=== PATIENT | female | born 1940 | race Caucasian/White ===

== ENCOUNTER 2023-08-12 10:13 | Outpatient (OUT) | payer MEDICARE, SELFPAY ==
--- NOTE | 2023-08-12 10:28 | ECG_ITS ---
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
--- NOTE | 2023-08-12 11:03 | XR_ITS ---
The [address] [address] Patient Name: JOVON ROJAS MRN: [id number] date: 1940 Sex: F Assigned Patient Location: CARD Current Patient Location: CARD Accession/Order Number: [id number] Exam Date: 08/12/2023 10:55 Report Date: 08/12/2023 11:13 At the request of: BLADIMIR WAKEFIELD Procedure: XR chest 2V EXAM: XR chest 2V HISTORY: Chest Pain R07.9, Fatigue R53.83 COMPARISON: None. TECHNIQUE: PA and lateral views of the chest. FINDINGS: The cardiomediastinal silhouette is enlarged. No focal consolidation is identified. There is no pneumothorax. No pleural effusion is noted. The osseous structures are intact. XR/XR chest 2V IMPRESSION: Cardiomegaly. Electronically authenticated by: SRIKANTH HOFFMANN Date: 08/12/2023 11:13
[2023-08-12 11:25] LABS: Basophils Percent Auto 0.4 % (0.2-2.0); Eosinophils Absolute Auto 0.2 10^3/uL (0.0-0.7); Eosinophils Percent Auto 2.5 % (0.9-7.0); Hematocrit 42.6 % (36.0-48.0); Hemoglobin 13.9 g/dL (12.0-16.0); Immature Granulocytes Abs Auto 0.04 10^3/uL (0.00-0.03); Immature Granulocytes Pct Auto 0.5 % (0.0-0.5); Lymphocytes Absolute Auto 1.3 10^3/uL (1.2-3.8); Lymphocytes Percent Auto 16.7 % (20.5-60.0); Mean Corpuscular HGB Conc 32.6 g/dL (29.9-35.2); Mean Corpuscular Hemoglobin 31.7 pg (26.7-34.0); Mean Platelet Volume 10.3 fL (9.5-13.5); Monocytes Absolute Auto 0.7 10^3/uL (0.3-0.8); Monocytes Percent Auto 8.2 % (1.7-12.0); Neutrophils Absolute Auto 5.7 10^3/uL (1.4-6.5); Neutrophils Percent Auto 71.7 % (43.0-75.0); Platelet Count 253 10^3/uL (150-450); Red Blood Count 4.39 10^6/uL (4.20-5.40); Red Cell Distribution Width 13.2 % (11.0-15.0)
[2023-08-12 11:43] LABS: Alanine Aminotransferase 19 U/L (14-59); Albumin Globulin Ratio 1.2; Albumin Level 3.8 g/dL (3.4-5.0); Alkaline Phosphatase 107 U/L (46-116); Anion Gap 11.4; Aspartate Amino Transferase 13 U/L (15-37); BUN Creatinine Ratio 22.9; Bilirubin Total 0.8 mg/dL (0.2-1.0); Calcium 8.9 mg/dL (8.5-10.1); Carbon Dioxide 27.5 mmol/L (21.0-32.0); Chloride 102 mmol/L (98-107); Chol HDL Ratio 3.4; Cholesterol 266 mg/dL (<=200); Estimated GFR (African America >60 (>=60); Estimated GFR (Non-African Ame >60 (>=60); Globulin 3.3 g/dL; Glucose 78 mg/dL (74-106); HDL Cholesterol 78 mg/dL (40-60); Magnesium 2.3 mg/dL (1.8-2.4); Potassium 3.9 mmol/L (3.5-5.1); Sodium 137 mmol/L (136-145); Thyroid Stimulating Hormone 2.559 uIU/mL (0.358-3.740); Total Protein 7.1 g/dL (6.4-8.2); Triglycerides 51 mg/dL (<=150); VLDL CHOLESTEROL 10.2 mg/dL
== END 2023-08-12 10:14 | disposition home or self-care (01) ==
LOC: CARD 10:16
PROVIDERS: PCP Family Medicine
DX: R07.9 Chest pain, unspecified (principal); R53.83 Other fatigue; E55.9 Vitamin D deficiency, unspecified; E78.2 Mixed hyperlipidemia; R60.0 Localized edema; Z13.220 Encounter for screening for lipoid disorders; Z13.6 Encounter for screening for cardiovascular disorders
CPT/HCPCS: 36415; 71046; 80053; 80061; 82306; 83735; 84443; 85025; 93005

== ENCOUNTER 2024-02-15 13:21 | Observation (INO) | payer MEDICARE, SELFPAY ==
[2024-02-15] VITALS (24 sets, daily range): BP systolic 127–164; BP diastolic 66–90; PULSE 71–149; TEMP 35.4–36.6; O2SAT 92–98; BMI 25.7; BMI 28.6
--- NOTE | 2024-02-15 13:22 | ECG_ITS ---
The [facility] Test Date: 2024-02-15 Pat Name: JOVON ROJAS Department: Room: 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
--- NOTE | 2024-02-15 13:22 | CT_ITS ---
The [address] [address] Patient Name: JOVON ROJAS MRN: [id number] date: 1940 Sex: F Assigned Patient Location: ER Current Patient Location: Accession/Order Number: [id number] Exam Date: 02/15/2024 14:40 Report Date: 02/15/2024 15:11 At the request of: RITA PACKER Procedure: CT head/brain wo con CT HEAD WITHOUT CONTRAST. INDICATION: Fall. COMPARISON: None available for comparison TECHNIQUE: Axial CT head images from the skull base to the vertex without IV contrast were acquired. Coronal and sagittal reformats were also obtained. FINDINGS: EXTRA-AXIAL SPACE: Age-appropriate ventricles. No acute extra-axial collection. No extra-axial mass. No midline shift. CEREBRUM: There are areas of periventricular and deep white matter low-attenuation, which is nonspecific1.. No CT evidence of acute large territorial cortical infarct, hemorrhage or mass effect. CEREBELLUM: No focal abnormality. No CT evidence of acute infarct, hemorrhage or mass effect. BRAINSTEM: No focal abnormality. No CT evidence of acute infarct, hemorrhage or mass effect. EXTRACRANIAL STRUCTURES. The paranasal sinuses are clear. Mastoid air cells are clear. Orbits are unremarkable. No discrete pituitary mass. Intact calvarium. CT/CT head/brain wo con IMPRESSION: No acute intracranial abnormality. Electronically authenticated by: LEILANI ACOSTA Date: 02/15/2024 15:11
--- NOTE | 2024-02-15 13:22 | XR_ITS ---
The [address] [address] Patient Name: JOVON ROJAS MRN: [id number] date: 1940 Sex: F Assigned Patient Location: ER Current Patient Location: ER Accession/Order Number: [id number] Exam Date: 02/15/2024 14:40 Report Date: 02/15/2024 15:12 At the request of: RITA PACKER Procedure: XR pelvis 1-2V PROCEDURE: XR pelvis 1-2V HISTORY: fall ; left hip pain COMPARISON: None. FINDINGS: BONES:Suspect fracture of right inferior pubic ramus. Mild degenerative changes of hip joints bilaterally. SOFT TISSUES:No visible soft tissue swelling. EFFUSION:None visible. OTHER: Negative. XR/XR pelvis 1-2V IMPRESSION: 1. Suspect nondisplaced fracture of right inferior pubic ramus. It is noted that history describes left hip pain. 2. Mild degenerative joint disease bilaterally. No appreciable acute abnormality of the hips. Electronically authenticated by: ANN MARIE WALSH Date: 02/15/2024 15:12
--- NOTE | 2024-02-15 13:22 | CT_ITS ---
The [address] [address] Patient Name: JOVON ROJAS MRN: [id number] date: 1940 Sex: F Assigned Patient Location: ER Current Patient Location: ER Accession/Order Number: [id number] Exam Date: 02/15/2024 14:40 Report Date: 02/15/2024 15:14 At the request of: RITA PACKER Procedure: CT cervical spine wo con CT CERVICAL SPINE WITHOUT IV CONTRAST. INDICATION: Fall. COMPARISON: There are no prior studies available for comparison. TECHNIQUE: CT of the cervical spine without contrast. Orthogonal sagittal and coronal multiplanar reformatted images were created. . FINDINGS: BONY ALIGNMENT: There is normal cervical lordosis. No spondylolisthesis. VERTEBRAL BODY: No acute fracture of the cervical spine. Intervertebral disc spaces are intact. CENTRAL CANAL/NEURAL FORAMINA: No high-grade central canal or neuroforaminal stenosis. SOFT TISSUE: No mass or inflammation. UPPER LUNGS: No acute findings. CT/CT cervical spine wo con IMPRESSION: No acute cervical spinal fracture. Electronically authenticated by: LEILANI ACOSTA Date: 02/15/2024 15:14
--- NOTE | 2024-02-15 13:22 | XR_ITS ---
The [address] [address] Patient Name: JOVON ROJAS MRN: [id number] date: 1940 Sex: F Assigned Patient Location: ER Current Patient Location: ER Accession/Order Number: [id number] Exam Date: 02/15/2024 14:40 Report Date: 02/15/2024 15:15 At the request of: RITA PACKER Procedure: XR chest 1V EXAMINATION: XR chest 1V, , 02/15/2024 2:40 PM EDT INDICATION: fall HISTORY: Ordering Provider Reason for Exam: fall Technologist Note: Additional: COMPARISON: None. TECHNIQUE: Chest x-ray: One view. FINDINGS: Mild right lung base scar/atelectasis is seen. Mild increase hazy changes are also seen in the left lower lung, which may represent atelectatic changes. However, small hazy left lower lung infiltrate cannot be entirely excluded. Please correlate clinically and obtain follow-up imaging as clinically indicated. No significant pleural effusion or obvious pneumothorax is seen. Mild diffuse bony demineralization is seen. Heart is normal in size. XR/XR chest 1V IMPRESSION: Mild right lung base scar/atelectasis is seen. Mild increase hazy changes are also seen in the left lower lung, which may represent atelectatic changes. However, small hazy left lower lung infiltrate cannot be entirely excluded. Please correlate clinically and obtain follow-up imaging as clinically indicated. Electronically authenticated by: RICO BARLOW Date: 02/15/2024 15:15
--- NOTE | 2024-02-15 13:32 | ED_ITS ---
HPI HPI - General Adult General Chief complaint: Fall Stated complaint: head injury/fall Time Seen by Provider: 02/15/24 13:22 Source: patient Mode of arrival: ambulance Limitations: no limitations History of Present Illness HPI narrative: Patient is an 83-year-old female who presents to the emergency department by ambulance for evaluation of generalized weakness and inability to ambulate. Patient states that she was going to the bathroom around 4 AM, approximately 10 hours ago when she missed the toilet and fell on her bottom. She denies hitting her head or any areas of pain but was unable to get herself back to her power chair. She arrives to the emergency department covered in stool. She has a history of MS, she is not on any chronic medications for her MS. She denies any recent illness. She lives at home alone and typically gets around her home with her walker or power chair. Related Data Home Medications ?Medication ?Instructions ?Recorded ?Confirmed aspirin 81 mg chewable tablet 1 tab PO DAILY 02/15/24 02/15/24 dorzolamide 22.3 mg-timolol 6.8 1 drp ophthalmic (eye) BID 02/15/24 02/15/24 mg/mL eye drops furosemide 20 mg tablet 20 mg PO DAILY 02/15/24 02/15/24 isosorbide mononitrate 60 mg 60 mg PO BID 02/15/24 02/15/24 tablet,extended release 24 hr latanoprost 0.005 % eye drops 1 drp ophthalmic (eye) QPM 02/15/24 02/15/24 metoprolol tartrate 25 mg tablet 25 mg PO BID 02/15/24 02/15/24 spironolactone 25 mg tablet 25 mg PO DAILY 02/15/24 02/15/24 Allergies Allergy/AdvReac Type Severity Reaction Status Date / Time Penicillins Allergy Severe Verified 02/15/24 13:23 Opioid HPI Opioid Management Most Recent Opioid Data: Last ED Pain Assessment 02/15/24 15:27 Review of Systems ROS Constitutional Denies: fever or chills Ears, nose, mouth, and throat Denies: throat pain or nasal congestion Cardiovascular Denies: chest pain Respiratory Denies: shortness of breath Gastrointestinal Denies: abdominal pain, nausea or vomiting Integumentary/Breast Denies: rash Neurological Denies: headache Hematologic/Lymphatic Denies: easy bruising or easy bleeding Exam Narrative Exam Narrative: Gen.: Awake, alert, in no distress Head: Normocephalic, atraumatic ENT: Moist mucous membranes, C-spine nontender Respiratory: No respiratory distress, lungs clear bilaterally Cardio: Regular rate and rhythm Back: Stage I decubitus ulcer with minimal skin breakdown of the right buttock, approximately 4 cm. No obvious deformity, abrasions or lacerations of the T- spine or L-spine Gastrointestinal: Abdomen is soft, nondistended and nontender to palpation Extremities: Moves extremities equally, no injuries noted Psych: Normal mood and affect Neuro: No focal neuro deficit Skin: Warm, dry, intact Constitutional Vital Signs, click to edit/add: Last Vital Signs Temp 97.8 F 02/15/24 13:24 Pulse 102 H 02/15/24 14:00 Resp 18 02/15/24 14:00 BP 127/69 02/15/24 15:15 Pulse Ox 94 L 02/15/24 15:20 O2 Del Method Room Air 02/15/24 13:24 Course Vital Signs Vital signs: Vital Signs Temperature 97.8 F 02/15/24 13:24 Pulse Rate 112 H 02/15/24 13:24 Respiratory Rate 20 02/15/24 13:24 Blood Pressure 164/90 H 02/15/24 13:24 Pulse Oximetry 98 02/15/24 13:24 Oxygen Delivery Method Room Air 02/15/24 13:24 Temperature 97.8 F 02/15/24 13:24 Pulse Rate 102 H 02/15/24 14:00 Respiratory Rate 18 02/15/24 14:00 Blood Pressure 127/69 02/15/24 15:15 Pulse Oximetry 94 L 02/15/24 15:20 Oxygen Delivery Method Room Air 02/15/24 13:24 Medical Decision Making MDM Narrative Medical decision making narrative: Patient treated with IV fluids. Lab studies are stable with mild dehydration and minimal urinary tract infection. Patient sent for CTs of the head, C-spine, chest and pelvis. There is a questionable hazy atelectasis versus infiltrate on the chest x-ray although the patient has had no fevers or upper respiratory illness and denies a cough. Patient is also noted to have a suspected nondisplaced fracture of the right inferior pubic ramus on x-rays. She was medicated with fluids and Rocephin in the ER, declined pain medication. She has stable vital signs in the ER. She is admitted for observation for treatment of the UTI and PT/OT. Admitted to hospitalist service. Medical Records Medical records reviewed: Yes I reviewed the patient's medical records Lab Data Lab results reviewed: Yes I reviewed the patient's lab results Labs: Lab Results 02/15/24 02/15/24 Range/Units 13:43 13:49 WBC 10.9 (4.0-11.0) 10^3/uL RBC 4.63 (4.20-5.40) 10^6/uL Hgb 14.4 (12.0-16.0) g/dL Hct 44.6 (36.0-48.0) % MCV 96.3 (81.0-99.0) fL MCH 31.1 (26.7-34.0) pg MCHC 32.3 (29.9-35.2) g/dL RDW 14.2 (11.0-15.0) % Plt Count 252 (150-450) 10^3/uL MPV 10.4 (9.5-13.5) fL Neut % (Auto) 85.3 H (43.0-75.0) % Lymph % (Auto) 6.2 L (20.5-60.0) % [place] % (Auto) 7.7 (1.7-12.0) % Eos % (Auto) 0.1 L (0.9-7.0) % Baso % (Auto) 0.3 (0.2-2.0) % Neut # (Auto) 9.3 H (1.4-6.5) 10^3/uL Lymph # (Auto) 0.7 L (1.2-3.8) 10^3/uL [place] # (Auto) 0.8 (0.3-0.8) 10^3/uL Eos # (Auto) 0.0 (0.0-0.7) 10^3/uL Baso # (Auto) 0.0 (0.0-0.1) 10^3/uL Abs Immat Gran (auto) 0.04 H (0.00-0.03) 10^3/uL Imm/Tot Granulo (auto) 0.4 (0.0-0.5) % PT 9.8 (9.0-11.6) sec INR <0.93 Sodium 140 (136-145) mmol/L Potassium 3.8 (3.5-5.1) mmol/L Chloride 103 (98-107) mmol/L Carbon Dioxide 23.5 (21.0-32.0) mmol/L Anion Gap 17.3 BUN 22.0 H (7.0-18.0) mg/dL Creatinine 0.85 (0.55-1.02) mg/dL Est GFR ( Amer) >60 (>=60) Est GFR (Non-Af Amer) >60 (>=60) BUN/Creatinine Ratio 25.9 Glucose 97 (74-106) mg/dL Lactate 1.3 (0.4-2.0) mmol/L Calcium 9.6 (8.5-10.1) mg/dL Total Bilirubin 1.2 H (0.2-1.0) mg/dL AST 25 (15-37) U/L ALT 28 (14-59) U/L Alkaline Phosphatase 123 H (46-116) U/L Total Creatine Kinase 191 (26-192) U/L Troponin I High Sens 39.2 (4.0-51.3) pg/mL Total Protein 7.4 (6.4-8.2) g/dL Albumin 4.0 (3.4-5.0) g/dL Globulin 3.4 g/dL Albumin/Globulin Ratio 1.2 TSH 1.559 (0.358-3.740) uIU/mL Urine Color Lt. yellow (YELLOW) Urine Clarity Clear (CLEAR) Urine pH 6.0 (5.0-9.0) Ur Specific [place] 1.020 (1.005-1.025) Urine Protein Negative (NEG/TRACE) mg/dL Urine Glucose (UA) Negative (NEGATIVE) mg/dL Urine Ketones 40 A (NEGATIVE) mg/dL Urine Occult Blood Negative (NEGATIVE) Urine Nitrite Negative (NEGATIVE) Urine Bilirubin Negative (NEGATIVE) Urine Urobilinogen 1.0 (0.2-1.0) EU/dL Ur Leukocyte Esterase Trace A (NEGATIVE) Urine RBC None seen (0-2) #/HPF Urine WBC 5-10 A (NONE SEEN) #/HPF Ur Squamous Epith Cells Few A (NONE/RARE) #/LPF Urine Bacteria Large A (NONE SEEN) #/HPF Urine Mucus None seen (NONE SEEN) Ur Culture Indicated? Yes Imaging Data CT scan - head: Radiologist's impression: ITS Impressions Cervical Spine CT 02/15/24 13:22 IMPRESSION: No acute cervical spinal fracture. Electronically authenticated by: LEILANI ACOSTA Date: 02/15/2024 15:14 Chest X-Ray 02/15/24 13:22 IMPRESSION: Mild right lung base scar/atelectasis is seen. Mild increase hazy changes are also seen in the left lower lung, which may represent atelectatic changes. However, small hazy left lower lung infiltrate cannot be entirely excluded. Please correlate clinically and obtain follow-up imaging as clinically indicated. Electronically authenticated by: RICO BARLOW Date: 02/15/2024 15:[address] 02/15/24 13:22 IMPRESSION: No acute intracranial abnormality. Electronically authenticated by: LEILANI ACOSTA Date: 02/15/2024 15:11 Pelvis X-Ray 02/15/24 13:22 IMPRESSION: 1. Suspect nondisplaced fracture of right inferior pubic ramus. It is noted that history describes left hip pain. 2. Mild degenerative joint disease bilaterally. No appreciable acute abnormality of the hips. Electronically authenticated by: ANN MARIE WALSH Date: 02/15/2024 15:12 ECG Data Attestation: I personally reviewed and interpreted this ECG as follows: (Normal sinus rhythm at a rate of [address] elevation or ectopy. EKG reviewed by attending physician. Artifact noted) Discharge Plan Discharge Chief Complaint: Fall Clinical Impression: Closed pelvic fracture, Acute UTI, Fall Patient Disposition: Admitted as Observation Time of Disposition Decision: 15:40 Prescriptions / Home Meds: No Action furosemide 20 mg tablet 20 mg PO DAILY latanoprost 0.005 % drops 1 drp OPHTHALMIC (EYE) QPM spironolactone 25 mg tablet 25 mg PO DAILY aspirin 81 mg tablet,chewable 1 tab PO DAILY isosorbide mononitrate 60 mg tablet extended release 24 hr 60 mg PO BID metoprolol tartrate 25 mg tablet 25 mg PO BID dorzolamide-timolol 22.3-6.8 mg/mL drops 1 drp OPHTHALMIC (EYE) BID Print Language: Dutch Referrals: MAYRA RUIZ [Primary Care Provider] - 1 week
--- OUTSIDE RECORDS SUMMARY | 2024-02-15 13:53 | XMS_ITS | CCD ---
Author Organization [facility] Care Team Providers Care Glass Etcher Helper Name Role Phone SHAIKH Enrique TIRADO Admitting Unavailable DEQUAN ., DR SYKES Consulting Unavailable PAREKH ., DR PARVIZ Grimes Primary Care Unavailable SHAIKH Enrique TIRADO Attending Unavailable ANN MARIE WALSH Consulting Unavailable PAY ., DR CARRILLO Consulting Unavailable SHAIKH Enrique TIRADO Consulting Unavailable ARSLAN MONTEJO Consulting Unavailable HONG ANDERSON Consulting Unavailable ALLISON DOWLING Consulting Unavailable BLADIMIR GARCIA Admitting Unavailable BLADIMIR GARCIA Attending Unavailable ANN MARIE WALSH Consulting Unavailable LILLIAM ., DR PARVIZ Grimes Primary Care Unavailable BLADIMIR GARCIA Consulting Unavailable Lio Batista Primary Care Physician [phone] DARCY RICO Attending Unavailable Lio Batista Attending Unavailable Lio Batista Attending Unavailable Lio Batista Attending Unavailable Lio Batista Attending Unavailable Lio Batista Attending Unavailable Lio Batista Admitting Unavailable Lio Batista Attending Unavailable Lio Batista Attending Unavailable Lio Batista Attending Unavailable Allergies Allergy Classification Reported Allergen(s) Allergy Type Date of Onset Reaction(s) Facility (1 source) Penicillins Drug allergy (disorder) 1 [facility] Repository (1 source) No Known Medication Allergies; Translations: [No Known Medication Allergies] Propensity to adverse reactions (disorder) [facility] Repository Medications Current Medications Medication Drug Class(es) Dates Sig (Normalized) Sig (Original) acetaminophen 325 mg / HYDROcodone bitartrate 5 mg oral tablet (1 source) Opioid Agonist Start: 08-30-2023 acetaminophen-hydro codone 325 mg-5 mg oral tablet 1 tab(s), Oral, TID as needed for pain, 30 tab(s), Refill(s) 0, as needed for pain, [employer] [facility], 153, cm, 08/30/23 13:15:00 EST, Height/Length Dosing, 70.1, kg, 08/30/23 13:15:00 EST, Weight Dosing Start Date: 08/30/23 Status: Ordered ascorbic acid 500 mg oral tablet (1 source) Vitamin C Start: 03-24-2023 take 500 mg by mouth once daily Vitamin C 500 mg, Oral, Daily, Refills(s) 0 Start Date: 03/24/23 Status: Ordered aspirin 325 mg oral tablet (1 source) Platelet Aggregation Inhibitor, Nonsteroidal Anti-inflammatory Drug Start: 08-30-2023 take 1 tablet by mouth once daily aspirin 325 mg Tab 325 mg = 1 tab(s), Oral, Daily, Refills(s) 0 Start Date: 08/30/23 Status: Ordered B-12 (1 source) Start: 03-24-2023 B-12 Oral, Daily, Refills(s) 0 Start Date: 03/24/23 Status: Ordered dorzolamide 20 mg/ml ophthalmic solution (1 source) Carbonic Anhydrase Inhibitor Start: 03-09-2023 dorzolamide Opth 2% Olivia 1 drop(s), OPTH, TID, 10 mL, Refill(s) 0 Start Date: 03/09/23 Status: Ordered furosemide 20 mg oral tablet (1 source) Loop Diuretic Start: 03-03-2023 take 1 tablet by mouth once daily furosemide 20 mg Tab 20 mg = 1 tab(s), Oral, Daily, Refills(s) 0 Start Date: 03/03/23 Status: Ordered Handicap Placard (1 source) Start: 07-20-2023 Handicap Placard Handicap Placard, See Instructions, 1 EA, 0, Expires in 10 years., Supply Start Date: 07/20/23 Status: Ordered latanoprost 0.05 mg/ml ophthalmic solution (1 source) Prostaglandin Analog Start: 03-09-2023 latanoprost Opth 0.005% Olivia 1 drop(s), OPTH, Once a day (at bedtime), 2.5 mL, Refill(s) 0 Start Date: 03/09/23 Status: Ordered lidocaine 0.05 mg/mg medicated patch (1 source) Antiarrhythmic, Amide Local Anesthetic Start: 08-30-2023 lidocaine Top 5% film Patch 1 patch(es), Topical, Daily, 30 patch(es), Refill(s) 0, apply 12 hours on and 12 hours off daily, [employer], 153, cm, 08/30/23 13:15:00 EST, Height/Length Dosing, 70.1, kg, 08/30/23 13:15:00 EST, Weight Dosing Start Date: 08/30/23 Status: Ordered Misc Medication (1 source) Start: 03-24-2023 Misc Medication Vit D3 5000 international units, Daily Start Date: 03/24/23 Status: Ordered nitroglycerin 0.4 mg sublingual tablet (1 source) Nitrate Vasodilator Start: 03-03-2023 nitroglycerin 0.4 mg sublingual Tab See Instructions, PRN for chest pain, 1 tab(s) SubLingual for chest pain, may repeat in 5 minutes and again in 5 minutes if discomfort not gone go to ER immediately, Refills(s) 0 Start Date: 03/03/23 Status: Ordered spironolactone 25 mg oral tablet (1 source) Aldosterone Antagonist Start: 03-09-2023 take 1 tablet by mouth once daily spironolactone 25 mg Tab 25 mg = 1 tab(s), Oral, Daily, # 90 tab(s), Refills(s) 0 Start Date: 03/09/23 Status: Ordered Vitamin E (1 source) Start: 03-24-2023 vitamin E 400 International_Unit, Oral, Daily, Refills(s) 0 Start Date: 03/24/23 Status: Ordered Problems Active Problems Problem Classification Problem Date Documented Date Episodic/Chronic Bacterial infection; unspecified site (1 source) 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 Congestive heart failure; nonhypertensive (1 source) Chronic systolic heart failure 04-28-2023 Chronic Coronary atherosclerosis and other heart disease (1 source) Angina pectoris 03-03-2023 Chronic Disorders of lipid metabolism (1 source) Hypercholesterolemia 03-03-2023 Chronic E Codes: Fall (1 source) Unspecified fall, initial encounter; Translations: [UNSPECIFIED FALL INITIAL ENCOUNTER] Onset: 02-18-20 Episodic Essential hypertension (1 source) Essential (primary) hypertension; Translations: [ESSENTIAL PRIMARY HYPERTENSION] Onset: 02-18-20 Chronic Glaucoma (1 source) Glaucoma 03-03-2023 Chronic Malaise and fatigue (3 sources) Weakness; Translations: [Other fatigue] Onset: 04-30-2003-03-2023 Episodic Multiple sclerosis (2 sources) Multiple sclerosis; Translations: [Multiple sclerosis] Onset: 02-18-2003-03-2023 Chronic Nutritional deficiencies (2 sources) Vitamin D deficiency, unspecified; Translations: [Vitamin D deficiency] Onset: 04-30-2003-03-2023 Chronic Osteoarthritis (1 source) Osteoarthritis of knee 03-03-2023 Chronic 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; Translations: [SALES MGR CURRENT USE OF ASPIRIN] Onset: 02-18-20 Episodic Other aftercare (1 source) Other residential (current) drug therapy; Translations: [OTH SALES MGR CURRENT DRUG THERAPY] Onset: 02-18-20 Episodic Other connective tissue disease (1 source) Other specified soft tissue disorders; Translations: [OTHER SPEC SOFT TISSUE DISORDERS] Onset: 02-18-20 Episodic Other connective tissue disease (1 source) Repeated falls; Translations: [REPEATED FALLS] Onset: 02-18-20 Episodic Other connective tissue disease (1 source) Recurrent falls 08-30-2023 Episodic Other fractures (1 source) Other fracture of first lumbar vertebra, initial encounter for closed fracture; Translations: [OTH FX FIRST LUMB VERT INIT CLOS FX] Onset: 02-18-20 Episodic Other fractures (1 source) Closed fracture of first lumbar vertebra 04-28-2023 Episodic Other gastrointestinal disorders (1 source) Constipation, unspecified; Translations: [CONSTIPATION UNSPECIFIED] Onset: 02-18-20 Episodic Other injuries and conditions due to external causes (1 source) At risk for falls 03-09-2023 Episodic Other nervous system disorders (1 source) Other abnormalities of gait and mobility; Translations: [OTHER ABNORMALITIES GAIT AND MOBILITY] Onset: 02-18-20 Episodic Other upper respiratory disease (1 source) Allergic rhinitis 03-03-2023 Chronic Residual codes; unclassified (1 source) Dependence on wheelchair 03-24-2023 Chronic Residual codes; unclassified (1 source) Do not resuscitate; Translations: [DO NOT RESUSCITATE] Onset: 05-10-20 23 Episodic Unclassified (2 sources) LOW BACK PAIN, UNSPECIFIED; Translations: [LOW BACK PAIN, UNSPECIFIED] Onset: 02-18-20 23 Unclassified (1 source) CONTACT W/AND (SUSP) EXPOS COVID-19; Translations: [CONTACT W/AND (SUSP) EXPOS COVID-19] Onset: 02-18-20 23 Unclassified (1 source) Influenza vaccination declined 08-30-2023 Past or Other Problems Problem Classification Problem Date Documented Da te Episodic/Chronic Nonspecific chest pain (4 sources) Chest pain, unspecified; Translations: [CHEST PAIN UNSPECIFIED] Onset: 04-28-2022 Episodic Other screening for suspected conditions (not mental disorders or infectious disease) (1 source) Encounter for screening for lipoid disorders; Translations: [ENC SCREENING FOR LIPOID DISORDERS] Onset: 04-30-2022 Episodic Unclassified (1 source) LOW BACK PAIN, UNSPECIFIED; Translations: [LOW BACK PAIN, UNSPECIFIED] Onset: 02-08-2023 Results Test Name Value Interpretation Reference Range Facil it Physician Orderon 10-14-2023 Physician Order [id number]#1.0 0TIFF [facility] Physician Order [id number] 0TIFF [facility] Home Health Recordson 2023 Home Health Records [id number] 0TIFF [facility] Home Health Recordson 2022 Home Health Records [id number] 0TIFF [facility] Physician Referralon 023 Physician Referral [id number] 0TIFF [facility] Ambulatory Visit Summaryon 1 10-30-2022 Ambulatory Visit Summary JOVON ROJAS :1940 Visit Date:08/30/2023 Ambulatory Visit Instructions Your Diagnosis Chronic systolic heart failure Multiple sclerosis BMI 29.0-29.9,adult Hypercholesterolemia Vitamin D deficiency Uses wheelchair Influenza vaccine refused Multiple falls Over weight Nonsmoker Closed fracture of first lumbar vertebra with routine healing Your Care Team Attending Physician - Lio Batista MD Primary Care Physician - Lio Batista MD. This Is Your Medications List acetaminophen-hydrocod one (acetaminophen-hydroco done 325 mg-5 mg oral tablet) lidocaine topical (lidocaine Top 5% film Patch) Contact prescribing physician if questions or concerns Misc Prescription (Handicap Placard) Non-Formulary Medication (Misc Medication) ascorbic acid (Vitamin C) aspirin (aspirin 325 mg Tab) cyanocobalamin (B-12) dorzolamide ophthalmic (dorzolamide Opth 2% Olivia) furosemide (furosemide 20 mg Tab) latanoprost ophthalmic (latanoprost Opth 0.005% Olivia) nitroglycerin (nitroglycerin 0.4 mg sublingual Tab) spironolactone (spironolactone 25 mg Tab) vitamin E Procedures Performed None. Discharge Vitals Temperature (Temporal Artery) 36.9 ?C Heart Rate (Peripheral) 64 Respiratory Rate 16 Blood Pressure 112/70 Height 153 cm Height 60 in Weight 70.1 kg Weight 154.22 lb BMI 29.95 What to do next Scheduled Follow-Up Appointments Wednesday 1:00 PM EDT With: Lio Batista MD Where: [place] [phone]- \.br\ Medications\.br\ What How Much When Instructions\.br \ Changed acetaminophen-hy drocodone (acetaminophen-h ydrocodone 325 mg-5 mg oral tablet) 1 Tablets By Mouth 3 times a day as needed for as needed for pain as needed for pain Pickup at [facility]\.br\ Unchanged lidocaine topical (lidocaine Top 5% film Patch) 1 Patches Topical Every day apply 12 hours on and 12 hours off daily Pickup at [facility] #72\.br\ Unchanged ascorbic acid (Vitamin C) 500 Milligram By Mouth Every day Contact prescribing physician if questions or concerns \.br\ Unchanged aspirin (aspirin 325 mg Tab) 1 Tablets By Mouth Every day Contact prescribing physician if questions or concerns \.br\ Unchanged cyanocobalamin (B-12) By Mouth Every day Contact prescribing physician if questions or concerns \.br\ Unchanged dorzolamide ophthalmic (dorzolamide Opth 2% Olivia) 1 Drops Ophthalmic 3 times a day Contact prescribing physician if questions or concerns \.br\ Unchanged furosemide (furosemide 20 mg Tab) 1 Tablets By Mouth Every day Contact prescribing physician if questions or concerns \.br\ Unchanged latanoprost ophthalmic (latanoprost Opth 0.005% Olivia) 1 Drops Ophthalmic Once a day (at bedtime) Contact prescribing physician if questions or concerns \.br\ Unchanged Misc Prescription (Handicap Placard) See instructions Expires in 10 years. Contact prescribing physician if questions or concerns \.br\ Unchanged nitroglycerin (nitroglycerin 0.4 mg sublingual Tab) See instructions 1 tab(s) SubLingual for chest pain, may repeat in 5 minutes and again in 5 minutes if discomfort not gone go to ER immediately Contact prescribing physician if questions or concerns \.br\ Unchanged Non-Formulary Medication (Misc Medication) Vit D3 5000 international units Every day Contact prescribing physician if questions or concerns \.br\ Unchanged spironolactone (spironolactone 25 mg Tab) 1 Tablets By Mouth Every day Contact prescribing physician if questions or concerns \.br\ Unchanged vitamin E 400 International unit By Mouth Every day Contact prescribing physician if questions or concerns \.br\ Pharmacy Information\.br\ [facility]: [address] [place], [place] [phone]\.br\ Medications and Immunizations Administered\.br \ Not Given\.br\ influenza virus vaccine, inactivated, Patient Refuses\.br\ Allergies\.br\ No Known Medication Allergies\.br\ Problems\.br\ Ongoing - Any problem that you are currently receiving treatment for.\.br\ Allergic rhinitis\.br\ Angina pectoris\.br\ Bartonellosis\.b r\ Chronic systolic heart failure\.br\ Closed fracture of first lumbar vertebra with routine healing\.br\ Fatigue\.br\ Glaucoma\.br\ Hypercholesterol emia\.br\ Influenza vaccine refused\.br\ Multiple falls\.br\ Multiple sclerosis\.br\ Osteoarthritis of knee\.br\ Risk for falls\.br\ Uses wheelchair\.br\ Vitamin D deficiency\.br\ Patient Survey\.br\ You may receive a survey via text or e-mail asking about your office visit. Please share your experience with us by completing your survey. We appreciate your feedback and thank you for choosing us for your care.\.br\ \.br\ [facility] Auto Diffon 08-30-2023 Basophils/100 WBC (Bld) 0.4 % Normal 0.0-2.0 [facility] Comment on above: Order Comment: Order Added by Discern Expert. Performed By: #### 2 421040, 0294103, 3832449, 73403364, [id number], 76006808, 0592913 ####[facility] [address] [place] [address] Basophils/Leukocyte s Auto (Bld) [Pure # fraction] 0.0 E9/L Normal 0.0-0.2 [facility] Comment on above: Order Comment: Order Added by Discern Expert. Performed By: #### 2 950102, 5479761, 0700335, 30184347, 522831677, 50827614, 5504077 ####[place] [place] [address] Eosinophils/100 WBC (Bld) 2.9 % Normal 0.0-8.0 [facility] Comment on above: Order Comment: Order Added by Discern Expert. Performed By: #### 2 977639, 5485708, 8501145, 47590500, 838787987, 93566953, 3582936 ####[facility] [address] [place] [address] Eosinophils/Leukocy krysta Auto (Bld) [Pure # fraction] 0.1 E9/L Normal 0.0-0.5 [facility] Comment on above: Order Comment: Order Added by Discern Expert. Performed By: #### 2 516197, 2341421, 1828215, 44832313, 242053076, 88957891, 7614516 ####[address] [address] Lymphocytes/100 WBC (Bld) 21.1 % Normal 14.0-50.0 [facility] Comment on above: Order Comment: Order Added by Discern Expert. Performed By: #### 2 125791, 4627738, 1944676, 68098175, 387553140, 42581136, 6567471 ####[facility] [address] [place] [address] Lymphocytes/Leukocy krysta Auto (Bld) [Pure # fraction] 1.1 E9/L Normal 1.0-4.0 [facility] Comment on above: Order Comment: Order Added by Discern Expert. Performed By: #### 2 198224, 5545159, 2083195, 99026168, 457278605, 36146836, 3063243 ####[address] [address] Monocytes/100 WBC (Bld) 9.2 % Normal 4.0-14.0 [facility] Comment on above: Order Comment: Order Added by Discern Expert. Performed By: #### 2 869845, 6391950, 8675625, 49201016, 107076154, 63976525, 4646212 ####[address] [address] Monocytes/Leukocyte s Auto (Bld) [Pure # fraction] 0.5 E9/L Normal 0.2-1.0 [facility] Comment on above: Order Comment: Order Added by Discern Expert. Performed By: #### 2 306885, 2065139, 0780024, 38567922, 655556188, 59384629, 1520609 ####[facility] [address] [place] [address] Neutrophils/100 WBC (Bld) 66.4 % Normal 36.0-75.0 [facility] Comment on above: Order Comment: Order Added by Discern Expert. Performed By: #### 2 258793, 3957140, 6062079, 05569479, 773574356, 22558217, 8843735 ####[facility] [address] [place] [address] Neutrophils/Leukocy krysta Auto (Bld) [Pure # fraction] 3.4 E9/L Normal 2.0-7.5 [facility] Comment on above: Order Comment: Order Added by Discern Expert. Performed By: #### 2 286476, 4829219, 4383318, 87897197, 710787774, 85901992, 2978328 ####[address] [place] [address] CBC w/ Auto Diffon 3 Erythrocyte distribution width (RBC) [Ratio] 14.4 % High 10.9-14.2 [facility] Comment on above: Performed By: #### 2 154532, 0595211, 5118743, 68092303, 168937786, 67647066, 9716557 ####[address] [address] Hematocrit (Bld) [Volume fraction] 39.9 % Normal 34.0-46.0 [facility] Comment on above: Performed By: #### 2 708453, 9637157, 1543921, 32859722, 473665432, 51602306, 9054480 ####[address] [address] Hemoglobin (Bld) [Mass/Vol] 13.5 g/dL Normal 12.0-16.0 [facility] Comment on above: Performed By: #### 2 737365, 0912099, 1838722, 43026048, 986118044, 66001604, 1751797 ####[address] [place] [address] MCH (RBC) [Entitic mass] 31.6 pg Normal 27.0-34.0 [facility] Comment on above: Performed By: #### 2 741809, 7083064, 2893096, 28706956, 739589624, 56680702, 9471275 ####[address] [address] MCHC (RBC) [Mass/Vol] 33.9 g/dL Normal 31.4-36.0 [facility] Comment on above: Performed By: #### 2 943842, 5281687, 4730819, 86202098, 299349259, 68310629, 2419870 ####[address] [place] [address] MCV (RBC) [Entitic vol] 93.1 fL Normal 80.0-100.0 [facility] Comment on above: Performed By: #### 2 537668, 8567388, 3866405, 89991351, 975487324, 10424141, 9303391 ####[address] [place] [address] Platelet mean volume (Bld) [Entitic vol] 9.3 fL Normal 6.4-10.8 [facility] Comment on above: Performed By: #### 2 059085, 3852843, 6374178, 87034760, 285072747, 29548943, 4930728 ####[address] [address] Platelets (Bld) [#/Vol] 236.0 E9/L Normal 150.0-500.0 [facility] Comment on above: Performed By: #### 2 240223, 7241952, 9369350, 78889966, 419603336, 29170604, 3582478 ####[address] [address] RBC (Bld) [#/Vol] 4.3 E12/L Normal 4.3-5.9 [facility] Comment on above: Performed By: #### 2 222747, 4380719, 1689029, 59290977, 679086209, 68817267, 6522227 ####[address] [address] WBC corrected for nucl RBC Auto (Bld) [#/Vol] 5.1 E9/L Normal 4.0-11.0 [facility] Comment on above: Performed By: #### 2 514294, 9120135, 8487730, 38973783, 079376144, 30996117, 4198376 ####[facility] [address] [place] [id number] CHEMISTRYOrdered By: SYSTEM SYSTEM on 08-30-2023 25-hydroxyvitamin D3 [Mass/Vol] 24.0 ng/mL Low 30.0 - 100.0 ng/mL [facility] Comment on above: Interpretive Data: Vitamin D deficiency has been defined as a level of serum 25-OH vitamin D less than 20 ng/mL (1,2) by the [place] of [employer] and an Endocrine Society practice guideline. The Endocrine Society further defined vitamin D insufficiency as a level between 21 and 29 ng/mL (2). 1. IOM ([place] of Medicine). 2010. Dietary reference intakes for calcium and D. [place]: The National Academies Press. 2. Josh MF, Luis E EDWARDS, Mark RENDON, et al. Evaluation, treatment, and prevention of vitamin D deficiency: an Endocrine Society clinical practice guideline. JCEM. 2010; 96 (7):1911-30. Albumin [Mass/Vol] 3.7 g/dL Normal 3.3 - 5.0 gm/dL [facility] Albumin/Globulin [Mass ratio] 1.2 {ratio} Normal 1.1 - 2.2 [facility] ALP [Catalytic activity/Vol] 86 [iU]/d Normal 21 - 98 Int._Unit/L [facility] ALT No additional P-5'-P [Catalytic activity/Vol] 17 [iU]/d Normal 6 - 46 Int._Unit/L [facility] Anion gap [Moles/Vol] 9 mmol/L Normal 6 - 16 mEq/L [facility] AST [Catalytic activity/Vol] 22 [iU]/d Normal 5 - 43 Int._Unit/L [facility] Bilirubin [Mass/Vol] 0.5 mg/dL Normal 0.0 - 1.1 mg/dL [facility] Calcium [Mass/Vol] 9.1 mg/dL Normal 8.9 - 11.1 mg/dL [facility] Chloride [Moles/Vol] 110 mmol/L Normal 101 - 111 mmol/L [facility] Cholesterol [Mass/Vol] 244 mg/dL High 120 - 200 mg/dL [facility] Cholesterol in HDL [Mass/Vol] 65 mg/dL Invalid Interpretation Code [facility] Comment on above: Interpretive Data: H DL > or equal to 60 mg/dL: Low cardiovascular risk HDL < 40 mg/dL : High cardiovascular risk Cholesterol in LDL [Mass/Vol] 160 mg/dL High <=129mg/dL [facility] Cholesterol in VLDL [Mass/Vol] 15 mg/dL Normal 7 - 40 mg/dL [facility] CO2 [Moles/Vol] 24 mmol/L Normal 21 - 31 mmol/L [facility] Creatinine [Mass/Vol] 0.8 mg/dL Normal 0.5 - 1.3 mg/dL [facility] GFR/1.73 sq M.predicted among non-blacks MDRD (S/P/Bld) [Vol rate/Area] 73 mL/min/1.73 m2 Normal >=59mL/min/1.73 m2 [facility] Chem S Comment on above: Interpretive Data: C hronic kidney disease could be indicated at eGFR's of less than 60 mL/min/1.73m2. Kidney failure is indicated at less than 15 mL/min/1.73m2. Globulin (S) [Mass/Vol] 3.1 g/dL Normal 1.4 - 4.0 gm/dL [facility] Glucose [Mass/Vol] 106 mg/dL Normal 55 - 199 mg/dL [facility] Comment on above: Interpretive Data: I f this glucose result represents a fasting glucose, interpretation should refer to the following reference range: 55-99 mg/dL Potassium [Moles/Vol] 4.0 mmol/L Normal 3.5 - 5.3 mmol/L [facility] Protein [Mass/Vol] 6.8 g/dL Normal 6.0 - 7.8 gm/dL [facility] Sodium [Moles/Vol] 139 mmol/L Normal 135 - 145 mmol/L [facility] Triglyceride [Mass/Vol] 74 mg/dL Normal <=149mg/dL [facility] TSH Qn 1.83 m[IU]/L Normal 0.34 - 5.60 mcIU/mL [facility] Urea nitrogen [Mass/Vol] 23 mg/dL High 5 - 21 mg/dL [facility] Remisol Urea nitrogen/Creatinine [Mass ratio] 29 mg/mg High - [facility] Remisol CMPon 08-30-2023 Albumin [Mass/Vol] 3.7 g/dL Normal 3.3-5.0 [facility] Comment on above: Performed By: #### 2 623444, 8363967, 1879714, 42032393, 598946735, 42245238, 2013218 ####[facility] [address] [place] [address] Albumin/Globulin (S) [Mass conc ratio] 1.2 Normal 1.1-2.2 [facility] Comment on above: Performed By: #### 2 475796, 7614497, 2706167, 52744158, 237744819, 48846871, 1394978 ####[facility] [address] [place] [address] ALP [Catalytic activity/Vol] 86 Int._Unit/L Normal 21-98 [facility] Comment on above: Performed By: #### 2 662100, 6650079, 1486564, 85904828, 639104692, 70178980, 2453798 ####[facility] [address] [place] [address] ALT No additional P-5'-P [Catalytic activity/Vol] 17 Int._Unit/L Normal 6-46 [facility] Comment on above: Performed By: #### 2 390398, 0019262, 4734411, 00863583, 054789089, 80498646, 5446014 ####[facility] [address] [place] [address] Anion gap [Moles/Vol] 9 mmol/L Normal 6-16 [facility] Comment on above: Performed By: #### 2 930175, 6001997, 1387707, 33559044, 847093678, 58846298, 9882885 ####[facility] [address] [place] [address] AST [Catalytic activity/Vol] 22 Int._Unit/L Normal 5-43 [facility] Comment on above: Performed By: #### 2 088986, [id number], 6853569, 70729263, 078708456, 42817662, 8115117 ####[facility] [address] [place] [address] Bilirubin [Mass/Vol] 0.5 mg/dL Normal 0.0-1.1 [facility] Comment on above: Performed By: #### 2 692677, 1079851, 3529619, 37310376, 516824366, 85415277, 0695180 ####[facility] [address] [place] [address] Calcium [Mass/Vol] 9.1 mg/dL Normal 8.9-11.1 [facility] Comment on above: Performed By: #### 2 788962, 3311292, 1516663, 25225737, 098968653, 39832319, 1120741 ####[facility] [address] [place] [address] Chloride [Moles/Vol] 110 mmol/L Normal 101-111 [facility] Comment on above: Performed By: #### 2 593928, 3314251, 1956843, 88395683, 340634253, 96418460, 1134474 ####[facility] [address] [place] [address] CO2 [Moles/Vol] 24 mmol/L Normal 21-31 [facility] Comment on above: Performed By: #### 2 261255, 2801501, 8682452, 75624416, 613700760, 61136148, 9792984 ####[facility] [address] [place] [address] Creatinine [Mass/Vol] 0.8 mg/dL Normal 0.5-1.3 [facility] Comment on above: Performed By: #### 2 575989, 8469201, 5014401, 28335688, 823335139, 82307682, 2914074 ####[facility] [address] [place] [address] Globulin (S) [Mass/Vol] 3.1 g/dL Normal 1.4-4.0 [facility] Comment on above: Performed By: #### 2 737353, 8257129, 3857082, 56571755, 211385876, 83172850, 5604560 ####[facility] [address] [place] [address] Glucose [Mass/Vol] 106 mg/dL Normal 55-199 [facility] Comment on above: Result Comment: If t his glucose result represents a fasting glucose, interpretation should refer to the following reference range: 55-99 mg/dL Performed By: #### 2 553893, 8789525, 8768142, 75664463, 586380680, 81297904, 9211137 ####[address] [place] [address] Potassium [Moles/Vol] 4.0 mmol/L Normal 3.5-5.3 [facility] Comment on above: Performed By: #### 2 979435, 2492294, 9772391, 02949403, 748257235, 06990729, 2667537 ####[facility] [address] [place] [address] Protein [Mass/Vol] 6.8 g/dL Normal 6.0-7.8 [facility] Comment on above: Performed By: #### 2 592555, 0201832, 7627212, 77182686, 587671985, 82275091, 5803820 ####[facility] [address] [place] [address] Sodium [Moles/Vol] 139 mmol/L Normal 135-145 [facility] Comment on above: Performed By: #### 2 924026, 3955541, 7621122, 01949867, 849665216, 35479891, 4251662 ####[facility] [address] [place] [address] Urea nitrogen [Mass/Vol] 23 mg/dL High 5-21 [facility] Comment on above: Performed By: #### 2 202760, 1434881, 0534270, 74247194, 175485865, 59901440, 1363541 ####[facility] [address] [place] [address] Urea nitrogen/Creatinine [Mass ratio] 29 No Units High 10-20 [facility] Comment on above: Performed By: #### 2 140724, 8953486, 5238216, 05891336, 426654746, 51679613, 9449206 ####[facility] [address] [place] [address] Family Medicine Office/Clini c Noteon 08-30-2023 Family Medicine Office/Clinic Note HPI Staff Jovon is an 83 year old female presenting for 4 month follow up for MS, heart failure Acute having hip pain unsure if arthritis but it's caused her to fall recently it will just snap and she will drop, she's blaming it on the MS questions/concerns: needs the hydrocodone refilled flu: refused History of Present Illness - Here for follow up on her back pain. - Recently fell - Pt needs pain meds for the back. - No other issues. - Declined Flu shot. Review of Systems PHQ Score Initial Depression Screen Score: 2 SCORE Physical Exam Vitals & Measurements T: 36.9 ?C(Temporal Artery) HR: 64(Peripheral) RR: 16 BP: 112/70 SpO2: 96% HT: 60 in HT: 153 cm WT: 70.1 kg WT: 154.22 lb BMI: 29.95 General: alert, no acute distress ENMT: oral mucosa moist, Cardiovascular: regular rate and rhythm, normal peripheral perfusion Respiratory: Lungs CTA, respirations non labored Extremities: no deformity, no trauma, wheel chair bound Neurological: oriented x 4, LOC appropriate for age, CN II-XII intact, motor strength equal & normal bilaterally, speech normal Abdomen: Soft, Nontender, Non-distended, + BS Assessment/Plan 1. Chronic systolic heart failure (I50.22: Chronic systolic (congestive) heart failure) - NO issues at this time. - Will monitor - Checking labs today Ordered: Body Mass Index (BMI) documented 3008F CBC w/ Auto Diff Comprehensive Metabolic Panel Current tobacco non-user 1036F Depression Screening Negative 3352F Fall Risk Screen 2 or more w/injury 1100F [facility] Internal Ambulatory Referral Influenza immunization status assessed 1030F Lipid Panel Most recent diastolic blood pressure <80 mm Hg 3078F Systolic BP <130 mm Hg (Most Recent) 3074F TSH With T4fr Reflex Vitamin D 25 Hydroxy 2. Multiple sclerosis (G35: Multiple sclerosis) - NO issues at this time. - Will look into HHS with PT/OT as the patient is falling. - Follow up as needed Ordered: Body Mass Index (BMI) documented 3008F CBC w/ Auto Diff Comprehensive Metabolic Panel Current tobacco non-user 1036F Depression Screening Negative 3352F Fall Risk Screen 2 or more w/injury 1100F [facility] Internal Ambulatory Referral Influenza immunization status assessed 1030F Lipid Panel Most recent diastolic blood pressure <80 mm Hg 3078F Systolic BP <130 mm Hg (Most Recent) 3074F TSH With T4fr Reflex Vitamin D 25 Hydroxy 3. BMI 29.0-29.9,adult (Z68.29: Body mass index [BMI] 29.0-29.9, adult) - BMI education uploaded to the portal Ordered: Body Mass Index (BMI) documented 3008F CBC w/ Auto Diff Comprehensive Metabolic Panel Current tobacco non-user 1036F Depression Screening Negative 3352F Fall Risk Screen 2 or more w/injury 1100F [facility] Internal Ambulatory Referral Influenza immunization status assessed 1030F Lipid Panel Most recent diastolic blood pressure <80 mm Hg 3078F Systolic BP <130 mm Hg (Most Recent) 3074F TSH With T4fr Reflex Vitamin D 25 Hydroxy 4. Hypercholesterolemia (E78.00: Pure hypercholesterolemia, unspecified) - Recheck labs today Ordered: CBC w/ Auto Diff Comprehensive Metabolic Panel [facility] Internal Ambulatory Referral Lipid Panel TSH With T4fr Reflex Vitamin D 25 Hydroxy 5. Vitamin D deficiency (E55.9: Vitamin D deficiency, unspecified) - Recheck levels Ordered: CBC w/ Auto Diff Comprehensive Metabolic Panel [facility] Internal Ambulatory Referral Lipid Panel TSH With T4fr Reflex Vitamin D 25 Hydroxy 6. Uses wheelchair (Z99.3: Dependence on wheelchair) - PRN and will have PT/OT evaluate as well Ordered: CBC w/ Auto Diff Comprehensive Metabolic Panel Lipid Panel TSH With T4fr Reflex Vitamin D 25 Hydroxy 7. Influenza vaccine refused (Z28.21: Immunization not carried out because of patient refusal) - Encouraged Vaccination 8. Multiple falls (R29.6: Repeated falls) - Will do at home PT/OT. 9. Over weight (E66.3: Overweight) - Diet and exercise advised. Ordered: Body Mass Index (BMI) documented 3008F CBC w/ Auto Diff Comprehensive Metabolic Panel Current tobacco non-user 1036F Depression Screening Negative 3352F Fall Risk Screen 2 or more w/injury 1100F Influenza immunization status assessed 1030F Lipid Panel Most recent diastolic blood pressure <80 mm Hg 3078F Systolic BP <130 mm Hg (Most Recent) 3074F TSH With T4fr Reflex Vitamin D 25 Hydroxy 10. Nonsmoker (Z78.9: Other specified health status) - Please continue to not smoke. Ordered: Body Mass Index (BMI) documented 3008F CBC w/ Auto Diff Comprehensive Metabolic Panel Current tobacco non-user 1036F Depression Screening Negative 3352F Fall Risk Screen 2 or more w/injury 1100F Influenza immunization status assessed 1030F Lipid Panel Most recent diastolic blood pressure <80 mm Hg 3078F Systolic BP <130 mm Hg (Most Recent) 3074F TSH With T4fr Reflex Vitamin D 25 Hydroxy 11. Closed fracture of first lumbar vertebra with routine h (more content not included)... Normal [facility] Comment on above: Result Comment: Elec tronically Signed By: Lester NOLASCO, Lio Sparrow\.br\Date and Time Signed: 08/30/23 13:38 EST HEMATOLOGYOrdered By: SYSTEM SYSTEM on 08-30-2023 Basophils/100 WBC (Bld) 0.4 % Normal 0.0 - 2.0 % [facility] Basophils/Leukocyte s Auto (Bld) [Pure # fraction] 0.0 E9/L Normal 0.0 - 0.2 E9/L [facility] Eosinophils/100 WBC (Bld) 2.9 % Normal 0.0 - 8.0 % [facility] Eosinophils/Leukocy krysta Auto (Bld) [Pure # fraction] 0.1 E9/L Normal 0.0 - 0.5 E9/L [facility] Lymphocytes/100 WBC (Bld) 21.1 % Normal 14.0 - 50.0 % [facility] Lymphocytes/Leukocy krysta Auto (Bld) [Pure # fraction] 1.1 E9/L Normal 1.0 - 4.0 E9/L [facility] Monocytes/100 WBC (Bld) 9.2 % Normal 4.0 - 14.0 % [facility] Monocytes/Leukocyte s Auto (Bld) [Pure # fraction] 0.5 E9/L Normal 0.2 - 1.0 E9/L [facility] Neutrophils/100 WBC (Bld) 66.4 % Normal 36.0 - 75.0 % [facility] Neutrophils/Leukocy krysta Auto (Bld) [Pure # fraction] 3.4 E9/L Normal 2.0 - 7.5 E9/L [facility] HEMATOLOGYOrdered By: Vianey Moctezuma on 08-30-2023 Erythrocyte distribution width (RBC) [Ratio] 14.4 % High 10.9 - 14.2 % [facility] Hematocrit (Bld) [Volume fraction] 39.9 % Normal 34.0 - 46.0 % [facility] Hemoglobin (Bld) [Mass/Vol] 13.5 g/dL Normal 12.0 - 16.0 gm/dL [facility] MCH (RBC) [Entitic mass] 31.6 pg Normal 27.0 - 34.0 pg [facility] MCHC (RBC) [Mass/Vol] 33.9 g/dL Normal 31.4 - 36.0 gm/dL [facility] MCV (RBC) [Entitic vol] 93.1 fL Normal 80.0 - 100.0 fL [facility] Platelet mean volume (Bld) [Entitic vol] 9.3 fL Normal 6.4 - 10.8 fL [facility] Platelets (Bld) [#/Vol] 236.0 E9/L Normal 150.0 - 500.0 E9/L [facility] RBC (Bld) [#/Vol] 4.3 E12/L Normal 4.3 - 5.9 E12/L [facility] WBC corrected for nucl RBC Auto (Bld) [#/Vol] 5.1 E9/L Normal 4.0 - 11.0 E9/L [facility] Lipid Panelon 08-30-2023 Cholesterol [Mass/Vol] 244 mg/dL High 120-200 [facility] Comment on above: Performed By: #### 2 605072, 6099731, 0291698, 41667566, 340214468, 32125876, 6058247 ####[facility] [address] [place] [address] Cholesterol in HDL [Mass/Vol] 65 mg/dL Invalid Interpretation Code [facility] Comment on above: Result Comment: HDL > or equal to 60 mg/dL: Low cardiovascular risk HDL < 40 mg/dL : High cardiovascular risk Performed By: #### 2 668202, 2797264, 5830984, 80569988, 177984496, 24255856, 9180811 ####[facility] [address] [place] [address] Cholesterol in LDL [Mass/Vol] 160 mg/dL High <=129 [facility] Comment on above: Performed By: #### 2 702729, 4157600, 6860967, 07110073, 190612060, 19621359, 3605394 ####[facility] [address] [place] [address] Cholesterol in VLDL [Mass/Vol] 15 mg/dL Normal 7-40 [facility] Comment on above: Performed By: #### 2 779800, 4343993, 4466353, 81712253, 238512815, 57855856, 4051179 ####[facility] [address] [place] [address] Triglyceride [Mass/Vol] 74 mg/dL Normal <=149 [facility] Comment on above: Performed By: #### 2 352057, 0959483, 4374738, 85630188, 069585244, 42023961, 2442886 ####[facility] [address] [place] [address] TSH With T4fr Reflexon 08-30 TSH Qn 1.83 m[IU]/L Normal 0.34-5.60 [facility] Comment on above: Performed By: #### 2 948971, 7822335, 6664906, 77626653, 429742632, 41024277, 1301397 ####[facility] [address] [place] [address] Vitamin D 25 Hydroxyon 08-30 25-hydroxyvitamin D3 [Mass/Vol] 24.0 ng/mL Low 30.0-100.0 [facility] Comment on above: Result Comment: Vit hernandez D deficiency has been defined as a level of serum 25-OH vitamin D less than 20 ng/mL (1,2) by the [place] of [employer] and an Endocrine Society practice guideline. The Endocrine Society further defined vitamin D insufficiency as a level between 21 and 29 ng/mL (2). 1. IOM ([place] of Medicine). 2010. Dietary reference intakes for calcium and D. [place]: The National Academies Press. 2. Josh MF, Luis E EDWARDS, Mark RENDON, et al. Evaluation, treatment, and prevention of vitamin D deficiency: an Endocrine Society clinical practice guideline. JCEM. 2010; 96 (7):1911-30. Performed By: #### 2 508655, 5514400, 0546768, 39245368, 587287143, 15481967, 9357882 ####[facility] [address] [place] [address] eGFRon 08-30-2023 GFR/1.73 sq M.predicted among non-blacks MDRD (S/P/Bld) [Vol rate/Area] 73 mL/min/1.73 m2 Normal >=59 [facility] Comment on above: Order Comment: Order added by Discern Expert. Result Comment: City Letter Carrier julia kidney disease could be indicated at eGFR's of less than 60 mL/min/1.73m2. Kidney failure is indicated at less than 15 mL/min/1.73m2. Performed By: #### 2 058070, 0712790, 5657810, 15177633, 294725852, 05703476, 0559960 ####[facility] [address] [place] [address] RAD - MISCon 08-17-2023 RAD - MISC [id number] 0TIFF Normal [facility] Family Medicine Office/Clini c Noteon 05-03-2023 Family Medicine Office/Clinic Note Chief Complaint follow up back pain HPI Staff Jovon is a 82 year old female patient presenting to the office for a 1 month follow up for back pain for closed fx of the lumbar vetebra. Possible send to pain management if still needs the norco Date of onset? previous injury, fracture Trauma: yes, fel in February Previous Treatment: Muscle relaxant: no NSAID: just aspirin PT: yes just finished it week before Imaging: no Chiropractor: no Specialty Care: no Other: using apirin and cutting the hydrocodone in half, took 1/2 dose this morning questions/concerns: none History of Present Illness Jovon Rojas is an 82-year-old female who presents today for a follow-up evaluation. She is accompanied by an adult female. The patient states that home health was going well. She did not need it any longer. Her spine has improved. She has a history of multiple sclerosis. She is not seeing anyone for her multiple sclerosis. She is not taking any medications. Her multiple sclerosis flare-ups are worse in the spring and fall. She was on L-D for her multiple sclerosis, but it was suspended on 02/2023 after she fell. She has a history of congestive heart failure. She denies any chest pain. She has an appointment with her mushroom cutter, Dr. Garcia, at [facility] in 05/2023. She had a Medicare wellness test done on her last visit. Review of Systems PHQ Score Initial Depression Screen Score: 1 Physical Exam Vitals & Measurements T: 36.4 ?C(Oral) HR: 62(Peripheral) RR: 16 BP: 120/82 SpO2: 94% HT: 60 in HT: 153 cm WT: 69.9 kg WT: 153.78 lb BMI: 29.86 General: alert, no acute distress ENMT: oral mucosa moist, no pharyngeal erythema or exudate Cardiovascular: regular rate and rhythm, normal peripheral perfusion Respiratory: Lungs CTA, respirations non labored Extremities: no deformity, no trauma. 2+ pitting edema of the lower extremities bilaterally. Patient is ambulating with a walker. Neurological: oriented x 4, LOC appropriate for age, CN II-XII intact, motor strength equal & normal bilaterally, speech normal Assessment/Plan 1. Closed fracture of first lumbar vertebra with routine healing, unspecified fracture morphology, subsequent encounter (S32.019D: Unspecified fracture of first lumbar vertebra, subsequent encounter for fracture with routine healing) At this time, the pain has almost completely resolved. No further work-up needed. We will continue to monitor if the pain flares. 2. Chronic systolic heart failure (I50.22: Chronic systolic (congestive) heart failure) Patient is seeing her doctor, Dr. Garcia of [place] and we will have the patient follow up as needed. No signs of acute congestive heart failure today. 3. Angina pectoris (I20.9: Angina pectoris, unspecified) This is no longer an issue. Patient will continue to monitor and will see her mushroom cutter as needed. 4. Multiple sclerosis (G35: Multiple sclerosis) Patient describes some having episodes very frequently of MS flares but does not describe exactly what those are. With this we will continue to monitor. If they continue to progress, we will move forward to sending to neurology and restarting medication. 5. BMI 29.0-29.9,adult (Z68.29: Body mass index [BMI] 29.0-29.9, adult) BMI education given. 6. Overweight (E66.3: Overweight) As above We will see the patient back in 4 months. Portions of this record may have been created with voice recognition artificial intelligence software, specifically [employer], [employer] and or [email or web address]. Substitutions may have occurred due to the inherent limitations of voice recognition and artificial intelligence software. Documentation services were performed after the patient or guardian consented to allow [employer] to record this visit. NANCY hydrotechnical specialist and provider reviewed before signing. NANCY: Honey Sonal Densing Follow-up No qualifying data available Problem List/Past Medical History Ongoing Allergic rhinitis Angina pectoris Bartonellosis Chronic systolic heart failure Closed fracture of first lumbar vertebra with routine healing Fatigue Glaucoma Hypercholesterolemia Multiple sclerosis Osteoarthritis of knee Risk for falls Uses wheelchair Vitamin D deficiency Historical No qualifying data Procedure/Surgical History None. Medications aspirin 81 mg Oral EC Tab, 81 mg= 1 tab(s), Oral, Daily B-12, Oral, Daily dorzolamide Opth 2% Olivia, 1 drop(s), OPTH, TID furosemide 20 mg Tab, 20 mg= 1 tab(s), Oral, Daily isosorbide mononitrate 60 mg ER Tab, 60 mg= 1 tab(s), Oral, BID latanoprost Opth 0.005% Olivia, 1 drop(s), OPTH, Once a day (at bedtime) lidocaine Top 5% film Patch, 1 patch(es), Topical, Daily, Not taking Lopressor 25 mg oral tablet, 25 mg= 1 tab(s), Oral, BID Misc Medication, Vit D3 5000 international units, Daily nitroglycerin 0.4 mg sublingual Tab, See Instructions, PRN spironolactone 25 mg Tab, 25 mg= 1 tab( (more content not included)... [facility] Comment on above: Result Comment: Elec tronically Signed By: Lio Batista MD\.br\Date and Time Signed: 05/03/23 08:30 EDT\.br\Electronically Co-Signed By: Haleigh Kiser\.br\Date and Time Co-Signed: 04/28/23 15:29 EDT [facility] Records [id number] 0CD:127 [facility] 2022 Home Health Records [id number] 0CD:127 [facility] 2022 Home Health Records [id number] 0CD:127 [facility] Family Medicine Office/Clini c Noteon 03-29-2023 Family Medicine Office/Clinic Note Chief Complaint follow up back pain, recent fracture didn't do weight and height due to trouble walking today and risk of fall HPI Staff 2 week follow up back pain ( recent fractue) having alot of trouble walking today so she's in a wheechair Pain characteristics: Pain location: Intensity:can't say, when sitting still no pain, and it's more her hip than her back the back pain comes and goes and still using the pain med Onset: not addressed recent fracture Medication used: hydrocodone/acet Opioids prescribed: hydrocodone/acet Medication agreement UTD: _ Urine drug screen performed:_ questions/concerns: will need the pain pills refilled Has pills with her, has 13 left History of Present Illness Jovon Rojas is an 82-year-old female who presents today for a hospital discharge follow-up. Jovon states that she is doing well. She notes that she has been experiencing pain in her hips. She had trouble walking yesterday, 03/23/2023, and today, 03/24/2023. She was placed in a wheelchair today. She states that her leg is drawing up in her calf. She is still taking her Chester and aspirin for her back pain. She states that she is taking 2 Chester in the morning and 1 Chester in the evening. She notes that her pain is not as bad as it was. She feels that she is not at the point where she needs injections. She does not use Chester for her hip pain. She has tried lidocaine patches in the past, but she does not feel that she needs one right now. She has not been doing physical therapy. She also does not exercise as much as she could. She has a bicycle, but she does not use it every day. She has been falling more in the last 2 years, however, she has not fallen since she was discharged from the hospital. Review of Systems PHQ Score Initial Depression Screen Score: 1 Physical Exam Vitals & Measurements HR: 67(Peripheral) RR: 16 BP: 112/80 SpO2: 94% General: alert, no acute distress. Patient is in a wheelchair. Extremities: no deformity, no trauma Neurological: oriented x 4, LOC appropriate for age, CN II-XII intact, motor strength equal & normal bilaterally, speech normal Assessment/Plan 1. Closed fracture of lumbar vertebra with routine healing, unspecified fracture morphology, unspecified lumbar vertebral level, subsequent encounter (S32.009D: Unspecified fracture of unspecified lumbar vertebra, subsequent encounter for fracture with routine healing) At this time, we will have the patient continue using the Chester and we will start to reduce that by using a lidocaine patch. Patient is to take the lidocaine patch first, then aspirin, and then take the Chester as needed. Patient will be given another 21 days as she has 13 pills still left and then that should last her for the next month. If patient is needing more at that time, we will have to look at pain management. Patient has been made aware of this because of this and her inability or her decreasing ambulation. Patient has already been referred to PT, OT, but we also put a home health referral in. 2. Angina pectoris (I20.9: Angina pectoris, unspecified) No issues at this time. 3. Systolic heart failure (I50.20: Unspecified systolic (congestive) heart failure) No signs of heart failure at this time. 4. Uses wheelchair (Z99.3: Dependence on wheelchair) Patient is starting to need the wheelchair more given the pain in her back. Portions of this record may have been created with voice recognition artificial intelligence software, specifically [employer], [employer] and or [email or web address]. Substitutions may have occurred due to the inherent limitations of voice recognition and artificial intelligence software. ATTESTATION: Documentation services were performed after patient or guardian consented to allow [employer] to record this visit. NANCY hydrotechnical specialist and provider reviewed before signing. NANCY: Celine Pascual Follow-up No qualifying data available Problem List/Past Medical History Ongoing Allergic rhinitis Angina pectoris Bartonellosis Fatigue Fracture of lumbar spine Glaucoma Hypercholesterolemia Multiple sclerosis Osteoarthritis of knee Risk for falls Systolic heart failure Uses wheelchair Vitamin D deficiency Historical No qualifying data Procedure/Surgical History None. Medications acetaminophen-hydrocod one 325 mg-5 mg oral tablet, 325-5 mg, Oral, TID, PRN aspirin 81 mg Oral EC Tab, 81 mg= 1 tab(s), Oral, Daily B-12, Oral, Daily dorzolamide Opth 2% Olivia, 1 drop(s), OPTH, TID furosemide 20 mg Tab, 20 mg= 1 tab(s), Oral, Daily isosorbide mononitrate 60 mg ER Tab, 60 mg= 1 tab(s), Oral, BID latanoprost Opth 0.005% Olivia, 1 drop(s), OPTH, Once a day (at bedtime) lidocaine Top 5% film Patch, 1 patch(es), Topical, Daily Lopressor 25 mg oral tablet, 25 mg= 1 tab(s), Oral, BID Misc Medication, Vit D3 5000 international units, Daily nitroglycerin 0.4 mg sublingual Tab, See Instructions, PRN (more content not included)... Normal [facility] Comment on above: Result Comment: Elec tronically Signed By: Lio Batista MD\.br\Date and Time Signed: 03/29/23 12:55 EDT\.br\Electronically Co-Signed By: Celine Pascual\.br\Date and Time Co-Signed: 03/24/23 20:18 EDT Family Medicine Office/Clinic Note Chief Complaint Subsequent Medicare Wellness History of Present Illness I was in the office and available for consultation and to provide direct supervision at the time of this visit. I have provided supervision of the care team and have reviewed this chart and office note and agree with the plan of care. Covid-19, MERS, Ebola Screen *Contact With Person With Highly Contagious Disease Like Ebola/MERS/COVID-19 AND Have One or More of the Symptoms Below : No *Travel to a Country With Wide-Spread Ebola/MERS/COVID-19 in the Past 21 Days AND Have One or More of the Symptoms Below : No Patient Reported Covid-19 Testing : No *Verify Droplet, Contact Precautions for Ebola (Reference for CDC) : N/A *Verify Airborne, Droplet Precautions for MERS/COVID-19 : N/A Rafael Page 03/24/2023 13:03 EDT Medicare/Medicaid Summary SpO2 : 93 % Rafael Page 03/24/2023 14:45 EDT Chief Complaint : Subsequent Medicare Wellness Patient Counseled : Nutrition, Physical activity Ht/Wt Measurement Refused by Patient? : Yes Systolic Blood Pressure : 112 mmHg Diastolic Blood Pressure : 80 mmHg Blood Pressure Location : Left arm Blood Pressure Position : Sitting O2 Sat Resting/Exertion Alpha : Resting Peripheral Pulse Rate : 67 bpm Rafael Page 03/24/2023 13:03 EDT Rafael Page 03/24/2023 14:45 EDT Pain Present : Yes actual or suspected pain Numeric Rating Pain Scale : 8 Primary Pain Location : Back Numeric Rating Pain Score : 8 Rafael Page 03/24/2023 13:03 EDT Hearing and Vision Screening FT FT Whisper Test Comments : no concerns or issues voiced Vision Screen Comments : wears corrective lenses, follows with Dr. Rico q 3/4 months Rafael Page 03/24/2023 13:03 EDT Advance Directive FT Advance Directive : No Patient Wishes to Receive Further Information on Advance Directives : Yes Organ Donation Consent : No Rafael Page - 03/24/2023 13:03 EDT Procedures / Surgeries FT - Procedure History (As Of: 03/24/2023 13:32:18 EDT) Anesthesia Minutes: 0 ; Procedure Name: None ; Procedure Minutes: 0 ; Last Reviewed Dt/Tm: 03/24/2023 13:23:42 EDT Family History Family History (As Of: 03/24/2023 13:32:18 EDT) Father: Relation: Father ; Gender: Male ; Nomenclature: Parkinson disease ; Value: Positive Mother: Relation: Mother ; Gender: Female ; Nomenclature: Myocardial infarction ; Value: Positive Sister: Relation: Sister ; Gender: Female ; Nomenclature: Thyroid dysfunction ; Value: Positive Nomenclature: Glaucoma ; Value: Positive Grandparent: Maternal grandmother Full Name: Maternal grandmother ; Relation: Grandparent ; Nomenclature: Diabetes mellitus type 2 ; Value: Positive Medicare/Medicaid Social History FT Social History (As Of: 03/24/2023 13:32:18 EDT) Alcohol: Denies Alcohol Use (Last Updated: 03/09/2023 13:57:54 EDT by Gwen Roberts ) Tobacco: Denies Tobacco Use Never (less than 100 in lifetime) Tobacco Use:. Never Smokeless Tobacco Use:. Household tobacco concerns: No. Comments: 03/24/2023 13:08 - Rafael Page: Patient states never been a smoker (Last Updated: 03/24/2023 13:08:18 EDT by Rafael Page) Substance Abuse: Denies Substance Abuse (Last Updated: 03/09/2023 13:57:56 EDT by Gwen Roberts ) Health Risk Assessment FT HRA little interest or pleasure? : No HRA down, depressed, or hopeless? : Yes Hazards in your house? : No Fall Risk Past Year : Yes Worried About Falling : Yes Use a Cane or Walker? : Yes Someone Helps You in the Morning : No Fallen or felt dizzy standing up? : Yes Assistance with personal care? : No Trouble taking meds correctly? : No HRA Pain Present : Yes Primary Pain Location : Back Numeric Rating Pain Scale : 8 Numeric Rating Pain Score : 8 Able to walk without help? : Yes Ability to shop w/out help : Yes Prepare your own meals? : Yes Housework without help? : Yes Handle money without help : Yes Track own medications without help? : Yes Overall mood for past four weeks : Good and bad parts about equal General health rating : Fair Someone avail. to help if needed? : Yes, as much as I wanted Phys. & emotional health limit social act? : Quite a bit Rafael Page 03/24/2023 13:03 EDT Misc Health Risks Grid Sexual problems : Never Trouble eating well : Never Teeth or denture problems : Never Problems using the telephone : Never Rafael Page 03/24/2023 13:03 EDT Confident you control health problems : Very confident Difficulties driving your car? : No Seatbelts : I always fasten my seat belt Rafael Page 03/24/2023 13:03 EDT Depression Screening Little Interest, Pleasure in Activities (ref) : Not at all Feeling Down, Depressed, Hopeless : Several days Initial Depression Screening Score : 1 Depression Screening Result : Negative Rafael Page 03/24/2023 13:03 EDT Social Determinants (PRAPARE) What is your housing (more content not included)... [facility] Comment on above: Result Comment: Elec tronically Signed By: Lio Batista MD\.br\Date and Time Signed: 03/29/23 12:52 EDT\.br\Electronically Co-Signed By: Rafael Page\.br\Date and Time Co-Signed: 03/24/23 14:57 EDT Physician Referralon 023 Physician Referral [id number] 0CD:[id number] [facility] Screenson 03-25-2023 Screens [id number]:127 [facility] Ambulatory Visit Summaryon 0 03-24-2023 Ambulatory Visit Summary JOVON ROJAS :1940 Visit Date:03/24/2023 Ambulatory Visit Instructions Your Diagnosis Annual visit for general adult medical examination with abnormal findings Closed fracture of lumbar vertebra with routine healing, unspecified fracture morphology, unspecified lumbar vertebral level, subsequent encounter Multiple sclerosis Risk for falls Glaucoma Angina pectoris Systolic heart failure Advanced care planning/counseling discussion Your Care Team Attending Physician - Lio Batista MD Primary Care Physician - Lio Batista MD This Is Your Medications List Non-Formulary Medication (Misc Medication) acetaminophen-hydrocod one (acetaminophen-hydroco done 325 mg-5 mg oral tablet) ascorbic acid (Vitamin C) aspirin (aspirin 81 mg Oral EC Tab) cyanocobalamin (B-12) dorzolamide ophthalmic (dorzolamide Opth 2% Olivia) furosemide (furosemide 20 mg Tab) isosorbide mononitrate (isosorbide mononitrate 60 mg ER Tab) latanoprost ophthalmic (latanoprost Opth 0.005% Olivia) lidocaine topical (lidocaine Top 5% film Patch) metoprolol (Lopressor 25 mg oral tablet) nitroglycerin (nitroglycerin 0.4 mg sublingual Tab) spironolactone (spironolactone 25 mg Tab) vitamin E Procedures Performed None. Discharge Vitals Heart Rate (Peripheral) 67 Blood Pressure 112/80 What to do next Scheduled Follow-Up Appointments Wednesday 1:20 PM EDT With: Lio Batista MD Where: [place] [phone] \.br\ Medications\.br\ What How Much When Instructions\.br \ Changed acetaminophen-hy drocodone (acetaminophen-h ydrocodone 325 mg-5 mg oral tablet) 325-5 mg By Mouth 3 times a day as needed for as needed for pain Duration: 21 Days\.br\ Unchanged ascorbic acid (Vitamin C) 500 Milligram By Mouth Every day\.br\ Unchanged aspirin (aspirin 81 mg Oral EC Tab) 1 Tablets By Mouth Every day\.br\ Unchanged cyanocobalamin (B-12) By Mouth Every day\.br\ Unchanged dorzolamide ophthalmic (dorzolamide Opth 2% Olivia) 1 Drops Ophthalmic 3 times a day\.br\ Unchanged furosemide (furosemide 20 mg Tab) 1 Tablets By Mouth Every day\.br\ Unchanged isosorbide mononitrate (isosorbide mononitrate 60 mg ER Tab) 1 Tablets By Mouth 2 times a day Duration: 90 Days\.br\ Unchanged latanoprost ophthalmic (latanoprost Opth 0.005% Olivia) 1 Drops Ophthalmic Once a day (at bedtime)\.br\ Unchanged lidocaine topical (lidocaine Top 5% film Patch) 1 Patches Topical Every day apply 12 hours on and 12 hours off daily \.br\ Unchanged metoprolol (Lopressor 25 mg oral tablet) 1 Tablets By Mouth 2 times a day Duration: 90 Days\.br\ Unchanged nitroglycerin (nitroglycerin 0.4 mg sublingual Tab) See instructions 1 tab(s) SubLingual for chest pain, may repeat in 5 minutes and again in 5 minutes if discomfort not gone go to ER immediately \.br\ Unchanged Non-Formulary Medication (Misc Medication) Vit D3 5000 international units Every day\.br\ Unchanged spironolactone (spironolactone 25 mg Tab) 1 Tablets By Mouth Every day\.br\ Unchanged vitamin E 400 International unit By Mouth Every day\.br\ Allergies\.br\ No Known Medication Allergies\.br\ Problems\.br\ Ongoing - Any problem that you are currently receiving treatment for.\.br\ Allergic rhinitis\.br\ Angina pectoris\.br\ Bartonellosis\.b r\ Fatigue\.br\ Fracture of lumbar spine\.br\ Glaucoma\.br\ Hypercholesterol emia\.br\ Multiple sclerosis\.br\ Osteoarthritis of knee\.br\ Risk for falls\.br\ Systolic heart failure\.br\ Uses wheelchair\.br\ Vitamin D deficiency\.br\ Education Materials\.br\ Wph-jg-Wgpiv Exercise\.br\ \.br\ The srl-fx-dybai exercise (also known as the chair stand or chair rise exercise) strengthens your lower body and helps you maintain or improve your mobility and independence. The end goal is to do the kli-xr-wiebs exercise without using your hands. This will be easier as you become stronger. You should always talk with your health care provider before starting any exercise program, especially if you have had recent surgery.\.br\ Do the exercise exactly as told by your health care provider and adjust it as directed. It is normal to feel mild stretching, pulling, tightness, or discomfort as you do this exercise, but you should stop right away if you feel sudden pain or your pain gets worse. Do not begin doing this exercise until told by your health care provider.\.br\ What the ara-cj-qovlo exercise does\.br\ The ihy-tn-totht exercise helps to strengthen the muscles in your thighs and the muscles in the center of your body that give you stability (core muscles). This exercise is especially helpful if:\.br\ ? \.br\ You have had knee or hip surgery.\.br\ ? \.br\ You have trouble getting up from a chair, out of a car, or off the toilet due to muscle weakness.\.br\ How to do the quq-bj-swgcj exercise\.br\ 1. \.br\ Sit toward the front edge of a sturdy chair without armrests. Your knees should be bent and your feet should be flat on the floor and shoulder-width apart and underneath your hips.\.br\ 2. \.br\ Place your hands lightly on each side of the seat. Keep your back and neck as straight as possible, with your chest slightly forward.\.br\ 3. \.br\ Breathe in slowly. Lean forward and slightly shift your weight to the front of your feet.\.br\ 4. \.br\ Breathe out as you slowly stand up. Try not to support any weight with your hands.\.br\ 5. \.br\ Stand and pause for a full breath in and out.\.br\ 6. \.br\ Breathe in as you sit down slowly. Tighten your core and abdominal muscles to control your lowering as much as possible. You should lower yourself back to the chair slowly, not just drop back into the seat.\.br\ 7. \.br\ Breathe out slowly.\.br\ 8. \.br\ Do this exercise 10?15 times. If needed, do it fewer times until you build up strength.\.br\ 9. \.br\ Rest for 1 minute, then do another set of 10?15 repetitions.\.br \ To change the difficulty of the zff-vn-vhrax exercise\.br\ ? \.br\ If the exercise is too difficult, use a chair with sturdy armrests, and push off the armrests to help you come to the standing position. You can also use the armrests to help slowly lower yourself back to sitting. As this gets easier, try to use your arms less. You can also place a firm cushion or pillow on the chair to make the surface higher.\.br\ ? \.br\ If this exercise is too easy, do not use your arms to help raise or lower yourself. You can also wear a weighted vest, use hand weights, increase your repetitions, or try a lower chair.\.br\ General tips\.br\ ? \.br\ You may feel tired when starting an exercise routine. This is normal.\.br\ ? \.br\ You may have muscle soreness that lasts a few days. This is normal. As you get stronger, you may not feel muscle soreness.\.br\ ? \.br\ Use smooth, steady movements.\.br\ ? \.br\ Do not hold your breath during strength exercises. This can cause unsafe changes in your blood pressure.\.br\ ? \.br\ Breathe in slowly through your nose, and breathe out slowly through your mouth.\.br\ Summary\.br\ ? \.br\ Strengthening your lower body is an important step to help you move safely and independently.\. br\ ? \.br\ The xpn-de-psdnn exercise helps strengthen the muscles in your thighs and core.\.br\ ? \.br\ You should always talk with your health care provider before starting any exercise program, especially if you have had recent surgery.\.br\ This information is not intended to replace advice given to you by your health care provider. Make sure you discuss any questions you have with your health care provider.\.br\ Document Revised: 01/18/2022 Document Reviewed: 01/18/2022 [employer] Patient Education ? 2022 [employer].br\ Heart Failure Eating Plan\.br\ Heart failure, also called congestive heart failure, occurs when your heart does not pump blood well enough to meet your body's needs for oxygen-rich blood. Heart failure is a long-term (chronic) condition. Living with heart failure can be challenging. Following your health care provider's instructions about a healthy lifestyle and working with a dietitian to choose the right foods may help to improve your symptoms. An eating plan for someone with heart failure will include changes that limit the intake of salt (sodium) and unhealthy fat.\.br\ What are tips for following this plan?\.br\ Reading food labels\.br\ ? \.br\ Check food labels for the amount of sodium per serving. Choose foods that have less than 140 mg (milligrams) of sodium in each serving.\.br\ ? \.br\ Check food labels for the number of calories per serving. This is important if you need to limit your daily calorie intake to lose weight.\.br\ ? \.br\ Check food labels for the serving size. If you eat more than one serving, you will be eating more sodium and calories than what is listed on the label.\.br\ ? \.br\ Look for foods that are labeled as sodium-free, very low sodium, or low sodium. \.br\ ? \.br\ Foods labeled as reduced sodium or lightly salted may still have more sodium than what is recommended f [facility] Ambulatory Visit Summary JOVON ROJAS :1940 Visit Date:03/24/2023 Ambulatory Visit Instructions Your Diagnosis Closed fracture of lumbar vertebra with routine healing, unspecified fracture morphology, unspecified lumbar vertebral level, subsequent encounter Angina pectoris Systolic heart failure Uses wheelchair Your Care Team Attending Physician - Lio Batista MD Primary Care Physician - Lio Batista MD This Is Your Medications List acetaminophen-hydrocod one (acetaminophen-hydroco done 325 mg-5 mg oral tablet) lidocaine topical (lidocaine Top 5% film Patch) Contact prescribing physician if questions or concerns Non-Formulary Medication (Misc Medication) ascorbic acid (Vitamin C) aspirin (aspirin 81 mg Oral EC Tab) cyanocobalamin (B-12) dorzolamide ophthalmic (dorzolamide Opth 2% Olivia) furosemide (furosemide 20 mg Tab) isosorbide mononitrate (isosorbide mononitrate 60 mg ER Tab) latanoprost ophthalmic (latanoprost Opth 0.005% Olivia) metoprolol (Lopressor 25 mg oral tablet) nitroglycerin (nitroglycerin 0.4 mg sublingual Tab) spironolactone (spironolactone 25 mg Tab) vitamin E Procedures Performed None. Discharge Vitals Heart Rate (Peripheral) 67 Respiratory Rate 16 Blood Pressure 112/80 What to do next Scheduled Follow-Up Appointments Wednesday 1:20 PM EDT With: Lester NOLASCO, Lio Sparrow Where: [facility] Normal [address] [place] [id number] \.br\ Medications\.br\ What How Much When Instructions\.br \ New lidocaine topical (lidocaine Top 5% film Patch) 1 Patches Topical Every day apply 12 hours on and 12 hours off daily Pickup at [facility]/pharmacy #[id number]\.br\ Changed acetaminophen-hy drocodone (acetaminophen-h ydrocodone 325 mg-5 mg oral tablet) 325-5 mg By Mouth 3 times a day as needed for as needed for pain Duration: 21 Days Pickup at [facility]/pharmacy #[id number]\.br\ Unchanged ascorbic acid (Vitamin C) 500 Milligram By Mouth Every day Contact prescribing physician if questions or concerns \.br\ Unchanged aspirin (aspirin 81 mg Oral EC Tab) 1 Tablets By Mouth Every day Contact prescribing physician if questions or concerns \.br\ Unchanged cyanocobalamin (B-12) By Mouth Every day Contact prescribing physician if questions or concerns \.br\ Unchanged dorzolamide ophthalmic (dorzolamide Opth 2% Olivia) 1 Drops Ophthalmic 3 times a day Contact prescribing physician if questions or concerns \.br\ Unchanged furosemide (furosemide 20 mg Tab) 1 Tablets By Mouth Every day Contact prescribing physician if questions or concerns \.br\ Unchanged isosorbide mononitrate (isosorbide mononitrate 60 mg ER Tab) 1 Tablets By Mouth 2 times a day Duration: 90 Days Contact prescribing physician if questions or concerns \.br\ Unchanged latanoprost ophthalmic (latanoprost Opth 0.005% Olivia) 1 Drops Ophthalmic Once a day (at bedtime) Contact prescribing physician if questions or concerns \.br\ Unchanged metoprolol (Lopressor 25 mg oral tablet) 1 Tablets By Mouth 2 times a day Duration: 90 Days Contact prescribing physician if questions or concerns \.br\ Unchanged nitroglycerin (nitroglycerin 0.4 mg sublingual Tab) See instructions 1 tab(s) SubLingual for chest pain, may repeat in 5 minutes and again in 5 minutes if discomfort not gone go to ER immediately Contact prescribing physician if questions or concerns \.br\ Unchanged Non-Formulary Medication (Misc Medication) Vit D3 5000 international units Every day Contact prescribing physician if questions or concerns \.br\ Unchanged spironolactone (spironolactone 25 mg Tab) 1 Tablets By Mouth Every day Contact prescribing physician if questions or concerns \.br\ Unchanged vitamin E 400 International unit By Mouth Every day Contact prescribing physician if questions or concerns \.br\ Pharmacy Information\.br\ [facility]/pharmacy #[id number]: [address], [place] [id number] [phone]\.br\ Allergies\.br\ No Known Medication Allergies\.br\ Problems\.br\ Ongoing - Any problem that you are currently receiving treatment for.\.br\ Allergic rhinitis\.br\ Angina pectoris\.br\ Bartonellosis\.b r\ Fatigue\.br\ Fracture of lumbar spine\.br\ Glaucoma\.br\ Hypercholesterol emia\.br\ Multiple sclerosis\.br\ Osteoarthritis of knee\.br\ Risk for falls\.br\ Systolic heart failure\.br\ Uses wheelchair\.br\ Vitamin D deficiency\.br\ \.br\ [facility] Patient Educationon 03-24-20 23 Patient Education Caregiving Fall Prevention in the Home, Adult Falls can cause injuries and affect people of all ages. There are many simple things that you can do to make your home safe and to help prevent falls. Ask for help when making these changes, if needed. What actions can I take to prevent falls? General instructions ? Use good lighting in all rooms. Replace any light bulbs that burn out, turn on lights if it is dark, and use night-lights. ? Place frequently used items in fnkp-tn-nmgoe places. Lower the shelves around your home if necessary. ? Set up furniture so that there are clear paths around it. Avoid moving your furniture around. ? Remove throw rugs and other tripping hazards from the floor. ? Avoid walking on wet floors. ? Fix any uneven floor surfaces. ? Add color or contrast paint or tape to grab bars and handrails in your home. Place contrasting color strips on the first and last steps of staircases. ? When you use a stepladder, make sure that it is completely opened and that the sides and supports are firmly locked. Have someone hold the ladder while you are using it. Do not climb a closed stepladder. ? Know where your pets are when moving through your home. What can I do in the bathroom? ? Keep the floor dry. Immediately clean up any water that is on the floor. ? Remove soap buildup in the tub or shower regularly. ? Use nonskid mats or decals on the floor of the tub or shower. ? Attach bath mats securely with double-sided, nonslip rug tape. ? If you need to sit down while you are in the shower, use a plastic, nonslip stool. ? Install grab bars by the toilet and in the tub and shower. Do not use towel bars as grab bars. What can I do in the bedroom? ? Make sure that a bedside light is easy to reach. ? Do not use oversized bedding that reaches the floor. ? Have a firm chair that has side arms to use for getting dressed. What can I do in the kitchen? ? Clean up any spills right away. ? If you need to reach for something above you, use a sturdy step stool that has a grab bar. ? Keep electrical cables out of the way. ? Do not use floor macedonian or wax that makes floors slippery. If you must use wax, make sure that it is non-skid floor wax. What can I do with my stairs? ? Do not leave any items on the stairs. ? Make sure that you have a light switch at the top and the bottom of the stairs. Have them installed if you do not have them. ? Make sure that there are handrails on both sides of the stairs. Fix handrails that are broken or loose. Make sure that handrails are as long as the staircases. ? Install non-slip stair treads on all stairs in your home. ? Avoid having throw rugs at the top or bottom of stairs, or secure the rugs with carpet tape to prevent them from moving. ? Choose a carpet design that does not hide the edge of steps on the stairs. ? Check any carpeting to make sure that it is firmly attached to the stairs. Fix any carpet that is loose or worn. What can I do on the outside of my home? ? Use bright outdoor lighting. ? Regularly repair the edges of walkways and driveways and fix any cracks. ? Remove high doorway thresholds. ? Trim any shrubbery on the main path into your home. ? Regularly check that handrails are securely fastened and in good repair. Both sides of all steps should have handrails. ? Install guardrails along the edges of any raised decks or porches. ? Clear walkways of debris and clutter, including tools and rocks. ? Have leaves, snow, and ice cleared regularly. ? Use sand or salt on walkways during winter months. ? In the garage, clean up any spills right away, including grease or oil spills. What other actions can I take? ? Wear closed-toe shoes that fit well and support your feet. Wear shoes that have rubber soles or low heels. ? Use mobility aids as needed, such as canes, walkers, scooters, and crutches. ? Review your medicines with your health care provider. Some medicines can cause dizziness or changes in blood pressure, which increase your risk of falling. Talk with your health care provider about other ways that you can decrease your risk of falls. This may include working with a physical therapist or corporate sales trainer to improve your strength, balance, and endurance. Where to find more information ? Centers for Disease Control and Prevention, [place]: www.cdc.gov ? [place] [employer] [place]: www.ha.nih.gov Contact a health care provider if: ? You are afraid of falling at home. ? You feel weak, drowsy, or dizzy at home. ? You fall at home. Summary ? There are many simple things that you can do to make your home safe and to help prevent falls. ? Ways to make your home safe include removing tripping hazards and installing grab bars in the bathroom. ? Ask for help when making these changes in your home. This information is not intended to replace advice given to you by your health ca (more content not included)... Normal [facility] Family Medicine Office/Jaleesai c Igor 03-10-2023 Family Medicine Office/Clinic Note HPI Staff Jovon is an 82 year old female being seen to establish care and a hospital follow up. Establish Care: History: CHF, MS, hyperlipidemia, glaucoma, Vitamin D deficiency Last provider: Lilliam Any recent labs: 04/28/22 Acute: Current issues/complaints: Pt was admitted to [facility] on 02/12/23 for an L1 fx due to a fall. She was discharged on 02/26/23 to [facility] for rehabilitation. Pt is currently home from rehab. History of Present Illness Jovon Rojas is an 82-year-old female who presents today for a hospital follow-up. She was seen by Dr. Tirado at [facility]. She is taking Chester 4 times a day and aspirin for her back pain. She denies any pain when she is at rest and after taking the Chester. She rates her pain as a 10 out of 10 when she is moving around. She does not have a Life Alert. She has a history of multiple sclerosis. She does not currently follow-up with a neurologist. She has seen many neurologists in the past. Her daughter states that she refuses to take medication for this. She states she has been experiencing more frequent falls. She is experiencing lower extremity edema. She follows-up with her mushroom cutter Dr. Garcia. She states she had difficulty putting on her shoes this morning due to her swelling. She does not have anyone who comes to her home for physical therapy. Review of Systems PHQ Score Initial Depression Screen Score: 0 Physical Exam Vitals & Measurements HR: 63(Peripheral) BP: 136/68 SpO2: 94% HT: 60 in HT: 153 cm WT: 70 kg WT: 154 lb BMI: 29.9 General: alert, no acute distress ENMT: oral mucosa moist, no pharyngeal erythema or exudate Cardiovascular: regular rate and rhythm, normal peripheral perfusion Respiratory: Lungs CTA, respirations non labored Extremities: +2 pitting edema in the lower extremities. Patient is walking with a walker. Patient is minimally tender to palpation on the L1. Neurological: oriented x 4, LOC appropriate for age, CN II-XII intact, motor strength equal & normal bilaterally, speech normal Assessment/Plan 1. Fracture of lumbar spine (S32.009A: Unspecified fracture of unspecified lumbar vertebra, initial encounter for closed fracture) This is slowly improving. We will refill the patient's Chester for 2 weeks at a t.i.d. range so that we slowly wean the patient off. Patient is agreeable to this. We will see the patient back in 2 weeks for pain control. 2. Risk for falls (Z91.81: History of falling) We will look at doing home PT, OT for the patient for strengthening. 3. Multiple sclerosis (G35: Multiple sclerosis) Patient is currently not on medication at this time. Patient is no longer following with neurology. Patient states that she does not want to take pills and there is nothing else she can do. She will just use her walker. This is the reason why she has had an increase in her falling. 4. Vitamin D deficiency (E55.9: Vitamin D deficiency, unspecified) Encouraged the patient to take a vitamin D supplement as the patient is not actively on one. We will recheck vitamin D level at next blood draw. 5. Systolic heart failure (I50.20: Unspecified systolic (congestive) heart failure) Patient sees Dr. Garcia at [facility]. We will continue with the recommendations. 6. BMI 29.0-29.9,adult (Z68.29: Body mass index [BMI] 29.0-29.9, adult) ATTESTATION: Documentation services were performed after patient or guardian consented to allow Jo-Ann Yosef Cunningham to record this visit. NANCY hydrotechnical specialist and provider reviewed before signing. NANCY: Hemant Adan Follow-up No qualifying data available Problem List/Past Medical History Ongoing Allergic rhinitis Angina pectoris Bartonellosis Fatigue Fracture of lumbar spine Glaucoma Hypercholesterolemia Multiple sclerosis Osteoarthritis of knee Risk for falls Systolic heart failure Vitamin D deficiency Historical No qualifying data Procedure/Surgical History None. Medications acetaminophen-hydrocod one 325 mg-5 mg oral tablet, 1 tab(s), Oral, TID, PRN aspirin 81 mg Oral EC Tab, 81 mg= 1 tab(s), Oral, Daily dorzolamide Opth 2% Olivia, 1 drop(s), OPTH, TID furosemide 20 mg Tab, 20 mg= 1 tab(s), Oral, Daily isosorbide mononitrate 60 mg ER Tab, 60 mg= 1 tab(s), Oral, BID latanoprost Opth 0.005% Olivia, 1 drop(s), OPTH, Once a day (at bedtime) Lopressor 25 mg oral tablet, 25 mg= 1 tab(s), Oral, BID nitroglycerin 0.4 mg sublingual Tab, See Instructions, PRN spironolactone 25 mg Tab, 25 mg= 1 tab(s), Oral, Daily Allergies No Known Medication Allergies Social History Alcohol - Denies Alcohol Use, 03/09/2023 Substance Abuse - Denies Substance Abuse, 03/09/2023 Tobacco - Denies Tobacco Use, 03/09/2023 Never (less than 100 in lifetime) Tobacco Use:. Never Smokeless Tobacco Use:. Household tobacco concerns: No., 03/09/2023 Family History Diabetes mellitus type 2: Grandparent. Myocardial infarction: Mother. Parkinson disease: Father. Thyroid dysfunction: S (more content not included)... Normal [facility] Comment on above: Result Comment: Elec tronically Signed By: Lio Batista MD\.br\Date and Time Signed: 03/10/23 11:01 EDT\.br\Electronically Co-Signed By: Hemant Adan\.br\Date and Time Co-Signed: 03/09/23 15:32 EDT Formson 03-10-2023 Forms [id number] Normal [facility] Ambulatory Visit Summaryon 0 03-09-2023 Ambulatory Visit Summary BOB JOVON L :1940 Visit Date:03/09/2023 Ambulatory Visit Instructions Your Diagnosis Fracture of lumbar spine Risk for falls Multiple sclerosis Vitamin D deficiency Systolic heart failure BMI 29.0-29.9,adult Your Care Team Attending Physician - Lio Batista MD Primary Care Physician - Lio Batista MD This Is Your Medications List acetaminophen-hydrocod one (acetaminophen-hydroco done 325 mg-5 mg oral tablet) aspirin (aspirin 81 mg Oral EC Tab) dorzolamide ophthalmic (dorzolamide Opth 2% Olivia) furosemide (furosemide 20 mg Tab) isosorbide mononitrate (isosorbide mononitrate 60 mg ER Tab) latanoprost ophthalmic (latanoprost Opth 0.005% Olivia) metoprolol (Lopressor 25 mg oral tablet) nitroglycerin (nitroglycerin 0.4 mg sublingual Tab) spironolactone (spironolactone 25 mg Tab) Procedures Performed None. Discharge Vitals Heart Rate (Peripheral) 63 Blood Pressure 136/68 Height 153 cm Height 60 in Weight 70 kg Weight 154 lb BMI 29.9 Medications What How Much When Instructions Changed acetaminophen-hydrocod one (acetaminophen-hydroco done 325 mg-5 mg oral tablet) 1 Tablets By Mouth 3 times a day as needed for for pain Duration: 14 Days Pickup at [facility]/pharmacy #[id number] Changed aspirin (aspirin 81 mg Oral EC Tab) 1 Tablets By Mouth Every day Changed furosemide (furosemide 20 mg Tab) 1 Tablets By Mouth Every day Changed nitroglycerin (nitroglycerin 0.4 mg sublingual Tab) See instructions 1 tab(s) SubLingual for chest pain, may repeat in 5 minutes and again in 5 minutes if discomfort not gone go to ER immediately Unchanged dorzolamide ophthalmic (dorzolamide Opth 2% Olivia) 1 Drops Ophthalmic 3 times a day Unchanged isosorbide mononitrate (isosorbide mononitrate 60 mg ER Tab) 1 Tablets By Mouth 2 times a day Duration: 90 Days Unchanged latanoprost ophthalmic (latanoprost Opth 0.005% Olivia) 1 Drops Ophthalmic Once a day (at bedtime) Unchanged metoprolol (Lopressor 25 mg oral tablet) 1 Tablets By Mouth 2 times a day Duration: 90 Days Unchanged spironolactone (spironolactone 25 mg Tab) 1 Tablets By Mouth Every day Pharmacy Information [facility]/pharmacy #[id number]: [address], [place] [id number] [phone] Allergies No Known Medication Allergies Problems Ongoing - Any problem that you are currently receiving treatment for. Allergic rhinitis Angina pectoris Bartonellosis Fatigue Fracture of lumbar spine Glaucoma Hypercholesterolemia Multiple sclerosis Osteoarthritis of knee Risk for falls Systolic heart failure Vitamin D deficiency Normal [facility] Covid-19 PCR (CVDTB)on SARS-CoV-2 (COVID-19) RNA NEELIMA+probe Ql (Unsp spec) Not detected Normal NOT DETECTED [facility] Comment on above: Result Comment: This test is not yet approved or cleared by the [place] FDA. When there are no FDA-approved or cleared tests available, and other criteria are met, FDA can make tests available under an emergency access mechanism called an Emergency Use Authorization (EUA). The EUA for this test is supported by the [employer] of Health and Human Service's (HHS's) declaration that circumstances exist to justify the emergency use of in vitro diagnostics for the detection and/or diagnosis of the virus that causes COVID-19. This EUA will remain in effect (meaning this test can be used) for the duration of the COVID-19 declaration justifying emergency of IVDs, unless it is terminated or revoked by FDA (after which the test may no longer be used). When diagnostic testing is negative, the possibility of a false negative should be considered in the context of a patient's recent exposures and the presence of clinical signs and symptoms consistent with SARS-CoV-2. Performed By: #### C VDTB #### [facility] [address], [place] [address] Dr. Avtar Gonsalves SYMPTOMATIC COVID-19 ANTIGEN on 02-11-2023 EUA Statement SEE BELOW Normal [facility] Comment on above: Result Comment: This test has not been FDA cleared or approved, but has been authorized by the FDA under an Emergency Use Authorization (EUA) for use by authorized laboratories certified under CLIA that meet the requirements to perform moderate or high complexity testing. This test has been authorized only for the detection of proteins from SARS-CoV-2, not for any other viruses or pathogens. The emergency use of this test is authorized for the duration of the declaration that circumstances exist justifying the authorization of emergency use of in vitro diagnostic tests for detection and/or diagnosis of Covid-19 under section 564(b)(1) of the Act, 21 U.S.C. 360bbb-3(b)(1), unless the declaration is terminated or authorization is revoked sooner. Performed By: #### C VDAGS ####[facility] [id number] [place], [place] [address]FsDr. Avtar Gonsalves SARS-CoV-2 (COVID-19) RNA NEELIMA+probe Ql (Unsp spec) Negative Normal NEGATIVE [facility] Comment on above: Performed By: #### C VDAGS ####[facility] [id number] [place] [address]Dr. Avtar Gonsalves CULTURE URINEon 02-10-2023 CULTURE URINE Culture Observations : MODERATE GROWTH OF MIXED GENITAL СВЕТЛАНА. NO POTENTIAL PATHOGENS SEEN. Normal [facility] Comment on above: Performed By: #### U RCX #### [facility] [address] [place] [address] Dr. Avtar Gonsalves UA RANDOM W/MICROSCOPICon BACTERIA TRACE Abnormal NONE SEEN [facility] Comment on above: Performed By: #### U AMIC #### [facility] [address] [place] [address] Dr. Avtar Gonsalves Bilirubin Ql (U) Negative Normal NEGATIVE [facility] Comment on above: Performed By: #### U AMIC #### [facility] [address] [place] [address] Dr. Avtar Gonsalves CAST NONE SEEN Normal NONE SEEN [facility] Comment on above: Performed By: #### U AMIC #### [facility] [address] [place] [address] Dr. Avtar Gonsalves Clarity (U) CLEAR Normal CLEAR [facility] Comment on above: Performed By: #### U AMIC #### [facility] [address] [address] [address] Avtar Gonsalves Color (U) LT. YELLOW Normal YELLOW [facility] Comment on above: Performed By: #### U AMIC #### [facility] [address] [place] [address] Dr. Avtar Gonsalves Crystals LM Nom (Urine sed) NONE SEEN Normal NONE SEEN [facility] Comment on above: Performed By: #### U AMIC #### [facility] [address] [address] [address] Avtar Gonsalves Epithelial cells LM Ql (Urine sed) NONE SEEN Normal NONE SEEN /RARE [facility] Comment on above: Performed By: #### U AMIC #### [facility] [address] [place] [address] Dr. Avtar Gonsalves Glucose Ql (U) Negative Normal NEGATIVE [facility] Comment on above: Performed By: #### U AMIC #### [facility] [address] [address] [address] Avtar Gonsalves Hemoglobin Ql (U) TRACE-INTACT Abnormal NEGATIVE [facility] Comment on above: Performed By: #### U AMIC #### [facility] [address] [address] [address] Avtar Gonsalves Ketones Ql (U) Negative Normal NEGATIVE [facility] Comment on above: Performed By: #### U AMIC #### [facility] [address] [address] [address] Avtar Gonsalves LEUKOCYTES Negative Normal NEGATIVE [facility] Comment on above: Performed By: #### U AMIC #### [facility] [address] [address] [address] Avtar Gonsalves MUCOUS NONE SEEN Normal NONE SEEN [facility] Comment on above: Performed By: #### U AMIC #### [facility] [address] [address] [address] Avtar Gonsalves Nitrite Ql (U) Negative Normal NEGATIVE [facility] Comment on above: Performed By: #### U AMIC #### [facility] [address] [address] [address] Avtar Gonsalves pH (U) 6.5 [pH] Normal 5-9 [facility] Comment on above: Performed By: #### U AMIC #### [facility] [address] [address] [address] Avtar Gonsalves RBC 2-5 Abnormal 0-2 [facility] Comment on above: Performed By: #### U AMIC #### [facility] [address] [address] [address] Avtar Gonsalves SPEC GRAVITY 1.010 Normal 1.005-<=1.025 [facility] Comment on above: Performed By: #### U AMIC #### [facility] [address] [address] [address] Avtar Gonsalves UA PROTEIN Negative Normal NEGATIVE/ TRACE [facility] Comment on above: Performed By: #### U AMIC #### [facility] [address] [place] [address] Dr. Avtar Gonsalves Urobilinogen Qn (U) 4 {Vikas'U}/dL Abnormal 0.2 - 1.0 [facility] Comment on above: Performed By: #### U AMIC #### [facility] [address] [place] [address] Dr. Avtar Gonsalves WBC 0-2 Abnormal NONE SEEN [facility] Comment on above: Performed By: #### U AMIC #### [facility] [address] [place] [address] Dr. Avtar Gonsalves US BRI DOP LEG LTon 02-10-20 23 US BRI DOP LEG LT EXAM: US BRI DOP LEG LT HISTORY: MUSCLE WEAKNESS (GENERALIZED) . The left lower leg redness and swelling. COMPARISON: None. TECHNIQUE: Multiple sonographic images of the deep veins of the left lower extremity were obtained, supplemented with Doppler. FINDINGS: The deep veins of the left lower extremity are well visualized from the groin to the mid calf. No filling defect is identified to indicate a thrombus. There is normal compression augmentation of flow throughout. IMPRESSION: There is no direct or indirect evidence of deep vein thrombosis in the left lower extremity at this time. Electronically authenticated by: ARSLAN MONTEJO Date: 2023-02-09 12:17 Normal [facility] CBC AUTO DIFFon 02-08-2023 BASO # 0.0 103/ul Normal 0.0-0.1 [facility] Comment on above: Performed By: #### C BC #### [facility] [address] [place] [address] Dr. Avtar Gonsalves Basophils/100 WBC (Bld) 0.3 % Normal 0.2-2.0 [facility] Comment on above: Performed By: #### C BC #### [facility] [address] [place] [address] Dr. Avtar Gonsalves EO # 0.1 103/ul Normal 0.0-0.7 [facility] Comment on above: Performed By: #### C BC #### [facility] [address] [place] [address] Dr. Avtar Gonsalves Eosinophils/100 WBC (Bld) 1.9 % Normal 0.9-7.0 [facility] Comment on above: Performed By: #### C BC #### [facility] [address] [place] [address] Dr. Avtar Gonsalves Erythrocyte distribution width (RBC) [Ratio] 13.7 % Normal 11.0-15.0 [facility] Comment on above: Performed By: #### C BC #### [facility] [address] [place] [address] Dr. Avtar Gonsalves Hematocrit (Bld) [Volume fraction] 42.0 % Normal 36.0-48.0 [facility] Comment on above: Performed By: #### C BC #### [facility] [address] [place] [address] Dr. Avtar Gonsalves Hemoglobin (Bld) [Mass/Vol] 14.1 g/dL Normal 12.0-16.0 [facility] Comment on above: Performed By: #### C BC #### [facility] [address] [place] [address] Dr. Avtar Gonsalves IG # 0.03 10e3/ul Normal 0.00-0.03 [facility] Comment on above: Performed By: #### C BC #### [facility] [address] [place] [address] Dr. Avtar Gonsalves IG % 0.5 % Normal 0.0-0.5 [facility] Comment on above: Performed By: #### C BC #### [facility] [address] [place] [address] Dr. Avtar Gonsalves LYMPH # 1.1 103/ul Critically low 1.2-3.8 [facility] Comment on above: Performed By: #### C BC #### [facility] [address] [place] [address] Dr. Avtar Gonsalves Lymphocytes/100 WBC (Bld) 18.4 % Critically low 20.5-60.0 [facility] Comment on above: Performed By: #### C BC #### [facility] [address] [place] [address] Dr. Avtar Gonsalves MANUAL DIFF REQ NO Normal [facility] Comment on above: Performed By: #### C BC #### [facility] [address] [address] [address] Avtar Gonsalves MCH (RBC) [Entitic mass] 30.9 pg Normal 26.7-34.0 [facility] Comment on above: Performed By: #### C BC #### [facility] [address] [place] [address] Dr. Avtar Gonsalves MCHC (RBC) [Mass/Vol] 33.6 g/dL Normal 29.9-35.2 [facility] Comment on above: Performed By: #### C BC #### [facility] [address] [place] [address] Dr. Avtar Gonsalves MCV (RBC) [Entitic vol] 91.9 fL Normal 81.0-99.0 [facility] Comment on above: Performed By: #### C BC #### [facility] [address] [place] [address] Dr. Avtar Gonsalves MONO # 0.6 103/ul Normal 0.3-0.8 [facility] Comment on above: Performed By: #### C BC #### [facility] [address] [place] [address] Dr. Avtar Gonsalves Monocytes/100 WBC (Bld) 11.0 % Normal 1.7-12.0 [facility] Comment on above: Performed By: #### C BC #### [facility] [address] [place] [address] Dr. Avtar Gonsalves NEUT # 4.0 103/ul Normal 1.4-6.5 [facility] Comment on above: Performed By: #### C BC #### [facility] [address] [place] [address] Dr. Avtar Gonsalves Neutrophils/100 WBC (Bld) 67.9 % Normal 43.0-75.0 [facility] Comment on above: Performed By: #### C BC #### [facility] [address] [place] [address] Dr. Avtar Gonsalves Platelet mean volume (Bld) [Entitic vol] 11.3 fL Normal 9.5-13.5 [facility] Comment on above: Performed By: #### C BC #### [facility] [address] [address] [address] Avtar Gonsalves PLT 303 103/ul Normal 150-450 [facility] Comment on above: Performed By: #### C BC #### [facility] [address] [address] [address] Avtar Gonsalves RBC 4.57 106/ul Normal 4.20-5.40 [facility] Comment on above: Performed By: #### C BC #### [facility] [address] [address] [address] Avtar Gonsalves WBC 5.8 103/ul Normal 4.0-11.0 [facility] Comment on above: Performed By: #### C BC #### [facility] [address] [address] [address] Avtar Gonsalves CPKon 02-08-2023 CK [Catalytic activity/Vol] 26 U/L Normal 26-192 [facility] Comment on above: Performed By: #### C MP, CK #### [facility] [address] [address] [address] LSPINE WO CONon 3 CT LSPINE WO CON EXAM: CT LSPINE WO C ON HISTORY: MUSCLE WEAKNESS (GENERALIZED) COMPARISON: None. TECHNIQUE: CT lumbar spine without contrast. Multiplanar reformats obtained. The current study utilizes one or more of the following dose-reduction techniques: automated exposure control, iterative reconstruction, and/or manual adjustment of tube current and voltage for size. FINDINGS: Bones are demineralized. L1 superior endplate fracture with approximately 30% height loss. Associated paravertebral edema. Mild L4-L5 anterolisthesis. Moderate to severe lower lumbar facet arthropathy. Mild multilevel disc bulging. Moderate spinal canal stenosis at the L4-L5 level. Neural foramen are grossly patent. Moderate atherosclerotic calcification of the aorta. IMPRESSION: L1 superior endplate fracture with approximately 30% height loss. Electronically authenticated by: ALLISON DOWLING Date: 2023-02-08 12:08 Normal [facility] PROF 14(COMP METB)on 023 Albumin [Mass/Vol] 3.4 g/dL Normal 3.4-5.0 [facility] Comment on above: Performed By: #### C MP, CK #### [facility] [address] [place] [address] Dr. Avtar Gonsalves Albumin/Globulin [Mass ratio] 0.9 {ratio} Normal [facility] Comment on above: Performed By: #### C MP, CK #### [facility] [address] [address] [address] Avtar Gonsalves ALP [Catalytic activity/Vol] 130 U/L Critically high 46-116 [facility] Comment on above: Performed By: #### C MP, CK #### [facility] [address] [place] [address] Dr. Avtar Gonsalves ALT [Catalytic activity/Vol] 18 U/L Normal 14-59 [facility] Comment on above: Performed By: #### C MP, CK #### [facility] [address] [place] [address] Dr. Avtar Gonsalves Anion gap [Moles/Vol] 15.6 mmol/L Normal [facility] Comment on above: Performed By: #### C MP, CK #### [facility] [address] [place] [address] Dr. Avtar Gonsalves AST [Catalytic activity/Vol] 15 U/L Normal 15-37 [facility] Comment on above: Performed By: #### C MP, CK #### [facility] [address] [place] [address] Dr. Avtar Gonsalves Bilirubin [Mass/Vol] 0.7 mg/dL Normal 0.2-1.0 [facility] Comment on above: Performed By: #### C MP, CK #### [facility] [address] [address] [address] Avtar Gonsalves Calcium [Mass/Vol] 9.1 mg/dL Normal 8.5-10.1 [facility] Comment on above: Performed By: #### C MP, CK #### [facility] [address] [address] [address] Avtar Gonsalves Chloride [Moles/Vol] 103 mmol/L Normal 98-107 [facility] Comment on above: Performed By: #### C MP, CK #### [facility] [address] [address] [address] Avtar Gonsalves CO2 [Moles/Vol] 23.4 mmol/L Normal 21.0-32.0 [facility] Comment on above: Performed By: #### C MP, CK #### [facility] [address] [address] [address] Avtar Gonsalves Creatinine [Mass/Vol] 0.74 mg/dL Normal 0.55-1.02 [facility] Comment on above: Performed By: #### C MP, CK #### [facility] [address] [place] [address] Dr. Avtar Gonsalves EGFR-AF DANISH >60 Normal >=60 [facility] Comment on above: Performed By: #### C MP, CK #### [facility] [address] [address] [address] Avtar Gonsalves EGFR-NON AF DANISH >60 Normal >=60 [facility] Comment on above: Performed By: #### C MP, CK #### [facility] [address] [address] [address] Avtar Gonsalves Globulin (S) [Mass/Vol] 3.7 g/dL Normal [facility] Comment on above: Performed By: #### C MP, CK #### [facility] [address] [address] [address] Avtar Gonsalves Glucose [Mass/Vol] 88 mg/dL Normal 74-106 [facility] Comment on above: Performed By: #### C MP, CK #### [facility] [address] [address] [address] Avtar Gonsalves Potassium [Moles/Vol] 4.0 mmol/L Normal 3.5-5.1 [facility] Comment on above: Performed By: #### C MP, CK #### [facility] [address] [place] [address] Dr. Avtar Gonsalves Protein [Mass/Vol] 7.1 g/dL Normal 6.4-8.2 [facility] Comment on above: Performed By: #### C MP, CK #### [facility] [address] [address] [address] Avtar Gonsalves Sodium [Moles/Vol] 138 mmol/L Normal 136-145 [facility] Comment on above: Performed By: #### C MP, CK #### [facility] [address] [address] [address] Avtar Gonsalves Urea nitrogen [Mass/Vol] 16.0 mg/dL Normal 7.0-18.0 [facility] Comment on above: Performed By: #### C MP, CK #### [facility] [address] [address] [address] Avtar Gonsalves Urea nitrogen/Creatinine [Mass ratio] 21.6 mg/mg Normal [facility] Comment on above: Performed By: #### C MP, CK #### [facility] [address] [address] [address] Avtar Gonsalves XR ABD FLAT UP_PA Quentin 02-08 XR ABD FLAT UP_PA CH EXAMINATION: XR ABD FLAT UP_PA CH HISTORY: CONSTIPATION, UNSPECIFIED COMPARISON: XR chest 04/28/2022 FINDINGS: LUNGS: Mild chronic interstitial changes bilaterally suggestive COPD. Coarse curvilinear stranding opacities within left lung base. MEDIASTINUM: No abnormal widening. BOWEL GAS PATTERN: Non-obstructed. Moderate amount of stool throughout the colon. No abnormal dilation or suspicious fluid levels. FREE AIR: None. CALCIFICATIONS: None significant. BONES: No fracture or visible bone lesion. OTHER: Negative. IMPRESSION: 1. Increased mild stranding within left lung base; scarring versus discoid atelectasis versus acute infiltrates. 2. Chronic changes suggestive COPD. 3. Moderate stool burden. No bowel obstruction. Electronically authenticated by: ANN MARIE WALSH Date: 2023-02-08 14:48 Normal [facility] XR CHEST 2 Von 04-29-2022 XR CHEST 2 V EXAMINATION: XR CHES T 2 V HISTORY: Chest pain , fatigue COMPARISON: XR chest 03/15/2021 FINDINGS: LUNGS: Hyperexpanded lungs with stable mild scarring in lung bases. No acute infiltrates. VASCULATURE: No increased pulmonary vasculature. PLEURA: No pneumothorax, effusion, or pleural thickening. CARDIAC: No cardiomegaly or cardiac silhouette abnormality. MEDIASTINUM: No visible mass or adenopathy. BONES: No fracture or visible bone lesion. OTHER: Negative. IMPRESSION: 1. No acute cardiopulmonary process. 2. Stable hyperexpanded lungs suggestive of COPD. Electronically authenticated by: ANN MARIE WALSH Date: 2022-04-29 09:49 Normal [facility] CBC AUTO DIFFon 04-28-2022 BASO # 0.0 103/ul Normal 0.0-0.1 [facility] Comment on above: Performed By: #### C BC ####[facility] [address] [address]Dr. Avtar Gonsalves Basophils/100 WBC (Bld) 0.8 % Normal 0.2-2.0 [facility] Comment on above: Performed By: #### C BC ####[facility] [address] [address]Dr. Avtar Gonsalves EO # 0.2 103/ul Normal 0.0-0.7 [facility] Comment on above: Performed By: #### C BC ####[facility] [address] [id number]. Avtar Gonsalves Eosinophils/100 WBC (Bld) 3.3 % Normal 0.9-7.0 [facility] Comment on above: Performed By: #### C BC ####[facility] [address] [id number]. Avtar Gonsalves Erythrocyte distribution width (RBC) [Ratio] 13.6 % Normal 11.0-15.0 [facility] Comment on above: Performed By: #### C BC ####[facility] [address] [id number] Gonsalves Hematocrit (Bld) [Volume fraction] 41.4 % Normal 36.0-48.0 [facility] Comment on above: Performed By: #### C BC ####[facility] [address] [id number]. Avtar Gonsalves Hemoglobin (Bld) [Mass/Vol] 13.5 g/dL Normal 12.0-16.0 [facility] Comment on above: Performed By: #### C BC ####[facility] [address] [address]Dr. Avtar Gonsalves IG # 0.02 10e3/ul Normal 0.00-0.03 [facility] Comment on above: Performed By: #### C BC ####[facility] [address] [address]Dr. Avtar Gonsalves IG % 0.4 % Normal 0.0-0.5 [facility] Comment on above: Performed By: #### C BC ####[facility] [address] [address]Dr. Avtar Gonsalves LYMPH # 1.4 103/ul Normal 1.2-3.8 [facility] Comment on above: Performed By: #### C BC ####[facility] [address] [address]Dr. Avtar Gonsalves Lymphocytes/100 WBC (Bld) 26.6 % Normal 20.5-60.0 [facility] Comment on above: Performed By: #### C BC ####[facility] [address] [address]Dr. Avtar Gonsalves MANUAL DIFF REQ NO Normal [facility] Comment on above: Performed By: #### C BC ####[facility] [address] [address]Dr. Avtar Gonsalves MCH (RBC) [Entitic mass] 31.0 pg Normal 26.7-34.0 [facility] Comment on above: Performed By: #### C BC ####[facility] [address] [address]Dr. Avtar Gonsalves MCHC (RBC) [Mass/Vol] 32.6 g/dL Normal 29.9-35.2 [facility] Comment on above: Performed By: #### C BC ####[facility] [address] [address]Dr. Avtar Gonsalves MCV (RBC) [Entitic vol] 95.0 fL Normal 81.0-99.0 [facility] Comment on above: Performed By: #### C BC ####[facility] [address] [id number]. Avtar Gonsalves MONO # 0.5 103/ul Normal 0.3-0.8 [facility] Comment on above: Performed By: #### C BC ####[facility] [address] [id number]. Avtar Gonsalves Monocytes/100 WBC (Bld) 9.8 % Normal 1.7-12.0 [facility] Comment on above: Performed By: #### C BC ####[facility] [address] [place], [place] [id number]. Avtar Gonsalves NEUT # 3.1 103/ul Normal 1.4-6.5 [facility] Comment on above: Performed By: #### C BC ####[facility] [address] [place], [place] [address]Dr. Avtar Gonsalves Neutrophils/100 WBC (Bld) 59.1 % Normal 43.0-75.0 [facility] Comment on above: Performed By: #### C BC ####[facility] [address] [place], [place] [address]Dr. Avtar Gonsalves Platelet mean volume (Bld) [Entitic vol] 10.1 fL Normal 9.5-13.5 [facility] Comment on above: Performed By: #### C BC ####[facility] [address] [id number]. Avtar Gonsalves PLT 224 103/ul Normal 150-450 [facility] Comment on above: Performed By: #### C BC ####[facility] [address] [phone]. Avtar Gonsalves RBC 4.36 106/ul Normal 4.20-5.40 [facility] Comment on above: Performed By: #### C BC ####[facility] [address] [phone]. Avtar Gonsalves WBC 5.2 103/ul Normal 4.0-11.0 [facility] Comment on above: Performed By: #### C BC ####[facility] [address] [phone]. Avtar Gonsalves LIPID PROFILEon 04-28-2022 CHOL-HDL RATIO NORM SEE BELOW Normal [facility] Comment on above: Result Comment: 3.3 - 4.4 LOW RISK 4.4 - 7.1 AVERAGE RISK 7.1 - 11.0 MODERATE RISK >11.0 HIGH RISK Performed By: #### C MP, LIPID, TSH, MG ####[facility] [address] [address]Dr. Dunialan Gonsalves Cholesterol [Mass/Vol] 237 mg/dL Critically high <=200 [facility] Comment on above: Performed By: #### C MP, LIPID, TSH, MG ####[facility] [address] [address]Dr. Dunialan Gonsalves Cholesterol in HDL [Mass/Vol] 65 mg/dL Critically high 40-60 [facility] Comment on above: Performed By: #### C MP, LIPID, TSH, MG ####[facility] [address] [address]Dr. Dunialan Gonsalves Cholesterol in LDL [Mass/Vol] 157.6 mg/dL Normal [facility] Comment on above: Performed By: #### C MP, LIPID, TSH, MG ####[facility] [address] [id number]. Dunialan Gonsalves Cholesterol.total/C holesterol in HDL [Mass ratio] 3.6 {ratio} Normal [facility] Comment on above: Performed By: #### C MP, LIPID, TSH, MG ####[facility] [address] [id number]. Dunialan Gonsalves HDL NORMAL > or = 60 mg/dl - LO W CARDIOVASCULAR RISK <40 mg/dl - HIGH CARDIOVASCULAR RISK Normal [facility] Comment on above: Performed By: #### C MP, LIPID, TSH, MG ####[facility] [address] [address]Dr. Dunialan Gonsalves LDL CALC NORMAL SEE BELOW Normal [facility] Comment on above: Result Comment: <100 mg/dl OPTIMAL 100 - 129 mg/dl NEAR OR ABOVE OPTIMAL 130 - 159 mg/dl BORDERLINE HIGH 160 - 189 mg/dl HIGH >190 mg/dl VERY HIGH Performed By: #### C MP, LIPID, TSH, MG ####[facility] [address] [address]Dr. Avtar Gonsalves Triglyceride [Mass/Vol] 72 mg/dL Normal <=150 [facility] Comment on above: Performed By: #### C MP, LIPID, TSH, MG ####[facility] [address] [address]Dr. Avtar Gonsalves VLDL CALC 14.4 mg/dL Normal [facility] Comment on above: Performed By: #### C MP, LIPID, TSH, MG ####[facility] [address] [address]Dr. Avtar Gonsalves MAGNESIUMon 04-28-2022 Magnesium [Mass/Vol] 2.3 mg/dL Normal 1.8-2.4 [facility] Comment on above: Performed By: #### C MP, LIPID, TSH, MG ####[facility] [address] [address]Dr. Avtar Gonsalves PROF 14(COMP METB)on 022 Albumin [Mass/Vol] 3.6 g/dL Normal 3.4-5.0 [facility] Comment on above: Performed By: #### C MP, LIPID, TSH, MG ####[facility] [address] [address]Dr. Avtar Gonsalves Albumin/Globulin [Mass ratio] 1.1 {ratio} Normal [facility] Comment on above: Performed By: #### C MP, LIPID, TSH, MG ####[facility] [address] [address]Dr. Avtar Gonsalves ALP [Catalytic activity/Vol] 107 U/L Normal 46-116 [facility] Comment on above: Performed By: #### C MP, LIPID, TSH, MG ####[facility] [address] [address]Dr. Avtar Gonsalves ALT [Catalytic activity/Vol] 24 U/L Normal 14-59 [facility] Comment on above: Performed By: #### C MP, LIPID, TSH, MG ####[facility] [address] [address]Dr. Avtar Gonsalves Anion gap [Moles/Vol] 10.8 mmol/L Normal [facility] Comment on above: Performed By: #### C MP, LIPID, TSH, MG ####[facility] [address] [address]Dr. Avtar Gonsalves AST [Catalytic activity/Vol] 14 U/L Critically low 15-37 [facility] Comment on above: Performed By: #### C MP, LIPID, TSH, MG ####[facility] [address] [address]Dr. Avtar Gonsalves Bilirubin [Mass/Vol] 0.7 mg/dL Normal 0.2-1.0 [facility] Comment on above: Performed By: #### C MP, LIPID, TSH, MG ####[facility] [address] [address]Dr. Avtar Gonsalves Calcium [Mass/Vol] 9.0 mg/dL Normal 8.5-10.1 [facility] Comment on above: Performed By: #### C MP, LIPID, TSH, MG ####[facility] [address] [address]Dr. Avtar Gonsalves Chloride [Moles/Vol] 104 mmol/L Normal 98-107 [facility] Comment on above: Performed By: #### C MP, LIPID, TSH, MG ####[facility] [address] [address]Dr. Avtar Gonsalves CO2 [Moles/Vol] 28.1 mmol/L Normal 21.0-32.0 [facility] Comment on above: Performed By: #### C MP, LIPID, TSH, MG ####[facility] [address] [address]Dr. Avtar Gonsalves Creatinine [Mass/Vol] 0.82 mg/dL Normal 0.55-1.02 [facility] Comment on above: Performed By: #### C MP, LIPID, TSH, MG ####[facility] [address] [id number]. Avtar Gonsalves EGFR-AF DANISH >60 Normal >=60 [facility] Comment on above: Performed By: #### C MP, LIPID, TSH, MG ####[facility] [address] [phone]. Avtar Gonsalves EGFR-NON AF DANISH >60 Normal >=60 [facility] Comment on above: Performed By: #### C MP, LIPID, TSH, MG ####[facility] [address] [address]Dr. Avtar Gonsalves Globulin (S) [Mass/Vol] 3.3 g/dL Normal [facility] Comment on above: Performed By: #### C MP, LIPID, TSH, MG ####[facility] [address] [address]Dr. Avtar Gonsalves Glucose [Mass/Vol] 91 mg/dL Normal 74-106 [facility] Comment on above: Performed By: #### C MP, LIPID, TSH, MG ####[facility] [address] [address]Dr. Avtar Gonsalves Potassium [Moles/Vol] 3.9 mmol/L Normal 3.5-5.1 [facility] Comment on above: Performed By: #### C MP, LIPID, TSH, MG ####[facility] [address] [address]Dr. Avtar Gonsalves Protein [Mass/Vol] 6.9 g/dL Normal 6.4-8.2 [facility] Comment on above: Performed By: #### C MP, LIPID, TSH, MG ####[facility] [address] [address]Dr. Avtar Gonsalves Sodium [Moles/Vol] 139 mmol/L Normal 136-145 [facility] Comment on above: Performed By: #### C MP, LIPID, TSH, MG ####[facility] [address] [address]Dr. Avtar Gonsalves Urea nitrogen [Mass/Vol] 18.0 mg/dL Normal 7.0-18.0 [facility] Comment on above: Performed By: #### C MP, LIPID, TSH, MG ####[facility] [address] [place], [place] [address]QrSharron Gonsalves Urea nitrogen/Creatinine [Mass ratio] 22.0 mg/mg Normal [facility] Comment on above: Performed By: #### C MP, LIPID, TSH, MG ####[facility] [address] [place], [place] [address]GgSharron Gonsalves TSHon 04-28-2022 TSH 1.424 uIU/mL Normal 0.358-3.740 [facility] Comment on above: Performed By: #### C MP, LIPID, TSH, MG #### [facility] [address] [place], [place] [address] Dr. Avtar Gonsalves VITAMIN D 25 OHon 04-28-2022 VIT D 25-OH 27.3 ng/mL Normal [facility] Comment on above: Performed By: #### V ITAD ####[facility] [address] [place], [place] [address]Tm. Avtar Gonsalvse VIT D RANGES SEE BELOW Normal [facility] Comment on above: Result Comment: <20 ng/mL Vit D deficient 20 - <30 ng/mL Vit D insufficient 30 - 100 ng/mL Vit D sufficient >100 ng/mL Potential Toxicity Performed By: #### V ITAD ####[facility] [address] [place], [place] [address]Rz. Avtar Gonsalves Free T3on 12-08-2021 FT3 2.95 pg/mL Normal 2.00-4.40 [facility] Comment on above: Performed By: #### F T3, FT4, TSH #### [facility] [address], [place] [id number] Free T4on 12-08-2021 Free T4 [Mass/Vol] 0.70 ng/dL Low 0.80-1.[address] [facility] Comment on above: Performed By: #### F T3, FT4, TSH #### [facility] [address], [place] [id number] Q - T3 TOTALon 12-08-2021 T3, TOTAL 119 ng/dL Normal 76-181 [facility] Comment on above: Order Comment: [facility] performed at: [facility], [employer] [facility], [address], [address] [place], [address], Air Pollution Control Engineer: Jeremy Jensen MD [facility] Collection Date/Time: [facility] Results Received Date/Time: [facility] Reported Date/Time: Performed By: #### 9 0963, [id number] #### [facility] Default [address] [place] [address] Q - T3,REVERSE,LC/MS/MSon T3 REVERSE, LC/MS/MS 13 ng/dL Normal 8-25 [facility] Comment on above: Order Comment: [facility] performed at: [facility], [employer], [address], [place], [place], , Air Pollution Control Engineer: Donnie Hooker M.D.,PhD [facility] Date/Time: [facility] Results Received Date/Time: [facility] Reported Date/Time: Result Comment: This test was developed and its analytical performance characteristics have been determined by [employer] [place], [place]. It has not been cleared or approved by the U.S. Food and Drug Administration. This assay has been validated pursuant to the CLIA regulations and is used for clinical purposes. Performed By: #### 9 0963, [id number] #### [facility] [address] [place] [address] TSHon 12-08-2021 TSH 1.450 uIU/mL Normal 0.400-4.500 [facility] [employer] Comment on above: Performed By: #### F T3, FT4, TSH #### [facility] [address] [place], [place] [id number] Encounters Encounter Date Encounter Type Care Provider Facility Start: 03-28-2024 ambulatory Lio Batista Facility :[facility] Start: 09-17-2023 End: 09-17-2023 ambulatory DARCY RICO Not Available Start: 08-30-2023 End: 08-31-2023 ambulatory Lio Batista Facility:[facility] Start: 08-30-2023 End: 08-30-2023 Lab Drop off Lio Sparrow [facility] Start: 04-28-2023 End: 04-29-2023 ambulatory Lio Baitsta Facility:[facility] Start: 03-24-2023 End: 03-25-2023 ambulatory Lio Batista Facility:[facility] Start: 03-09-2023 End: 03-10-2023 ambulatory Lio GrimesSharron Lester Facility:[facility] Start: 02-08-2023 End: 02-11-2023 ambulatory QURESHI H CANDIDA Facility: Start: 04-28-2022 End: 04-29-2022 ambulatory BLADIMIR GARCIA Facility:[facility] Procedures Date Procedure Procedure Detail Performing Clinician None (qualifier value) Cathy Batista Immunizations Immunization Date Immunization Notes Care Provider Fa cility 07-15-2022 SARS-CoV-2 (COVID-19 ) [id number] Lio Lester [facility] Comment on above: Result Comment: 2022: [id number] 09-24-2021 SARS-CoV-2 (COVID-19 ) mRNA BNT-162b2 vax Lio Batista [facility] Comment on above: Result Comment: 2022: [id number] 11-27-2020 SARS-CoV-2 (COVID-19 ) mRNA BNT-162b2 [facility] SARS-CoV-2 (COVID-19 ) mRNA BNT-162b2 [facility] Lio Batista [facility] NEGATED: Highlighted row has not occurred!08-30-2023 influenza virus vaccine, unspecified formulation Lio Batista [facility] Payers Date Payer Category Payer Medicare [id number] 1960 Medicare [id number] 1960 Medicare [id number] 1940 Unknown [id number] 2.16.84 [id number] 1940 Unknown [id number] 2.16.84 [id number] 1939 Unknown [id number] 2.16.840 .[id number] 1939 Unknown [id number] 2.16.8 [id number] 1939 Unknown [id number] 2.16.8 [id number] 1939 Unknown [id number] 2.16.8 [id number] 1939 Unknown [id number] 2.16.8 [id number] 1939 Unknown [id number] 2.16.8 [id number] 1939 Unknown [id number] 2.16.8 [id number] 1939 Unknown [id number] 2.16.8 [id number] 1939 Unknown [id number] 2.16.8 [id number] Social History Date Type Detail Facility Start: 08-30-2023 Tobacco smoking status Never s moked tobacco (finding) [facility] Comment on above: Patient states never been a smoker [facility]: Patient states never been a smoker [facility] At [facility] Evaluation + Plan note Note Date & Type Note Facility Evaluation + Plan note Future Appointments Appointment Date:02/28/2024 01:00:00 PM Scheduled Provider:Lio Batista MD Location[facility] Appointment Type:FM Open Appointment Date:03/24/2024 01:00:00 PM Scheduled Provider: Location:[facility] Appointment Type:FM Medicare Wellness [facility] Hospital course Narrative Note Date & Type Note Facility Hospital course Narrative No data available for this section [facility] Hospital Discharge instructions Note Date & Type Note Facility Hospital Discharge instructions No data available for this section [facility] Progress note Note Date & Type Note Facility Progress note No data available for this section [facility] Summary Purpose Family History No Family History Records FoundNo Family History Records Found No data available for this section No Family History Records FoundNo Family History Records Found Advance Directives No Advanced Directives Records FoundNo Advanced Directives Records FoundNo Advanced Directives Records FoundNo Advanced Directives Records Found Additional Source Comments INFORMATION SOURCE (unrecogn ized section and content) DATE CREATED AUTHOR 12/14/2021 [facility] dical Specialist DATE CREATED AUTHOR AUTHOR'S ORGANIZ ATION 02/18/2023 [facility] DATE CREATED AUTHOR AUTHOR'S ORGANIZ ATION 09/19/2023 [facility] Specialists EPIC DATE CREATED AUTHOR AUTHOR'S ORGANIZ ATION 02/12/2024 [facility] Patient Care team informatio n (unrecognized section and content) Personnel Name: Lio Batista MD Address: Address: [address], [place] [address] FOR RECORDS PERTAINING TO PATIENTS WHO ARE OR HAVE BEEN ENROLLED IN A CHEMICAL DEPENDENCY/SUBSTANCEABUSE PROGRAM, SOME INFORMATION MAY BE OMITTED. This clinical summary was aggregated from multiple sources. Caution should be exercised in using it in the provision of clinical care. This summary normalizes information from multiple sources, and as a consequence, information in this document may materially change the coding, format and clinical context of patient data. In addition, data may be omitted in some cases. CLINICAL DECISIONS SHOULD BE BASED ON THE PRIMARY CLINICAL RECORDS. [facility] [place] [employer] [facility]. provides no warranty or guarantee of the accuracy or completeness of information in this document.
[2024-02-15 14:02] LABS: Bilirubin Urine NEGATIVE (NEGATIVE); Blood Urine NEGATIVE (NEGATIVE); Clarity Urine CLEAR (CLEAR); Color Urine LT. YELLOW (YELLOW); Glucose Urine UA NEGATIVE (NEGATIVE); Ketones Urine 40 mg/dL (NEGATIVE); Leukocyte Esterase Urine TRACE (NEGATIVE); Nitrite Urine NEGATIVE (NEGATIVE); Protein Urine NEGATIVE (NEG/TRACE)
[2024-02-15 14:04] LABS: Basophils Percent Auto 0.3 % (0.2-2.0); Eosinophils Percent Auto 0.1 % (0.9-7.0); Hematocrit 44.6 % (36.0-48.0); Hemoglobin 14.4 g/dL (12.0-16.0); Immature Granulocytes Abs Auto 0.04 10^3/uL (0.00-0.03); Immature Granulocytes Pct Auto 0.4 % (0.0-0.5); Lymphocytes Absolute Auto 0.7 10^3/uL (1.2-3.8); Lymphocytes Percent Auto 6.2 % (20.5-60.0); Mean Corpuscular HGB Conc 32.3 g/dL (29.9-35.2); Mean Corpuscular Hemoglobin 31.1 pg (26.7-34.0); Mean Corpuscular Volume 96.3 fL (81.0-99.0); Mean Platelet Volume 10.4 fL (9.5-13.5); Monocytes Absolute Auto 0.8 10^3/uL (0.3-0.8); Monocytes Percent Auto 7.7 % (1.7-12.0); Neutrophils Absolute Auto 9.3 10^3/uL (1.4-6.5); Neutrophils Percent Auto 85.3 % (43.0-75.0); Platelet Count 252 10^3/uL (150-450); Red Blood Count 4.63 10^6/uL (4.20-5.40); Red Cell Distribution Width 14.2 % (11.0-15.0); White Blood Count 10.9 10^3/uL (4.0-11.0)
[2024-02-15 14:10] LABS: Urine Microscopic Indicated YES
[2024-02-15 14:14] LABS: Alanine Aminotransferase 28 U/L (14-59); Albumin Globulin Ratio 1.2; Alkaline Phosphatase 123 U/L (46-116); Anion Gap 17.3; Aspartate Amino Transferase 25 U/L (15-37); BUN Creatinine Ratio 25.9; Bilirubin Total 1.2 mg/dL (0.2-1.0); Calcium 9.6 mg/dL (8.5-10.1); Carbon Dioxide 23.5 mmol/L (21.0-32.0); Chloride 103 mmol/L (98-107); Estimated GFR (African America >60 (>=60); Estimated GFR (Non-African Ame >60 (>=60); Globulin 3.4 g/dL; Glucose 97 mg/dL (74-106); Potassium 3.8 mmol/L (3.5-5.1); Sodium 140 mmol/L (136-145); Total Protein 7.4 g/dL (6.4-8.2)
[2024-02-15 14:15] LABS: Bacteria Urine LARGE #/HPF (NONE SEEN); Mucus Urine NONE SEEN (NONE SEEN); RBC Urine NONE SEEN #/HPF (0-2); Squamous Epithelial Cell Urine FEW #/LPF (NONE/RARE)
[2024-02-15 14:16] LABS: Urine Culture Indicated YES
[2024-02-15 14:16] LABS: Lactate/Lactic Acid 1.3 mmol/L (0.4-2.0)
[2024-02-15] MEDS: 0.9 % SODIUM CHLORIDE 1,000 ML 500 ML IV (14:16)
[2024-02-15 14:19] LABS: Prothrombin Time 9.8 sec (9.0-11.6)
[2024-02-15 14:21] LABS: INR <0.93
[2024-02-15 14:22] LABS: Thyroid Stimulating Hormone 1.559 uIU/mL (0.358-3.740); Troponin I High Sensitivity 39.2 pg/mL (4.0-51.3)
[2024-02-15 14:25] LABS: Creatine Kinase 191 U/L (26-192)
[2024-02-15] MEDS: CEFTRIAXONE 1,000 MG in 0.9 % SODIUM CHLORIDE 50 ML 100 MG IV (16:16)
--- NOTE | 2024-02-15 16:52 | PM.HP ---
HPI H&P: HPI History of Present Illness Chief complaint: head injury/fall Narrative: 83-year-old female was in her usual state of health when she woke up last night to use the restroom. She misjudged the distance between her and the toilet seat and fell on the back from floor She was unable to get up and stayed on the floor for about four hours. She denies loss of consciousness or head injury. Patient lives by herself, has generalized weakness and ambulatory dysfunction because of her age and multiple sclerosis. Upon workup in Emergency Department, she was found to have mild dehydration,Possible urinary tract infection, inferior ramus pubic fracture on right side. Her pain is reasonably controlled but she is unable to bear weight because of pain and has unstable gait due to generalized weakness and frailty. Denies urinary symptoms, she denies cough, shortness of breath, fever, chills. Opioid HPI Opioid Management Most Recent Opioid Data: Last ED Pain Assessment 02/15/24 15:27 Review of Systems ROS Status of ROS 10 or more systems reviewed and unremarkable except as noted in history and below [facility] Medical History (Updated 02/15/24 @ 16:59 by Shaikh Mahsa MD) HTN (hypertension) ?I10 - Essential (primary) hypertension (ICD-10) Multiple sclerosis ?G35 - Multiple sclerosis (ICD-10) Social History (Updated 02/15/24 @ 16:57 by Shaikh Mahsa MD) Within the past year, how often did you have a drink containing alcohol: never Score interpretation: A score less than 3 is consistent with normal alcohol consumption. Smoking status: Never smoker Non-prescribed substance use: denies use Meds Home Medications and Allergies Home Medications ?Medication ?Instructions ?Recorded ?Confirmed ?Type aspirin 81 mg chewable tablet 1 tab PO DAILY 02/15/24 02/15/24 History dorzolamide 22.3 mg-timolol 6.8 1 drp ophthalmic (eye) BID 02/15/24 02/15/24 History mg/mL eye drops furosemide 20 mg tablet 20 mg PO DAILY 02/15/24 02/15/24 History isosorbide mononitrate 60 mg 60 mg PO BID 02/15/24 02/15/24 History tablet,extended release 24 hr latanoprost 0.005 % eye drops 1 drp ophthalmic (eye) QPM 02/15/24 02/15/24 History metoprolol tartrate 25 mg tablet 25 mg PO BID 02/15/24 02/15/24 History spironolactone 25 mg tablet 25 mg PO DAILY 02/15/24 02/15/24 History Allergies Allergy/AdvReac Type Severity Reaction Status Date / Time Penicillins Allergy Severe Verified 02/15/24 13:23 Exam Constitutional Vital Signs, click to edit/add: Last Vital Signs Temp 97.8 F 02/15/24 13:24 Pulse 102 H 02/15/24 14:00 Resp 18 02/15/24 14:00 BP 127/81 02/15/24 15:45 Pulse Ox 95 02/15/24 15:50 O2 Del Method Room Air 02/15/24 13:24 Documenting provider has reviewed patient's vital signs: yes Common normals: no apparent distress and oriented x3 General appearance: cooperative and frail appearing [facility] Common normals: normocephalic and head/scalp atraumatic Head and scalp: normocephalic and atraumatic Eye Common normals: conjunctivae normal and no scleral icterus Conjunctiva: conjunctiva(e) normal Respiratory Common normals: normal respiratory effort and clear to auscultation bilaterally Effort & inspection: able to speak in complete sentences Auscultation: clear to auscultation bilaterally Cardio Common normals: regular rate, S1 normal heart sound and S2 normal heart sound Rate: regular rate Heart sounds: S1 normal and S2 normal GI Common normals: Normal to inspection, nondistended, normoactive bowel sounds present, soft to palpation, non-tender and no hepatosplenomegaly Palpation: soft and no hepatosplenomegaly Extremity Common normals: no clubbing, cyanosis or edema Neuro Common normals: oriented x3, moves all extremities and no focal motor deficits Psych Common normals: mental status grossly normal, denies hallucinations, denies homicidal ideation and denies suicidal ideation Results Labs Labs: Short CBC 02/15/24 Range/Units 13:49 WBC 10.9 (4.0-11.0) 10^3/uL Hgb 14.4 (12.0-16.0) g/dL Hct 44.6 (36.0-48.0) % Plt Count 252 (150-450) 10^3/uL BMP 02/15/24 13:49 Sodium 140 Potassium 3.8 Chloride 103 Carbon Dioxide 23.5 BUN 22.0 H Creatinine 0.85 Glucose 97 Calcium 9.6 Cardiac Enzymes 02/15/24 Range/Units 13:49 Total Creatine Kinase 191 (26-192) U/L Liver Function 02/15/24 Range/Units 13:49 Total Bilirubin 1.2 H (0.2-1.0) mg/dL AST 25 (15-37) U/L ALT 28 (14-59) U/L Alkaline Phosphatase 123 H (46-116) U/L Albumin 4.0 (3.4-5.0) g/dL Urine 02/15/24 Range/Units 13:43 Urine Color Lt. yellow (YELLOW) Urine Clarity Clear (CLEAR) Urine pH 6.0 (5.0-9.0) Ur Specific [place] 1.020 (1.005-1.025) Urine Protein Negative (NEG/TRACE) mg/dL Urine Glucose (UA) Negative (NEGATIVE) mg/dL Assessment and Plan Assessment and Plan (1) Fall: Assessment and Plan: Patient presents after falling at home. She has inferior pubic ramus fracture. She will need physical therapy/occupational therapy. Will likely need inpatient rehab Qualifiers: Encounter type: subsequent encounter Qualified Code(s): W19.XXXD - Unspecified fall, subsequent encounter (2) Inferior pubic ramus fracture: Assessment and Plan: Patient has non displaced inferior pubic ramus fracture. Continue with pain control. Physical therapy and occupational therapy. Qualifiers: Encounter type: subsequent encounter Fracture type: closed Laterality: right Fracture healing: with routine healing Qualified Code(s): S32.591D - Other specified fracture of right pubis, subsequent encounter for fracture with routine healing (3) Abnormal chest xray: Assessment and Plan: Possible infiltrate vs Atelectasis on chest x-ray. No respiratory symptoms.Patient on Rocephin for possible urinary tract infection. Continue same. (4) Generalized weakness: Assessment and Plan: Due to frailty/possible urinary tract infection. PT/OT evaluation. Continue with IV hydration. (5) HTN (hypertension): Assessment and Plan: Continue patient's home medications Qualifiers: Hypertension type: primary hypertension Qualified Code(s): I10 - Essential (primary) hypertension (6) Multiple sclerosis: Assessment and Plan: No weakness or numbness. Not on DMARD's (7) Ambulatory dysfunction: Assessment and Plan: PT/OT evaluation.
[2024-02-15] MEDS: LACTATED RINGER'S SOLUTION 1,000 ML 100 ML IV (18:14)
[2024-02-15] MEDS: METOPROLOL TARTRATE 25 MG TABLET PO (21:02)
[2024-02-15] MEDS: LATANOPROST 0.005% 2.5 ML BOTTLE 1 DROP OP (21:03)
[2024-02-15] MEDS: ENOXAPARIN SODIUM 40 MG/0.4 ML SYRINGE SUBQ (21:05)
[2024-02-15] MEDS: DORZOLAMIDE HCL 2%/TIMOLOL MALEATE 0.5% 200 DROP/10 ML BOTTLE OP (21:06)
[2024-02-16] VITALS (17 sets, daily range): BP systolic 103–144; BP diastolic 57–81; PULSE 18–83; TEMP 36.3–36.5; O2SAT 91–96
[2024-02-16] MEDS: LACTATED RINGER'S SOLUTION 1,000 ML 100 ML IV (04:00)
[2024-02-16 05:17] LABS: Basophils Percent Auto 0.3 % (0.2-2.0); Eosinophils Absolute Auto 0.2 10^3/uL (0.0-0.7); Eosinophils Percent Auto 2.8 % (0.9-7.0); Hematocrit 39.6 % (36.0-48.0); Hemoglobin 12.8 g/dL (12.0-16.0); Immature Granulocytes Abs Auto 0.02 10^3/uL (0.00-0.03); Immature Granulocytes Pct Auto 0.3 % (0.0-0.5); Lymphocytes Absolute Auto 1.2 10^3/uL (1.2-3.8); Lymphocytes Percent Auto 19.2 % (20.5-60.0); Mean Corpuscular HGB Conc 32.3 g/dL (29.9-35.2); Mean Corpuscular Hemoglobin 31.4 pg (26.7-34.0); Mean Corpuscular Volume 97.3 fL (81.0-99.0); Mean Platelet Volume 10.9 fL (9.5-13.5); Monocytes Absolute Auto 0.6 10^3/uL (0.3-0.8); Monocytes Percent Auto 9.4 % (1.7-12.0); Neutrophils Absolute Auto 4.1 10^3/uL (1.4-6.5); Platelet Count 205 10^3/uL (150-450); Red Blood Count 4.07 10^6/uL (4.20-5.40); Red Cell Distribution Width 14.2 % (11.0-15.0); White Blood Count 6.1 10^3/uL (4.0-11.0)
[2024-02-16 05:33] LABS: Alanine Aminotransferase 21 U/L (14-59); Alkaline Phosphatase 98 U/L (46-116); Anion Gap 12.8; Aspartate Amino Transferase 19 U/L (15-37); Bilirubin Total 1.1 mg/dL (0.2-1.0); Calcium 8.9 mg/dL (8.5-10.1); Carbon Dioxide 24.1 mmol/L (21.0-32.0); Chloride 107 mmol/L (98-107); Estimated GFR (African America >60 (>=60); Estimated GFR (Non-African Ame >60 (>=60); Globulin 2.9 g/dL; Glucose 86 mg/dL (74-106); Potassium 3.9 mmol/L (3.5-5.1); Sodium 140 mmol/L (136-145); Total Protein 5.9 g/dL (6.4-8.2)
[2024-02-16] MEDS: ENOXAPARIN SODIUM 40 MG/0.4 ML SYRINGE SUBQ (09:06)
[2024-02-16] MEDS: DORZOLAMIDE HCL 2%/TIMOLOL MALEATE 0.5% 200 DROP/10 ML BOTTLE OP (09:07)
[2024-02-16] MEDS: METOPROLOL TARTRATE 25 MG TABLET PO (09:07)
[2024-02-16] MEDS: ASPIRIN 81 MG TAB.CHEW PO (09:07)
--- NOTE | 2024-02-16 10:02 | CM.NOTE ---
Rounds made with Dr. Bragg, discussed with pt about skilled rehab at discharge. PT and OT will evaluate pt for discharge planning. Pt does state she would like to go to [place] if skilled is needed, she has been there before for skilled therapy.
--- NOTE | 2024-02-16 10:47 | PM.IMPN1 ---
Progress Note: A&P Assessment and Plan (1) Fall: Assessment and Plan: Mechanical fall. PT/OT eval. Will carina need precert for rehab Qualifiers: Encounter type: subsequent encounter Qualified Code(s): W19.XXXD - Unspecified fall, subsequent encounter (2) Inferior pubic ramus fracture: Assessment and Plan: Conservative measures. Pain control Qualifiers: Encounter type: subsequent encounter Fracture type: closed Laterality: right Fracture healing: with routine healing Qualified Code(s): S32.591D - Other specified fracture of right pubis, subsequent encounter for fracture with routine healing (3) Abnormal chest xray: Assessment and Plan: Atelectasis vs infiltrate on CXR. No resp symptoms. On rocephin for probable UTI. c/w same (4) Generalized weakness: Assessment and Plan: PT/OT eval. Awaiting their recommendation regarding patient's disposition (5) HTN (hypertension): Assessment and Plan: c.w home medications Qualifiers: Hypertension type: primary hypertension Qualified Code(s): I10 - Essential (primary) hypertension (6) Multiple sclerosis: Assessment and Plan: Has ambulatory dysfunction, leg weakness from it. Unchanged. (7) Ambulatory dysfunction: Assessment and Plan: Due to frailty, MS, generalized weakness. PT/OT eval (8) Acute UTI: Assessment and Plan: Possible UTI based on UA. no symptoms. treating with rocephin as precaution Plan Stop IVF. c/w rocephin PT/OT eval. Will possibly need inpatient rehab pending PT/OT eval Internal Medicine - PN: Subj Subjective Interval history: Seen and examined. Doing well. Pain is controlled but worsens on ambulation. No events overnight Exam Constitutional Vital Signs, click to edit/add: Last Vital Signs Temp 97.5 F L 02/16/24 07:59 Pulse 73 02/16/24 10:00 Resp 16 02/16/24 08:29 BP 142/79 H 02/16/24 07:59 Pulse Ox 96 02/16/24 10:37 O2 Del Method Room Air 02/16/24 10:37 Documenting provider has reviewed patient's vital signs: yes Common normals: no apparent distress and oriented x3 General appearance: cooperative and frail appearing [facility] Common normals: normocephalic and head/scalp atraumatic Head and scalp: normocephalic and atraumatic Eye Common normals: conjunctivae normal and no scleral icterus Conjunctiva: conjunctiva(e) normal Respiratory Common normals: normal respiratory effort and clear to auscultation bilaterally Effort & inspection: able to speak in complete sentences Auscultation: clear to auscultation bilaterally Cardio Common normals: regular rate, S1 normal heart sound and S2 normal heart sound Rate: regular rate Heart sounds: S1 normal and S2 normal GI Common normals: Normal to inspection, nondistended, normoactive bowel sounds present, soft to palpation, non-tender and no hepatosplenomegaly Palpation: soft and no hepatosplenomegaly Extremity Common normals: no clubbing, cyanosis or edema Neuro Common normals: oriented x3, moves all extremities and no focal motor deficits Psych Common normals: mental status grossly normal, denies hallucinations, denies homicidal ideation and denies suicidal ideation Internal Medicine - PN: Obj Da Labs Labs: Laboratory Results - last 24 hr 02/15/24 02/15/24 02/16/24 13:43 13:49 04:50 WBC 10.9 6.1 RBC 4.63 4.07 L Hgb 14.4 12.8 Hct 44.6 39.6 MCV 96.3 97.3 MCH 31.1 31.4 MCHC 32.3 32.3 RDW 14.2 14.2 Plt Count 252 205 MPV 10.4 10.9 Neut % (Auto) 85.3 H 68.0 Lymph % (Auto) 6.2 L 19.2 L [place] % (Auto) 7.7 9.4 Eos % (Auto) 0.1 L 2.8 Baso % (Auto) 0.3 0.3 Neut # (Auto) 9.3 H 4.1 Lymph # (Auto) 0.7 L 1.2 [place] # (Auto) 0.8 0.6 Eos # (Auto) 0.0 0.2 Baso # (Auto) 0.0 0.0 Abs Immat Gran (auto) 0.04 H 0.02 Imm/Tot Granulo (auto) 0.4 0.3 PT 9.8 INR <0.93 Sodium 140 140 Potassium 3.8 3.9 Chloride 103 107 Carbon Dioxide 23.5 24.1 Anion Gap 17.3 12.8 BUN 22.0 H 15.0 Creatinine 0.85 0.60 Est GFR ( Amer) >60 >60 Est GFR (Non-Af Amer) >60 >60 BUN/Creatinine Ratio 25.9 25.0 Glucose 97 86 Lactate 1.3 Calcium 9.6 8.9 Total Bilirubin 1.2 H 1.1 H AST 25 19 ALT 28 21 Alkaline Phosphatase 123 H 98 Total Creatine Kinase 191 Troponin I High Sens 39.2 Total Protein 7.4 5.9 L Albumin 4.0 3.0 L Globulin 3.4 2.9 Albumin/Globulin Ratio 1.2 1.0 TSH 1.559 Urine Color Lt. yellow Urine Clarity Clear Urine pH 6.0 Ur Specific [place] 1.020 Urine Protein Negative Urine Glucose (UA) Negative Urine Ketones 40 A Urine Occult Blood Negative Urine Nitrite Negative Urine Bilirubin Negative Urine Urobilinogen 1.0 Ur Leukocyte Esterase Trace A Urine RBC None seen Urine WBC 5-10 A Ur Squamous Epith Cells Few A Urine Bacteria Large A Urine Mucus None seen Ur Culture Indicated? Yes
--- NOTE | 2024-02-16 12:33 | SWNOTE1 ---
Rehab is being recommended by therapy. Case management spoke with pt earlier and she wanted [facility]. SW spoke to daughter in [facility] as she was coming to see pt. SW updated her with plan and she voiced she was not happy with [facility] last time her mother went there. She voiced the food was terrible and other concerns with a nurse there and they forgot to send her home with a medication. Pt's daughter is going to speak with pt and SW will check back.
--- NOTE | 2024-02-16 13:06 | SWNOTE1 ---
SW spoke with daughter and pt in room. SW reviewed therapy recommendations with daughter and pt in room. Pt was thinking that the second therapist was on the fence about HH or skilled. SW went back in office and reviewed therapy notes and did let pt know that she had voiced she wants to go home with HH, but they are still recommending rehab for a short time. Pt does want to stay here in [place]. SW let her know in [place] is [facility] and [facility]. FERNANDO advised that the last referral to [facility] FERNANDO sent today the patient was going to have to share a room. Pt and daughter would like to discuss, SW to check back.
--- NOTE | 2024-02-16 13:35 | SWNOTE1 ---
SW spoke to pt and daughter. Pt has decided she will go home and do the home health and does not feel rehab will benefit. She has used [facility] in past and really likes them. She would like FERNANDO to send referral there. Referral sent to [facility]. Referral included face sheet, ED note, H&P, provider notes, and PT/OT notes.
--- NOTE | 2024-02-16 15:27 | SWNOTE1 ---
FERNANDO received call back from [facility] and they can see pt Wednesday. FERNANDO sent message to Dr. Bragg, he is going to discharge patient home today. FERNANDO let nursing know. Pt's daughter had already left as she thought pt was staying another night. FERNANDO received call from [facility] and they can actually see pt tomorrow. FERNANDO called daughter, Suzie, and left her a message that pt is discharged today and [facility] will see her tomorrow. FERNANDO to inform pt as well. [facility] with [facility]'s daughters updated phone number.
--- NOTE | 2024-02-16 16:16 | CM.NOTE ---
Medicare Outpatient Observation Notice discussed with pt, pt verbalizes understanding and signs paper. Original given to pt and copy placed in pt's chart.
--- NOTE | 2024-02-16 16:23 | SWNOTE1 ---
SW spoke to daughter and she will be here in about an hour - hour and a half to case picker patient. FERNANDO advised nursing. Pt will go home with [facility] and they will see her tomorrow. D/C med rec and and CRF sent to [facility].
[2024-02-16] MEDS: CEFTRIAXONE 1,000 MG in 0.9 % SODIUM CHLORIDE 50 ML 100 MG IV (16:38)
== END 2024-02-16 17:41 | disposition home health service (06) ==
LOC: ER 15:58 → MS 17:02
PROVIDERS: Physician Assistant; Admitting Provider Internal Medicine; Emergency Provider Emergency Medicine; PCP Family Medicine; Visit Provider Internal Medicine
DX: S32.591A Other specified fracture of right pubis, initial encounter for closed fracture (principal); N39.0 Urinary tract infection, site not specified; E86.0 Dehydration; W19.XXXA Unspecified fall, initial encounter; G35 Multiple sclerosis; Z79.82 Long term (current) use of aspirin; Z79.899 Other long term (current) drug therapy; L89.311 Pressure ulcer of right buttock, stage 1; R91.8 Other nonspecific abnormal finding of lung field; I10 Essential (primary) hypertension; R26.2 Difficulty in walking, not elsewhere classified; R53.1 Weakness
CPT/HCPCS: 36415; 70450; 71045; 72125; 72170; 80053; 81001; 82550; 83605; 84443; 84484; 85025; 85610; 87086; 93005; 94761; 96361; 96365; 96366; 96372; 97161; 97165; 97530; 99285; G0378

== ENCOUNTER 2025-01-13 13:56 | Observation (INO) | payer MEDICARE, SELFPAY ==
[2025-01-13] VITALS (18 sets, daily range): BP systolic 105–148; BP diastolic 58–81; PULSE 78–91; TEMP 36.3–36.5; O2SAT 92–97; BMI 27.5; BMI 27.2
--- NOTE | 2025-01-13 13:55 | ECG_ITS ---
[facility] Test Date: 2025-01-13 Pat Name: JOVON ROJAS Department: Room: - Gender: Female Acquisitions Editor: : 1940 Requested By: [id number] Order Number: [id number] Reading MD: NGHIA ORTIZ M.D. Measurements Intervals [place] Rate: 86 P: 51 WY: 194 QRS: -67 QRSD: 86 T: 39 QT: 376 QTc: 419 Interpretive Statements 1100 Sinus rhythm 2420 RSR (QR) in lead V1/V2, consistent with right ventricular conduction delay 3113 Cannot rule out anterior myocardial infarction, probably old 7200 Abnormal left axis deviation 8102 Low QRS voltage in chest leads 9150 abnormal ECG Compared to ECG 02/15/2024 13:57:06 Left-axis deviation now present Low QRS voltage now present Myocardial infarct finding still present Electronically Signed On 01-14-2025 6:29:07 EDT by NGHIA ORTIZ M.D.
--- NOTE | 2025-01-13 13:57 | ED.GENADUL1 ---
HPI HPI - General Adult General Chief complaint: Fall Stated complaint: FALL Time Seen by Provider: 01/13/25 13:58 Source: patient Mode of arrival: ambulance Limitations: no limitations History of Present Illness HPI narrative: Patient is an 84-year-old female who presents to the emergency department by ambulance for evaluation of a fall that occurred approximately 5 hours ago at home. Patient has a longstanding history of MS since age 19. She states she lives at home alone, though she does have multiple walkers and a lift chair to help her. She states she falls frequently as her left leg gives out on her. She states earlier today the left leg gave out, she fell forward and wedged herself between the corner of her bedroom. She states she tried to get herself to her lift chair but was unable to do so and sat on the ground for about 5 hours until her daughter found her and called 911. Patient states she did not want to come to the hospital, she has no pain or injury from the fall. She had no dizziness or syncope prior to falling. She does not take blood thinners. She has chronic aches and pains from her MS, her left leg is chronically swollen. She has no other new focal medical complaints today. She denies head injury, loss of consciousness, neck or back pain. Related Data Home Medications ?Medication ?Instructions ?Recorded ?Confirmed aspirin 81 mg chewable tablet 1 tab PO DAILY 02/15/24 01/13/25 dorzolamide 22.3 mg-timolol 6.8 1 drp ophthalmic (eye) BID 02/15/24 01/13/25 mg/mL eye drops furosemide 20 mg tablet 20 mg PO DAILY 02/15/24 01/13/25 isosorbide mononitrate 60 mg 60 mg PO BID 02/15/24 01/13/25 tablet,extended release 24 hr latanoprost 0.005 % eye drops 1 drp ophthalmic (eye) QPM 02/15/24 01/13/25 metoprolol tartrate 25 mg tablet 25 mg PO BID 02/15/24 01/13/25 spironolactone 25 mg tablet 25 mg PO DAILY 02/15/24 01/13/25 celecoxib 200 mg capsule 200 mg PO Q12H 01/13/25 01/13/25 Allergies Allergy/AdvReac Type Severity Reaction Status Date / Time Penicillins Allergy Severe Verified 02/15/24 13:23 Opioid HPI Opioid Management Most Recent Opioid Data: Last Pain Scale 2 02/16/24 07:59 02/16/24 Last ORT Total Score 0 02/15/24 17:14 02/15/24 Last ORT Risk Category Low Risk 02/15/24 17:14 02/15/24 Review of Systems ROS Constitutional Denies: fever or chills Ears, nose, mouth, and throat Denies: throat pain, neck pain or nasal congestion Cardiovascular Denies: chest pain Respiratory Denies: shortness of breath or cough Gastrointestinal Denies: nausea or vomiting Musculoskeletal Denies: back pain or neck pain Integumentary/Breast Denies: rash Hematologic/Lymphatic Denies: easy bruising or easy bleeding PFSH PFSH Medical History (Updated 01/13/25 @ 15:22 by HALLE Fajardo) Ambulatory dysfunction ?R26.2 - Difficulty in walking, not elsewhere classified (ICD-10) Abnormal chest xray ?R93.89 - Abnormal findings on diagnostic imaging of other specified body structures (ICD-10) Generalized weakness ?R53.1 - Weakness (ICD-10) Inferior pubic ramus fracture ?S32.599A - Other specified fracture of unspecified pubis, initial encounter for closed fracture (ICD-10) Fall ?W19.XXXA - Unspecified fall, initial encounter (ICD-10) Acute UTI ?N39.0 - Urinary tract infection, site not specified (ICD-10) Closed pelvic fracture ?S32.9XXA - Fracture of unspecified parts of lumbosacral spine and pelvis, initial encounter for closed fracture (ICD-10) History of fractured vertebra ?Z87.81 - Personal history of (healed) traumatic fracture (ICD-10) Glaucoma ?H40.9 - Unspecified glaucoma (ICD-10) Cataracts, bilateral ?H26.9 - Unspecified cataract (ICD-10) HTN (hypertension) ?I10 - Essential (primary) hypertension (ICD-10) Multiple sclerosis ?G35 - Multiple sclerosis (ICD-10) Family History (Updated 02/15/24 @ 17:13 by Radha Sánchez) Grandmother Family history of diabetes mellitus Sister Family history of diabetes mellitus Father Family history of hypertension Mother Family history of hypertension Family history of myocardial infarction Social History Within the past year, how often did you have a drink containing alcohol: never Score interpretation: A score less than 3 is consistent with normal alcohol consumption. Smoking status: Never smoker Non-prescribed substance use: denies use Highest level of school completed/degree received: high school graduate Are you now , , , , never or living with a partner: In a typical week, how many times do you talk on the telephone with family, friends, or neighbors: 3 or more times per week How often do you get together with friends or relatives: 3 or more times per week How often do you attend restoration or holiness services: never Do you belong to any clubs or organizations such as restoration groups unions, [employer] or athletic groups, or school groups: no Total score: 1 Score interpretation: A score of less than or equal to 1 indicates the most socially isolated. Little interest or pleasure in doing things: not at all Feeling down, depressed, or hopeless: not at all Feel stressed/tense/nervous/anxious/difficulty sleeping: not at all Do you think of yourself as: straight/heterosexual Gender Identity: female Exam Narrative Exam Narrative: Gen.: Awake, alert, in no distress Head: Normocephalic, atraumatic ENT: Moist mucous membranes, no facial or dental injury, C-spine nontender Respiratory: No respiratory distress, lungs clear bilaterally Cardio: Regular rate and rhythm Back: No bony tenderness of the T-spine or L-spine Gastrointestinal: Abdomen is soft, nondistended and nontender to palpation, pelvis is stable and hips are nontender Extremities: Moves extremities equally, no injuries noted, left lower extremity with edema compared to the right. Calves are soft and nontender Psych: Normal mood and affect Neuro: No focal neuro deficit Skin: Warm, dry, intact Constitutional Vital Signs, click to edit/add: Last Vital Signs Temp 97.4 F L 01/13/25 13:57 Pulse 80 01/13/25 14:40 Resp 19 01/13/25 14:40 BP 143/79 H 01/13/25 13:57 Pulse Ox 95 01/13/25 15:20 O2 Del Method Room Air 01/13/25 13:50 Course Vital Signs Vital signs: Vital Signs Respiratory Rate 18 01/13/25 13:50 Oxygen Delivery Method Room Air 01/13/25 13:50 Temperature 97.4 F L 01/13/25 13:57 Pulse Rate 80 01/13/25 14:40 Respiratory Rate 19 01/13/25 14:40 Blood Pressure 143/79 H 01/13/25 13:57 Pulse Oximetry 95 01/13/25 15:20 Oxygen Delivery Method Room Air 01/13/25 13:50 Medical Decision Making MDM Narrative Medical decision making narrative: patient had a cardiac workup, normal CK and normal troponin. EKG is unremarkable. Chest x-ray was obtained, however patient declined x-rays of the pelvis, CTs of the head and C-spine. Patient states she does not feel any additional images are necessary, she just lowered herself to the ground as she has done in the past without injury. Laboratory studies are stable. Family is concerned for the patient safety as home as she continues to fall due to weakness in the left leg and she lives alone. Patient is agreeable to an observation stay for PT/OT to determine if she needs to go back to rehab where she has been at the [facility] previously. She declined any medications for pain in the ER. She is hemodynamically stable at this time. SUPERVISED APC VISIT, PHYSICIAN ATTESTATION: Based on the medical record the care appears appropriate. ? Medical Records Medical records reviewed: Yes I reviewed the patient's medical records Lab Data Lab results reviewed: Yes I reviewed the patient's lab results Labs: Lab Results 01/13/25 Range/Units 14:12 WBC 8.1 (4.0-11.0) 10^3/uL RBC 4.26 (4.20-5.40) 10^6/uL Hgb 13.7 (12.0-16.0) g/dL Hct 40.5 (36.0-48.0) % MCV 95.1 (81.0-99.0) fL MCH 32.2 (26.7-34.0) pg MCHC 33.8 (29.9-35.2) g/dL RDW 13.2 (11.0-15.0) % Plt Count 226 (150-450) 10^3/uL MPV 10.3 (9.5-13.5) fL Seg Neuts % (Manual) 80.0 H (43.0-75.0) Lymphocytes % (Manual) 14.0 L (20.5-60.0) % Monocytes % (Manual) 6.0 (1.7-12.0) % Eosinophils % (Manual) 0.0 L (0.9-7.0) % Basophils % (Manual) 0.0 L (0.2-2.0) % Neutrophils # (Manual) 6.48 (1.4-6.5) 10^3/uL Band Neutrophils # 1.1 H (0.0-0.3) 10^3/uL Lymphocytes # (Manual) 1.13 L (1.20-3.80) 10^3/uL Monocytes # (Manual) 0.48 (0.30-0.80) 10^3/uL Eosinophils # (Manual) 0.00 (0.00-0.70) 10^3/uL Basophils # (Manual) 0.00 (0.00-0.10) 10^3/uL PT 9.8 (9.0-11.6) sec INR <0.93 Sodium 139 (136-145) mmol/L Potassium 4.0 (3.5-5.1) mmol/L Chloride 105 (98-107) mmol/L Carbon Dioxide 24.2 (21.0-32.0) mmol/L Anion Gap 13.8 BUN 23.0 H (7.0-18.0) mg/dL Creatinine 1.12 H (0.55-1.02) mg/dL Est GFR ( Amer) 56 L (>=60 mL/min/1.73m^2) Est GFR (Non-Af Amer) 46 L (>=60 mL/min/1.73m^2) BUN/Creatinine Ratio 20.5 Glucose 129 H (74-106) mg/dL Lactate 1.0 (0.4-2.0) mmol/L Calcium 9.1 (8.5-10.1) mg/dL Magnesium 2.1 (1.8-2.4) mg/dL Total Bilirubin 0.7 (0.2-1.0) mg/dL AST 17 (15-37) U/L ALT 20 (14-59) U/L Alkaline Phosphatase 91 (46-116) U/L Total Creatine Kinase 112 (26-192) U/L CK-MB (CK-2) 2.37 (<=3.60) ng/mL Myoglobin 232 H (9-82) ng/mL Troponin I High Sens 11.4 (4.0-51.3) pg/mL Total Protein 6.9 (6.4-8.2) g/dL Albumin 3.6 (3.4-5.0) g/dL Globulin 3.3 g/dL Albumin/Globulin Ratio 1.1 TSH 1.706 (0.358-3.740) uIU/mL Imaging Data Chest x-ray: Attestation: I have reviewed the pertinent imaging results. ECG Data Attestation: I personally reviewed and interpreted this ECG as follows: (Normal sinus rhythm at a rate of 86, no acute ST elevation or ectopy. EKG reviewed by attending physician) Discharge Plan Discharge Chief Complaint: Fall Clinical Impression: Frequent falls, Multiple sclerosis, Weakness of extremity Patient Disposition: Admitted as Observation Time of Disposition Decision: 15:22 Condition: Good
--- OUTSIDE RECORDS SUMMARY | 2025-01-13 14:09 | XMS_ITS | CCD ---
Author Organization [facility] Care Team Providers Care Nursing Program Director Name Role Phone SHAIKH Enrique TIRADO Admitting Unavailable HOY ., DR SYKES Consulting Unavailable PAREKH ., DR PARVIZ Grimes Primary Care Unavailable SHAIKH Enrique TIRADO Attending Unavailable ANN MARIE WALSH Consulting Unavailable PAY ., DR CARRILLO Consulting Unavailable SHAIKH Enrique TIRADO Consulting Unavailable ARSLAN MONTEJO Consulting Unavailable ANDERSON, HONG Consulting Unavailable NITESH ALLISON Consulting Unavailable BO GARCIA Admitting Unavailable BO GARCIA Attending Unavailable ANN MARIE WALSH Consulting Unavailable IGLESIA ., DR PARVIZ Grimes Primary Care Unavailable BO GARCIA Consulting Unavailable Mayra Ruiz Primary Care Physician DARCY RICO Attending Unavailable Mayra Ruiz Attending Unavailable Mayra Ruiz Attending Unavailable Mayra Ruiz Attending Unavailable Mayra Ruiz Attending Unavailable Mayra Ruiz Admitting Unavailable Mayra Ruiz Attending Unavailable Mayra Ruiz Attending Unavailable Mayra Ruiz Admitting Unavailable Mayra Ruiz Admitting Unavailable Mayra Ruiz Attending Unavailable Mayra Ruiz MD Primary Care Provider Tomas Daniels MD Unavailable [phone] Mayra Ruiz Attending Unavailable Mayra Ruiz Attending Unavailable Mayra Ruiz Attending Unavailable Mayra Ruiz Admitting Unavailable Mayra Ruiz MD Primary Care Provider BO GARCIA Referring Unavailable MAYRA RUIZ Primary Care Unavailable BO GARCIA Referring Unavailable MAYRA RUIZ Primary Care Unavailable Mayra Ruiz MD Primary Care Provider [phone] Tomas Daniels MD Unavailable [phone] Allergies Allergy Classification Reported Allergen(s) Allergy Type Date of Onset Reaction(s) Facility (1 source) Penicillins Drug allergy (disorder) 1 [facility] Repository (2 sources) No Known Medication Allergies; Translations: [No Known Medication Allergies] Propensity to adverse reactions (disorder) [facility] Repository (2 sources) Penicillins Drug Intolerance 1 [facility] (2 sources) Penicillins Propensity to adverse reactions to drug 1 [facility] Medications Current Medications Medication Drug Class(es) Dates Sig (Normalized) Sig (Original) acetaminophen 325 mg / HYDROcodone bitartrate 5 mg oral tablet (4 sources) Opioid Agonist Start: 03-25-2023 take 1 tablet by mouth three times daily as needed for pain HYDROcodone-acet aminophen ([place]) 5-325 MG tablet TAKE 1 TABLET BY MOUTH THREE TIMES DAILY NEEDED FOR PAIN; to last 21 days 03/25/2023 Active ascorbic acid 500 mg oral tablet (2 sources) Vitamin C Start: 03-24-2023 take 500 mg by mouth once daily Vitamin C 500 mg, Oral, Daily, Refills(s) 0 Start Date: 03/24/23 Status: Ordered aspirin 325 mg oral tablet (3 sources) Platelet Aggregation Inhibitor, Nonsteroidal Anti-inflammatory Drug Start: 08-30-2023 take 1 tablet by mouth once daily aspirin 325 mg Tab 325 mg = 1 tab(s), Oral, Daily, Refills(s) 0 Start Date: 08/30/23 Status: Ordered Start: 03-03-2023 aspirin 81 MG EC tablet Take 81 mg by mouth. 03/03/2023 Active B-12 (2 sources) Start: 03-24-2023 B-12 Oral, Fina ly, Refills(s) 0 Start Date: 03/24/23 Status: Ordered celecoxib 200 mg oral capsule (2 sources) Nonsteroidal Anti-inflammatory Drug Start: 08-28-2024 take 1 capsule by mouth twice daily celecoxib (CELEBREX) 200 MG capsule Take 1 capsule by mouth 2 times daily 180 capsule 08/28/2024 Active dorzolamide 20 mg/ml ophthalmic solution (6 sources) Carbonic Anhydrase Inhibitor Start: 03-09-2023 dorzolamide Opth 2% Olivia 1 drop(s), OPTH, TID, 10 mL, Refill(s) 0 Start Date: 03/09/23 Status: Ordered Start: 03-09-2023 dorzolamide (T rusopt) 2 % ophthalmic solution Administer 1 drop into affected eye(s). 03/09/2023 Active take 2 drop(s) into the eye(s) in the morning dorzolamide (TRUSOPT) 2 % ophthalmic solution 2 drops in the morning and 2 drops in the evening. Active dorzolamide 20 mg/ml / timolol 5 mg/ml ophthalmic solution (4 sources) Carbonic Anhydrase Inhibitor, beta-Adrenergic Silvestre Start: 12-08-2024 take 1 drop(s) into the eye(s) in the morning dorzolamide-timolol (Cosopt) 2-0.5 % ophthalmic solution Indications: Primary open angle glaucoma (POAG) of both eyes, moderate stage (CMS/HCC) PLACE 1 DROP INTO BOTH EYES IN THE MORNING AND 1 DROP BEFORE BEDTIME 10 mL 3 12/08/2024 Active Start: 07-17-2024 End: 12-08-2024 take 1 drop(s) into the eye(s) in the morning dorzolamide-timolol (Cosopt) 2-0.5 % ophthalmic solution Indications: Primary open angle glaucoma (POAG) of both eyes, moderate stage (CMS/HCC) Administer 1 drop into both eyes in the morning and 1 drop before bedtime. 10 mL 3 07/17/2024 12/08/2024 Discontinued Start: 02-22-2024 End: 07-17-2024 dorzolamide-timolol (Cosopt) 2-0.5 % ophthalmic solution Indications: Primary open angle glaucoma (POAG) of both eyes, moderate stage (CMS/HCC) INSTILL 1 DROP INTO BOTH EYES TWICE A DAY 10 mL 3 02/22/2024 07/17/2024 Discontinued (Reorder) furosemide 20 mg oral tablet (6 sources) Loop Diuretic Start: 05-11-2024 take 1.5 tablets by mouth once daily furosemide (LASIX) 20 MG tablet Take 1.5 tablets by mouth daily 320 tablet 2 05/11/2024 Active Start: 06-11-2022 take 1 tablet by favian th in the morning furosemide (Lasix) 20 MG tablet Take 1 tablet by mouth in the morning. 06/11/2022 Active Handicap Placard (2 sources) Start: 07-20-2023 Handicap Placard Handicap Placard, See Instructions, 1 EA, 0, Expires in 10 years., Supply Start Date: 07/20/23 Status: Ordered ibuprofen 200 mg oral capsule (2 sources) Nonsteroidal Anti-inflammatory Drug take 2 capsules by mouth twice daily at mealtime as needed Ibuprofen capsule 2 capsule with food or milk as needed Orally two times daily Active 24 hr isosorbide mononitrate 60 mg extended release oral tablet (3 sources) Nitrate Vasodilator Start: 09-08-2023 take 1 tablet by mouth twice daily isosorbide mononitrate (IMDUR) 60 MG extended release tablet TAKE 1 TABLET BY MOUTH TWICE DAILY 200 tablet 2 02/16/2024 Active latanoprost 0.05 mg/ml ophthalmic solution (7 sources) Prostaglandin Analog Start: 07-17-2024 take 1 drop(s) into the eye(s) at bedtime latanoprost (Xalatan) 0.005 % ophthalmic solution Indications: Primary open angle glaucoma (POAG) of both eyes, moderate stage (CMS/HCC) Administer 1 drop into both eyes at bedtime 7.5 mL 3 07/17/2024 Active Start: 02-07-2024 End: 07-17-2024 take 1 drop(s) into the eye(s) once daily latanoprost (Xalatan) 0.005 % ophthalmic solution Indications: Primary open angle glaucoma (POAG) of both eyes, moderate stage (CMS/HCC) INSTILL 1 DROP INTO BOTH EYES EVERY NIGHT DIRECTED 7.5 mL 3 02/07/2024 07/17/2024 Discontinued (Reorder) Start: 03-09-2023 latanoprost Op th 0.005% Olivia 1 drop(s), OPTH, Once a day (at bedtime), 2.5 mL, Refill(s) 0 Start Date: 03/09/23 Status: Ordered lidocaine 0.05 mg/mg medicated patch (4 sources) Antiarrhythmic, Amide Local Anesthetic Start: 03-24-2023 lidocaine (Lidoderm) 5 % patch Apply topically. 03/24/2023 Active liothyronine sodium 0.005 mg oral tablet (2 sources) l-Triiodothyronine take 1 tablet by mouth in the morning liothyronine (Cytomel) 5 MCG tablet Take 1 tablet by mouth in the morning. Active metoprolol tartrate 25 mg oral tablet (5 sources) beta-Adrenergic Silvestre Start: 09-08-2023 take 1 tablet by mouth once daily metoprolol 25 mg ER Tab 25 mg = 1 tab(s), Oral, Daily, # 30 tab(s), Refills(s) 0, other reason (Rx) Start Date: 09/08/23 Status: Ordered Start: 02-08-2023 take 1 tablet by favian th twice daily metoprolol tartrate (LOPRESSOR) 25 MG tablet TAKE 1 TABLET BY MOUTH TWICE DAILY 200 tablet 2 07/27/2024 Active [facility] [place] Start: 03-24-2023 [facility] [place] Vit D3 5000 international units, Daily Start Date: 03/24/23 Status: Ordered nitroglycerin 0.4 mg sublingual tablet (6 sources) Nitrate Vasodilator Start: 03-03-2023 nitroglyce rin (Nitrostat) 0.[address] 0.4 mg under the tongue 03/03/2023 Active Start: 03-03-2023 nitroglycerin 0.4 mg sublingual Tab See Instructions, PRN for chest pain, 1 tab(s) SubLingual for chest pain, may repeat in 5 minutes and again in 5 minutes if discomfort not gone go to ER immediately, Refills(s) 0 Start Date: 03/03/23 Status: Ordered spironolactone 25 mg oral tablet (6 sources) Aldosterone Antagonist Start: 02-08-2023 take 1 tablet by mouth twice daily spironolactone (ALDACTONE) 25 MG tablet Take 1 tablet by mouth 2 times daily 180 tablet 3 08/28/2024 Active Start: 02-08-2023 take 1 tablet by favian th once daily spironolactone 25 mg Tab 25 mg = 1 tab(s), Oral, Daily, # 90 tab(s), Refills(s) 0 Start Date: 03/09/23 Status: Ordered vitamin b12 0.1 mg oral tablet (2 sources) Vitamin B12 cyanocobalamin ( Vitamin B-12) 100 MCG tablet 1 (one) time each day at the same time. Active Vitamin E (4 sources) Start: 03-24-2023 vitamin E 400 International_Unit, Oral, Daily, Refills(s) 0 Start Date: 03/24/23 Status: Ordered alpha tocopherol (Vitamin E) 400 units capsule 1 capsule 1 (one) time each day at the same time. 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 Cataract (2 sources) Bilateral age-related nuclear cataracts; Translations: [Age-related nuclear cataract, bilateral] Onset: 05-17-2023 05-17-2023 Chronic Congestive heart failure; nonhypertensive (2 sources) Chronic systolic heart failure 04-28-2023 Chronic Coronary atherosclerosis and other heart disease (2 sources) Angina pectoris 03-03-2023 Chronic Disorders of lipid metabolism (5 sources) Hypercholesterolemia ; Translations: [Hyperlipidemia] Onset: 08-28-2024 03-03-2023 Chronic E Codes: Fall (1 source) Unspecified fall, initial encounter; Translations: [UNSPECIFIED FALL INITIAL ENCOUNTER] Onset: 02-17-2023 Episodic E Codes: Fall (1 source) Fall 02-24-2024 Essential hypertension (1 source) Essential (primary) hypertension; Translations: [ESSENTIAL PRIMARY HYPERTENSION] Onset: 02-17-2023 Chronic Glaucoma (6 sources) Glaucoma; Translations: [Primary open angle glaucoma] Onset: 05-17-2023 03-03-2023 Chronic Malaise and fatigue (4 sources) Weakness; Translations: [Other fatigue] Onset: 04-30-2022 03-03-2023 Episodic Multiple sclerosis (3 sources) Multiple sclerosis; Translations: [Multiple sclerosis] Onset: 02-17-2023 03-03-2023 Chronic Nonspecific chest pain (7 sources) Chest pain, unspecified; Translations: [Chest pain] Onset: 04-28-2022 Episodic Nutritional deficiencies (6 sources) Vitamin D deficiency, unspecified; Translations: [Vitamin D deficiency] Onset: 04-30-2022 03-03-2023 Chronic Osteoarthritis (2 sources) Osteoarthritis of knee 03-03-2023 Chronic Other aftercare (1 source) 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; Translations: [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 CURRENT USE OF ASPIRIN] Onset: 02-17-2023 Episodic Other aftercare (1 source) Other retirement (current) drug therapy; Translations: [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 DRUG THERAPY] Onset: 02-17-2023 Episodic Other aftercare (1 source) Post-discharge follow-up 02-24-2024 Episodic Other connective tissue disease (1 source) Other specified soft tissue disorders; Translations: [OTHER SPEC SOFT TISSUE DISORDERS] Onset: 02-17-2023 Episodic Other connective tissue disease (1 source) Repeated falls; Translations: [REPEATED FALLS] Onset: 02-17-2023 Episodic Other connective tissue disease (2 sources) Recurrent falls 08-30-2023 Episodic Other fractures (1 source) Other fracture of first lumbar vertebra, initial encounter for closed fracture; Translations: [OTH FX FIRST LUMB VERT INIT CLOS FX] Onset: 02-17-2023 Episodic Other fractures (2 sources) Closed fracture of first lumbar vertebra 04-28-2023 Episodic Other gastrointestinal disorders (1 source) Constipation, unspecified; Translations: [CONSTIPATION UNSPECIFIED] Onset: 02-17-2023 Episodic Other injuries and conditions due to external causes (2 sources) At risk for falls 03-09-2023 Episodic Other nervous system disorders (1 source) Other abnormalities of gait and mobility; Translations: [OTHER ABNORMALITIES GAIT AND MOBILITY] Onset: 02-17-2023 Episodic Other screening for suspected conditions (not mental disorders or infectious disease) (4 sources) Encounter for screening for lipoid disorders; Translations: [Patient encounter status] Onset: 04-30-2022 08-28-2024 Episodic Other upper respiratory disease (2 sources) Allergic rhinitis 03-03-2023 Chronic Residual codes; unclassified (2 sources) Dependence on wheelchair 03-24-2023 Chronic Residual codes; unclassified (1 source) Do not resuscitate; Translations: [DO NOT RESUSCITATE] Onset: 02-17-2023 Episodic Residual codes; unclassified (2 sources) Bilateral lower limb edema; Translations: [Localized edema] 08-28-2024 Episodic Residual codes; unclassified (1 source) Localized edema; Translations: [Localized edema] Onset: 08-28-2024 Episodic Unclassified (2 sources) LOW BACK PAIN, UNSPECIFIED; Translations: [LOW BACK PAIN, UNSPECIFIED] Onset: 02-17-2023 Unclassified (1 source) CONTACT W/AND (SUSP) EXPOS COVID-19; Translations: [CONTACT W/AND (SUSP) EXPOS COVID-19] Onset: 02-17-2023 Unclassified (2 sources) Influenza vaccination declined 08-30-2023 Unclassified (1 source) Pressure injury of right buttock stage I 02-24-2024 Comment on above: added per 02/23/2024 query response. Past or Other Problems Problem Classification Problem Date Documented Da te Episodic/Chronic Inflammation; infection of eye (except that caused by tuberculosis or sexually transmitteddisease) (2 sources) Blepharitis of upper and lower eyelids of bilateral eyes; Translations: [Unspecified blepharitis right eye, upper and lower eyelids] Onset: 05-17-2023 05-17-2023 Episodic Other eye disorders (2 sources) Dry eyes; Translations: [Dry eye syndrome of bilateral lacrimal glands] Onset: 05-17-2023 05-17-2023 Episodic Unclassified (1 source) LOW BACK PAIN, UNSPECIFIED; Translations: [LOW BACK PAIN, UNSPECIFIED] Onset: 02-08-2023 Results Test Name Value Interpretation Reference Range [facility] CBC with Auto Differentialon 08-28-2024 Basophils (Bld) [#/Vol] 0.02 10*3/uL [facility] Basophils/100 WBC (Bld) 0 % 0 - 2 % [facility] Eosinophils (Bld) [#/Vol] 0.14 10*3/uL [facility] Eosinophils/100 WBC (Bld) 3 % 0 - 5 % [facility] Erythrocyte distribution width (RBC) [Ratio] 13.5 % 12.1 - 15.2 % [facility] Hematocrit (Bld) [Volume fraction] 43.1 % 36.0 - 46.0 % [facility] Hemoglobin (Bld) [Mass/Vol] 14.3 g/dL 12.0 - 16.0 g/dL [facility] Immature granulocytes (Bld) [#/Vol] 0.01 10*3/uL [facility] Immature granulocytes/100 WBC (Bld) 0 % 0 - 5 % [facility] Interpretation and review of laboratory results Abnormal [facility] Lymphocytes/100 WBC (Bld) 24 % 15 - 40 % [facility] Lymphocytes/100 WBC (Bld) 1.20 % [facility] MCH (RBC) [Entitic mass] 31.4 pg 26.0 - 34.0 pg [facility] MCHC (RBC) [Mass/Vol] 33.2 g/dL 31.0 - 37.0 g/dL [facility] MCV (RBC) [Entitic vol] 94.7 fL 80.0 - 100.0 fL [facility] Monocytes/100 WBC (Bld) 10 % High 4 - 8 % [facility] Monocytes/100 WBC (Bld) 0.53 % [facility] Neutrophils/100 WBC (Bld) 63 % 47 - 75 % [facility] Platelet mean volume (Bld) [Entitic vol] 9.9 fL 6.0 - 12.0 fL [facility] Platelets (Bld) [#/Vol] 219 10*3/uL [facility] RBC (Bld) [#/Vol] 4.55 10*6/uL 4.00 - 5.20 m/uL [facility] Segmented neutrophils/100 WBC (Bld) 3.20 % [facility] WBC other (Bld) [#/Vol] 5.1 [facility] CBC with Diffon 08-28-2024 Abs. Basophil 0.02 k/uL Normal 0.00-0.20 [facility] Comment on above: Performed By: #### T SHX, CDP, CP, MG #### [facility] [address] [place] [address] Care Specialist: Lex Walden MD #### TONY, VD25 #### [facility] ALICE App [address] [place] [id number] Care Specialist: Peter Pritchett MD Abs.Imm.Granulocyte 0.01 k/uL Normal 0.00-0.30 [facility] Comment on above: Performed By: #### T SHX, CDP, CP, MG #### [facility] [address] [place] [address] Care Specialist: Lex Walden MD #### LIPR, VD25 #### [address] [address] Care Specialist: Peter Pritchett MD Abs.Neutrophil (Seg) 3.20 k/uL Normal 2.5-7.0 [facility] Comment on above: Performed By: #### T SHX, CDP, CP, MG #### [facility] [address] [place] [phone] Care Specialist: Lex Walden MD #### LIPR, VD25 #### [place] [phone] Care Specialist: Peter Pritchett MD Basophils/100 WBC (Bld) 0 % Normal 0-2 [facility] Comment on above: Performed By: #### T SHX, CDP, CP, MG #### [facility] [address] [place] [address] Care Specialist: Lex Walden MD #### LIPR, VD25 #### [place] [phone] Care Specialist: Peter Pritchett MD Eosinophils (Bld) [#/Vol] 0.14 10*3/uL Normal 0.00-0.40 [facility] Comment on above: Performed By: #### T SHX, CDP, CP, MG #### [facility] [address] [place] [phone] Care Specialist: Lex Walden MD #### LIPR, VD25 #### [place] [phone] Care Specialist: Peter Pritchett MD Eosinophils/100 WBC (Bld) 3 % Normal 0-5 [facility] Comment on above: Performed By: #### T SHX, CDP, CP, MG #### [facility] [address] [place] [phone] Care Specialist: Lex Walden MD #### LIPR, VD25 #### [address] [phone] Care Specialist: Peter Pritchett MD Erythrocyte distribution width (RBC) [Ratio] 13.5 % Normal 12.1-15.2 [facility] Comment on above: Performed By: #### T SHX, CDP, CP, MG #### [facility] [address] [place] [address] Care Specialist: Lex Walden MD #### LIPR, VD25 #### [place] [phone] Care Specialist: Peter Pritchett MD Hematocrit (Bld) [Volume fraction] 43.1 % Normal 36.0-46.0 [facility] Comment on above: Performed By: #### T SHX, CDP, CP, MG #### [facility] [address] [place] [address] Care Specialist: Lex Walden MD #### TONY, VD25 #### [place] [phone] Care Specialist: Peter Pritchett MD Hemoglobin (Bld) [Mass/Vol] 14.3 g/dL Normal 12.0-16.0 [facility] Comment on above: Performed By: #### T SHX, CDP, CP, MG #### [facility] [address] [place] [address] Care Specialist: Lex Walden MD #### LIPKostas, VD25 #### [place] [phone] Care Specialist: Peter Pritchett MD Immature granulocytes/100 WBC (Bld) 0 % Normal 0-5 [facility] Comment on above: Performed By: #### T SHX, CDP, CP, MG #### [facility] [address] [place] [address] Care Specialist: Lex Walden MD #### LIPR, VD25 #### [address] [phone] Care Specialist: Peter Pritchett MD Lymphocytes (Bld) [#/Vol] 1.20 10*3/uL Normal 1.00-4.80 [facility] Comment on above: Performed By: #### T SHX, CDP, CP, MG #### [facility] [address] [place] [address] Care Specialist: Lex Walden MD #### LIPR, VD25 #### [address] [phone] Care Specialist: Peter Pritchett MD Lymphocytes/100 WBC (Bld) 24 % Normal 15-40 [facility] Comment on above: Performed By: #### T SHX, CDP, CP, MG #### [facility] [address] [place] [address] Care Specialist: Lex Walden MD #### LIPKostas, VD25 #### [address] [phone] Care Specialist: Peter Pritchett MD MCH (RBC) [Entitic mass] 31.4 pg Normal 26.0-34.0 [facility] Comment on above: Performed By: #### T SHX, CDP, CP, MG #### [facility] [address] [place] [address] Care Specialist: Lex Walden MD #### LIPR, VD25 #### [address] [phone] Care Specialist: Peter Pritchett MD MCHC (RBC) [Mass/Vol] 33.2 g/dL Normal 31.0-37.0 [facility] Comment on above: Performed By: #### T SHX, CDP, CP, MG #### [facility] [address] [place], [place] [id number] Care Specialist: Lex Walden MD #### LIPR, VD25 #### [address] [phone] Care Specialist: Peter Pritchett MD MCV (RBC) [Entitic vol] 94.7 fL Normal 80.0-100.0 [facility] Comment on above: Performed By: #### T SHX, CDP, CP, MG #### [facility] [address] [place] [id number] Care Specialist: Lex Walden MD #### LIPR, VD25 #### [address] [phone] Care Specialist: Peter Pritchett MD Monocytes (Bld) [#/Vol] 0.53 10*3/uL Normal 0.00-1.00 [facility] Comment on above: Performed By: #### T SHX, CDP, CP, MG #### [facility] [address] [place] [phone] Care Specialist: Lex Walden MD #### LIPR, VD25 #### [address] [phone] Care Specialist: Peter Pritchett MD Monocytes/100 WBC (Bld) 10 % High 4-8 [facility] Comment on above: Performed By: #### T SHX, CDP, CP, MG #### [facility] [address] [place] [phone] Care Specialist: Lex Walden MD #### LIPR, VD25 #### [address] [phone] Care Specialist: Peter Pritchett MD Neutrophil (Seg) 63 % Normal 47-75 [facility] Comment on above: Performed By: #### T SHX, CDP, CP, MG #### [facility] [address] [place], [place] [phone] Care Specialist: Lex Walden MD #### LIPR, VD25 #### [address] [address] Care Specialist: Peter Pritchett MD Platelet mean volume (Bld) [Entitic vol] 9.9 fL Normal 6.0-12.0 [facility] Comment on above: Performed By: #### T SHX, CDP, CP, MG #### [facility] [address] [place], [place] [id number] Care Specialist: Lex Walden MD #### LIPR, VD25 #### [address] [address] Care Specialist: Peter Pritchett MD Platelets (Bld) [#/Vol] 219 10*3/uL Normal 140-450 [facility] Comment on above: Performed By: #### T SHX, CDP, CP, MG #### [facility] [address] [place], [place] [phone] Care Specialist: Lex Walden MD #### LIPR, VD25 #### [address] [address] Care Specialist: Peter Pritchett MD RBC (Bld) [#/Vol] 4.55 10*6/uL Normal 4.00-5.20 [facility] Comment on above: Performed By: #### T SHX, CDP, CP, MG #### [facility] [address] [place], [place] [phone] Care Specialist: Lex Walden MD #### LIPR, VD25 #### [address] [address] Care Specialist: Peter Pritchett MD WBC (Bld) [#/Vol] 5.1 10*3/uL Normal 3.5-11.0 [facility] Comment on above: Performed By: #### T SHX, CDP, CP, MG #### [facility] [address] [place] [address] Care Specialist: Lex Walden MD #### TONY VD25 #### [address] [phone] Care Specialist: Peter Pritchett MD Comp Metabolic Profon 2023 Albumin [Mass/Vol] 4.1 g/dL Normal 3.5-5.2 [facility] Comment on above: Performed By: #### T SHX, CDP, CP, MG #### [facility] [address] [place], [place] [phone] Care Specialist: Lex Walden MD #### TONY, VD25 #### [address] [phone] Care Specialist: Peter Pritchett MD Alkaline Phos 93 U/L Normal 35-104 [facility] Comment on above: Performed By: #### T SHX, CDP, CP, MG #### [facility] [address] [place], [place] [phone] Care Specialist: Lex Walden MD #### TONY, VD25 #### [address] [address] Care Specialist: Peter Pritchett MD ALT [Catalytic activity/Vol] 13 U/L Normal 5-33 [facility] Comment on above: Performed By: #### T SHX, CDP, CP, MG #### [facility] [address] [place], [place] [phone] Care Specialist: Lex Walden MD #### TONY VD25 #### [address] [place] [address] Care Specialist: Peter Pritchett MD Anion gap [Moles/Vol] 10 mmol/L Normal 9-17 [facility] Comment on above: Performed By: #### T SHX, CDP, CP, MG #### [facility] [address] [place] [address] Care Specialist: Lex Walden MD #### LIPR, VD25 #### [address] [address] Care Specialist: Peter Pritchett MD AST [Catalytic activity/Vol] 17 U/L Normal <32 [facility] Comment on above: Performed By: #### T SHX, CDP, CP, MG #### [facility] Lab [address] [place] [address] Care Specialist: Lex Walden MD #### TONY VD25 #### [address] [address] Care Specialist: Peter Pritchett MD Bilirubin [Mass/Vol] 0.7 mg/dL Normal 0.3-1.2 [facility] Comment on above: Performed By: #### T SHX, CDP, CP, MG #### [facility] [address] [place] [address] Care Specialist: Lex Walden MD #### TONY, VD25 #### [address] [address] Care Specialist: Peter Pritchett MD BUN/CRE Ratio 23 High 9-20 [facility] Comment on above: Performed By: #### T SHX, CDP, CP, MG #### [facility] [address] [place] [address] Care Specialist: Lex Walden MD #### TONY VD25 #### [address] [id number] Care Specialist: Peter Pritchett MD Calcium [Mass/Vol] 9.5 mg/dL Normal 8.6-10.4 [facility] Comment on above: Performed By: #### T SHX, CDP, CP, MG #### [facility] [address] [place], [place] [id number] Care Specialist: Lex Walden MD #### TONY VD25 #### [address] [id number] Care Specialist: Peter Pritchett MD Chloride [Moles/Vol] 101 mmol/L Normal 98-107 [facility] Comment on above: Performed By: #### T SHX, CDP, CP, MG #### [facility] [address] [place], [place] [id number] Care Specialist: Lex Walden MD #### DELVALLE25 #### [address] [id number] Care Specialist: Peter Pritchett MD CO2 [Moles/Vol] 24 mmol/L Normal 20-31 [facility] Comment on above: Performed By: #### T SHX, CDP, CP, MG #### [facility] [address] [place], [place] [id number] Care Specialist: Lex Walden MD #### DELVALLE25 #### [address] [id number] Care Specialist: Peter Pritchett MD Creatinine [Mass/Vol] 0.7 mg/dL Normal 0.5-0.9 [facility] Comment on above: Performed By: #### T SHX, CDP, CP, MG #### [facility] [address] [place], [place] [id number] Care Specialist: Lex Walden MD #### DELVALLE25 #### [address], [place] [id number] Care Specialist: Peter Pritchett MD GFR/1.73 sq M.predicted among non-blacks MDRD (S/P/Bld) [Vol rate/Area] 85 mL/min/{1.73_m2} Normal >60 [facility] Comment on above: Result Comment: These results are not intended for use in patients <18 years of age. eGFR results are calculated without a race factor using the 2020 CKD-EPI equation. Careful clinical correlation is recommended, particularly when comparing to results calculated using previous equations. The CKD-EPI equation is less accurate in patients with extremes of muscle mass, extra-renal metabolism of creatine, excessive creatine ingestion, or following therapy that affects renal tubular secretion. Performed By: #### T SHX, CDP, CP, MG #### [facility] [address] [place] [address] Care Specialist: Lex Walden MD #### DELVALLE25 #### [address] [id number] Care Specialist: Peter Pritchett MD Glucose [Mass/Vol] 92 mg/dL Normal 70-99 [facility] Comment on above: Performed By: #### T SHX, CDP, CP, MG #### [facility] [address] [place] [address] Care Specialist: Lex Walden MD #### DELVALLE25 #### [address] [id number] Care Specialist: Peter Pritchett MD Potassium [Moles/Vol] 4.0 mmol/L Normal 3.7-5.3 [facility] Comment on above: Performed By: #### T SHX, CDP, CP, MG #### [facility] [address] [place], [place] [id number] Care Specialist: Lex Walden MD #### DELVALLE25 #### [address] [id number] Care Specialist: Peter Pritchett MD Protein [Mass/Vol] 7.0 g/dL Normal 6.4-8.3 [facility] Comment on above: Performed By: #### T SHX, CDP, CP, MG #### [facility] [address] [place], [place] [id number] Care Specialist: Lex Walden MD #### LIPR, VD25 #### [facility] [address] [place], [place] [address] Care Specialist: Peter Pritchett MD Sodium [Moles/Vol] 135 mmol/L Normal 135-144 [facility] Comment on above: Performed By: #### T SHX, CDP, CP, MG #### [facility] [address] [place], [place] [address]48[address] Care Specialist: Lex Walden MD #### TONY, VD25 #### [place] [place], [place] [id number] Care Specialist: Peter Pritchett MD Urea nitrogen [Mass/Vol] 16 mg/dL Normal 8-23 [facility] Comment on above: Performed By: #### T SHX, CDP, CP, MG #### [facility] [address] [place], [place] [id number] Care Specialist: Lex Walden MD #### TONY, VD25 #### [facility] [address] [place], [place] [id number] Care Specialist: Peter Pritchett MD Comprehensive Metabolic Pane mario 08-28-2024 Albumin [Mass/Vol] 4.1 g/dL 3.5 - 5.2 g/dL [facility] ALP [Catalytic activity/Vol] 93 U/L 35 - 104 U/L [facility] ALT [Catalytic activity/Vol] 13 U/L 5 - 33 U/L [facility] Anion gap [Moles/Vol] 10 mmol/L 9 - 17 mmol/L [facility] AST [Catalytic activity/Vol] 17 U/L NINF - 32 U/L [facility] Bilirubin [Mass/Vol] 0.7 mg/dL 0.3 - 1.2 mg/dL [facility] Calcium [Mass/Vol] 9.5 mg/dL 8.6 - 10.4 mg/dL [facility] Chloride [Moles/Vol] 101 mmol/L 98 - 107 mmol/L [facility] CO2 [Moles/Vol] 24 mmol/L 20 - 31 mmol/L [facility] Creatinine [Mass/Vol] 0.7 mg/dL 0.5 - 0.9 mg/dL [facility] Est, Glom Filt Rate 85 - PINF [facility] Comment on above: These results are not intended for use in patients <18 years of age. eGFR results are calculated without a race factor using the 2020 CKD-EPI equation. Careful clinical correlation is recommended, particularly when comparing to results calculated using previous equations. The CKD-EPI equation is less accurate in patients with extremes of muscle mass, extra-renal metabolism of creatine, excessive creatine ingestion, or following therapy that affects renal tubular secretion. Glucose [Mass/Vol] 92 mg/dL 70 - 99 mg/dL [facility] Interpretation and review of laboratory results Abnormal [facility] Potassium [Moles/Vol] 4.0 mmol/L 3.7 - 5.3 mmol/L [facility] Protein [Mass/Vol] 7.0 g/dL 6.4 - 8.3 g/dL [facility] Sodium [Moles/Vol] 135 mmol/L 135 - 144 mmol/L [facility] Urea nitrogen [Mass/Vol] 16 mg/dL 8 - 23 mg/dL [facility] Urea nitrogen/Creatinine [Mass ratio] 23 mg/mg High 9 - 20 [facility] EKG 12 LeadOrdered By: Unkno wn Result on 08-28-2024 Atrial Rate 84 BPM [facility] P [place] 67 degrees [facility] P-R Interval 160 ms [facility] Q-T Interval 416 ms [facility] QRS Duration 84 ms [facility] QTc Calculation (Bazett) 491 ms [facility] R [place] -89 degrees [facility] T [place] 59 degrees [facility] Ventricular Rate 84 BPM [facility] EKG 12 Leadon 08-28-2024 Normal sinus rhythm Left axis deviation Inferior infarct , age undetermined Abnormal ECG No previous ECGs available [facility] Result, Unknown Provider - 08/28/2024 Normal sinus rhythm Left axis deviation Inferior infarct , age undetermined Abnormal ECG No previous ECGs available [facility] Lipid Panelon 08-28-2024 Cholesterol [Mass/Vol] 259 mg/dL High 0 - 199 mg/dL [facility] Comment on above: Cholesterol Guidelines: <200 Desirable 200-240 Borderline >240 Undesirable Cholesterol in HDL [Mass/Vol] 72 mg/dL 40 - PINF mg/dL [facility] Comment on above: HDL Guidelines: <40 Undesirable 40-59 Borderline >59 Desirable Cholesterol in LDL [Mass/Vol] 171 mg/dL High 0 - 100 mg/dL [facility] Comment on above: LDL Guidelines: <100 Desirable 100-129 Near to/above Desirable 130-159 Borderline >159 Undesirable Direct (measured) LDL and calculated LDL are not interchangeable tests. Cholesterol in VLDL [Mass/Vol] 16 mg/dL 1 - 30 mg/dL [facility] Cholesterol.total/C holesterol in HDL [Mass ratio] 3.6 {ratio} [facility] Interpretation and review of laboratory results Abnormal [facility] Triglyceride [Mass/Vol] 78 mg/dL NINF - 150 mg/dL [facility] Comment on above: Triglyceride Guidelines: <150 Desirable 150-199 Borderline 200-499 High >499 Very high Based on AHA Guidelines for fasting triglyceride, July 2012. [facility] Lipid Profileon 08-28-2024 Cholesterol [Mass/Vol] 259 mg/dL High 0-199 [facility] Comment on above: Result Comment: Cholesterol Guidelines: <200 Desirable 200-240 Borderline >240 Undesirable Performed By: #### T SHX, CDP, CP, MG #### [facility] [address] [place], [place] [id number] Care Specialist: Lex Walden MD #### LIPR, VD25 #### [facility] ALICE App [address] [place] [address] [id number] Care Specialist: Peter Pritchett MD Cholesterol in HDL [Mass/Vol] 72 mg/dL Normal >40 [facility] Comment on above: Result Comment: HDL Guidelines: <40 Undesirable 40-59 Borderline >59 Desirable Performed By: #### T SHX, CDP, CP, MG #### [facility] [address] [place], [place] [id number] Care Specialist: Lex Walden MD #### LIPR, VD25 #### [address] [id number] Care Specialist: Peter Pritchett MD Cholesterol in LDL [Mass/Vol] 171 mg/dL High 0-100 [facility] Comment on above: Result Comment: LDL Guidelines: <100 Desirable 100-129 Near to/above Desirable 130-159 Borderline >159 Undesirable Direct (measured) LDL and calculated LDL are not interchangeable tests. Performed By: #### T SHX, CDP, CP, MG #### [facility] [address] [place], [place] [id number] Care Specialist: Lex Walden MD #### LIPR, VD25 #### [address] [id number] Care Specialist: Peter Pritchett MD Cholesterol in VLDL [Mass/Vol] 16 mg/dL Normal 1-30 [facility] Comment on above: Performed By: #### T SHX, CDP, CP, MG #### [facility] [address] [place], [place] [id number] Care Specialist: Lex Walden MD #### LIPR, VD25 #### [address] [id number] Care Specialist: Peter Pritchett MD Cholesterol.total/C holesterol in HDL [Mass ratio] 3.6 {ratio} Normal [facility] Comment on above: Performed By: #### T RUTH ANN, CDP, CP, MG #### [facility] [address] [place], [place] [id number] Care Specialist: Lex Walden MD #### DELVALLE25 #### [address] [id number] Care Specialist: Peter Pritchett MD Triglyceride [Mass/Vol] 78 mg/dL Normal <150 [facility] Comment on above: Result Comment: Triglyceride Guidelines: <150 Desirable 150-199 Borderline 200-499 High >499 Very high Based on AHA Guidelines for fasting triglyceride, July 2012. Performed By: #### T RUTH ANN, AMBAR, CP, MG #### [facility] [address] [place] [address] Care Specialist: Lex Walden MD #### DELVALLE25 #### [address] [id number] Care Specialist: Peter Pritchett MD Magnesiumon 08-28-2024 Magnesium [Mass/Vol] 2.4 mg/dL 1.6 - 2.6 mg/dL [facility] Magnesium [Mass/Vol] 2.4 mg/dL Normal 1.6-2.6 [facility] Comment on above: Performed By: #### T RUTH ANN, AMBAR, CP, MG #### [facility] [address] [place], [place] [id number] Care Specialist: Lex Walden MD #### DELVALLE25 #### [address] [id number] Care Specialist: Peter Pritchett MD No Panel Informationon 08-28 [facility] TSH w/reflex to FT4on 2023 Thyroid Stim. Horm. 2.51 uIU/mL Normal 0.30-5.00 [facility] Comment on above: Performed By: #### T SHX, CDP, CP, MG #### [facility] [address] [place] [address] Care Specialist: Lex Walden MD #### TONY VD25 #### [facility] [address] [place], [place] [id number] Care Specialist: Peter Pritchett MD TSH with Reflexon 08-28-2024 TSH Qn 2.51 m[IU]/L [facility] Vitamin D 25 Hydroxyon 08-28 25-hydroxyvitamin D3 [Mass/Vol] 25.7 ng/mL Low 30.0 - 100.0 ng/mL [facility] Comment on above: Reference Range: Vitamin D status Range Deficiency <20 ng/mL Mild Deficiency 20-30 ng/mL Sufficiency 30-100 ng/mL Toxicity >100 ng/mL Interpretation and review of laboratory results Abnormal [facility] Vitamin D 25 OHon 08-28-2024 Vitamin D 25 [place] 25.7 ng/mL Low 30.0-100.0 [facility] Comment on above: Result Comment: Reference Range: Vitamin D status Range Deficiency <20 ng/mL Mild Deficiency 20-30 ng/mL Sufficiency 30-100 ng/mL Toxicity >100 ng/mL Performed By: #### T SHX, CDP, CP, MG #### [facility] [address] [place] [address] Care Specialist: Lex Walden MD #### TONY VD25 #### [facility] [address] [place], [place] [id number] Care Specialist: Peter Pritchett MD Consultation Noteon 03-29-20 24 Consultation Note [id number] [facility] Family Medicine Office/Clini c Noteon 03-29-2024 Family Medicine Office/Clinic Note Chief Complaint Medicare Wellness Visit Subsequent History of Present Illness Covid-19, MERS, Ebola Screen *Contact With Person [...] Airborne, Droplet Precautions for MERS/COVID-19 : N/A Sherrell Hall LPN Tip 03/28/2024 14:14 EDT Medicare/Medicaid Summary Height/Length Measured : 153 cm(Converted to: 5 ft 0 in, 60.24 in) Body Mass Index Measured : 30.76 kg/m2 Height in Inches : 60 in Systolic Blood Pressure : 112 mmHg Diastolic Blood Pressure : 62 mmHg Peripheral Pulse Rate : 56 bpm (LOW) Respiratory Rate : 16 br/min SpO2 : 95 % Numeric Rating Pain Score : 4 Sherrell Hall LPN Tip 03/28/2024 15:05 EDT Chief Complaint : Medicare Wellness Visit Subsequent Patient Counseled : Nutrition, Physical activity, Elevated BMI Weight Measured : 72 kg(Converted to: 158 lb 12 Ounces, 158.733 lb) Weight in Pounds : 158.4 lb Blood Pressure Location : Right arm Blood Pressure Position : Sitting O2 Sat Resting/Exertion Alpha : Resting Pain Present : No actual or suspected pain Sherrell Hall LPN Tip 03/28/2024 14:14 EDT Hearing and Vision Screening FT FT Whisper Test Comments : No deficits noted. Vision Screen Comments : Wears corrective lenses, gets eye exams with Dr. Rico. Sherrell Hall LPN Tip 03/28/2024 14:14 EDT Advance Directive FT Advance Directive : Yes Type of Advance Directive : Medical durable power of health care attorney Patient Wishes to Receive Further Information on Advance Directives : No Organ Donation Consent : No Sherrell Hall LPN Tip Villalba 03/28/2024 14:14 EDT Procedures / Surgeries FT - Procedure History (As Of: 03/28/2024 15:10:07 EDT) Anesthesia Minutes: 0 ; Procedure Name: None ; Procedure Minutes: 0 ; Last Reviewed Dt/Tm: 03/28/2024 14:48:55 EDT Family History Family History (As Of: 03/28/2024 15:10:07 EDT) Father: Relation: Father ; Gender: Male [...] Social History FT Social History (As Of: 03/28/2024 15:10:07 EDT) Alcohol: Denies Alcohol Use (Last Updated: 03/09/2023 13:57:54 EDT by Gwen Roberts ) Tobacco: Denies Tobacco Use Never (less than 100 in lifetime) Tobacco Use:. Never Smokeless Tobacco Use:. Household tobacco concerns: No. Comments: 03/24/2023 13:08 - Rafael Page R: Patient states never been a smoker (Last Updated: 02/24/2024 14:34:42 EDT by Marta Blanc LPN) Substance Abuse: Denies Substance Abuse (Last Updated: 03/09/2023 13:57:56 EDT by Gwen Roberts ) Health Risk Assessment FT Someone Helps You in the Morning : No Fallen or felt dizzy standing up? : No Assistance with personal care? : No Trouble taking meds correctly? : No HRA Pain Present : Yes Numeric Rating Pain Scale : 4 Numeric Rating Pain Score : 4 Able to walk without help? : Yes Ability to shop w/out help : No Prepare your own meals? : Yes Housework without help? : No Handle money without help : Yes Track own medications without help? : Yes Overall mood for past four weeks : Pretty well General health rating : Fair Someone avail. to help if needed? : Yes, as much as I wanted Phys. & emotional health limit social act? : Slightly Sherrell Hall LPN - 03/28/2024 15:05 EDT Misc Health Risks Grid Sexual problems : Never Trouble eating well : Never Teeth or denture problems : Never Problems using the telephone : Never Sherrell Hall LPN - 03/28/2024 15:05 EDT Confident you control health problems : Very confident Difficulties driving your car? : No Seatbelts : I always fasten my seat belt Hall RETAIL SHIFT MANAGERDelmar Bellanita Whelan - 03/28/2024 15:05 EDT HRA little interest or pleasure? : No HRA down, depressed, or hopeless? : No Hazards in your house? : No Fall Risk Past Year : Yes Worried About Falling : Yes Use a Cane or Walker? : Yes Rafael JENSEN Sherrell L - 03/28/2024 14:14 EDT Depression Screening Little Interest, Pleasure in Activities (ref) : Not at all Feeling Down, Depressed, Hopeless : Several days Initial Depression Screening Score : 1 SCORE Depression Screening Result : Negative Hallpee JENSENDelmaranita Whelan - 03/28/2024 14:14 EDT Social Determinants (PRAPARE) What is your housing situation today? : I have ho (more content not included)... [facility] Comment on above: Result Comment: Elec tronically Signed By: Mayra Ruiz MD\.br\Date and Time Signed: 03/29/24 11:02 EDT\.br\Electronically Co-Signed By: Sherrell Hall LPN\.br\Date and Time Co-Signed: 03/28/24 15:49 EDT Screenson 03-29-2024 Screens [id number] [facility] Ambulatory Visit Summaryon 0 03-28-2024 Ambulatory Visit Summary JOVON ROJAS :1940 Visit Date:03/28/2024 Ambulatory Visit Instructions Your Diagnosis Annual visit for general adult medical examination without abnormal findings Angina pectoris Chronic systolic heart failure Multiple sclerosis Multiple falls Hypercholesterolemia Screening declined by patient Obesity due to excess calories Your Care Team Attending Physician - Mayra Ruiz MD Primary Care Physician - Mayra Ruiz MD This Is Your Medications List Misc Prescription (Handicap Placard) Non-Formulary Medication (Misc Medication) Non-Formulary Medication (Misc Medication) ascorbic acid (Vitamin C) aspirin (aspirin 325 mg oral capsule) cyanocobalamin (B-12) dorzolamide ophthalmic (dorzolamide Opth 2% Olivia) furosemide (furosemide 20 mg Tab) isosorbide mononitrate (isosorbide mononitrate 60 mg ER Tab) latanoprost ophthalmic (latanoprost Opth 0.005% Olivia) lidocaine topical (lidocaine Top 5% film Patch) metoprolol (Lopressor 25 mg oral tablet) nitroglycerin (nitroglycerin 0.4 mg sublingual Tab) potassium chloride (potassium chloride 99 mg oral tablet) spironolactone (spironolactone 25 mg Tab) tramadol (traMADOL 50 mg Tab) vitamin E [Image Removed: STOP]Stop taking these medications acetaminophen-hydrocod one (acetaminophen-hydroco done 325 mg-5 mg oral tablet) Procedures Performed None. Discharge Vitals Heart Rate (Peripheral) 56 Respiratory Rate 16 Blood Pressure 112/62 Height 153 cm Height 60 in Weight 72 kg Weight 158.4 lb BMI 30.76 What to do next Scheduled Follow-Up Appointments Wednesday 2:15 PM EST With: Lester NOLASCO, Mayra Sparrow Where: [facility] Normal [address] [place], [place] [id number]- \.br\ Medications\.br\ What How Much When Instructions\.br\ Unchanged ascorbic acid (Vitamin C) 500 Milligram By Mouth Every day\.br\ Unchanged aspirin (aspirin 325 mg oral capsule) 1 Capsules By Mouth Every day Patient states she takes 1 tab a day, sometimes 2 tabs if she is having pain \.br\ Unchanged cyanocobalamin (B-12) By Mouth Every day\.br\ Unchanged dorzolamide ophthalmic (dorzolamide Opth 2% Olivia) 1 Drops Ophthalmic 3 times a day\.br\ Unchanged furosemide (furosemide 20 mg Tab) 1 Tablets By Mouth Every day\.br\ Unchanged isosorbide mononitrate (isosorbide mononitrate 60 mg ER Tab) 1 Tablets By Mouth 2 times a day\.br\ Unchanged latanoprost ophthalmic (latanoprost Opth 0.005% Olivia) 1 Drops Ophthalmic Once a day (at bedtime)\.br\ Unchanged lidocaine topical (lidocaine Top 5% film Patch) 1 Patches Topical Every day apply 12 hours on and 12 hours off daily \.br\ Unchanged metoprolol (Lopressor 25 mg oral tablet) 1 Tablets By Mouth 2 times a day\.br\ Unchanged Misc Prescription (Handicap Placard) See instructions Expires in 10 years. \.br\ Unchanged nitroglycerin (nitroglycerin 0.4 mg sublingual Tab) See instructions 1 tab(s) SubLingual for chest pain, may repeat in 5 minutes and again in 5 minutes if discomfort not gone go to ER immediately \.br\ Unchanged Non-Formulary Medication (Misc Medication) Vit D3 5000 international units Every day\.br\ Unchanged Non-Formulary Medication (Misc Medication) Multithera plus Vitamin K \.br\ Unchanged potassium chloride (potassium chloride 99 mg oral tablet) 1 Tablets By Mouth Every day OTC Potassium - states Dr. Romero suggested a potassium pill with her water pill \.br\ Unchanged spironolactone (spironolactone 25 mg Tab) 1 Tablets By Mouth Every day\.br\ Unchanged tramadol (traMADOL 50 mg Tab) 1 Tablets By Mouth Every 4 hours as needed for for pain Duration: 5 Days\.br\ Unchanged vitamin E 400 International unit By Mouth Every day\.br\ \.br\ What How Much When Comments\.br\ Stop Taking acetaminophen-hyd rocodone (acetaminophen-hy drocodone 325 mg-5 mg oral tablet) 1 Tablets By Mouth 3 times a day as needed for as needed for pain as needed for pain \.br\ Allergies\.br\ No Known Medication Allergies\.br\ Problems\.br\ Ongoing - Any problem that you are currently receiving treatment for.\.br\ Allergic rhinitis\.br\ Angina pectoris\.br\ Bartonellosis\.br \ BMI 30.0-30.9,adult\. br\ Chronic systolic heart failure\.br\ Closed fracture of first lumbar vertebra with routine healing\.br\ Decubitus ulcer of right buttock, stage 1\.br\ Fall\.br\ Fatigue\.br\ Glaucoma\.br\ Hospital discharge follow-up\.br\ Hypercholesterole yfn\.br\ Influenza vaccine refused\.br\ Multiple falls\.br\ Multiple sclerosis\.br\ Primary osteoarthritis of both knees\.br\ Risk for falls\.br\ Uses wheelchair\.br\ Vitamin D deficiency\.br\ Patient Survey\.br\ You may receive a survey via text or e-mail asking about your office visit. Please share your experience with us by completing your survey. We appreciate your feedback and thank you for choosing us for your care.\.br\ Education Materials\.br\ Preventive Care 65 Years and Older, Female\.br\ Preventive care refers to lifestyle choices and visits with your health care provider that can promote health and wellness. Preventive care visits are also called wellness exams.\.br\ What can I expect for my preventive care visit?\.br\ Counseling\.br\ Your health care provider may ask you questions about your:\.br\ ? \.br\ Medical history, including:\.br\ ? \.br\ Past medical problems.\.br\ ? \.br\ Family medical history.\.br\ ? \.br\ and menstrual history.\.br\ ? \.br\ History of falls.\.br\ ? \.br\ Current health, including:\.br\ ? \.br\ Memory and ability to understand (cognition).\.br\ ? \.br\ Emotional well-being.\.br\ ? \.br\ Home life and relationship well-being.\.br\ ? \.br\ Sexual activity and sexual health.\.br\ ? \.br\ Lifestyle, including:\.br\ ? \.br\ Alcohol, nicotine or tobacco, and drug use.\.br\ ? \.br\ Access to firearms.\.br\ ? \.br\ Diet, exercise, and sleep habits.\.br\ ? \.br\ Work and work environment.\.br\ ? \.br\ Sunscreen use.\.br\ ? \.br\ Safety issues such as seatbelt and bike helmet use.\.br\ Physical exam\.br\ Your health care provider will check your:\.br\ ? \.br\ Height and weight. These may be used to calculate your BMI (body mass index). BMI is a measurement that tells if you are at a healthy weight.\.br\ ? \.br\ Waist circumference. This measures the distance around your waistline. This measurement also tells if you are at a healthy weight and may help predict your risk of certain diseases, such as type 2 diabetes and high blood pressure.\.br\ ? \.br\ Heart rate and blood pressure.\.br\ ? \.br\ Body temperature.\.br\ ? \.br\ Skin for abnormal spots.\.br\ What immunizations do I need?\.br\ \.br\ Vaccines are usually given at various ages, according to a schedule. Your health care provider will recommend vaccines for you based on your age, medical history, and lifestyle or other factors, such as travel or where you work.\.br\ What tests do I need?\.br\ Screening\.br\ Your health care provider may recommend screening tests for certain conditions. This may include:\.br\ ? \.br\ Lipid and cholesterol levels.\.br\ ? \.br\ Hepatitis C test.\.br\ ? \.br\ Hepatitis B test.\.br\ ? \.br\ HIV (human immunodeficiency virus) test.\.br\ ? \.br\ STI (sexually transmitted infection) testing, if you are at risk.\.br\ ? \.br\ Lung cancer screening.\.br\ ? \.br\ Colorectal cancer screening.\.br\ ? \.br\ Diabetes screening. This is done by checking your blood sugar (glucose) after you have not eaten for a while (fasting).\.br\ ? \.br\ Mammogram. Talk with your health care provider about how often you should have regular mammograms.\.br\ ? \.br\ BRCA-related cancer screening. This may be done if you have a family history of breast, ovarian, tubal, or peritoneal cancers.\.br\ ? \.br\ Bone density scan. This is done to screen for osteoporosis.\.br \ Talk with your health care provider about your test results, treatment options, and if necessary, the need for more tests.\.br\ Follow these instructions at home:\.br\ Eating and drinking\.br\ \.br\ ? \.br\ Eat a diet that includes fresh fruits and vegetables, whole grains, lean protein, and low-fat dairy products. Limit your intake of foods with high amounts of sugar, saturated fats, and salt.\.br\ ? \.br\ Take vitamin and mineral supplements as recommended by your health care provider.\.br\ ? \.br\ Do not drink alcohol if your health care provider tells you not to drink.\.br\ ? \.br\ If you drink alcohol:\.br\ ? \.br\ Limit how much you have to 0?1 drink a day.\.br\ ? \.br\ Know how much alcohol is in your drink. In the [place] one drink equals one 12 oz bottle of beer (355 mL), one 5 oz glass of wine (148 mL), or one 1? oz glass of hard liquor (44 mL).\.br\ Lifestyle\.br\ ? \.br\ [place] your teeth every morning and night with fluoride toothpaste. Floss one time each day.\.br\ ? \.br\ Exercise for at least 30 minutes 5 or more days each week.\.br\ ? \.br\ Do not use any products that contain nicotine or tobacco. These products include cigarettes, chewing tobacco, and vaping d [facility] Medicine Office/Beth Costa 03-28-2024 Family Medicine Office/Clinic Note HPI Staff Jovon is an 83 year old female presenting for 6 month follow up MS, CHF Had AMW w/ Sherrell today questions/concerns: says everything was covered at her AMW visit. Wasn't sure if you'd give her another rx for the pain pills, she uses them sparingly History of Present Illness - See staff HPI. Physical Exam General: alert, no acute distress ENMT: oral mucosa moist, Cardiovascular: regular rate and rhythm, normal peripheral perfusion Respiratory: Lungs CTA, respirations non labored Extremities: no deformity, no trauma, +1 pitting edema Neurological: oriented x 4, LOC appropriate for age, CN II-XII intact, motor strength equal & normal bilaterally, speech normal Abdomen: Soft, Nontender, Non-distended, + BS Assessment/Plan 1. Chronic systolic heart failure (I50.22: Chronic systolic (congestive) heart failure) - No SOB. - Swelling, but pt does not want to change anything. She is not taking her medication daily. - Pt to monitor and see me sooner if the swelling gets worse 2. Multiple sclerosis (G35: Multiple sclerosis) - Stable. - No issues 3. Uses wheelchair (Z99.3: Dependence on wheelchair) - Using a Walker today 4. Primary osteoarthritis of both knees (M17.0: Bilateral primary osteoarthritis of knee) - Will do 5 days of Tramadol to help with the pain. Orders: metoprolol, 25 mg = 1 tab(s), Oral, Daily, # 30 tab(s), Refills(s) 0, other reason (Rx) tramadol, 50 mg = 1 tab(s), Oral, q4hr, PRN for pain, X 5 day(s), # 15 tab(s), Refills(s) 0, Pharmacy: [facility]/pharmacy #[id number], 153, cm, 03/28/24 15:10:00 EDT, Height/Length Dosing, 72, kg, 03/28/24 15:10:00 EDT, Weight Dosing Follow-up No qualifying data available Problem List/Past Medical History Ongoing Allergic rhinitis Angina pectoris Bartonellosis Chronic systolic heart failure Closed fracture of first lumbar vertebra with routine healing Decubitus ulcer of right buttock, stage 1 Fall Fatigue [facility]aucoma Hospital discharge follow-up Hypercholesterolemia Influenza vaccine refused Multiple falls Multiple sclerosis Primary osteoarthritis of both knees Risk for falls Uses wheelchair Vitamin D deficiency Historical No qualifying data Procedure/Surgical History None. Medications aspirin 325 mg oral capsule, 325 mg= 1 cap(s), Oral, Daily B-12, Oral, Daily dorzolamide Opth 2% Olivia, 1 drop(s), OPTH, TID furosemide 20 mg Tab, 20 mg= 1 tab(s), Oral, Daily Handicap Placard, See Instructions isosorbide mononitrate 60 mg ER Tab, 60 mg= 1 tab(s), Oral, BID latanoprost Opth 0.005% Olivia, 1 drop(s), OPTH, Once a day (at bedtime) lidocaine Top 5% film Patch, 1 patch(es), Topical, Daily Lopressor 25 mg oral tablet, 25 mg= 1 tab(s), Oral, BID Misc Medication Misc Medication, Vit D3 5000 international units, Daily nitroglycerin 0.4 mg sublingual Tab, See Instructions, PRN potassium chloride 99 mg oral tablet, 99 mg= 1 tab(s), Oral, Daily spironolactone 25 mg Tab, 25 mg= 1 tab(s), Oral, Daily traMADOL 50 mg Tab, 50 mg= 1 tab(s), Oral, q4hr, PRN Vitamin C, 500 mg, Oral, Daily vitamin E, 400 International_Unit, Oral, Daily Allergies No Known Medication Allergies Social History Alcohol - Denies Alcohol Use, 03/09/2023 Substance Abuse - Denies Substance Abuse, 03/09/2023 Tobacco - Denies Tobacco Use, 03/09/2023 Never (less than 100 in lifetime) Tobacco Use:. Never Smokeless Tobacco Use:. Household tobacco concerns: No., 02/24/2024 Family History Diabetes mellitus type 2: Grandparent. Glaucoma: Sister. Myocardial infarction: Mother. Parkinson disease: Father. Thyroid dysfunction: Sister. Immunizations Vaccine Date Status Comments influenza virus vaccine, inactivated - Not Given Patient Refuses SARS-CoV-2 (COVID-19) [id number] 07/15/2022 Recorded 2023-03-09: TPV80 SARS-CoV-2 (COVID-19) mRNA BNT-162b2 vax 09/24/2021 Recorded 2023-03-09: TPV80 SARS-CoV-2 (COVID-19) mRNA BNT-162b2 vax 11/27/2020 Recorded SARS-CoV-2 (COVID-19) mRNA BNT-162b2 vax 11/04/2020 Recorded Normal [facility] Comment on above: Result Comment: Elec tronically Signed By: Lester NOLASCO, Mayra Sparrow\.br\Date and Time Signed: 03/28/24 15:17 EDT Patient Educationon 03-28-20 Patient Education Caregiving Fall Prevention in the [...] night-lights. ? Place frequently used items in oyeb-no-ydhha places. Lower the shelves around your home [...] the way. ? Do not use floor central african or wax that makes floors slippery. If [...] include working with a physical therapist or warehouse trainer to improve your strength, balance, and endurance. Where to find more information ? Centers for Disease Control and Prevention, [place]: www.cdc.gov ? [place] on Aging: www.ha.nih.gov Contact a health care [...] health ca (more content not included)... Normal [facility] Healthon 03-16-20 24 Population Health Case Information Case Priority: None Programs: -- Referral Source: Finger Lift Operator Referral Reason: Care coordination Case Type: Transition Care Management Risk Score: -- Case Status: Enrolled (February 17, 2024) Date Assigned: February 17, 2024 Assigned By: Rafael Page Date Enrolled: February 17, 2024 Assigned Primary Personnel: Rafael Page Assigned Secondary Personnel: -- Case Physician: Mayra Ruiz MD Problems Ongoing Allergic rhinitis Angina pectoris Bartonellosis Chronic systolic heart failure Closed fracture of first lumbar vertebra with routine healing Decubitus ulcer of right buttock, stage 1 Fall Fatigue Glaucoma Hospital discharge follow-up Hypercholesterolemia Influenza vaccine refused Multiple falls Multiple sclerosis Osteoarthritis of knee Risk for falls Uses wheelchair Vitamin D deficiency Historical No qualifying data Procedure/Surgical History None. Home Medications acetaminophen-hydrocod one 325 mg-5 mg oral tablet, 1 tab(s), Oral, TID, PRN, Self Directed B-12, Oral, Daily dorzolamide Opth 2% Olivia, 1 drop(s), OPTH, TID furosemide 20 mg Tab, 20 mg= 1 tab(s), Oral, Daily Handicap Placard, See Instructions isosorbide mononitrate 60 mg ER Tab, 60 mg= 1 tab(s), Oral, BID latanoprost Opth 0.005% Olivia, 1 drop(s), OPTH, Once a day (at bedtime) lidocaine Top 5% film Patch, 1 patch(es), Topical, Daily, Self Directed metoprolol 25 mg ER Tab, 25 mg= 1 tab(s), Oral, Daily Misc Medication, Vit D3 5000 international units, Daily nitroglycerin 0.4 mg sublingual Tab, See Instructions, PRN spironolactone 25 mg Tab, 25 mg= 1 tab(s), Oral, Daily Vitamin C, 500 mg, Oral, Daily vitamin E, 400 International_Unit, Oral, Daily Allergies No Known Medication Allergies Social History Alcohol - Denies Alcohol Use, 03/09/2023 Substance Abuse - Denies Substance Abuse, 03/09/2023 Tobacco - Denies Tobacco Use, 03/09/2023 Never (less than 100 in lifetime) Tobacco Use:. Never Smokeless Tobacco Use:. Household tobacco concerns: No., 02/24/2024 Family History Diabetes mellitus type 2: Grandparent. Glaucoma: Sister. Myocardial infarction: Mother. Parkinson disease: Father. Thyroid dysfunction: Sister. Screenings and Assessments 02/17/24 09:33:00 Result Name Value Comment Phone Call Monitoring Consent Agreed to continue call Phone Verification Patient Information Full name, street address and date of verified CM Program Enrollment Provides verbal consent for enrollment Goals and Interventions Care Plan Progress Note TCM#4- Spoke with patient for final TCM call. States 'everything is going well, I'm doing well.' Patient does have chronic weakness due to her MS. Patient adds she has appreciated all the help. She does believe HH is being d/c today as well, Maryse will be out later today. Patient denies the need for refills. Patient denies any further questions or concerns. Communication Events Date: March 16, 2024 Method: Phone call Type: Outbound Duration (min): 2 Outcome: Case discussion Contact Type: health services coordinator Contact Name: Rafael Page Notes: TCM#4- see tcm note. Created By: Rafael Page Date: March 09, 2024 Method: Phone call Type: Outbound Duration (min): 5 Outcome: Case discussion Contact Type: health services coordinator Contact Name: Rafael Page Notes: TCM#3- see tcm note. Created By: Rafael Page Date: March 02, 2024 Method: Phone call Type: Outbound Duration (min): 5 Outcome: Case discussion Contact Type: health services coordinator Contact Name: Rafael Page Notes: TCM#2- see tcm note. Created By: Rafael Page Date: February 17, 2024 Method: Phone call Type: Outbound Duration (min): 13 Outcome: Case discussion Contact Type: health services coordinator Contact Name: Rafael Page Notes: TCM#1- see tcm note. Created By: Rafael Page [facility] 03-09-20 24 [facility] Case Information Case Priority: None Programs: -- Referral Source: Finger Lift Operator Referral Reason: Care coordination Case Type: Transition Care Management Risk Score: -- Case Status: Enrolled (February 17, 2024) Date Assigned: February 17, 2024 Assigned By: Rafael Page Date Enrolled: February 17, 2024 Assigned Primary Personnel: Rafael Page Assigned Secondary Personnel: -- Case Physician: Mayra Ruiz MD Problems Ongoing Allergic rhinitis Angina pectoris Bartonellosis Chronic systolic heart failure Closed fracture of first lumbar vertebra with routine healing Decubitus ulcer of right buttock, stage 1 Fall Fatigue Glaucoma Hospital discharge follow-up Hypercholesterolemia Influenza vaccine refused Multiple falls Multiple sclerosis Osteoarthritis of knee Risk for falls Uses wheelchair Vitamin D deficiency Historical No qualifying data Procedure/Surgical History None. Home Medications acetaminophen-hydrocod one 325 mg-5 mg oral tablet, 1 tab(s), Oral, TID, PRN, Self Directed B-12, Oral, Daily dorzolamide Opth 2% Olivia, 1 drop(s), OPTH, TID furosemide 20 mg Tab, 20 mg= 1 tab(s), Oral, Daily Handicap Placard, See Instructions isosorbide mononitrate 60 mg ER Tab, 60 mg= 1 tab(s), Oral, BID latanoprost Opth 0.005% Olivia, 1 drop(s), OPTH, Once a day (at bedtime) lidocaine Top 5% film Patch, 1 patch(es), Topical, Daily, Self Directed metoprolol 25 mg ER Tab, 25 mg= 1 tab(s), Oral, Daily Misc Medication, Vit D3 5000 international units, Daily nitroglycerin 0.4 mg sublingual Tab, See Instructions, PRN spironolactone 25 mg Tab, 25 mg= 1 tab(s), Oral, Daily Vitamin C, 500 mg, Oral, Daily vitamin E, 400 International_Unit, Oral, Daily Allergies No Known Medication Allergies Social History Alcohol - Denies Alcohol Use, 03/09/2023 Substance Abuse - Denies Substance Abuse, 03/09/2023 Tobacco - Denies Tobacco Use, 03/09/2023 Never (less than 100 in lifetime) Tobacco Use:. Never Smokeless Tobacco Use:. Household tobacco concerns: No., 02/24/2024 Family History Diabetes mellitus type 2: Grandparent. Glaucoma: Sister. Myocardial infarction: Mother. Parkinson disease: Father. Thyroid dysfunction: Sister. Screenings and Assessments 02/17/24 09:33:00 Result Name Value Comment Phone Call Monitoring Consent Agreed to continue call Phone Verification Patient Information Full name, street address and date of verified CM Program Enrollment Provides verbal consent for enrollment Goals and Interventions Care Plan Progress Note TCM#3- Patient states 'I'm doing pretty good, can't complain.' Patient reports PT just left, and that PT is going well. Patient gets around with her rollator. States she relies pretty dependently on her rollator. Patient denies any falls. Patient reports only chronic aches and pains. Denies any pain to pubic/ pelvic region. Patient denies any urinary system or bowel issues. Patient reports she is not a picky eater so she eats well and is drinking good. Patient reports she is sleeping good. Patient watched a 90 Birthday celebration show for Bharat Melara last night and reports staying up until after midnight, she really enjoyed that. Patient denies any need for refills on medications. Patient denies any further questions or concerns. Patient expresses appreciation for the TCM program and CN following up with her. Communication Events Date: March 09, 2024 Method: Phone call Type: Outbound Duration (min): 5 Outcome: Case discussion Contact Type: health services coordinator Contact Name: Rafael Page Notes: TCM#3- see tcm note. Created By: Rafael Page Date: March 02, 2024 Method: Phone call Type: Outbound Duration (min): 5 Outcome: Case discussion Contact Type: health services coordinator Contact Name: Rafael Page Notes: TCM#2- see tcm note. Created By: Rafael Page Date: February 17, 2024 Method: Phone call Type: Outbound Duration (min): 13 Outcome: Case discussion Contact Type: health services coordinator Contact Name: Rafael Page Notes: TCM#1- see tcm note. Created By: Rafael Page [facility] C Urineon 03-05-2024 Bacteria identified Cx Nom (U) Microbiology PROCEDURE: Urine Culture [R1] SOURCE: U CleanCatch BODY SITE: COLLECTED DATE/TIME: 03/03/2024 14:59 EDT RECEIVED DATE/TIME: 03/03/2024 15:29 EDT START DATE/TIME: 03/03/2024 15:29 EDT FREE TEXT SOURCE: Lester NOLASOC, Mayra E. Mayra Ruiz MD FINAL REPORTS Final Report [] Verified Date/Time: 03/05/2024 10:43 EDT <10,000 cfu/ml Mixed skin contaminants Mixed светлана (multiple species present) Performing Locations R1: This test was performed at: [facility], [address] [place] [address], [address] [place] [address], [address] [place] [address] Comment on above: Performed By: #### [id number] #### [facility] [address] [place] [address] Bacteria identified Cx Nom (U) Microbiology PROCEDURE: Urine Culture [R1] SOURCE: U CleanCatch BODY SITE: COLLECTED DATE/TIME: 03/03/2024 14:59 EDT RECEIVED DATE/TIME: 03/03/2024 15:29 EDT START DATE/TIME: 03/03/2024 15:29 EDT FREE TEXT SOURCE: Lester NOLASCO, Mayra Grimes. Lester NOLASCO, Mayra Sparrow FINAL REPORTS Final Report [] Verified Date/Time: 03/05/2024 10:43 EDT <10,000 cfu/ml Mixed skin contaminants Mixed светлана (multiple species present) Performing Locations R1: This test was performed at: [facility], [address] [place] [address], [address] [place] [address], [address] [place] [address] Comment on above: Performed By: #### 2 [id number] #### [facility] [address] [place] [address] Physician Orderon 03-03-2024 Physician Order [id number] Normal [facility] UA with Cult Rflxon 03-03-20 24 Bacteria Auto Ql (U) Trace Normal Trace [facility] Comment on above: Performed By: #### 4 [id number] #### [facility] [address] [place] [address] Bilirubin Ql (U) Negative Normal Negative [facility] Comment on above: Performed By: #### 4 [id number] #### [facility] [address] [place] [address] Clarity (U) Turbid Abnormal Clear [facility] Comment on above: Performed By: #### 4 [id number] #### [facility] [address] [place] [address] Color (U) Yellow Normal Yellow [facility] Comment on above: Result Comment: Micr oscopic readings are only performed on those samples that meet specific criteria set forth by [facility]. Performed By: #### 4 [id number] #### [facility] [address] [place] [address] Crystals.amorphous Computer assisted Ql (U) Present Abnormal [facility] Comment on above: Performed By: #### 4 [id number] #### [facility] [address] [place] [address] Epithelial cells.squamous Auto (Urine sed) [#/Area] >10 Abnormal 0-2 [facility] Comment on above: Performed By: #### 4 [id number] #### [facility] [address] [place] [address] Glucose Ql (U) Negative Normal Negative [facility] Comment on above: Performed By: #### 4 [id number] #### [facility] [address] [place] [address] Hemoglobin Auto test strip (U) [Mass/Vol] Negative Normal Negative [facility] Comment on above: Performed By: #### 4 [id number] #### [facility] [address] [place] [address] Hyaline casts LM Ql (Urine sed) 0-3 Normal 0-3 [facility] Comment on above: Performed By: #### 4 [id number] #### [facility] [address] [place] [address] Ketones Auto test strip Ql (U) Negative Normal Negative [facility] Comment on above: Performed By: #### 4 [id number] #### [facility] [address] [place] [address] Leukocyte esterase Auto test strip Ql (U) 500 Debra/uL Abnormal Negative [facility] Comment on above: Performed By: #### 4 [id number] #### [facility] [address] [place] [address] Mucus Auto Ql (U) Trace Normal Negative [facility] Comment on above: Performed By: #### 4 [id number] #### [facility] [address] [place] [address] Nitrite Auto test strip Ql (U) Negative Normal Negative [facility] Comment on above: Performed By: #### 4 [id number] #### [facility] [address] [place] [address] pH (U) 6.0 [pH] Invalid Interpretation Code 5.0-9.0 [facility] Comment on above: Performed By: #### 4 [id number] #### [facility] [address] [place] [address] Protein Ql (U) Negative Normal Negative [facility] Comment on above: Performed By: #### 4 [id number] #### [facility] [address] [place] [address] RBC Ql (U) 4-20 Abnormal 0-3 [facility] Comment on above: Performed By: #### 4 [id number] #### [facility] [address] [place] [address] Specific gravity (U) [Rel density] 1.015 Invalid Interpretation Code 1.005-1.030 [facility] Comment on above: Performed By: #### 4 [id number] #### [facility] [address] [place] [address] Urobilinogen (U) [Mass/Vol] Negative Normal Negative [facility] Comment on above: Performed By: #### 4 [id number] #### [facility] [address] [place] [address] WBC Auto (Urine sed) [#/Area] 31-75 Abnormal 0-5 [facility] Comment on above: Performed By: #### 4 [id number] #### [facility] [address] [place] [address] Type of Urine collection method Clean Catch Normal [facility] Comment on above: Performed By: #### 4 [id number] #### [facility] [address] [place] [address] [facility] 03-02-20 [facility] Case Information Case Priority: None Programs: -- Referral Source: Finger Lift Operator Referral Reason: Care coordination Case Type: Transition Care Management Risk Score: -- Case Status: Enrolled (February 17, 2024) Date Assigned: February 17, 2024 Assigned By: Rafael Page Date Enrolled: February 17, 2024 Assigned Primary Personnel: Rafael Page Assigned Secondary Personnel: -- Case Physician: Mayra Ruiz MD Ongoing Allergic rhinitis Angina pectoris Bartonellosis Chronic systolic heart failure Closed fracture of first lumbar vertebra with routine healing Decubitus ulcer of right buttock, stage 1 Fall Fatigue [facility] discharge follow-up Hypercholesterolemia Influenza vaccine refused Multiple falls Multiple sclerosis Osteoarthritis of knee Risk for falls Uses wheelchair Vitamin D deficiency Historical No qualifying data Procedure/Surgical History None. Home Medications acetaminophen-hydrocod one 325 mg-5 mg oral tablet, 1 tab(s), Oral, TID, PRN, Self Directed B-12, Oral, Daily dorzolamide Opth 2% Olivia, 1 drop(s), OPTH, TID furosemide 20 mg Tab, 20 mg= 1 tab(s), Oral, Daily Handicap Placard, See Instructions isosorbide mononitrate 60 mg ER Tab, 60 mg= 1 tab(s), Oral, BID latanoprost Opth 0.005% Olivia, 1 drop(s), OPTH, Once a day (at bedtime) lidocaine Top 5% film Patch, 1 patch(es), Topical, Daily, Self Directed metoprolol 25 mg ER Tab, 25 mg= 1 tab(s), Oral, Daily Misc Medication, Vit D3 5000 international units, Daily nitroglycerin 0.4 mg sublingual Tab, See Instructions, PRN spironolactone 25 mg Tab, 25 mg= 1 tab(s), Oral, Daily Vitamin C, 500 mg, Oral, Daily vitamin E, 400 International_Unit, Oral, Daily Allergies No Known Medication Allergies Social History Alcohol - Denies Alcohol Use, 03/09/2023 Substance Abuse - Denies Substance Abuse, 03/09/2023 Tobacco - Denies Tobacco Use, 03/09/2023 Never (less than 100 in lifetime) Tobacco Use:. Never Smokeless Tobacco Use:. Household tobacco concerns: No., 02/24/2024 Family History Diabetes mellitus type 2: Grandparent. Glaucoma: Sister. Myocardial infarction: Mother. Parkinson disease: Father. Thyroid dysfunction: Sister. Screenings and Assessments 02/17/24 09:33:00 Result Name Value Comment Phone Call Monitoring Consent Agreed to continue call Phone Verification Patient Information Full name, street address and date of verified CM Program Enrollment Provides verbal consent for enrollment Goals and Interventions Care Plan Progress Note TCM#2- Patient states 'things are going very well,' I can't complain.' Patient states she is getting around well with her rollator. Patient denies having any further falls. Patient does report some chronic pain, stating 'that's not unusual.' Patient denies any urinary symptoms. Denies pain or burning while voiding. Patient notes some frequency/ urgency, states however that is not anything new and relates it to her 'water pill.' Patient is aware of HH wanting to her urine (see note). Patient states she is eating well for her, states she has never been a big eater. No change in sleep pattern. Patient is drinking well. Patient denies any need for medication refills. Patient denies any further questions or concerns. Communication Events Date: March 02, 2024 Method: Phone call Type: Outbound Duration (min): 5 Outcome: Case discussion Contact Type: health services coordinator Contact Name: Rafael Page Notes: TCM#2- see tcm note. Created By: Rafael Page Date: February 17, 2024 Method: Phone call Type: Outbound Duration (min): 13 Outcome: Case discussion Contact Type: health services coordinator Contact Name: Rafael Page Notes: TCM#1- see tcm note. Created By: Rafael Page [facility] [id number] [facility] Ambulatory Visit Summaryon 0 02-24-2024 Ambulatory Visit Summary JOVON ROJAS :1940 Visit Date:02/24/2024 Ambulatory Visit Instructions Your Diagnosis Hospital discharge follow-up Fall Decubitus ulcer of right buttock, stage 1 Multiple sclerosis Chronic systolic heart failure Angina pectoris Vitamin D deficiency BMI 30.0-30.9,adult Class 1 obesity due to excess calories in adult Nonsmoker Your Care Team Attending Physician - Mayra Ruiz MD Primary Care Physician - Mayra Ruiz MD This Is Your Medications List Contact prescribing physician if questions or concerns Misc Prescription (Handicap Placard) Non-Formulary Medication (Misc Medication) acetaminophen-hydrocod one (acetaminophen-hydroco done 325 mg-5 mg oral tablet) ascorbic acid (Vitamin C) cyanocobalamin (B-12) dorzolamide ophthalmic (dorzolamide Opth 2% Olivia) furosemide (furosemide 20 mg Tab) isosorbide mononitrate (isosorbide mononitrate 60 mg ER Tab) latanoprost ophthalmic (latanoprost Opth 0.005% Olivia) lidocaine topical (lidocaine Top 5% film Patch) metoprolol (metoprolol 25 mg ER Tab) nitroglycerin (nitroglycerin 0.4 mg sublingual Tab) spironolactone (spironolactone 25 mg Tab) vitamin E Procedures Performed None. Discharge Vitals Temperature (Temporal Artery) 37.0 ?C Heart Rate (Peripheral) 70 Respiratory Rate 16 Blood Pressure 112/70 Height 153 cm Height 60 in Weight 72.5 kg Weight 159.5 lb BMI 30.97 What to do next Scheduled Follow-Up Appointments Wednesday 2:30 PM EDT With: Where: [facility] Normal [address] [place], [place] [id number]- \.br\ Medications\.br\ What How Much When Instructions\.br\ Unchanged acetaminophen-hyd rocodone (acetaminophen-hy drocodone 325 mg-5 mg oral tablet) 1 Tablets By Mouth 3 times a day as needed for as needed for pain as needed for pain Contact prescribing physician if questions or concerns \.br\ Unchanged ascorbic acid (Vitamin C) 500 Milligram [...] Tablets By Mouth 2 times a day Contact prescribing physician if questions or concerns \.br\ Unchanged latanoprost ophthalmic (latanoprost Opth 0.005% Olivia) 1 Drops Ophthalmic Once a day (at bedtime) Contact prescribing physician if questions or concerns \.br\ Unchanged lidocaine topical (lidocaine Top 5% film Patch) 1 Patches Topical Every day apply 12 hours on and 12 hours off daily Contact prescribing physician if questions or concerns \.br\ Unchanged metoprolol (metoprolol 25 mg ER Tab) 1 Tablets By Mouth Every day [...] prescribing physician if questions or concerns \.br\ Allergies\.br\ No Known Medication Allergies\.br\ Problems\.br\ Ongoing - Any problem that you are currently receiving treatment for.\.br\ Allergic rhinitis\.br\ Angina pectoris\.br\ Bartonellosis\.br \ Chronic systolic heart failure\.br\ Closed fracture of first lumbar vertebra with routine healing\.br\ Decubitus ulcer of right buttock, stage 1\.br\ Fall\.br\ Fatigue\.br\ Glaucoma\.br\ Hospital discharge follow-up\.br\ Hypercholesterole yfn\.br\ Influenza vaccine refused\.br\ Multiple falls\.br\ Multiple sclerosis\.br\ Osteoarthritis of knee\.br\ Risk for falls\.br\ Uses wheelchair\.br\ Vitamin D deficiency\.br\ Patient Survey\.br\ You may receive a survey via text or e-mail asking about your office visit. Please share your experience with us by completing your survey. We appreciate your feedback and thank you for choosing us for your care.\.br\ Education Materials\.br\ BMI for Adults\.br\ What is BMI?\.br\ Body mass index (BMI) is a number that is calculated from a person's weight and height. BMI can help estimate how much of a person's weight is composed of fat. BMI does not measure body fat directly. Rather, it is an alternative to procedures that directly measure body fat, which can be difficult and expensive.\.br\ BMI can help identify people who may be at higher risk for certain medical problems.\.br\ What are BMI measurements used for?\.br\ BMI is used as a screening tool to identify possible weight problems. It helps determine whether a person is obese, overweight, a healthy weight, or underweight.\.br\ BMI is useful for:\.br\ ? \.br\ Identifying a weight problem that may be related to a medical condition or may increase the risk for medical problems.\.br\ ? \.br\ Promoting changes, such as changes in diet and exercise, to help reach a healthy weight. BMI screening can be repeated to see if these changes are working.\.br\ How is BMI calculated?\.br\ BMI involves measuring your weight in relation to your height. Both height and weight are measured, and the BMI is calculated from those numbers. This can be done either in [place] or metric measurements. Note that charts and online BMI calculators are available to help you find your BMI quickly and easily without having to do these calculations yourself.\.br\ To calculate your BMI in [place] measurements:\.br \ \.br\ 1. \.br\ Measure your weight in pounds (lb).\.br\ 2. \.br\ Multiply the number of pounds by 703.\.br\ ? \.br\ For example, for a person who weighs 180 lb, multiply that number by 703, which equals 126,540.\.br\ 3. \.br\ Measure your height in inches. Then multiply that number by itself to get a measurement called inches squared. \.br\ ? \.br\ For example, for a person who is 70 inches tall, the inches squared measurement is 70 inches x 70 inches, which equals 4,900 inches squared.\.br\ 4. \.br\ Divide the total from step 2 (number of lb x 703) by the total from step 3 (inches squared): 126,540 ? 4,900 = 25.8. This is your BMI.\.br\ To calculate your BMI in metric measurements:\.br \ 1. \.br\ Measure your weight in kilograms (kg).\.br\ 2. \.br\ Measure your height in meters (m). Then multiply that number by itself to get a measurement called meters squared. \.br\ ? \.br\ For example, for a person who is 1.75 m tall, the meters squared measurement is 1.75 m x 1.75 m, which is equal to 3.1 meters squared.\.br\ 3. \.br\ Divide the number of kilograms (your weight) by the meters squared number. In this example: 70 ? 3.1 = 22.6. This is your BMI.\.br\ What do the results mean?\.br\ BMI charts are used to identify whether you are underweight, normal weight, overweight, or obese. The following guidelines will be used:\.br\ ? \.br\ Underweight: BMI less than 18.5.\.br\ ? \.br\ Normal weight: BMI between 18.5 and 24.9.\.br\ ? \.br\ Overweight: BMI between 25 and 29.9.\.br\ ? \.br\ Obese: BMI of 30 or above.\.br\ Keep these notes in mind:\.br\ ? \.br\ Weight includes both fat and muscle, so someone with a muscular build, such as an athlete, may have a BMI that is higher than 24.9. In cases like these, BMI is not an accurate measure of body fat.\.br\ ? \.br\ To determine if excess body fat is the cause of a BMI of 25 or higher, further assessments may need to be done by a health care provider.\.br\ ? \.br\ BMI is usually interpreted in the same way for men and women.\.br\ Where to find more information\.br\ For more information about BMI, including tools to quickly calculate your BMI, go to these websites:\.br\ ? \.br\ Centers for Disease Control and Prevention: www.cdc.gov\.br\ ? \.br\ [place] Heart Association: www.heart.org\.br \ ? \.br\ National Heart, Lung, and Blood [place]: www.nhlbi.nih.gov \.br\ Summary\.br\ ? \.br\ Body mass index (BMI) is a number that is calculated from a person's weight and height.\.br\ ? \.br\ BMI may help estimate how much of a person's weight is composed of fat. BMI can help identify those who may be at higher risk for certain medical problems.\.br\ ? \.br\ BMI can be measured using [place] measurements or metric measurements.\.br \ ? \.br\ [facility] ED Note-Physicianon 02-24-20 ED Note-Physician [id number] 0TIFF Normal [facility] Family Medicine Office/Clini c Noteon 02-24-2024 Family Medicine Office/Clinic Note HPI Staff Jovon is an 83 year old female presenting for hospital follow up TCM: Hospital: [facility] Admission date: 02/15/24 Discharge date: 02/16/24 Symptoms the patient presented with: fell , found to have UTI and pelvis fracture Current concerns: wonders how long this pelvic fracture takes to heal, no one seems to know. Daughter would like her legs checked, red and edematous. Be sure no cellulitis History of Present Illness - Here for hospital follow. - Having issues ambulating. - Pelvic Fracture - UTI - See staff HPI. Review of Systems PHQ Score Initial Depression Screen Score: 1 SCORE Physical Exam Vitals & Measurements T: 37.0 ?C(Temporal Artery) HR: 70(Peripheral) RR: 16 BP: 112/70 SpO2: 96% HT: 60 in HT: 153 cm WT: 72.5 kg WT: 159.5 lb BMI: 30.97 General: alert, no acute distress ENMT: oral mucosa moist, Cardiovascular: normal peripheral perfusion Respiratory: respirations non labored Extremities: no deformity, no trauma Neurological: oriented x 4, LOC appropriate for age, CN II-XII intact, motor strength equal & normal bilaterally, speech normal Assessment/Plan 1. Hospital discharge follow-up (Z09: Encounter for follow-up examination after completed treatment for conditions other than malignant neoplasm) - TCM Reviewed - NO D/C summary - Will request. - No needs as this time. - Advised a life alert Ordered: Body Mass Index (BMI) documented 3008F Current tobacco non-user 1036F Depression Screening Negative 3352F Fall Risk Screen 2 or more w/injury 1100F Influenza immunization status assessed 1030F Most recent diastolic blood pressure <80 mm Hg 3078F Systolic BP <130 mm Hg (Most Recent) 3074F 2. Fall (W19.XXXA: Unspecified fall, initial encounter) - PT/OT - Advised Rehab - Discussed NH 3. Decubitus ulcer of right buttock, stage 1 (L89.311: Pressure ulcer of right buttock, stage 1) - Improving Ordered: Body Mass Index (BMI) documented 3008F Current tobacco non-user 1036F Depression Screening Negative 3352F Fall Risk Screen 2 or more w/injury 1100F Influenza immunization status assessed 1030F Most recent diastolic blood pressure <80 mm Hg 3078F Systolic BP <130 mm Hg (Most Recent) 3074F 4. Multiple sclerosis (G35: Multiple sclerosis) - Not on meds - Stable. Ordered: Body Mass Index (BMI) documented 3008F Current tobacco non-user 1036F Depression Screening Negative 3352F Fall Risk Screen 2 or more w/injury 1100F Influenza immunization status assessed 1030F Most recent diastolic blood pressure <80 mm Hg 3078F Systolic BP <130 mm Hg (Most Recent) 3074F 5. Chronic systolic heart failure (I50.22: Chronic systolic (congestive) heart failure) - Edema present in b/l Legs - No SOB - Doubtful infection at this time. - Precaution discussed in detail. Ordered: Body Mass Index (BMI) documented 3008F Current tobacco non-user 1036F Depression Screening Negative 3352F Fall Risk Screen 2 or more w/injury 1100F Influenza immunization status assessed 1030F Most recent diastolic blood pressure <80 mm Hg 3078F Systolic BP <130 mm Hg (Most Recent) 3074F 6. Angina pectoris (I20.9: Angina pectoris, unspecified) - No CP at this time. Ordered: Body Mass Index (BMI) documented 3008F Current tobacco non-user 1036F Depression Screening Negative 3352F Fall Risk Screen 2 or more w/injury 1100F Influenza immunization status assessed 1030F Most recent diastolic blood pressure <80 mm Hg 3078F Systolic BP <130 mm Hg (Most Recent) 3074F 7. Vitamin D deficiency (E55.9: Vitamin D deficiency, unspecified) - Continue taking Ordered: Body Mass Index (BMI) documented 3008F Current tobacco non-user 1036F Depression Screening Negative 3352F Fall Risk Screen 2 or more w/injury 1100F Influenza immunization status assessed 1030F Most recent diastolic blood pressure <80 mm Hg 3078F Systolic BP <130 mm Hg (Most Recent) 3074F 8. BMI 30.0-30.9,adult (Z68.30: Body mass index [BMI] 30.0-30.9, adult) - BMI education uploaded Ordered: Body Mass Index (BMI) documented 3008F Current tobacco non-user 1036F Depression Screening Negative 3352F Fall Risk Screen 2 or more w/injury 1100F Influenza immunization status assessed 1030F Most recent diastolic blood pressure <80 mm Hg 3078F Systolic BP <130 mm Hg (Most Recent) 3074F 9. Class 1 obesity due to excess calories in adult (E66.09: Other obesity due to excess calories) - Diet and exercise advised Ordered: Body Mass Index (BMI) documented 3008F Current tobacco non-user 1036F Depression Screening Negative 3352F Fall Risk Screen 2 or more w/injury 1100F Influenza immunization status assessed 1030F Most recent diastolic blood pressure <80 mm Hg 3078F Systolic BP <130 mm Hg (Most Recent) 3074F 10. Nonsmoker (Z78.9: Other specified health status) - Please continue to not smoke. Ordered: Body Mass Index (BMI) documented 3008F Current tobacco non-user 1036F (more content not included)... Normal [facility] Comment on above: Result Comment: Elec tronically Signed By: Lester NOLASCO, Mayra Sparrow\.br\Date and Time Signed: 02/24/24 15:11 EDT Outside [facility] Correspo ndenceon 02-24-2024 Outside [facility] Correspondence [id number] 0TIFF Normal [facility] Patient Educationon 02-24-20 Patient Education Nutrition BMI for Adults What is BMI? Body mass index (BMI) is a number that is calculated from a person's weight and height. BMI can help estimate how much of a person's weight is composed of fat. BMI does not measure body fat directly. Rather, it is an alternative to procedures that directly measure body fat, which can be difficult and expensive. BMI can help identify people who may be at higher risk for certain medical problems. What are BMI measurements used for? BMI is used as a screening tool to identify possible weight problems. It helps determine whether a person is obese, overweight, a healthy weight, or underweight. BMI is useful for: ? Identifying a weight problem that may be related to a medical condition or may increase the risk for medical problems. ? Promoting changes, such as changes in diet and exercise, to help reach a healthy weight. BMI screening can be repeated to see if these changes are working. How is BMI calculated? BMI involves measuring your weight in relation to your height. Both height and weight are measured, and the BMI is calculated from those numbers. This can be done either in [place] or metric measurements. Note that charts and online BMI calculators are available to help you find your BMI quickly and easily without having to do these calculations yourself. To calculate your BMI in [place] measurements: 1. Measure your weight in pounds (lb). 2. Multiply the number of pounds by 703. ? For example, for a person who weighs 180 lb, multiply that number by 703, which equals 126,540. 3. Measure your height in inches. Then multiply that number by itself to get a measurement called inches squared. ? For example, for a person who is 70 inches tall, the inches squared measurement is 70 inches x 70 inches, which equals 4,900 inches squared. 4. Divide the total from step 2 (number of lb x 703) by the total from step 3 (inches squared): 126,540 ? 4,900 = 25.8. This is your BMI. To calculate your BMI in metric measurements: 1. Measure your weight in kilograms (kg). 2. Measure your height in meters (m). Then multiply that number by itself to get a measurement called meters squared. ? For example, for a person who is 1.75 m tall, the meters squared measurement is 1.75 m x 1.75 m, which is equal to 3.1 meters squared. 3. Divide the number of kilograms (your weight) by the meters squared number. In this example: 70 ? 3.1 = 22.6. This is your BMI. What do the results mean? BMI charts are used to identify whether you are underweight, normal weight, overweight, or obese. The following guidelines will be used: ? Underweight: BMI less than 18.5. ? Normal weight: BMI between 18.5 and 24.9. ? Overweight: BMI between 25 and 29.9. ? Obese: BMI of 30 or above. Keep these notes in mind: ? Weight includes both fat and muscle, so someone with a muscular build, such as an athlete, may have a BMI that is higher than 24.9. In cases like these, BMI is not an accurate measure of body fat. ? To determine if excess body fat is the cause of a BMI of 25 or higher, further assessments may need to be done by a health care provider. ? BMI is usually interpreted in the same way for men and women. Where to find more information For more information about BMI, including tools to quickly calculate your BMI, go to these websites: ? Centers for Disease Control and Prevention: www.cdc.gov ? [place] Heart Association: www.heart.org ? National Heart, Lung, and Blood [place]: www.nhlbi.nih.gov Summary ? Body mass index (BMI) is a number that is calculated from a person's weight and height. ? BMI may help estimate how much of a person's weight is composed of fat. BMI can help identify those who may be at higher risk for certain medical problems. ? BMI can be measured using [place] measurements or metric measurements. ? BMI charts are used to identify whether you are underweight, normal weight, overweight, or obese. This information is not intended to replace advice given to you by your health care provider. Make sure you discuss any questions you have with your health care provider. Document Revised: 06/19/2020 Document Reviewed: 04/26/2020 [employer] Patient Education ? 2022 [email or web address]. [facility] Pre-Visit Planningon 024 Pre-Visit Planning - From: Nicole Carrillo To: Mayra Ruiz MD; Sent: 02/23/2024 15:01:54 EDT Subject: Pre-Visit Planning Due Date/Time: 02/23/2024 15:01:00 EDT Caller Name: JOVON ROJAS; Caller Number: Enrique , M Nv Dr. Ruiz. During a pre-visit planning chart review, I noted the following documentation in the medical record: 02/15/2024 [facility] ED Visit Note (page 2): Exam: Back- Stage 1 decubitus ulcer with minimal skin breakdown of the right buttock, approximately 4 cm. Based on your medical judgment, can you please clarify if any of the following conditions/complicatio ns are present? I can update the Chronic Problem List with your response if you would like. -Decubitus ulcer of right buttock, stage 1 -Other (please specify): In responding to this request, please exercise your independent professional judgment. The fact that a question is asked does not imply that any particular answer is desired or expected. If you have any questions, please feel free to contact me at extension [phone]. Thank you! Nicole Carrillo LPN From: Mayra Ruiz MD To: Nicole Carrillo; Sent: 02/24/2024 07:14:56 EDT Subject: RE: Pre-Visit Planning Caller Name: JOVON ROJAS; Caller Number: Enrique , M Decubitus ulcer of right buttock, stage [address] [facility] RAD - CT Reporton 02-23-2024 RAD - CT Report [id number] 0TIFF Normal [facility] RAD - CT Report [id number] TIFF Normal [facility] RAD - MISCon 02-23-2024 RAD - MISC [id number] TIFF Normal [facility] Population Health 02-17-20 [facility] Case Information Case Priority: None Programs: -- Referral Source: Finger Lift Operator Referral Reason: Care coordination Case Type: Transition Care Management Risk Score: -- Case Status: Enrolled (February 17, 2024) Date Assigned: February 17, 2024 Assigned By: Rafael Page Date Enrolled: February 17, 2024 Assigned Primary Personnel: Rafael Page Assigned Secondary Personnel: -- Case Physician: Lester NOLASCO, Mayra Sparrow Problems Ongoing Allergic rhinitis Angina pectoris Bartonellosis Chronic systolic heart failure Closed fracture of first lumbar vertebra with routine healing Fatigue Glaucoma Hypercholesterolemia Influenza vaccine refused Multiple falls Multiple sclerosis Osteoarthritis of knee Risk for falls Uses wheelchair Vitamin D deficiency Historical No qualifying data Procedure/Surgical History None. Home Medications acetaminophen-hydrocod one 325 mg-5 mg oral tablet, 1 tab(s), Oral, TID, PRN B-12, Oral, Daily dorzolamide Opth 2% Olivia, 1 drop(s), OPTH, TID furosemide 20 mg Tab, 20 mg= 1 tab(s), Oral, Daily Handicap Placard, See Instructions isosorbide mononitrate 60 mg ER Tab, 60 mg= 1 tab(s), Oral, BID latanoprost Opth 0.005% Olivia, 1 drop(s), OPTH, Once a day (at bedtime) lidocaine Top 5% film Patch, 1 patch(es), Topical, Daily metoprolol 25 mg ER Tab, 25 mg= 1 tab(s), Oral, Daily Misc Medication, Vit D3 5000 international units, Daily nitroglycerin 0.4 mg sublingual Tab, See Instructions, PRN spironolactone 25 mg Tab, 25 mg= 1 tab(s), Oral, Daily Vitamin C, 500 mg, Oral, Daily vitamin E, 400 International_Unit, Oral, Daily Allergies No Known Medication Allergies Social History Alcohol - Denies Alcohol Use, 03/09/2023 Substance Abuse - Denies Substance Abuse, 03/09/2023 Tobacco - Denies Tobacco Use, 03/09/2023 Never (less than 100 in lifetime) Tobacco Use:. Never Smokeless Tobacco Use:. Household tobacco concerns: No., 08/30/2023 Family History Diabetes mellitus type 2: Grandparent. Glaucoma: Sister. Myocardial infarction: Mother. Parkinson disease: Father. Thyroid dysfunction: Sister. Screenings and Assessments 02/17/24 09:33:00 Result Name Value Comment Phone Call Monitoring Consent Agreed to continue call Phone Verification Patient Information Full name, street address and date of verified CM Program Enrollment Provides verbal consent for enrollment Goals and Interventions Care Plan Progress Note Admit Date: 02/15/24 [facility] Date of Discharge: 02/16/24 Follow-up appointment scheduled? yes 02/23, TCM f/u with PCP at 1500 Did you understand your discharge instructions? yes Are you able to follow them? yes Did you receive new medications? yes, ATB- unable to verify at time of call Have you filled the Rx's? yes Are you taking them as prescribed? yes Are you having difficulty eating or swallowing your pills? no Are you having any stomach upset, diarrhea or constipation? last bm last night, 02/15, was a bit loose How are you sleeping? good Are you having any pain? none, 'thought I would, but I don't) Do you have everything you need at home to care for yourself? yes Do you have Home Health? Yes- they are coming to home today for initial visit Spoke with patient for initial Transitional Care Management Program. Readmission risk unavailable. Reviewed d/c instructions and dx of fall, inferior ramus pubic fracture, abnormal cxr, generalized weakness, HTN, MS, ambulatory dysfunction. Patient states she was given new prescription ATB. Patient unable to verify at time of call. Patient states is is for a UTI. Medications will need to be reconciled at OV. Patient denies any urinary system issues or concerns. Patient does states her BM was a bit loose last night, but so far today no concerns. Patient states everything is fine. Patient states she is ambulating with her walker without difficulty. Patient denies any further falls. Patient denies any pain. Patient reports she had a vertebrae fracture a while back and that is was painful. Patient states that is what she was expecting (a lot of pain), but states she has not had pain. Patient states she is eating and drinking good. Patient has not been monitoring her BP. States she never really has issues with it. Patient is not certain if she wants to participate with PT at this time. Patient states home health is to come today for initial visit and she will discuss PT with them. Patient states she did PT in the past for her MS and it helped her leg strength. Reviewed the following appointments with patient; TCM follow up 02/23 at 1500 with PCP and to bring medications. 6 month check up and AWV 03/28. CN explained TCM program and gave CN contact number. Patient denies any further questions or concerns. *above information provided by patient, d/c summary is not available at this time. Communication Events Date: February 17, 2024 Method: Phone call Type: Outbound Dura (more content not included)... [facility] Physician Orderon 10-14-2023 Physician Order [id number]#1.[address] [facility] Physician Order [id number]#1.[address] [facility] Home Health Recordson 2023 Home Health Records [id number]#1.[address] [facility] Home Health Recordson 2022 Home Health Records [id number]#1.[address] [facility] Physician Referralon 023 Physician Referral [id number]#1.[address] [facility] Ambulatory Visit Summaryon 10-30-2022 Ambulatory Visit Summary JOVON ROJAS :1940 Visit Date:08/30/2023 Ambulatory Visit Instructions Your Diagnosis Chronic systolic heart failure Multiple sclerosis BMI 29.0-29.9,adult Hypercholesterolemia Vitamin D deficiency Uses wheelchair Influenza vaccine refused Multiple falls Over weight Nonsmoker Closed fracture of first lumbar vertebra with routine healing Your Care Team Attending Physician - Mayra Ruiz MD Primary Care Physician - Mayra Ruiz MD This Is Your Medications List acetaminophen-hydrocod [...] Follow-Up Appointments Wednesday 1:00 PM EDT With: Mayra Ruiz MD Where: [place] [id number]- \.br\ Medications\.br\ What How Much When Instructions\.br\ Changed acetaminophen-hyd rocodone (acetaminophen-hy drocodone 325 mg-5 mg oral tablet) 1 Tablets By Mouth 3 times a day as needed for as needed for pain as needed for pain Pickup at [facility]\.br\ Unchanged lidocaine topical (lidocaine Top 5% film Patch) 1 Patches Topical Every day apply 12 hours on and 12 hours off daily Pickup at [facility]\.br\ Unchanged ascorbic acid (Vitamin C) 500 [...] if questions or concerns \.br\ Pharmacy Information\.br\ [facility]: [address] [place], [place] [id number] [phone]\.br\ Medications and Immunizations Administered\.br\ Not Given\.br\ influenza virus vaccine, inactivated, Patient Refuses\.br\ Allergies\.br\ No Known Medication Allergies\.br\ Problems\.br\ Ongoing - Any problem that you are currently receiving treatment for.\.br\ Allergic rhinitis\.br\ Angina pectoris\.br\ Bartonellosis\.br \ Chronic systolic heart failure\.br\ Closed fracture of first lumbar vertebra with routine healing\.br\ Fatigue\.br\ Glaucoma\.br\ Hypercholesterole yfn\.br\ Influenza vaccine refused\.br\ Multiple falls\.br\ Multiple sclerosis\.br\ Osteoarthritis of knee\.br\ Risk for falls\.br\ Uses wheelchair\.br\ Vitamin D deficiency\.br\ Patient Survey\.br\ You may receive a survey via text or e-mail asking about your office visit. Please share your experience with us by completing your survey. We appreciate your feedback and thank you for choosing us for your care.\.br\ \.br\ [facility] Auto Diffon 08-30-2023 Basophils/100 WBC (Bld) 0.4 % Normal 0.0-2.0 [facility] Comment on above: Order Comment: Order Added by Discern Expert. Performed By: #### 2 955514, 8586294, 0344932, 75668869, 648073818, 10732953, 2498193 #### [facility] [address] [place] [address] Basophils/Leukocyte s Auto (Bld) [Pure # fraction] 0.0 E9/L Normal 0.0-0.2 [facility] Comment on above: Order Comment: Order Added by Discern Expert. Performed By: #### 2 018479, 4035188, 4122644, 59084012, 654828945, 41973474, 6648252 #### [facility] [address] [place] [address] Eosinophils/100 WBC (Bld) 2.9 % Normal 0.0-8.0 [facility] Comment on above: Order Comment: Order Added by Discern Expert. Performed By: #### 2 804222, 9814436, 9058479, 12053135, 581581390, 44508787, 4045677 #### [facility] [address] [place] [address] Eosinophils/Leukocy krysta Auto (Bld) [Pure # fraction] 0.1 E9/L Normal 0.0-0.5 [facility] Comment on above: Order Comment: Order Added by Discern Expert. Performed By: #### 2 667756, 7854074, 6153087, 91991040, 476573354, 46259635, 6481147 #### [facility] [address] [place] [address] Lymphocytes/100 WBC (Bld) 21.1 % Normal 14.0-50.0 [facility] Comment on above: Order Comment: Order Added by Discern Expert. Performed By: #### 2 441746, 8462445, 4278350, 34803018, 225203152, 24359082, 2507673 #### [facility] [address] [place] [address] Lymphocytes/Leukocy krysta Auto (Bld) [Pure # fraction] 1.1 E9/L Normal 1.0-4.0 [facility] Comment on above: Order Comment: Order Added by Discern Expert. Performed By: #### 2 252861, 9890727, 1214694, 78818118, 291397910, 65558866, 4018942 #### [facility] [address] [place] [address] Monocytes/100 WBC (Bld) 9.2 % Normal 4.0-14.0 [facility] Comment on above: Order Comment: Order Added by Discern Expert. Performed By: #### 2 392165, 8282611, 3896613, 94983696, 387749589, 26369133, 4132468 #### [facility] [address] [place] [address] Monocytes/Leukocyte s Auto (Bld) [Pure # fraction] 0.5 E9/L Normal 0.2-1.0 [facility] Comment on above: Order Comment: Order Added by Discern Expert. Performed By: #### 2 844891, 5178275, 6704054, 18915737, 869714984, 01547019, 8589038 #### [facility] [address] [place] [address] Neutrophils/100 WBC (Bld) 66.4 % Normal 36.0-75.0 [facility] Comment on above: Order Comment: Order Added by Discern Expert. Performed By: #### 2 089807, 9112904, 0216314, 91327564, 368775704, 62958087, 2403653 #### [facility] [address] [place] [address] Neutrophils/Leukocy krysta Auto (Bld) [Pure # fraction] 3.4 E9/L Normal 2.0-7.5 [facility] Comment on above: Order Comment: Order Added by Discern Expert. Performed By: #### 2 121443, 7703721, 2451259, 52687719, 162258308, 05630033, 4417563 #### [facility] [address] [place] [address] CBC w/ Auto Diffon 3 Erythrocyte distribution width (RBC) [Ratio] 14.4 % High 10.9-14.2 [facility] Comment on above: Performed By: #### 2 450977, 3479426, 7332292, 09434963, 513757328, 32396977, 4276181 #### [facility] [address] [place] [address] Hematocrit (Bld) [Volume fraction] 39.9 % Normal 34.0-46.0 [facility] Comment on above: Performed By: #### 2 275139, 3090137, 6938112, 04122868, 997489153, 13967286, 6843197 #### [facility] [address] [place] [address] Hemoglobin (Bld) [Mass/Vol] 13.5 g/dL Normal 12.0-16.0 [facility] Comment on above: Performed By: #### 2 382875, 6156461, 4698221, 83589666, 552967025, 14812926, 9245694 #### [facility] [address] [place] [address] MCH (RBC) [Entitic mass] 31.6 pg Normal 27.0-34.0 [facility] Comment on above: Performed By: #### 2 241374, 8969178, 1721039, 14843147, 400110748, 35491533, 3456043 #### [facility] [address] [place] [address] MCHC (RBC) [Mass/Vol] 33.9 g/dL Normal 31.4-36.0 [facility] Comment on above: Performed By: #### 2 783177, 8770202, 8974664, 88994817, 055445966, 58984261, 8893946 #### [facility] [address] [place] [address] MCV (RBC) [Entitic vol] 93.1 fL Normal 80.0-100.0 [facility] Comment on above: Performed By: #### 2 584597, 5430353, 4505764, 19278406, 242551223, 27888784, 5622918 #### [facility] [address] [place] [address] Platelet mean volume (Bld) [Entitic vol] 9.3 fL Normal 6.4-10.8 [facility] Comment on above: Performed By: #### 2 877718, 5368102, 1275825, 29607906, 041490957, 78994085, 0264875 #### [facility] [address] [place] [address] Platelets (Bld) [#/Vol] 236.0 E9/L Normal 150.0-500.0 [facility] Comment on above: Performed By: #### 2 951636, 9168188, 3966459, 01442172, 463156937, 45272521, 3666603 #### [facility] [address] [place] [address] RBC (Bld) [#/Vol] 4.3 E12/L Normal 4.3-5.9 [facility] Comment on above: Performed By: #### 2 850791, 7314993, 9758665, 24435358, 873785865, 95144300, 9118183 #### [facility] [address] [place] [address] WBC corrected for nucl RBC Auto (Bld) [#/Vol] 5.1 E9/L Normal 4.0-11.0 [facility] Comment on above: Performed By: #### 2 041223, 4327577, 8655089, 30261504, 914191403, 09155145, 2452828 #### [facility] [address] [place] [address] CHEMISTRYOrdered By: SYSTEM SYSTEM on 08-30-2023 25-hydroxyvitamin D3 [Mass/Vol] 24.0 ng/mL Low 30.0 - 100.0 ng/mL [facility] Comment on above: Interpretive Data: Vitamin D deficiency has been defined as a level of serum 25-OH vitamin D less than 20 ng/mL (1,2) by the [place] [employer] and an Endocrine Society practice guideline. The Endocrine Society further defined vitamin D insufficiency as a level between 21 and 29 ng/mL (2). 1. IOM ([place] [employer]). 2010. Dietary reference intakes for calcium and D. [place]: The National Academies Press. 2. Josh MF, Luis E [place], Mark RENDON, et al. Evaluation, treatment, and [...] 9.1 mg/dL Normal 8.9 - 11.1 mg/dL [facility] Chloride [Moles/Vol] 110 mmol/L Normal 101 - 111 mmol/L [facility] Cholesterol [Mass/Vol] 244 mg/dL High 120 - 200 mg/dL [facility] Cholesterol in HDL [Mass/Vol] 65 mg/dL Invalid Interpretation Code [facility] Comment on above: Interpretive Data: H DL > or equal to 60 mg/dL: Low cardiovascular risk HDL < 40 mg/dL : High cardiovascular risk Cholesterol in LDL [Mass/Vol] 160 mg/dL High <=129mg/dL [facility] Cholesterol in VLDL [Mass/Vol] 15 mg/dL Normal 7 - 40 mg/dL [facility] CO2 [Moles/Vol] 24 mmol/L Normal 21 - 31 mmol/L [facility] Creatinine [Mass/Vol] 0.8 mg/dL Normal 0.5 - 1.3 mg/dL [facility] [place] [place] Remisol GFR/1.73 sq M.predicted among non-blacks MDRD (S/P/Bld) [Vol rate/Area] 73 mL/min/1.73 m2 Normal >=59mL/min/1.73 m2 [facility] [place] [place] Chem S Comment on above: Interpretive Data: C hronic kidney disease could be indicated at eGFR's of less than 60 mL/min/1.73m2. Kidney failure is indicated at less than 15 mL/min/1.73m2. Globulin (S) [Mass/Vol] 3.1 g/dL Normal 1.4 - 4.0 gm/dL [facility] [place] [place] Remisol Glucose [Mass/Vol] 106 mg/dL Normal 55 - 199 mg/dL [facility] Comment on above: Interpretive Data: I f this glucose result represents a fasting glucose, interpretation should refer to the following reference range: 55-99 mg/dL Potassium [Moles/Vol] 4.0 mmol/L Normal 3.5 - 5.3 mmol/L [facility] Protein [Mass/Vol] 6.8 g/dL Normal 6.0 - 7.8 gm/dL [facility] [place] Remisol Sodium [Moles/Vol] 139 mmol/L Normal 135 - 145 mmol/L [facility] Triglyceride [Mass/Vol] 74 mg/dL Normal <=149mg/dL [facility] TSH Qn 1.83 m[IU]/L Normal 0.34 - 5.60 mcIU/mL [facility] Urea nitrogen [Mass/Vol] 23 mg/dL High 5 - 21 mg/dL [facility] Urea nitrogen/Creatinine [Mass ratio] 29 mg/mg High - [facility] CMPon 08-30-2023 Albumin [Mass/Vol] 3.7 g/dL Normal 3.3-5.0 [facility] Comment on above: Performed By: #### 2 819724, 0246026, 2769608, 05246517, 035776648, 67308893, 1934238 #### [facility] [address] [place] [address] Albumin/Globulin (S) [Mass conc ratio] 1.2 Normal 1.1-2.2 [facility] Comment on above: Performed By: #### 2 026750, 2610317, 3070142, 01680492, 870481455, 12606874, 4884042 #### [facility] [address] [place] [address] ALP [Catalytic activity/Vol] 86 Int._Unit/L Normal 21-98 [facility] Comment on above: Performed By: #### 2 263646, 4197117, 0617654, 24046058, 816365030, 85217078, 6055591 #### [facility] [address] [place] [address] ALT No additional P-5'-P [Catalytic activity/Vol] 17 Int._Unit/L Normal 6-46 [facility] Comment on above: Performed By: #### 2 214528, 2036060, 1881147, 31322017, 385637214, 75130274, 1601860 #### [facility] [address] [place] [address] Anion gap [Moles/Vol] 9 mmol/L Normal 6-16 [facility] Comment on above: Performed By: #### 2 591252, 4708972, 8221565, 56871970, 976630137, 39309123, 7426684 #### [facility] [address] [place] [address] AST [Catalytic activity/Vol] 22 Int._Unit/L Normal 5-43 [facility] Comment on above: Performed By: #### 2 266936, 4139138, 3713644, 52233964, 373958980, 97676197, 7606300 #### [facility] [address] [place] [address] Bilirubin [Mass/Vol] 0.5 mg/dL Normal 0.0-1.1 [facility] Comment on above: Performed By: #### 2 391056, 8988162, 9231426, 50110947, 649895242, 38609427, 8334445 #### [facility] [address] [place] [address] Calcium [Mass/Vol] 9.1 mg/dL Normal 8.9-11.1 [facility] Comment on above: Performed By: #### 2 325803, 8148920, 2839911, 58468330, 335927247, 75042500, 1542222 #### [facility] [address] [place] [address] Chloride [Moles/Vol] 110 mmol/L Normal 101-111 [facility] Comment on above: Performed By: #### 2 022229, 7719383, 0756487, 76621779, 088774735, 78568531, 0593889 #### [facility] [address] [place] [address] CO2 [Moles/Vol] 24 mmol/L Normal 21-31 [facility] Comment on above: Performed By: #### 2 126166, 6691031, 8220998, 89134564, 200729310, 27062452, 6327397 #### [facility] [address] [place] [address] Creatinine [Mass/Vol] 0.8 mg/dL Normal 0.5-1.3 [facility] Comment on above: Performed By: #### 2 969042, 9187365, 0584977, 78500255, 297935698, 19396212, 9809059 #### [facility] [address] [place] [address] Globulin (S) [Mass/Vol] 3.1 g/dL Normal 1.4-4.0 [facility] Comment on above: Performed By: #### 2 017019, 3802677, 5119368, 12044647, 740826021, 57207167, 8393755 #### [facility] [address] [place] [address] Glucose [Mass/Vol] 106 mg/dL Normal 55-199 [facility] Comment on above: Result Comment: If t his glucose result represents a fasting glucose, interpretation should refer to the following reference range: 55-99 mg/dL Performed By: #### 2 942503, 3598335, 5913856, 29826505, 923174596, 54252837, 2630792 #### [facility] [address] [place] [address] Potassium [Moles/Vol] 4.0 mmol/L Normal 3.5-5.3 [facility] Comment on above: Performed By: #### 2 342101, 4504326, 4657325, 98655860, 437748574, 37113464, 7612080 #### [facility] [address] [place] [address] Protein [Mass/Vol] 6.8 g/dL Normal 6.0-7.8 [facility] Comment on above: Performed By: #### 2 133154, 5553750, 8431266, 24332521, 271116357, 34599243, 9135962 #### [facility] [address] [place] [address] Sodium [Moles/Vol] 139 mmol/L Normal 135-145 [facility] Comment on above: Performed By: #### 2 358777, 3131836, 9224627, 61605560, 203535469, 83766094, 4464676 #### [facility] [address] [place] [address] Urea nitrogen [Mass/Vol] 23 mg/dL High 5-21 [facility] Comment on above: Performed By: #### 2 304642, 4793411, 9059435, 79995113, 455467289, 20376991, 6904234 #### [facility] [address] [place] [address] Urea nitrogen/Creatinine [Mass ratio] 29 No Units High 10-20 [facility] Comment on above: Performed By: #### 2 962974, 1935534, 8353227, 95459411, 603776623, 67227303, 5737987 #### [facility] [address] [place] [address] Family Medicine Office/Clini c Noteon 08-30-2023 Family [...] Risk Screen 2 or more w/injury 1100F [facility] [place] [place] Internal Ambulatory Referral Influenza immunization status assessed [...] Risk Screen 2 or more w/injury 1100F [facility] [place] [place] Internal Ambulatory Referral Influenza immunization status assessed [...] Risk Screen 2 or more w/injury 1100F [facility] [place] [place] Internal Ambulatory Referral Influenza immunization status assessed 1030F Lipid Panel Most recent diastolic blood pressure <80 mm Hg 3078F Systolic BP <130 mm Hg (Most Recent) 3074F TSH With T4fr Reflex Vitamin D 25 Hydroxy 4. Hypercholesterolemia (E78.00: Pure hypercholesterolemia, unspecified) - Recheck labs today Ordered: CBC w/ Auto Diff Comprehensive Metabolic Panel [facility] [place] [place] Internal Ambulatory Referral Lipid Panel TSH With T4fr Reflex Vitamin D 25 Hydroxy 5. Vitamin D deficiency (E55.9: Vitamin D deficiency, unspecified) - Recheck levels Ordered: CBC w/ Auto Diff Comprehensive Metabolic Panel [facility] [place] [place] Internal Ambulatory Referral Lipid Panel TSH With [...] routine h (more content not included)... Normal [facility] Comment on above: Result Comment: Elec tronically Signed By: Lester NOLASCO, Mayra Sparrow\.br\Date and Time Signed: 08/30/23 13:38 EST [...] 3.4 E9/L Normal 2.0 - 7.5 E9/L [facility] HEMATOLOGYOrdered By: Vianey Moctezuma on 08-30-2023 Erythrocyte distribution width (RBC) [Ratio] 14.4 % High 10.9 - 14.2 % [facility] Hematocrit (Bld) [Volume fraction] 39.9 % Normal 34.0 - 46.0 % [facility] Hemoglobin (Bld) [Mass/Vol] 13.5 g/dL Normal 12.0 - 16.0 gm/dL [facility] MCH (RBC) [Entitic mass] 31.6 pg Normal 27.0 - 34.0 pg [facility] MCHC (RBC) [Mass/Vol] 33.9 g/dL Normal 31.4 - 36.0 gm/dL [facility] MCV (RBC) [Entitic vol] 93.1 fL Normal 80.0 - 100.0 fL [facility] Platelet mean volume (Bld) [Entitic vol] 9.3 fL Normal 6.4 - 10.8 fL [facility] Platelets (Bld) [#/Vol] 236.0 E9/L Normal 150.0 - 500.0 E9/L [facility] RBC (Bld) [#/Vol] 4.3 E12/L Normal 4.3 - 5.9 E12/L [facility] WBC corrected for nucl RBC Auto (Bld) [#/Vol] 5.1 E9/L Normal 4.0 - 11.0 E9/L [facility] [place] [place] [facility] Lipid Panelon 08-30-2023 Cholesterol [Mass/Vol] 244 mg/dL High 120-200 [facility] Comment on above: Performed By: #### 2 356819, 8411268, 3700324, 29448816, 563825241, 40362973, 9879547 #### [facility] [address] [place] [address] Cholesterol in HDL [Mass/Vol] 65 mg/dL Invalid Interpretation Code [facility] Comment on above: Result Comment: HDL > or equal to 60 mg/dL: Low cardiovascular risk HDL < 40 mg/dL : High cardiovascular risk Performed By: #### 2 852122, 5375435, 5597644, 64834962, 749693793, 07249495, 9346333 #### [facility] [address] [place] [address] Cholesterol in LDL [Mass/Vol] 160 mg/dL High <=129 [facility] Comment on above: Performed By: #### 2 867965, 2658071, 0972955, 81820400, 605042130, 77567310, 7133646 #### [facility] [address] [place] [address] Cholesterol in VLDL [Mass/Vol] 15 mg/dL Normal 7-40 [facility] Comment on above: Performed By: #### 2 565187, 8646082, 3963625, 65443509, 045651710, 47629526, 5686063 #### [facility] [address] [place] [address] Triglyceride [Mass/Vol] 74 mg/dL Normal <=149 [facility] Comment on above: Performed By: #### 2 176687, 0128357, 8185471, 30675736, 765529432, 97388776, 6438453 #### [facility] [address] [place] [address] TSH With T4fr Reflexon 08-30 TSH Qn 1.83 m[IU]/L Normal 0.34-5.60 [facility] Comment on above: Performed By: #### 2 737290, 6486157, 4668094, 60432275, 057039041, 89252668, 3369933 #### [facility] [address] [place] [address] Vitamin D 25 Hydroxyon 08-30 25-hydroxyvitamin D3 [Mass/Vol] 24.0 ng/mL Low 30.0-100.0 [facility] Comment on above: Result Comment: Vit hernandez D deficiency has been defined as a level of serum 25-OH vitamin D less than 20 ng/mL (1,2) by the [place] [employer] and an Endocrine Society practice guideline. The Endocrine Society further defined vitamin D insufficiency as a level between 21 and 29 ng/mL (2). 1. IOM ([place] [employer]). 2010. Dietary reference intakes for calcium and D. [place]: The National Academies Press. 2. Josh MF, Luis E EDWARDS, Mark RENDON, et al. Evaluation, treatment, and prevention of vitamin D deficiency: an Endocrine Society clinical practice guideline. JCEM. 2010; 96 (7):1911-30. Performed By: #### 2 306519, 0585301, 8459358, 32837862, 979811137, 99138674, 5249274 #### [facility] [address] [place] [address] eGFRon 08-30-2023 GFR/1.73 sq M.predicted among non-blacks MDRD (S/P/Bld) [Vol rate/Area] 73 mL/min/1.73 m2 Normal >=59 [facility] Comment on above: Order Comment: Order added by Discern Expert. Result Comment: Bed Placement Coordinator julia kidney disease could be indicated at eGFR's of less than 60 mL/min/1.73m2. Kidney failure is indicated at less than 15 mL/min/1.73m2. Performed By: #### 2 692290, 4761856, 9340421, 34152233, 861432345, 69514214, 2219721 #### [facility] [address] [place] [address] [facility] [id number] 0TIFF Jacqui Conn[facility] Family Medicine Office/Clini c Noteon 05-03-2023 Family Medicine Office/Clinic Note Chief Complaint follow up back pain HPI Staff Jovon is a 82 year old female patient presenting to the office for a 1 month follow up for back pain for closed fx of the lumbar vetebra. Possible send to pain management if still needs the [place] Date of onset? previous injury, fracture Trauma: [...] pain. 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 Garcia, at [facility] in 05/2023. She had a Medicare [...] is seeing her doctor, Dr. Garcia of [place] and we will have the patient follow up as needed. No signs of acute congestive heart failure today. 3. Angina pectoris (I20.9: Angina pectoris, unspecified) This is no longer an issue. Patient will continue to monitor and will see her screw machine set up operator as needed. 4. Multiple sclerosis (G35: Multiple [...] with voice recognition artificial intelligence software, specifically e[employer], [email or web address] and or [employer]. Substitutions may have occurred due to the inherent limitations of voice recognition and artificial intelligence software. Documentation services were performed after the patient or guardian consented to allow [employer] to record this visit. NANCY events specialist and provider reviewed before signing. NANCY: [...] mg= 1 tab( (more content not included)... Normal [facility] Comment on above: Result Comment: Elec tronically Signed By: Mayra Ruiz MD\.br\Date and Time Signed: 05/03/23 08:30 EDT\.br\Electronically Co-Signed By: Haleigh Kiser\.br\Date and Time Co-Signed: 04/28/23 15:29 EDT [facility] [id number]#1.0 0CD:[address] [facility] 2022 Home Health Records [id number]#1.0 0CD:[address] [facility] 2022 Home Health Records [id number]#1.0 0CD:[address] [facility] Covid-19 PCR (CVDTB)on SARS-CoV-2 (COVID-19) RNA NEELIMA+probe Ql (Unsp spec) Not detected Normal NOT DETECTED [facility] Comment on above: Result Comment: This test is not yet approved or cleared by the [place] FDA. When there are no FDA-approved or cleared tests available, and other criteria are met, FDA can make tests available under an emergency access mechanism called an Emergency Use Authorization (EUA). The EUA for this test is supported by the [place] Supervisor of Health and Human Service's (HHS's) declaration [...] consistent with SARS-CoV-2. Performed By: #### C GRISTB #### [facility] [address] [address] [address] Avtar Gonsalves SYMPTOMATIC COVID-19 ANTIGEN on 02-11-2023 EUA Statement SEE BELOW Normal [facility] Comment on above: Result Comment: This test [...] revoked sooner. Performed By: #### C VDAGS ####[facility] [id number] [place] [id number] Gonsalves SARS-CoV-2 (COVID-19) RNA NEELIMA+probe Ql (Unsp spec) Negative Normal NEGATIVE [facility] Comment on above: Performed By: #### C VDAGS ####[facility] [address] [place] [id number]. Avtar Gonsalves CULTURE URINEon 02-10-2023 CULTURE URINE Culture Observations : MODERATE GROWTH OF MIXED GENITAL СВЕТЛАНА. NO POTENTIAL PATHOGENS SEEN. Normal [facility] Comment on above: Performed By: #### U RCX #### [facility] [address] [place] [address] Dr. Avtar Gonsalves UA RANDOM W/MICROSCOPICon BACTERIA TRACE Abnormal NONE SEEN [facility] Comment on above: Performed By: #### U AMIC #### [facility] [address] [place] [address] Dr. Avtar Gonsalves Bilirubin Ql (U) Negative Normal NEGATIVE [facility] Comment on above: Performed By: #### U AMIC #### [facility] [address] [place] [address] Dr. Avtar Gonsalves CAST NONE SEEN Normal NONE SEEN [facility] Comment on above: Performed By: #### U AMIC #### [facility] [address] [place] [address] Dr. Avtar Gonsalves Clarity (U) CLEAR Normal CLEAR [facility] Comment on above: Performed By: #### U AMIC #### [facility] [address] [place] [address] Dr. Avtar Gonsalves Color (U) LT. YELLOW Normal YELLOW [facility] Comment on above: Performed By: #### U AMIC #### [facility] [address] [place] [address] Dr. Avtar Gonsalves Crystals LM Nom (Urine sed) NONE SEEN Normal NONE SEEN [facility] Comment on above: Performed By: #### U AMIC #### [facility] [address] [place] [address] Dr. vAtar Gonsalves Epithelial cells LM Ql (Urine sed) NONE SEEN Normal NONE SEEN /RARE [facility] Comment on above: Performed By: #### U AMIC #### [facility] [address] [place] [address] Dr. Avtar Gonsalves Glucose Ql (U) Negative Normal NEGATIVE [facility] Comment on above: Performed By: #### U AMIC #### [facility] [address] [place] [address] Dr. Avtar Gonsalves Hemoglobin Ql (U) TRACE-INTACT Abnormal NEGATIVE [facility] Comment on above: Performed By: #### U AMIC #### [facility] [address] [place] [address] Dr. Avtar Gonsalves Ketones Ql (U) Negative Normal NEGATIVE [facility] Comment on above: Performed By: #### U AMIC #### [facility] [address] [place] [address] Dr. Avtar Gonsalves LEUKOCYTES Negative Normal NEGATIVE [facility] Comment on above: Performed By: #### U AMIC #### [facility] [address] [place] [address] Dr. Avtar Gonsalves MUCOUS NONE SEEN Normal NONE SEEN [facility] Comment on above: Performed By: #### U AMIC #### [facility] [address] [place] [address] Dr. Avtar Gonsalves Nitrite Ql (U) Negative Normal NEGATIVE [facility] Comment on above: Performed By: #### U AMIC #### [facility] [address] [place] [address] Dr. Avtar Gonsalves pH (U) 6.5 [pH] Normal 5-9 [facility] Comment on above: Performed By: #### U AMIC #### [facility] [address] [place] [address] Dr. Avtar Gonsalves RBC 2-5 Abnormal 0-2 [facility] Comment on above: Performed By: #### U AMIC #### [facility] [address] [place] [address] Dr. Avtar Gonsalves SPEC GRAVITY 1.010 Normal 1.005-<=1.025 [facility] Comment on above: Performed By: #### U AMIC #### [facility] [address] [place] [address] Dr. Avtar Gonsalves UA PROTEIN Negative Normal NEGATIVE/ TRACE [facility] Comment on above: Performed By: #### U AMIC #### [facility] [address] [place] [address] Dr. Avtar Gonsalves Urobilinogen Qn (U) 4 {Vikas'U}/dL Abnormal 0.2 - 1.0 [facility] Comment on above: Performed By: #### U AMIC #### [facility] [address] [place] [address] Dr. Avtar Gonsalves WBC 0-2 Abnormal NONE SEEN [facility] Comment on above: Performed By: #### U AMIC #### [facility] [address] [place] [address] Dr. Avtar Gonsalves US BRI DOP LEG [...] ARSLAN MONTEJO Date: 2023-02-09 12:17 Normal [facility] CBC AUTO DIFFon 02-08-2023 BASO # 0.0 103/ul Normal 0.0-0.1 [facility] Comment on above: Performed By: #### C BC #### [facility] [address] [place] [address] Dr. Avtar Gonsalves Basophils/100 WBC (Bld) 0.3 % Normal 0.2-2.0 [facility] Comment on above: Performed By: #### C BC #### [facility] [address] [place] [address] Dr. Avtar Gonsalves EO # 0.1 103/ul Normal 0.0-0.7 [facility] Comment on above: Performed By: #### C BC #### [facility] [address] [place] [address] Dr. Avtar Gonsalves Eosinophils/100 WBC (Bld) 1.9 % Normal 0.9-7.0 [facility] Comment on above: Performed By: #### C BC #### [facility] [address] [place] [address] Dr. Avtar Gonsalves Erythrocyte distribution width (RBC) [Ratio] 13.7 % Normal 11.0-15.0 [facility] Comment on above: Performed By: #### C BC #### [facility] [address] [place] [address] Dr. Avtar Gonsalves Hematocrit (Bld) [Volume fraction] 42.0 % Normal 36.0-48.0 [facility] Comment on above: Performed By: #### C BC #### [facility] [address] [place] [address] Dr. Avtar Gonsalves Hemoglobin (Bld) [Mass/Vol] 14.1 g/dL Normal 12.0-16.0 [facility] Comment on above: Performed By: #### C BC #### [facility] [address] [place] [address] Dr. Avtar Gonsalves IG # 0.03 10e3/ul Normal 0.00-0.03 [facility] Comment on above: Performed By: #### C BC #### [facility] [address] [place] [address] Dr. Avtar Gonsalves IG % 0.5 % Normal 0.0-0.5 [facility] Comment on above: Performed By: #### C BC #### [facility] [address] [place] [address] Dr. Avtar Gonsalves LYMPH # 1.1 103/ul Critically low 1.2-3.8 [facility] Comment on above: Performed By: #### C BC #### [facility] [address] [place] [address] Dr. Avtar Gonsalves Lymphocytes/100 WBC (Bld) 18.4 % Critically low 20.5-60.0 [facility] Comment on above: Performed By: #### C BC #### [facility] [address] [place] [address] Dr. Avtar Gonsalves MANUAL DIFF REQ NO Normal [facility] Comment on above: Performed By: #### C BC #### [facility] [address] [place] [address] Dr. Avtar Gonsalves MCH (RBC) [Entitic mass] 30.9 pg Normal 26.7-34.0 [facility] Comment on above: Performed By: #### C BC #### [facility] [address] [place] [address] Dr. Avtar Gonsalves MCHC (RBC) [Mass/Vol] 33.6 g/dL Normal 29.9-35.2 [facility] Comment on above: Performed By: #### C BC #### [facility] [address] [place] [address] Dr. Avtar Gonsalves MCV (RBC) [Entitic vol] 91.9 fL Normal 81.0-99.0 [facility] Comment on above: Performed By: #### C BC #### [facility] [address] [place] [address] Dr. Avtar Gonsalves MONO # 0.6 103/ul Normal 0.3-0.8 [facility] Comment on above: Performed By: #### C BC #### [facility] [address] [place] [address] Dr. Avtar Gonsalves Monocytes/100 WBC (Bld) 11.0 % Normal 1.7-12.0 [facility] Comment on above: Performed By: #### C BC #### [facility] [address] [place] [address] Dr. Avtra Gonsalves NEUT # 4.0 103/ul Normal 1.4-6.5 [facility] Comment on above: Performed By: #### C BC #### [facility] [address] [place] [address] Dr. Avtar Gonsalves Neutrophils/100 WBC (Bld) 67.9 % Normal 43.0-75.0 [facility] Comment on above: Performed By: #### C BC #### [facility] [address] [place] [address] Dr. Avtar Gonsalves Platelet mean volume (Bld) [Entitic vol] 11.3 fL Normal 9.5-13.5 [facility] Comment on above: Performed By: #### C BC #### [facility] [address] [place] [address] Dr. Avtar Gonsalves PLT 303 103/ul Normal 150-450 [facility] Comment on above: Performed By: #### C BC #### [facility] [address] [address] [address] Avtar Gonsalves RBC 4.57 106/ul Normal 4.20-5.40 [facility] Comment on above: Performed By: #### C BC #### [facility] [address] [place] [address] Dr. Avtar Gonsalves WBC 5.8 103/ul Normal 4.0-11.0 [facility] Comment on above: Performed By: #### C BC #### [facility] [address] [place] [address] Dr. Avtar Gonsalves CPKon 02-08-2023 CK [Catalytic activity/Vol] 26 U/L Normal 26-192 [facility] Comment on above: Performed By: #### C MP, CK #### [facility] [address] [place] [address] LSPINE WO CONon [...] ALLISON DOWLING Date: 2023-02-08 12:08 Normal [facility] PROF 14(COMP METB)on 023 Albumin [Mass/Vol] 3.4 g/dL Normal 3.4-5.0 [facility] Comment on above: Performed By: #### C MP, CK #### [facility] [address] [address] [address] Avtar Gonsalves Albumin/Globulin [Mass ratio] 0.9 {ratio} Normal [facility] Comment on above: Performed By: #### C MP, CK #### [facility] [address] [address] [address] Avtar Gonsalves ALP [Catalytic activity/Vol] 130 U/L Critically high 46-116 [facility] Comment on above: Performed By: #### C MP, CK #### [facility] [address] [place] [address] Dr. Avtar Gonsalves ALT [Catalytic activity/Vol] 18 U/L Normal 14-59 [facility] Comment on above: Performed By: #### C MP, CK #### [facility] [address] [place] [address] Dr. Avtar Gonsalves Anion gap [Moles/Vol] 15.6 mmol/L Normal [facility] Comment on above: Performed By: #### C MP, CK #### [facility] [address] [place] [address] Dr. Avtar Gonsalves AST [Catalytic activity/Vol] 15 U/L Normal 15-37 [facility] Comment on above: Performed By: #### C MP, CK #### [facility] [address] [place] [address] Dr. Avtar Gonsalves Bilirubin [Mass/Vol] 0.7 mg/dL Normal 0.2-1.0 [facility] Comment on above: Performed By: #### C MP, CK #### [facility] [address] [place] [address] Dr. Avtar Gonsalves Calcium [Mass/Vol] 9.1 mg/dL Normal 8.5-10.1 [facility] Comment on above: Performed By: #### C MP, CK #### [facility] [address] [place] [address] Dr. Avtar Gonsalves Chloride [Moles/Vol] 103 mmol/L Normal 98-107 [facility] Comment on above: Performed By: #### C MP, CK #### [facility] [address] [place] [address] Dr. Avtar Gonsalves CO2 [Moles/Vol] 23.4 mmol/L Normal 21.0-32.0 [facility] Comment on above: Performed By: #### C MP, CK #### [facility] [address] [place] [address] Dr. Avtar Gonsalves Creatinine [Mass/Vol] 0.74 mg/dL Normal 0.55-1.02 [facility] Comment on above: Performed By: #### C MP, CK #### [facility] [address] [place] [address] Dr. Avtar Gonsalves EGFR-AF [place] >60 Normal >=60 [facility] Comment on above: Performed By: #### C MP, CK #### [facility] [address] [place] [address] Dr. Avtar Gonsalves EGFR-NON AF [place] >60 Normal >=60 [facility] Comment on above: Performed By: #### C MP, CK #### [facility] [address] [place] [address] Dr. Avtar Gonsalves Globulin (S) [Mass/Vol] 3.7 g/dL Normal [facility] Comment on above: Performed By: #### C MP, CK #### [facility] [address] [place] [address] Dr. Avtar Gonsalves Glucose [Mass/Vol] 88 mg/dL Normal 74-106 [facility] Comment on above: Performed By: #### C MP, CK #### [facility] [address] [place] [address] Dr. Avtar Gonsalves Potassium [Moles/Vol] 4.0 mmol/L Normal 3.5-5.1 [facility] Comment on above: Performed By: #### C MP, CK #### [facility] [address] [place] [address] Dr. Avtar Gonsalves Protein [Mass/Vol] 7.1 g/dL Normal 6.4-8.2 [facility] Comment on above: Performed By: #### C MP, CK #### [facility] [address] [place] [address] Dr. Avtar Gonsalves Sodium [Moles/Vol] 138 mmol/L Normal 136-145 [facility] Comment on above: Performed By: #### C MP, CK #### [facility] [address] [address] [address] Avtar Gonsalves Urea nitrogen [Mass/Vol] 16.0 mg/dL Normal 7.0-18.0 [facility] Comment on above: Performed By: #### C MP, CK #### [facility] [address] [address] [address] Avtar Gonsalves Urea nitrogen/Creatinine [Mass ratio] 21.6 mg/mg Normal [facility] Comment on above: Performed By: #### C MP, CK #### [facility] [address] [address] [address] Avtar Gonsalves XR ABD FLAT UP_PA [...] ANN MARIE WALSH Date: 2023-02-08 14:48 Normal [facility] XR CHEST 2 Von 04-29-2022 XR CHEST [...] MARIE WALSH Date: 2022-04-29 09:49 Normal [facility] CBC AUTO DIFFon 04-28-2022 BASO # 0.0 103/ul Normal 0.0-0.1 [facility] Comment on above: Performed By: #### C BC ####[facility] [address] [place] [address]Dr. Avtar Gonsalves Basophils/100 WBC (Bld) 0.8 % Normal 0.2-2.0 [facility] Comment on above: Performed By: #### C BC ####[facility] [address] [place], [place] [address]Dr. Avtar Gonsalves EO # 0.2 103/ul Normal 0.0-0.7 [facility] Comment on above: Performed By: #### C BC ####[facility] [address] [place], [place] [address]Dr. Avtar Gonsalves Eosinophils/100 WBC (Bld) 3.3 % Normal 0.9-7.0 [facility] Comment on above: Performed By: #### C BC ####[facility] [address] [place], [place] [address]Dr. Avtar Gonsalves Erythrocyte distribution width (RBC) [Ratio] 13.6 % Normal 11.0-15.0 [facility] Comment on above: Performed By: #### C BC ####[facility] [address] [place], [place] [address]Dr. Avtar Gonsalves Hematocrit (Bld) [Volume fraction] 41.4 % Normal 36.0-48.0 [facility] Comment on above: Performed By: #### C BC ####[facility] [address] [place], [place] [address]Dr. Avtar Gonsalves Hemoglobin (Bld) [Mass/Vol] 13.5 g/dL Normal 12.0-16.0 [facility] Comment on above: Performed By: #### C BC ####[facility] [address] [place], [place] [id number]. Avtar Gonsalves IG # 0.02 10e3/ul Normal 0.00-0.03 [facility] Comment on above: Performed By: #### C BC ####[facility] [address] [place] [address]Dr. Avtar Gonsalves IG % 0.4 % Normal 0.0-0.5 [facility] Comment on above: Performed By: #### C BC ####[facility] [address] [place] [address]DrSharron Gonsalves LYMPH # 1.4 103/ul Normal 1.2-3.8 [facility] Comment on above: Performed By: #### C BC ####[facility] [address] [place], [place] [address]DrSharron Gonsalves Lymphocytes/100 WBC (Bld) 26.6 % Normal 20.5-60.0 [facility] Comment on above: Performed By: #### C BC ####[facility] [address] [place], [place] [address]DrSharron Gonsalves MANUAL DIFF REQ NO Normal [facility] Comment on above: Performed By: #### C BC ####[facility] [address] [place], [place] [address]DrSharron Gonsalves MCH (RBC) [Entitic mass] 31.0 pg Normal 26.7-34.0 [facility] Comment on above: Performed By: #### C BC ####[facility] [address] [place], [place] [address]DrSharron Gonsalves MCHC (RBC) [Mass/Vol] 32.6 g/dL Normal 29.9-35.2 [facility] Comment on above: Performed By: #### C BC ####[facility] [address] [place], [place] [address]DrSharron Gonsalves MCV (RBC) [Entitic vol] 95.0 fL Normal 81.0-99.0 [facility] Comment on above: Performed By: #### C BC ####[facility] [address] [place], [place] [address]DrSharron Gonsalves MONO # 0.5 103/ul Normal 0.3-0.8 [facility] Comment on above: Performed By: #### C BC ####[facility] [address] [place] [id number]. Avtar Gonsalves Monocytes/100 WBC (Bld) 9.8 % Normal 1.7-12.0 [facility] Comment on above: Performed By: #### C BC ####[facility] [address] [place], [place] [address]Dr. Avtar Gonsalves NEUT # 3.1 103/ul Normal 1.4-6.5 [facility] Comment on above: Performed By: #### C BC ####[facility] [address] [place] [id number]. Avtar Gonsalves Neutrophils/100 WBC (Bld) 59.1 % Normal 43.0-75.0 [facility] Comment on above: Performed By: #### C BC ####[facility] [address] [place], [place] [address]Dr. Avtar Gonsalves Platelet mean volume (Bld) [Entitic vol] 10.1 fL Normal 9.5-13.5 [facility] Comment on above: Performed By: #### C BC ####[facility] [address] [place], [place] [address]Dr. Avtar Gonsalves PLT 224 103/ul Normal 150-450 [facility] Comment on above: Performed By: #### C BC ####[facility] [address] [place], [place] [address]Dr. Avtar Gonsalves RBC 4.36 106/ul Normal 4.20-5.40 [facility] Comment on above: Performed By: #### C BC ####[facility] [address] [place], [place] [address]Dr. Avtar Gonsalves WBC 5.2 103/ul Normal 4.0-11.0 [facility] Comment on above: Performed By: #### C BC ####[facility] [address] [place], [place] [id number] Avtar Gonsalves LIPID PROFILEon 04-28-2022 CHOL-HDL RATIO NORM SEE BELOW Normal [facility] Comment on above: Result Comment: 3.3 - 4.4 LOW RISK 4.4 - 7.1 AVERAGE RISK 7.1 - 11.0 MODERATE RISK >11.0 HIGH RISK Performed By: #### C MP, LIPID, TSH, MG ####[facility] [address] [place] [id number]. Duniajosemanuel Gonsalves Cholesterol [Mass/Vol] 237 mg/dL Critically high <=200 [facility] Comment on above: Performed By: #### C MP, LIPID, TSH, MG ####[facility] [address] [place] [address]Dr. Dunialan Gonsalves Cholesterol in HDL [Mass/Vol] 65 mg/dL Critically high 40-60 [facility] Comment on above: Performed By: #### C MP, LIPID, TSH, MG ####[facility] [address] [place] [address]Dr. Dunialan Gonsalves Cholesterol in LDL [Mass/Vol] 157.6 mg/dL Normal [facility] Comment on above: Performed By: #### C MP, LIPID, TSH, MG ####[facility] [address] [place] [address]Dr. Avtar Gonsalves Cholesterol.total/C holesterol in HDL [Mass ratio] 3.6 {ratio} Normal [facility] Comment on above: Performed By: #### C MP, LIPID, TSH, MG ####[facility] [address] [place] [address]Dr. Avtar Gonsalves HDL NORMAL > or = 60 mg/dl - LO W CARDIOVASCULAR RISK <40 mg/dl - HIGH CARDIOVASCULAR RISK Normal [facility] Comment on above: Performed By: #### C MP, LIPID, TSH, MG ####[facility] [address] [place] [address]Dr. Avtar Gonsalves LDL CALC NORMAL SEE BELOW Normal [facility] Comment on above: Result Comment: <100 mg/dl OPTIMAL 100 - 129 mg/dl NEAR OR ABOVE OPTIMAL 130 - 159 mg/dl BORDERLINE HIGH 160 - 189 mg/dl HIGH >190 mg/dl VERY HIGH Performed By: #### C MP, LIPID, TSH, MG ####[facility] [address] [place] [address]Dr. Avtar Gonsalves Triglyceride [Mass/Vol] 72 mg/dL Normal <=150 [facility] Comment on above: Performed By: #### C MP, LIPID, TSH, MG ####[facility] [address] [place] [address]Dr. Avtar Gonsalves VLDL CALC 14.4 mg/dL Normal [facility] Comment on above: Performed By: #### C MP, LIPID, TSH, MG ####[facility] [address] [address]Dr. Avtar Gonsalves MAGNESIUMon 04-28-2022 Magnesium [Mass/Vol] 2.3 mg/dL Normal 1.8-2.4 [facility] Comment on above: Performed By: #### C MP, LIPID, TSH, MG ####[facility] [address] [place] [address]Dr. Avtar Gonsalves PROF 14(COMP METB)on 022 Albumin [Mass/Vol] 3.6 g/dL Normal 3.4-5.0 [facility] Comment on above: Performed By: #### C MP, LIPID, TSH, MG ####[facility] [address] [address]Dr. Avtar Gonsalves Albumin/Globulin [Mass ratio] 1.1 {ratio} Normal [facility] Comment on above: Performed By: #### C MP, LIPID, TSH, MG ####[facility] [address] [address]Dr. Avtar Gonsalves ALP [Catalytic activity/Vol] 107 U/L Normal 46-116 [facility] Comment on above: Performed By: #### C MP, LIPID, TSH, MG ####[facility] [address] [place] [address]Dr. Avtar Gonsalves ALT [Catalytic activity/Vol] 24 U/L Normal 14-59 [facility] Comment on above: Performed By: #### C MP, LIPID, TSH, MG ####[facility] [address] [address]Dr. Avtar Gonsalves Anion gap [Moles/Vol] 10.8 mmol/L Normal [facility] Comment on above: Performed By: #### C MP, LIPID, TSH, MG ####[facility] [address] [address]Dr. Avtar Gonsalves AST [Catalytic activity/Vol] 14 U/L Critically low 15-37 [facility] Comment on above: Performed By: #### C MP, LIPID, TSH, MG ####[facility] [address] [address]Dr. Avtar Gonsalves Bilirubin [Mass/Vol] 0.7 mg/dL Normal 0.2-1.0 [facility] Comment on above: Performed By: #### C MP, LIPID, TSH, MG ####[facility] [address] [address]Dr. Avtar Gonsalves Calcium [Mass/Vol] 9.0 mg/dL Normal 8.5-10.1 [facility] Comment on above: Performed By: #### C MP, LIPID, TSH, MG ####[facility] [address] [address]Dr. Avtar Gonsalves Chloride [Moles/Vol] 104 mmol/L Normal 98-107 [facility] Comment on above: Performed By: #### C MP, LIPID, TSH, MG ####[facility] [address] [address]Dr. Avtar Gonsalves CO2 [Moles/Vol] 28.1 mmol/L Normal 21.0-32.0 [facility] Comment on above: Performed By: #### C MP, LIPID, TSH, MG ####[facility] [address] [place] [address]Dr. Avtar Gonsalves Creatinine [Mass/Vol] 0.82 mg/dL Normal 0.55-1.02 [facility] Comment on above: Performed By: #### C MP, LIPID, TSH, MG ####[facility] [address] [place] [address]Dr. Avtar Gonsalves EGFR-AF [place] >60 Normal >=60 [facility] Comment on above: Performed By: #### C MP, LIPID, TSH, MG ####[facility] [address] [place] [address]Dr. Avtar Gonsalves EGFR-NON AF [place] >60 Normal >=60 [facility] Comment on above: Performed By: #### C MP, LIPID, TSH, MG ####[facility] [address] [place] [address]Dr. Avtar Gonsalves Globulin (S) [Mass/Vol] 3.3 g/dL Normal [facility] Comment on above: Performed By: #### C MP, LIPID, TSH, MG ####[facility] [address] [place] [address]Dr. Avtar Gonsalves Glucose [Mass/Vol] 91 mg/dL Normal 74-106 [facility] Comment on above: Performed By: #### C MP, LIPID, TSH, MG ####[facility] [address] [place] [address]Dr. Avtar Gonsalves Potassium [Moles/Vol] 3.9 mmol/L Normal 3.5-5.1 [facility] Comment on above: Performed By: #### C MP, LIPID, TSH, MG ####[facility] [address] [place] [address]Dr. Avtar Gonsalves Protein [Mass/Vol] 6.9 g/dL Normal 6.4-8.2 [facility] Comment on above: Performed By: #### C MP, LIPID, TSH, MG ####[facility] [address] [place] [address]Dr. Avtar Gonsalves Sodium [Moles/Vol] 139 mmol/L Normal 136-145 [facility] Comment on above: Performed By: #### C MP, LIPID, TSH, MG ####[facility] [address] [place] [address]Dr. Avtar Gonsalves Urea nitrogen [Mass/Vol] 18.0 mg/dL Normal 7.0-18.0 [facility] Comment on above: Performed By: #### C MP, LIPID, TSH, MG ####[facility] [address] [place], [place] [address]Pz. Avtar Gonsalves Urea nitrogen/Creatinine [Mass ratio] 22.0 mg/mg Normal [facility] Comment on above: Performed By: #### C MP, LIPID, TSH, MG ####[facility] [address] [place], [place] [address]JjDr. Avtar Gonsalves TSHon 04-28-2022 TSH 1.424 uIU/mL Normal 0.358-3.740 [facility] Comment on above: Performed By: #### C MP, LIPID, TSH, MG #### [facility] [address] [place], [place] [address] Dr. Avtar Gonsalves VITAMIN D 25 OHon 04-28-2022 VIT D 25-OH 27.3 ng/mL Normal [facility] Comment on above: Performed By: #### V ITAD ####[facility] [address] [place] [id number]. Avtar Gonsalves VIT D RANGES SEE BELOW Normal [facility] Comment on above: Result Comment: <20 ng/mL Vit D deficient 20 - <30 ng/mL Vit D insufficient 30 - 100 ng/mL Vit D sufficient >100 ng/mL Potential Toxicity Performed By: #### V ITAD ####[facility] [address] [place] [id number] Gonsalves Free T3on 12-08-2021 FT3 2.95 pg/mL Normal 2.00-4.40 [facility] Emergency Department Physician Comment on above: Performed By: #### F T3, FT4, TSH #### [facility] [address], [place] [id number] Free T4on 12-08-2021 Free T4 [Mass/Vol] 0.70 ng/dL Low 0.80-1.80 [facility] Emergency Department Physician Comment on above: Performed By: #### F T3, FT4, TSH #### [facility] [address], [place] [id number] Q - T3 TOTALon 12-08-2021 T3, TOTAL 119 ng/dL Normal 76-181 [facility] Emergency Department Physician Comment on above: Order Comment: [facility] performed at: QPT, [facility], [address], [address] [facility], [place], [address], [facility]pl[facility] Chemist: Jeremy Jensen MD [facility] Date/Time: [facility] Results Received Date/Time: [facility] Reported Date/Time: Performed By: #### 9 0963, [id number] #### [facility] Default [address] [place] [address] Q - T3,REVERSE,LC/MS/MSon T3 REVERSE, LC/MS/MS 13 ng/dL Normal 8-25 [facility] Specialist Comment on above: Order Comment: [facility] performed at: [facility], [facility], [address], [place], [place], , Hpl[facility] Chemist: Donnie Hooker M.D.,PhD [facility] Date/Time: [facility] Results Received Date/Time: [facility] Reported Date/Time: Result Comment: This test was developed and its analytical performance characteristics have been determined by [facility] [place], [place]. It has not been cleared or approved by the U.S. Food and Drug Administration. This assay has been validated pursuant to the CLIA regulations and is used for clinical purposes. 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, moderate stage (CMS/HCC) Start: 08-28-2024 End: 08-28-2024 ambulatory [facility] Start: 08-28-2024 End: 08-28-2024 Subsequent hospital visit by physician Mayra Ruiz MD Work Phone: [facility] Comment on above: Screening cholestero l level; Bilateral leg edema; Chest pain, unspecified type; Hyperlipidemia, unspecified hyperlipidemia type; Vitamin D deficiency disease Start: 08-15-2024 End: 08-15-2024 ambulatory Mayra Ruiz Facility:[facility] Start: 07-17-2024 End: 07-17-2024 Refill Camden Rico DO Work Phone: [facility] Comment on above: 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, moderate stage (CMS/HCC) Start: 03-28-2024 End: 03-28-2024 ambulatory Mayra Ruiz Facility:[facility] Start: 03-03-2024 End: 03-17-2024 ambulatory Mayra Ruiz Facility:[facility] [place] [place] Start: 02-24-2024 End: 02-24-2024 ambulatory Mayra Ruiz Facility:[facility] Start: 02-17-2024 End: 03-20-2024 ambulatory Mayra Ruiz Facility:[id number] Start: 02-17-2024 End: 03-17-2024 Recurring Mayra Ruiz [facility] Start: 09-17-2023 End: 09-17-2023 ambulatory DARCY RICO Not Available Start: 08-30-2023 End: 08-30-2023 Lab Drop off Mayra Ruiz [facility] Start: 08-30-2023 End: 08-30-2023 ambulatory Mayra Ruiz Facility:[facility] [place] [place] Start: 04-28-2023 End: 04-28-2023 ambulatory Mayra Ruiz Facility:[facility] Start: 02-08-2023 End: 02-11-2023 ambulatory SHAIKH Enrique TIRADO Facility:[facility] Start: 04-28-2022 End: 04-29-2022 ambulatory BO GARCIA Facility:[facility] Procedures Date Procedure Procedure Detail Performing Clinician Start: 08-28-2024 Ecg routine ecg w/le ast 12 lds w/i&r Bo Garcia MD Work Phone: Start: 08-28-2024 Comprehensive metabo lic panel Bo Garcia MD Work Phone: Start: 08-28-2024 Lipid panel Bo sofia MD Work Phone: None (qualifier value) Cathy Ruiz Plan of Treatment Date Care Activity Detail Author Start: 08-21-2025 End: 08-21-2025 Patient encounter procedure 08/21/2025 11:30 AM EST Office Visit [facility] [address] [place] [address] Haroon Rainey DO [place] [address] [address] 1 yr f/u [facility] Comment on above: 1 yr f/u Start: 04-03-2025 ambulatory Ambulatory Facility:F T [facility] Start: 06-11-2024 COVID-19 Vaccine ( season) COVID[facility] Start: 06-11-2024 Influenza vaccination Influenza Vacc ine (#1) [facility] Start: 05-11-2024 Influenza vaccination Flu vaccine (# [facility] Start: 09-06-2023 Annual Wellness Visi t (Medicare) Annual Wellness Visit (Medicare) [facility] Start: 2014 Respiratory Syncytia l Virus (RSV) or age 60 yrs+ (1 - 1-dose 75+ series) Respiratory Syncytial Virus (RSV) or age 60 yrs+ (1 - 1-dose 75+ series) [facility] Start: 2004 Pneumococcal 65+ yea rs Vaccine (1 of 1 - PCV) Pneumococcal 65+ years Vaccine (1 of 1 - PCV) [facility] Start: 2004 Pneumococcal Vaccine : 65+ Years (1 of 1 - PCV) Pneumococcal Vaccine: 65+ Years (1 of 1 - PCV) [facility] Start: 1994 Screening for osteoporosis DEXA (modify frequency per FRAX score) [facility] Start: 1989 Shingles vaccine (1 of 2) Shingles vaccine (1 of 2) [facility] Start: 1958 DTaP/Tdap/Td vaccine (1 - Tdap) DTaP/Tdap/Td vaccine (1 - Tdap) [facility] Start: 1951 Depression Screen Depression Screen [facility] Start: 1939 Medicare Annual Wellness (AWV) Medicare Annual Wellness (AWV) [facility] Immunizations Immunization Date Immunization Notes Care Provider Fa cility 07-15-2022 SARS-CoV-2 (COVID-19 ) [id number] [facility] Comment on above: Result Comment: 2022: [id number] 09-24-2021 SARS-CoV-2 (COVID-19 ) mRNA BNT-162b2 Conjecturpraveen Ruiz [facility] Comment on above: Result Comment: 2022: [id number] 11-27-2020 SARS-CoV-2 (COVID-19 ) [facility] BNT[facility]162b2 [facility] 11-04-2020 SARS-CoV-2 (COVID-19 ) mRNA BNT-162b2 ray Ruiz [facility] NEGATED: Highlighted row has not occurred!08-30-2023 influenza virus vaccine, unspecified formulation [facility] Payers Date Payer Category Payer Medicare [id number] 1960 Medicare [id number] 1960 Medicare [id number] 1940 Unknown [id number] 2.16.84 [id number] 1939 Unknown [id number] 2.16.84 [id number] 1939 Unknown [id number] 2.16.840 .[id number] 1939 Unknown [id number] 2.16.8 40.1.616026.3.579.2.727 1939 Unknown [id number] 2.16.8 40.1.131694.3.579.2.727 1939 Unknown [id number] 2.16.8 40.1.266730.3.579.2.727 1939 Unknown [id number] 2.16.8 40.1.021517.3.579.2.727 1939 Unknown [id number] 2.16.8 40.1.667653.3.579.2.727 1939 Unknown [id number] 2.16.8 40.1.720107.3.579.2.727 1939 Unknown [id number] 2.16.8 40.1.217604.3.579.2.727 1939 Unknown [id number] 2.16.8 40.1.981048.3.579.2.727 1939 Unknown [id number] 2.16.8 40.1.977014.3.579.2.727 1939 Unknown [id number] 2.16.8 40.1.695042.3.579.2.727 1939 Unknown [id number] 2.16.8 40.1.352209.3.579.2.174 1939 Unknown [id number] 2.16.8 [id number] Social History Date Type Detail Facility Start: 05-17-2023 End: 08-30-2023 Tobacco smoking status Never smoked tobacco (finding) [facility] Comment on above: Patient states never been a smoker Tobacco smoking status Never [facility] Comment on above: Patient states never been a smoker Start: 05-12-2022 End: 09-17-2023 Sex Assigned At Female [facility] Start: 05-12-2022 End: 05-17-2023 Tobacco use and exposure Smokeless tobacco non-user [facility] Start: 05-12-2022 End: 09-17-2023 Alcoholic beverage intake Lifetime non-drinker (finding) [facility] Start: 05-12-2022 End: 09-17-2023 History of Social function [facility] Start: 1940 Sex assigned at Not on file [facility] History and physical note 02-24-2024 Note Date & Type Note Facility 02-24-2024 Note [id number] note Note Date & Type Note Facility Evaluation + Plan note Future Appointments Appointment Date:02/28/2024 01:00:00 PM Scheduled Provider:Mayra Ruiz MD Location:[facility] Appointment Type: Open Appointment Date:03/24/2024 01:00:00 PM Scheduled Provider: Location:[facility] Appointment Type: Medicare Wellness Subsequent [facility] Evaluation + Plan note Note Date & Type Note Facility Evaluation + Plan note Future Appointments Appointment Date:03/28/2024 02:30:00 PM Scheduled Provider: Location:[facility] Appointment Type: Medicare Wellness Subsequent Appointment Date:03/28/2024 03:30:00 PM Scheduled Provider:Mayra Ruiz MD Location:[facility] Appointment Type: Open [facility] Evaluation note Note Date & Type Note Facility Evaluation note Diagnosis Primary open angle glaucoma (POAG) of both eyes, moderate stage (CMS/HCC) documented in this encounter [facility] Evaluation note Note Date & Type Note Facility Evaluation note Diagnosis Screening cholesterol level Screening for lipoid disorders Bilateral leg edema Edema Chest pain, unspecified type Hyperlipidemia, unspecified hyperlipidemia type Vitamin D deficiency disease Unspecified vitamin D deficiency documented in this encounter [facility] Evaluation note Note Date & Type Note Facility Evaluation note Diagnosis Screening cholesterol level Screening for lipoid disorders Bilateral leg edema Edema Chest pain, unspecified type Hyperlipidemia, unspecified hyperlipidemia type Vitamin D deficiency disease Unspecified vitamin D deficiency documented in this encounter [facility] Evaluation note Note Date & Type Note Facility Evaluation note Diagnosis Primary open angle glaucoma (POAG) of both eyes, moderate stage (CMS/HCC) documented in this encounter [facility] Hospital course Narrative Note Date & Type Note Facility Hospital course Narrative No data available for this section [facility] Hospital Discharge instructions Note Date & Type Note Facility Hospital Discharge instructions No data available for this section [facility] Progress note Note Date & Type Note Facility Progress note No data available for this section [facility] Summary Purpose Family History No Family History Records FoundNo Family History Records Found No data available for this section No Family History Records FoundNo Family History Records FoundNo Family History Records Found No data available for this section No Family History Records FoundNo Family History Records FoundNo Family History Records Found Advance Directives No Advanced Directives Records FoundNo Advanced Directives Records FoundNo Advanced Directives Records FoundNo Advanced Directives Records FoundNo Advanced Directives Records FoundNo Advanced Directives Records FoundNo Advanced Directives Records FoundNo Advanced Directives Records Found Reason for Referral Specialty Diagnoses / Procedures Referred By Fox kahn Referred To Contact Cardiology Diagnoses Screening cholesterol level Bilateral leg edema Chest pain, unspecified type Hyperlipidemia, unspecified hyperlipidemia type Vitamin D deficiency disease Procedures EKG 12 Lead Bo Garcia MD [address] [place], [place] [id number] Referral ID Status Reason Start Date Expiration Date Visits Re quested Visits Authorized [id number] Open 08/28/2025 08/28/2026 1 1 Additional Source Comments INFORMATION SOURCE (unrecogn ized section and content) DATE CREATED AUTHOR 12/14/2021 [facility] dical Specialist DATE CREATED AUTHOR AUTHOR'S ORGANIZ ATION 02/18/2023 [facility] pital DATE CREATED AUTHOR AUTHOR'S ORGANIZ ATION 09/19/2023 [facility] dical Specialists EPIC DATE CREATED AUTHOR AUTHOR'S ORGANIZ ATION 03/05/2024 [facility] DATE CREATED AUTHOR AUTHOR'S ORGANIZ ATION 03/06/[address] [facility] DATE CREATED AUTHOR AUTHOR'S ORGANIZ ATION 03/30/2024 [facility] DATE CREATED AUTHOR AUTHOR'S ORGANIZ ATION 08/17/[address] [facility] DATE CREATED AUTHOR AUTHOR'S ORGANIZ ATION 08/30/2024 Ambika michel Patient Care team informatio n (unrecognized section and content) Nursing Program Director Relationship Specialty Start Date End Date Mayra Ruiz MD PCP - General Family Medicine 05/17/23 Tomas Daniels MD [address] [place] [address] PCP - ACO Reach 12/10/23 Nursing Program Director Relationship Specialty Start Date End Date Mayra Ruiz MD [address] [place] [address] PCP - General 09/07/23 Nursing Program Director Relationship Specialty Start Date End Date Mayra Ruiz MD [address] [place] [address] PCP - General 09/07/23 Nursing Program Director Relationship Specialty Start Date End Date Mayra Ruiz MD [address] [phone] PCP - General Family Medicine 08/02/24 Tomsa Daniels MD [address] [place] [id number] PCP - ACO Reach 11/24/24 Reason for Visit (unrecogniz ed section and content) Reason Onset Date Comments Med Refill 07/17/2024 Reason Comments Med Refill FOR RECORDS PERTAINING TO PATIENTS WHO ARE [...] BE BASED ON THE PRIMARY CLINICAL RECORDS. [facility] [facility] provides no warranty or guarantee of the accuracy or completeness of information in this document.
[2025-01-13 14:25] LABS: Hematocrit 40.5 % (36.0-48.0); Hemoglobin 13.7 g/dL (12.0-16.0); Mean Corpuscular HGB Conc 33.8 g/dL (29.9-35.2); Mean Corpuscular Hemoglobin 32.2 pg (26.7-34.0); Mean Corpuscular Volume 95.1 fL (81.0-99.0); Mean Platelet Volume 10.3 fL (9.5-13.5); Platelet Count 226 10^3/uL (150-450); Red Blood Count 4.26 10^6/uL (4.20-5.40); Red Cell Distribution Width 13.2 % (11.0-15.0); White Blood Count 8.1 10^3/uL (4.0-11.0)
[2025-01-13] MEDS: 0.9 % SODIUM CHLORIDE 1,000 ML 250 ML IV (14:39)
[2025-01-13 14:40] LABS: Prothrombin Time 9.8 sec (9.0-11.6)
[2025-01-13 14:49] LABS: Band Neutrophils Absolute 1.1 10^3/uL (0.0-0.3); INR <0.93; Lymphocytes Absolute Manual 1.13 10^3/uL (1.20-3.80); Monocytes Absolute Manual 0.48 10^3/uL (0.30-0.80); Segmented Neut Absolute Manual 6.48 10^3/uL (1.4-6.5)
[2025-01-13 14:52] LABS: Anion Gap 13.8; BUN Creatinine Ratio 20.5; Calcium 9.1 mg/dL (8.5-10.1); Carbon Dioxide 24.2 mmol/L (21.0-32.0); Chloride 105 mmol/L (98-107); Estimated GFR (African America 56 (>=60 mL/min/1.73m^2); Estimated GFR (Non-African Ame 46 (>=60 mL/min/1.73m^2); Glucose 129 mg/dL (74-106); Sodium 139 mmol/L (136-145)
[2025-01-13 14:53] LABS: Alanine Aminotransferase 20 U/L (14-59); Aspartate Amino Transferase 17 U/L (15-37); Bilirubin Total 0.7 mg/dL (0.2-1.0); Magnesium 2.1 mg/dL (1.8-2.4)
[2025-01-13 14:54] LABS: Albumin Globulin Ratio 1.1; Albumin Level 3.6 g/dL (3.4-5.0); Alkaline Phosphatase 91 U/L (46-116); Creatine Kinase 112 U/L (26-192); Creatine Kinase MB 2.37 ng/mL (<=3.60); Globulin 3.3 g/dL; Myoglobin 232 ng/mL (9-82); Total Protein 6.9 g/dL (6.4-8.2); Troponin I High Sensitivity 11.4 pg/mL (4.0-51.3)
[2025-01-13 14:55] LABS: Thyroid Stimulating Hormone 1.706 uIU/mL (0.358-3.740)
--- NOTE | 2025-01-13 15:54 | P.HP_ITS ---
HPI H&P: HPI History of Present Illness Chief complaint: Frequent Falls Extremity Weakness Narrative: Patient is a 84 y.o white female who resides at home alone with history of Multiple Sclerosis, falls, hypertension, OA, glaucoma who had her left leg give out and she fell at home. She was not able to get up or get to her lift chair. She was on the floor for about 5 hours when her daughter found her and called 911. patient denies any LOC, no current pain. Patient refused CT's of the head and neck as she said she didn't hit the ground hard. Labs are stable. CK level normal, WBC's normal, Electrolytes normal. Urinalysis pending. Daughter is present with patient at the time of admission. Patient has had prior falls and pelvic fracture in the past and went to the [place] for Rehab. Daughter is concerned about patient's safety at home alone. I have also discussed Advanced Directives with patient and daughter. She wishes to be a DNRCCA, this was signed and documented on the chart. Quality: Safe Use of Opioids Is the patient undergoing opioid medication assisted treatment that includes methadone, buprenorphine, and/or naltrexone: No Opioid HPI Opioid Management Most Recent Pain and Opioid Data: Last Pain Scale 0 01/13/25 17:26 01/13/25 Last Pain Assessment 01/13/25 17:26 Last ORT Total Score 0 01/13/25 16:50 01/13/25 Last ORT Risk Category Low Risk 01/13/25 16:50 01/13/25 Review of Systems ROS Narrative ROS: a complete review of systems were reviewed with patient and are positive as below or listed in History of Chief Complaint. General: no fever, chills, night sweats Head: no headache, trauma, visual changes, nausea or vomiting Skin: no reported rashes, itching or sores Eyes: no blurriness of vision Ears: no reported hearing loss, vertigo, earache, or tinnitus Throat: no sore throat, hoarseness, swelling of neck, or tongue pain Heart: no chest pain Lungs: no shortness of breath or cough GI: no diarrhea or vomiting/nausea Urinary: no urinary urgency, frequency or pain Neuro: no numbness or tingling, leg weakness at times HEM: no bleeding issues or bruising ENDO: no thyroid problems Psych: no anxiety or depression [facility] Medical History (Updated 01/13/25 @ 16:00 by Judy Keys DO) Ambulatory dysfunction ?R26.2 - Difficulty in walking, not elsewhere classified (ICD-10) Abnormal chest xray ?R93.89 - Abnormal findings on diagnostic imaging of other specified body structures (ICD-10) Generalized weakness ?R53.1 - Weakness (ICD-10) Inferior pubic ramus fracture ?S32.599A - Other specified fracture of unspecified pubis, initial encounter for closed fracture (ICD-10) Fall ?W19.XXXA - Unspecified fall, initial encounter (ICD-10) Acute UTI ?N39.0 - Urinary tract infection, site not specified (ICD-10) Closed pelvic fracture ?S32.9XXA - Fracture of unspecified parts of lumbosacral spine and pelvis, initial encounter for closed fracture (ICD-10) History of fractured vertebra ?Z87.81 - Personal history of (healed) traumatic fracture (ICD-10) Glaucoma ?H40.9 - Unspecified glaucoma (ICD-10) Cataracts, bilateral ?H26.9 - Unspecified cataract (ICD-10) HTN (hypertension) ?I10 - Essential (primary) hypertension (ICD-10) Multiple sclerosis ?G35 - Multiple sclerosis (ICD-10) Family History Grandmother Family history of diabetes mellitus Sister Family history of diabetes mellitus Father Family history of hypertension Mother Family history of hypertension Family history of myocardial infarction Social History (Updated 01/13/25 @ 16:39 by Sabrina Mosqueda) Within the past year, how often did you have a drink containing alcohol: never Score interpretation: A score less than 3 is consistent with normal alcohol consumption. Smoking status: Never smoker Second hand tobacco smoke exposure: No Non-prescribed substance use: denies use Previous occupational history: Retired House Known occupational exposures/hazards: No Highest level of school completed/degree received: high school graduate Do you want help with school or training: No Are you now , , , , never or living with a partner: In a typical week, how many times do you talk on the telephone with family, friends, or neighbors: 3 or more times per week How often do you get together with friends or relatives: 3 or more times per week How often do you attend oriental orthodox or amish services: never Do you belong to any clubs or organizations such as oriental orthodox groups unions, fraternal or athletic groups, or school groups: no Total score: 1 Score interpretation: A score of less than or equal to 1 indicates the most socially isolated. Little interest or pleasure in doing things: not at all Feeling down, depressed, or hopeless: not at all Feel stressed/tense/nervous/anxious/difficulty sleeping: not at all Due to disability, difficulty making decisions: No Do you think of yourself as: straight/heterosexual Gender Identity: female Meds Home Medications and Allergies Home Medications ?Medication ?Instructions ?Recorded ?Confirmed ?Type dorzolamide 22.3 mg-timolol 6.8 1 drp ophthalmic (eye) BID 02/15/24 01/13/25 History mg/mL eye drops furosemide 20 mg tablet 20 mg PO DAILY 02/15/24 01/13/25 History isosorbide mononitrate 60 mg 60 mg PO BID 02/15/24 01/13/25 History tablet,extended release 24 hr latanoprost 0.005 % eye drops 1 drp ophthalmic (eye) QPM 02/15/24 01/13/25 History metoprolol tartrate 25 mg tablet 25 mg PO BID 02/15/24 01/13/25 History spironolactone 25 mg tablet 25 mg PO DAILY 02/15/24 01/13/25 History celecoxib 200 mg capsule 200 mg PO Q12H 01/13/25 01/13/25 History Allergies Allergy/AdvReac Type Severity Reaction Status Date / Time Penicillins Allergy Severe Verified 02/15/24 13:23 Exam Narrative Exam Narrative: General: Patient is alert, and oriented to person, place and time with normal affect, proper hygiene Skin: no visible rashes, or ulcers Head: atraumatic, acephalic Eyes: PERRLA, no nystagmus present, conjunctiva clear, no scleral icterus Ears: normal gross auditory acuity Heart: Normal rate and rhythm, no murmurs/rubs/gallops Lungs: no audible wheezes, crackles and normal breath sounds all lung lamar Abdomen: Normal audible bowel sounds, no distension, No palpable masses, no organomegaly, no rebound/guarding/ or rigidity Musculoskeletal: +1 swelling bilateral lower extremities Neuro: CN II-X grossly intact, normal sensation upper and lower extremities Constitutional Vital Signs, click to edit/add: Last Vital Signs Temp 97.4 F L 01/13/25 13:57 Pulse 80 01/13/25 14:40 Resp 19 01/13/25 14:40 BP 143/79 H 01/13/25 13:57 Pulse Ox 95 01/13/25 15:20 O2 Del Method Room Air 01/13/25 13:50 Results Labs Labs: Short CBC 01/13/25 Range/Units 14:12 WBC 8.1 (4.0-11.0) 10^3/uL Hgb 13.7 (12.0-16.0) g/dL Hct 40.5 (36.0-48.0) % Plt Count 226 (150-450) 10^3/uL BMP 01/13/25 14:12 Sodium 139 Potassium 4.0 Chloride 105 Carbon Dioxide 24.2 BUN 23.0 H Creatinine 1.12 H Glucose 129 H Calcium 9.1 Cardiac Enzymes 01/13/25 Range/Units 14:12 Total Creatine Kinase 112 (26-192) U/L CK-MB (CK-2) 2.37 (<=3.60) ng/mL Liver Function 01/13/25 Range/Units 14:12 Total Bilirubin 0.7 (0.2-1.0) mg/dL AST 17 (15-37) U/L ALT 20 (14-59) U/L Alkaline Phosphatase 91 (46-116) U/L Albumin 3.6 (3.4-5.0) g/dL Assessment and Plan Assessment and Plan (1) Weakness of extremity: (2) Frequent falls: (3) Multiple sclerosis: (4) Glaucoma: Qualifiers: Glaucoma type: unspecified Laterality: unspecified laterality Qualified Code(s): H40.9 - Unspecified glaucoma (5) HTN (hypertension): Qualifiers: Hypertension type: primary hypertension Qualified Code(s): I10 - Essential (primary) hypertension Plan reviewed labs, vitals stable. Will get PT/OT evaluation. Will resume home medications. Continue with some IVF. Monitor CK level, cbc and cmp. Patient is a DNRCCA will continue aspirin, Lovenox Patient is in observation status. PT/OT evaluation and discharge planning for further safety concerns and ambulatory dysfunction at home.
--- OUTSIDE RECORDS SUMMARY | 2025-01-13 16:41 | XMS_ITS | CCD ---
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 Name Role Phone SHAIKH Enrique TIRADO Admitting Unavailable HOY ., DR SYKES Consulting Unavailable PAREKH ., DR PARVIZ Grimes Primary Care Unavailable SHAIKH Enrique TIRADO Attending Unavailable ANN MARIE WALSH Consulting Unavailable PAY ., DR CARRILLO Consulting Unavailable SHAIKH Enrique TIRADO Consulting Unavailable ARLSAN MONTEJO Consulting Unavailable ANDERSON, HONG Consulting Unavailable NITESH ALLISON Consulting Unavailable BO GARCIA Admitting Unavailable BO GARCIA Attending Unavailable ANN MARIE WALSH Consulting Unavailable IGLESIA ., DR PARVIZ Grimes Primary Care Unavailable BO GARCIA Consulting Unavailable Mayra Ruiz Primary Care Physician [phone] DARCY RICO Attending Unavailable Mayra Ruiz Attending Unavailable Mayra Ruiz Attending Unavailable Mayra Ruiz Attending Unavailable Mayra Ruiz Attending Unavailable Mayra Ruiz Admitting Unavailable Mayra Ruiz Attending Unavailable Mayra Ruiz Attending Unavailable Mayra Ruiz Admitting Unavailable Mayra Ruiz Admitting Unavailable Mayra Ruiz Attending Unavailable Mayra Ruiz MD Primary Care Provider Tomas Daniels MD Unavailable [phone] Mayra Ruiz Attending Unavailable Mayra Ruiz Attending Unavailable Mayra Ruiz Attending Unavailable Mayra Ruiz Admitting Unavailable Mayra Ruiz MD Primary Care Provider BO GARCIA Referring Unavailable MAYRA RUIZ Primary Care Unavailable BO GARCIA Referring Unavailable MAYRA RUIZ Primary Care Unavailable Mayra Ruiz MD Primary Care Provider Tomas Daniels MD Unavailable Allergies Allergy Classification Reported Allergen(s) Allergy Type Date of Onset Reaction(s) Facility (1 source) Penicillins Drug allergy (disorder) 1 [facility] Repository (2 sources) No Known Medication Allergies; Translations: [No Known Medication Allergies] Propensity to adverse reactions (disorder) [facility] Repository (2 sources) Penicillins Drug Intolerance 1 [facility] (2 sources) Penicillins Propensity to adverse reactions to drug 1 [facility] Medications Current Medications Medication Drug Class(es) Dates Sig (Normalized) Sig (Original) acetaminophen 325 mg / HYDROcodone bitartrate 5 mg oral tablet (4 sources) Opioid Agonist Start: 03-25-2023 take 1 tablet by mouth three times daily as needed for pain HYDROcodone-acet aminophen ([place]) 5-325 MG tablet TAKE 1 TABLET BY [...] TWICE DAILY 200 tablet 2 07/27/2024 [place] [facility] Med[place] (2 sources) Start: 03-24-2023 [facility] [place] Vit D3 5000 international units, [...] knee 03-03-2023 Chronic Other aftercare (1 source) intermediate designer (current) use of aspirin; Translations: [LONG-TERM CURRENT USE OF ASPIRIN] Onset: 02-17-2023 Episodic Other aftercare (1 source) Other correction (current) drug therapy; Translations: [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 CURRENT DRUG THERAPY] Onset: 02-17-2023 Episodic Other [...] Results Test Name Value Interpretation Reference Range [facility] CBC with Auto Differentialon 08-28-2024 Basophils (Bld) [#/Vol] 0.02 10*3/uL [facility] Basophils/100 WBC (Bld) 0 % 0 - 2 % [facility] Eosinophils (Bld) [#/Vol] 0.14 10*3/uL [facility] Eosinophils/100 WBC (Bld) 3 % 0 - 5 % [facility] Erythrocyte distribution width (RBC) [Ratio] 13.5 % 12.1 - 15.2 % [facility] Hematocrit (Bld) [Volume fraction] 43.1 % 36.0 - 46.0 % [facility] Hemoglobin (Bld) [Mass/Vol] 14.3 g/dL 12.0 - 16.0 g/dL [facility] Immature granulocytes (Bld) [#/Vol] 0.01 10*3/uL [facility] Immature granulocytes/100 WBC (Bld) 0 % 0 - 5 % [facility] Interpretation and review of laboratory results Abnormal [facility] Lymphocytes/100 WBC (Bld) 24 % 15 - 40 % [facility] Lymphocytes/100 WBC (Bld) 1.20 % [facility] MCH (RBC) [Entitic mass] 31.4 pg 26.0 - 34.0 pg [facility] MCHC (RBC) [Mass/Vol] 33.2 g/dL 31.0 - 37.0 g/dL [facility] MCV (RBC) [Entitic vol] 94.7 fL 80.0 - 100.0 fL [facility] Monocytes/100 WBC (Bld) 10 % High 4 - 8 % [facility] Monocytes/100 WBC (Bld) 0.53 % [facility] Neutrophils/100 WBC (Bld) 63 % 47 - 75 % [facility] Platelet mean volume (Bld) [Entitic vol] 9.9 fL 6.0 - 12.0 fL [facility] Platelets (Bld) [#/Vol] 219 10*3/uL [facility] RBC (Bld) [#/Vol] 4.55 10*6/uL 4.00 - 5.20 m/uL [facility] Segmented neutrophils/100 WBC (Bld) 3.20 % [facility] WBC other (Bld) [#/Vol] 5.1 [facility] CBC with Diffon 08-28-2024 Abs. Basophil 0.02 k/uL Normal 0.00-0.20 [facility] Comment on above: Performed By: #### T SHX, CDP, CP, MG #### [facility] [address] [place] [address] Block Operator: Lex Walden MD #### TONY, VD25 #### [facility] [address] [place] [address] Block Operator: Peter Pritchett MD Abs.Imm.Granulocyte 0.01 k/uL Normal 0.00-0.30 [facility] Comment on above: Performed By: #### T SHX, CDP, CP, MG #### [facility] [address] [place] [address] Block Operator: Lex Walden MD #### LIPR, VD25 #### [address] [address] Block Operator: Peter Pritchett MD Abs.Neutrophil (Seg) 3.20 k/uL Normal 2.5-7.0 [facility] Comment on above: Performed By: #### T SHX, CDP, CP, MG #### [facility] [address] [place] [phone] Block Operator: Lex Walden MD #### LIPR, VD25 #### [place] [id number] Block Operator: Peter Pritchett MD Basophils/100 WBC (Bld) 0 % Normal 0-2 [facility] Comment on above: Performed By: #### T SHX, CDP, CP, MG #### [facility] [address] [place] [address] Block Operator: Lex Walden MD #### LIPR, VD25 #### [place] [id number] Block Operator: Peter Pritchett MD Eosinophils (Bld) [#/Vol] 0.14 10*3/uL Normal 0.00-0.40 [facility] Comment on above: Performed By: #### T SHX, CDP, CP, MG #### [facility] [address] [place] [phone] Block Operator: Lex Walden MD #### LIPR, VD25 #### [place] [id number] Block Operator: Peter Pritchett MD Eosinophils/100 WBC (Bld) 3 % Normal 0-5 [facility] Comment on above: Performed By: #### T SHX, CDP, CP, MG #### [facility] [address] [place] [phone] ([address] Block Operator: Lex Walden MD #### LIPR, VD25 #### [address] [id number] Block Operator: Peter Pritchett MD Erythrocyte distribution width (RBC) [Ratio] 13.5 % Normal 12.1-15.2 [facility] Comment on above: Performed By: #### T SHX, CDP, CP, MG #### [facility] [address] [place] [address] Block Operator: Lex Walden MD #### LIPR, VD25 #### [place] [id number] Block Operator: Petre Pritchett MD Hematocrit (Bld) [Volume fraction] 43.1 % Normal 36.0-46.0 [facility] Comment on above: Performed By: #### T SHX, CDP, CP, MG #### [facility] [address] [place] [address] Block Operator: Lex Walden MD #### TONY, VD25 #### [place] [phone] Block Operator: Peter Pritchett MD Hemoglobin (Bld) [Mass/Vol] 14.3 g/dL Normal 12.0-16.0 [facility] Comment on above: Performed By: #### T SHX, CDP, CP, MG #### [facility] [address] [place] [address] Block Operator: Lex Walden MD #### LIPKostas, VD25 #### [place] [phone] Block Operator: Peter Pritchett MD Immature granulocytes/100 WBC (Bld) 0 % Normal 0-5 [facility] Comment on above: Performed By: #### T SHX, CDP, CP, MG #### [facility] [address] [place] [address] Block Operator: Lex Walden MD #### LIPR, VD25 #### [address] [id number] Block Operator: Peter Pritchett MD Lymphocytes (Bld) [#/Vol] 1.20 10*3/uL Normal 1.00-4.80 [facility] Comment on above: Performed By: #### T SHX, CDP, CP, MG #### [facility] [address] [place] [address] Block Operator: Lex Walden MD #### LIPR, VD25 #### [address] [phone] Block Operator: Peter Pritchett MD Lymphocytes/100 WBC (Bld) 24 % Normal 15-40 [facility] Comment on above: Performed By: #### T SHX, CDP, CP, MG #### [facility] [address] [place] [address] Block Operator: Lex Walden MD #### LIPKostas, VD25 #### [address] [phone] Block Operator: Peter Pritchett MD MCH (RBC) [Entitic mass] 31.4 pg Normal 26.0-34.0 [facility] Comment on above: Performed By: #### T SHX, CDP, CP, MG #### [facility] [address] [place] [address] Block Operator: Lex Walden MD #### LIPR, VD25 #### [address] [id number] Block Operator: Peter Pritchett MD MCHC (RBC) [Mass/Vol] 33.2 g/dL Normal 31.0-37.0 [facility] Comment on above: Performed By: #### T SHX, CDP, CP, MG #### [facility] [address] [place], [place] [phone] Block Operator: Lex Walden MD #### LIPR, VD25 #### [address] [id number] Block Operator: Peter Pritchett MD MCV (RBC) [Entitic vol] 94.7 fL Normal 80.0-100.0 [facility] Comment on above: Performed By: #### T SHX, CDP, CP, MG #### [facility] [address] [place] [phone] Block Operator: Lex Walden MD #### LIPR, VD25 #### [address] [id number] Block Operator: Peter Pritchett MD Monocytes (Bld) [#/Vol] 0.53 10*3/uL Normal 0.00-1.00 [facility] Comment on above: Performed By: #### T SHX, CDP, CP, MG #### [facility] [address] [place] [phone] Block Operator: Lex Walden MD #### LIPR, VD25 #### [address] [id number] Block Operator: Peter Pritchett MD Monocytes/100 WBC (Bld) 10 % High 4-8 [facility] Comment on above: Performed By: #### T SHX, CDP, CP, MG #### [facility] [address] [place] [phone] Block Operator: Lex Walden MD #### LIPR, VD25 #### [address] [phone] Block Operator: Peter Pritchett MD Neutrophil (Seg) 63 % Normal 47-75 [facility] Comment on above: Performed By: #### T SHX, CDP, CP, MG #### [facility] [address] [place], [place] [phone] Block Operator: Lex Walden MD #### LIPR, VD25 #### [address] [address] Block Operator: Peter Pritchett MD Platelet mean volume (Bld) [Entitic vol] 9.9 fL Normal 6.0-12.0 [facility] Comment on above: Performed By: #### T SHX, CDP, CP, MG #### [facility] [address] [place], [place] [phone] Block Operator: Lex Walden MD #### LIPR, VD25 #### [address] [address] Block Operator: Peter Pritchett MD Platelets (Bld) [#/Vol] 219 10*3/uL Normal 140-450 [facility] Comment on above: Performed By: #### T SHX, CDP, CP, MG #### [facility] [address] [place], [place] [phone] Block Operator: Lex Walden MD #### LIPR, VD25 #### [address] [address] Block Operator: Peter Pritchett MD RBC (Bld) [#/Vol] 4.55 10*6/uL Normal 4.00-5.20 [facility] Comment on above: Performed By: #### T SHX, CDP, CP, MG #### [facility] [address] [place], [place] [phone] Block Operator: Lex Walden MD #### LIPR, VD25 #### [address] [address] Block Operator: Peter Pritchett MD WBC (Bld) [#/Vol] 5.1 10*3/uL Normal 3.5-11.0 [facility] Comment on above: Performed By: #### T SHX, CDP, CP, MG #### [facility] [address] [place] [address] Block Operator: Lex Walden MD #### TONY VD25 #### [address] [phone] Block Operator: Peter Pritchett MD Comp Metabolic Profon 2023 Albumin [Mass/Vol] 4.1 g/dL Normal 3.5-5.2 [facility] Comment on above: Performed By: #### T SHX, CDP, CP, MG #### [facility] [address] [place], [place] [phone] Block Operator: Lex Walden MD #### TONY, VD25 #### [address] [phone] Block Operator: Peter Pritchett MD Alkaline Phos 93 U/L Normal 35-104 [facility] Comment on above: Performed By: #### T SHX, CDP, CP, MG #### [facility] [address] [place], [place] [phone] Block Operator: Lex Walden MD #### TONY, VD25 #### [address] [address] Block Operator: Peter Pritchett MD ALT [Catalytic activity/Vol] 13 U/L Normal 5-33 [facility] Comment on above: Performed By: #### T SHX, CDP, CP, MG #### [facility] [address] [place], [place] [phone] Block Operator: Lex Walden MD #### TONY VD25 #### [address] [place] [address] Block Operator: Peter Pritchett MD Anion gap [Moles/Vol] 10 mmol/L Normal 9-17 [facility] Comment on above: Performed By: #### T SHX, CDP, CP, MG #### [facility] [address] [place] [address] Block Operator: Lex Walden MD #### LIPR, VD25 #### [address] [address] Block Operator: Peter Pritchett MD AST [Catalytic activity/Vol] 17 U/L Normal <32 [facility] Comment on above: Performed By: #### T SHX, CDP, CP, MG #### [facility] [address] [place] [address] Block Operator: Lex Walden MD #### TONY VD25 #### [address] [address] Block Operator: Peter Pritchett MD Bilirubin [Mass/Vol] 0.7 mg/dL Normal 0.3-1.2 [facility] Comment on above: Performed By: #### T SHX, CDP, CP, MG #### [facility] [address] [place] [address] Block Operator: Lex Walden MD #### TONY, VD25 #### [address] [address] Block Operator: Peter Pritchett MD BUN/CRE Ratio 23 High 9-20 [facility] Comment on above: Performed By: #### T SHX, CDP, CP, MG #### [facility] [address] [place] [address] Block Operator: Lex Walden MD #### TONY VD25 #### [address] [id number] Block Operator: Peter Pritchett MD Calcium [Mass/Vol] 9.5 mg/dL Normal 8.6-10.4 [facility] Comment on above: Performed By: #### T SHX, CDP, CP, MG #### [facility] [address] [place], [place] [phone] Block Operator: Lex Walden MD #### TONY VD25 #### [address] [id number] Block Operator: Peter Pritchett MD Chloride [Moles/Vol] 101 mmol/L Normal 98-107 [facility] Comment on above: Performed By: #### T SHX, CDP, CP, MG #### [facility] [address] [place], [place] [phone] Block Operator: Lex Walden MD #### DELVALLE25 #### [address] [id number] Block Operator: Peter Pritchett MD CO2 [Moles/Vol] 24 mmol/L Normal 20-31 [facility] Comment on above: Performed By: #### T SHX, CDP, CP, MG #### [facility] [address] [place], [place] [phone] Block Operator: Lex Walden MD #### DELVALLE25 #### [address] [phone] Block Operator: Peter Pritchett MD Creatinine [Mass/Vol] 0.7 mg/dL Normal 0.5-0.9 [facility] Comment on above: Performed By: #### T SHX, CDP, CP, MG #### [facility] [address] [place], [place] [phone] Block Operator: Lex Walden MD #### DELVALLE25 #### [address], [place] [phone] Block Operator: Peter Pritchett MD GFR/1.73 sq M.predicted among non-blacks MDRD (S/P/Bld) [Vol rate/Area] 85 mL/min/{1.73_m2} Normal >60 [facility] Comment on above: Result Comment: These results [...] #### T SHX, CDP, CP, MG #### [facility] [address] [place] [address] Block Operator: Lex Walden MD #### DELVALLE25 #### [address] [id number] Block Operator: Peter Pritchett MD Glucose [Mass/Vol] 92 mg/dL Normal 70-99 [facility] Comment on above: Performed By: #### T SHX, CDP, CP, MG #### [facility] [address] [place] [address] Block Operator: Lex Walden MD #### DELVALLE25 #### [address] [id number] Block Operator: Peter Pritchett MD Potassium [Moles/Vol] 4.0 mmol/L Normal 3.7-5.3 [facility] Comment on above: Performed By: #### T SHX, CDP, CP, MG #### [facility] [address] [place], [place] [phone] Block Operator: Lex Walden MD #### DELVALLE25 #### [address] [phone] Block Operator: Peter Pritchett MD Protein [Mass/Vol] 7.0 g/dL Normal 6.4-8.3 [facility] Comment on above: Performed By: #### T SHX, CDP, CP, MG #### [facility] [address] [place], [place] [phone] Block Operator: Lex Walden MD #### LIPR, VD25 #### [facility] [address] [place], [place] [phone] Block Operator: Peter Pritchett MD Sodium [Moles/Vol] 135 mmol/L Normal 135-144 [facility] Comment on above: Performed By: #### T SHX, CDP, CP, MG #### [facility] [address] [place], [place] 1864290 Block Operator: Lex Walden MD #### TONY, VD25 #### [place] [address] [place], [place] 1038008 Block Operator: Peter Pritchett MD Urea nitrogen [Mass/Vol] 16 mg/dL Normal 8-23 [facility] Comment on above: Performed By: #### T SHX, CDP, CP, MG #### [facility] [address] [place], [place] [phone] Block Operator: Lex Walden MD #### TONY, VD25 #### [facility] [address] [place], [place] [phone] Block Operator: Peter Pritchett MD Comprehensive Metabolic Pane mario 08-28-2024 Albumin [Mass/Vol] 4.1 g/dL 3.5 - 5.2 g/dL [facility] ALP [Catalytic activity/Vol] 93 U/L 35 - 104 U/L [facility] ALT [Catalytic activity/Vol] 13 U/L 5 - 33 U/L [facility] Anion gap [Moles/Vol] 10 mmol/L 9 - 17 mmol/L [facility] AST [Catalytic activity/Vol] 17 U/L NINF - 32 U/L [facility] Bilirubin [Mass/Vol] 0.7 mg/dL 0.3 - 1.2 mg/dL [facility] Calcium [Mass/Vol] 9.5 mg/dL 8.6 - 10.4 mg/dL [facility] Chloride [Moles/Vol] 101 mmol/L 98 - 107 mmol/L [facility] CO2 [Moles/Vol] 24 mmol/L 20 - 31 mmol/L [facility] Creatinine [Mass/Vol] 0.7 mg/dL 0.5 - 0.9 mg/dL [facility] Est, Glom Filt Rate 85 - PINF [facility] Comment on above: These results are [...] [Mass/Vol] 92 mg/dL 70 - 99 mg/dL [facility] Interpretation and review of laboratory results Abnormal [facility] Potassium [Moles/Vol] 4.0 mmol/L 3.7 - 5.3 mmol/L [facility] Protein [Mass/Vol] 7.0 g/dL 6.4 - 8.3 g/dL [facility] Sodium [Moles/Vol] 135 mmol/L 135 - 144 mmol/L [facility] Urea nitrogen [Mass/Vol] 16 mg/dL 8 - 23 mg/dL [facility] Urea nitrogen/Creatinine [Mass ratio] 23 mg/mg High 9 - 20 [facility] EKG 12 LeadOrdered By: Unkno wn Result on 08-28-2024 Atrial Rate 84 BPM [facility] P [place] 67 degrees [facility] P-R Interval 160 ms [facility] Q-T Interval 416 ms [facility] QRS Duration 84 ms [facility] QTc Calculation (Bazett) 491 ms [facility] R [place] -89 degrees [facility] T [place] 59 degrees [facility] Ventricular Rate 84 BPM [facility] EKG 12 Leadon 08-28-2024 Normal sinus rhythm Left axis deviation Inferior infarct , age undetermined Abnormal ECG No previous ECGs available [facility] Result, Unknown Provider - 08/28/2024 Normal sinus rhythm Left axis deviation Inferior infarct , age undetermined Abnormal ECG No previous ECGs available [facility] Lipid Panelon 08-28-2024 Cholesterol [Mass/Vol] 259 mg/dL High 0 - 199 mg/dL [facility] Comment on above: Cholesterol Guidelines: <200 Desirable 200-240 Borderline >240 Undesirable Cholesterol in HDL [Mass/Vol] 72 mg/dL 40 - PINF mg/dL [facility] Comment on above: HDL Guidelines: <40 Undesirable 40-59 Borderline >59 Desirable Cholesterol in LDL [Mass/Vol] 171 mg/dL High 0 - 100 mg/dL [facility] Comment on above: LDL Guidelines: <100 Desirable 100-129 Near to/above Desirable 130-159 Borderline >159 Undesirable Direct (measured) LDL and calculated LDL are not interchangeable tests. Cholesterol in VLDL [Mass/Vol] 16 mg/dL 1 - 30 mg/dL [facility] Cholesterol.total/C holesterol in HDL [Mass ratio] 3.6 {ratio} [facility] Interpretation and review of laboratory results Abnormal [facility] Triglyceride [Mass/Vol] 78 mg/dL NINF - 150 mg/dL [facility] Comment on above: Triglyceride Guidelines: <150 Desirable 150-199 Borderline 200-499 High >499 Very high Based on AHA Guidelines for fasting triglyceride, July 2012. [facility] Lipid Profileon 08-28-2024 Cholesterol [Mass/Vol] 259 mg/dL High 0-199 [facility] Comment on above: Result Comment: Cholesterol Guidelines: <200 Desirable 200-240 Borderline >240 Undesirable Performed By: #### T SHX, CDP, CP, MG #### [facility] [address] [place], [place] [phone] Block Operator: Lex Walden MD #### LIPR, VD25 #### [facility] [address] [place] [address] [id number] Block Operator: Peter Pritchett MD Cholesterol in HDL [Mass/Vol] 72 mg/dL Normal >40 [facility] Comment on above: Result Comment: HDL Guidelines: <40 Undesirable 40-59 Borderline >59 Desirable Performed By: #### T SHX, CDP, CP, MG #### [facility] [address] [place], [place] [phone] Block Operator: Lex Walden MD #### LIPR, VD25 #### [address] [phone] Block Operator: Peter Pritchett MD Cholesterol in LDL [Mass/Vol] 171 mg/dL High 0-100 [facility] Comment on above: Result Comment: LDL Guidelines: <100 Desirable 100-129 Near to/above Desirable 130-159 Borderline >159 Undesirable Direct (measured) LDL and calculated LDL are not interchangeable tests. Performed By: #### T SHX, CDP, CP, MG #### [facility] [address] [place], [place] [phone] Block Operator: Lex Walden MD #### LIPR, VD25 #### [address] [id number] Block Operator: Peter Pritchett MD Cholesterol in VLDL [Mass/Vol] 16 mg/dL Normal 1-30 [facility] Comment on above: Performed By: #### T SHX, CDP, CP, MG #### [facility] [address] [place], [place] [phone] Block Operator: Lex Walden MD #### LIPR, VD25 #### [address] [id number] Block Operator: Peter Pritchett MD Cholesterol.total/C holesterol in HDL [Mass ratio] 3.6 {ratio} Normal [facility] Comment on above: Performed By: #### T RUTH ANN, CDP, CP, MG #### [facility] [address] [place], [place] [phone] Block Operator: Lex Walden MD #### DELVALLE25 #### [address] [id number] Block Operator: Peter Pritchett MD Triglyceride [Mass/Vol] 78 mg/dL Normal <150 [facility] Comment on above: Result Comment: Triglyceride Guidelines: <150 Desirable 150-199 Borderline 200-499 High >499 Very high Based on AHA Guidelines for fasting triglyceride, July 2012. Performed By: #### T RUTH ANN, AMBAR, CP, MG #### [facility] [address] [place] [address] Block Operator: Lex Walden MD #### DELVALLE25 #### [address] [id number] Block Operator: Peter Pritchett MD Magnesiumon 08-28-2024 Magnesium [Mass/Vol] 2.4 mg/dL 1.6 - 2.6 mg/dL [facility] Magnesium [Mass/Vol] 2.4 mg/dL Normal 1.6-2.6 [facility] Comment on above: Performed By: #### T RUTH ANN, AMBAR, CP, MG #### [facility] [address] [place], [place] [phone] Block Operator: Lex Walden MD #### DELVALLE25 #### [address] [phone] Block Operator: Peter Pritchett MD No Panel Informationon 08-28 [facility] TSH w/reflex to FT4on 2023 Thyroid Stim. Horm. 2.51 uIU/mL [facility]30[facility] Comment on above: Performed By: #### T SHX, CDP, CP, MG #### [facility] [address] [place] [address] Block Operator: Lex Walden MD #### TONY VD25 #### [facility] [address] [place], [place] [phone] Block Operator: Peter Pritchett MD TSH with Reflexon 08-28-2024 TSH Qn 2.51 m[IU]/L [facility] Vitamin D 25 Hydroxyon 08-28 25-hydroxyvitamin D3 [Mass/Vol] 25.7 ng/mL Low 30.0 - 100.0 ng/mL [facility] Comment on above: Reference Range: Vitamin D status Range Deficiency <20 ng/mL Mild Deficiency 20-30 ng/mL Sufficiency 30-100 ng/mL Toxicity >100 ng/mL Interpretation and review of laboratory results Abnormal [facility] Vitamin D 25 OHon 08-28-2024 Vitamin D 25 OH 25.7 ng/mL Low 30.0-100.0 [facility] Comment on above: Result Comment: Reference Range: Vitamin D status Range Deficiency <20 ng/mL Mild Deficiency 20-30 ng/mL Sufficiency 30-100 ng/mL Toxicity >100 ng/mL Performed By: #### T SHX, CDP, CP, MG #### [facility] [address] [place] [address] Block Operator: Lex Walden MD #### TONY VD25 #### [employer] [address], [place] [id number] Block Operator: Peter Pritchett MD Consultation Noteon 03-29-20 24 Consultation Note [id number]#1.00 TIFF [facility] Family Medicine Office/Clini c Noteon 03-29-2024 [...] Advance Directive : Medical durable power of adapted physical education specialist Patient Wishes to Receive Further Information on [...] I always fasten my seat belt Hall DOBBY LOOM CHAIN PEGGERDelmar Bellanita Whelan - 03/28/2024 15:05 EDT HRA [...] I have ho (more content not included)... [facility] Comment on above: Result Comment: Elec tronically Signed By: Mayra Ruiz MD\.br\Date and Time Signed: 03/29/24 11:02 EDT\.br\Electronically Co-Signed By: Sherrell Hall LPN\.br\Date and Time Co-Signed: 03/28/24 15:49 EDT [place] 03-29-2024 Screens [id number]#1.0 0TIFF [facility] Ambulatory Visit Summaryon 0 03-28-2024 Ambulatory [...] EST With: Lester NOLASCO, Mayra Sparrow Where: [facility] Normal [address] [place], [place] [id number]- \.br\ Medications\.br\ What How Much When Instructions\.br\ [...] hard liquor (44 mL).\.br\ Lifestyle\.br\ ? \.br\ [place] your teeth every morning and night with fluoride toothpaste. Floss one time each day.\.br\ ? \.br\ Exercise for at least 30 minutes 5 or more days each week.\.br\ ? \.br\ Do not use any products that contain nicotine or tobacco. These products include cigarettes, chewing tobacco, and vaping d [facility] Medicine Office/Beth Costa 03-28-2024 Family Medicine [...] day(s), # 15 tab(s), Refills(s) 0, Pharmacy: [facility]/pharmacy #[id number], 153, cm, 03/28/24 15:10:00 EDT, Height/Length [...] - Not Given Patient Refuses SARS-CoV-2 (COVID-19) [id number] 07/15/2022 Recorded 2023-03-09: TPV80 SARS-CoV-2 (COVID-19) mRNA BNT-162b2 vax 09/24/2021 Recorded 2023-03-09: TPV80 SARS-CoV-2 (COVID-19) mRNA BNT-162b2 vax 11/27/2020 Recorded SARS-CoV-2 (COVID-19) mRNA BNT-162b2 vax 11/04/2020 Recorded Normal [facility] Comment on above: Result Comment: Elec [...] night-lights. ? Place frequently used items in rgph-ri-thjzz places. Lower the shelves around your home [...] the way. ? Do not use floor jordanian or wax that makes floors slippery. If [...] include working with a physical therapist or production trainer to improve your strength, balance, and endurance. Where to find more information ? Centers for Disease Control and Prevention, [place]: www.cdc.gov ? National [place] on Aging: www.ha.nih.gov Contact a health care [...] ca (more content not included)... Normal [facility] Healthon 03-16-20 24 Population Health Case Information Case Priority: None Programs: -- Referral Source: Irrigation Foreman Referral Reason: Care coordination Case Type: Transition [...] (min): 2 Outcome: Case discussion Contact Type: distance education coordinator Contact Name: Rafael Page Notes: TCM#4- see tcm note. Created By: Rafael Page Date: March 09, 2024 Method: Phone call Type: Outbound Duration (min): 5 Outcome: Case discussion Contact Type: distance education coordinator Contact Name: Rafael Page Notes: TCM#3- see tcm note. Created By: Rafael Page Date: March 02, 2024 Method: Phone call Type: Outbound Duration (min): 5 Outcome: Case discussion Contact Type: distance education coordinator Contact Name: Rafael Page Notes: TCM#2- see tcm note. Created By: Rafael Page Date: February 17, 2024 Method: Phone call Type: Outbound Duration (min): 13 Outcome: Case discussion Contact Type: distance education coordinator Contact Name: Rafael Page Notes: TCM#1- see tcm note. Created By: Rafael Page [facility] 03-09-20 24 [facility] Case Information Case Priority: None Programs: -- Referral Source: Irrigation Foreman Referral Reason: Care coordination Case Type: Transition [...] (min): 5 Outcome: Case discussion Contact Type: distance education coordinator Contact Name: Rafael Page Notes: TCM#3- see tcm note. Created By: Rafael Page Date: March 02, 2024 Method: Phone call Type: Outbound Duration (min): 5 Outcome: Case discussion Contact Type: distance education coordinator Contact Name: Rafael Page Notes: TCM#2- see tcm note. Created By: Rafael Page Date: February 17, 2024 Method: Phone call Type: Outbound Duration (min): 13 Outcome: Case discussion Contact Type: distance education coordinator Contact Name: Rafael Page Notes: TCM#1- see tcm note. Created By: Rafael Page [facility] C Urineon 03-05-2024 Bacteria identified Cx Nom (U) Microbiology PROCEDURE: Urine Culture [R1] SOURCE: U CleanCatch BODY SITE: COLLECTED DATE/TIME: 03/03/2024 14:59 EDT RECEIVED DATE/TIME: 03/03/2024 15:29 EDT START DATE/TIME: 03/03/2024 15:29 EDT FREE TEXT SOURCE: Lester NOLASCO, Mayra E. Mayra Ruiz MD FINAL REPORTS Final Report [] Verified Date/Time: 03/05/2024 10:43 EDT <10,000 cfu/ml Mixed skin contaminants Mixed светлана (multiple species present) Performing Locations R1: This test was performed at: [facility], [address] [place] [address], [address] [place] [address], [address] [place] [address] Comment on above: Performed By: #### 2 [id number] #### [facility] [address] [place] [address] Bacteria identified Cx Nom (U) Microbiology PROCEDURE: [...] Locations R1: This test was performed at: [facility], [address] [place] [address], [address] [place] [address], [address] [place] [address] Comment on above: Performed By: #### 2 [id number] #### [facility] [address] [place] [address] Physician Orderon 03-03-2024 Physician Order [id number]#1. 00TIFF Normal [facility] UA with Cult Rflxon 03-03-20 24 Bacteria Auto Ql (U) Trace Normal Trace [facility] Comment on above: Performed By: #### 4 [id number] #### [facility] [address] [place] [address] Bilirubin Ql (U) Negative Normal Negative [facility] Comment on above: Performed By: #### 4 [id number] #### [facility] [address] [place] [address] Clarity (U) Turbid Abnormal Clear [facility] Comment on above: Performed By: #### 4 [id number] #### [facility] [address] [place] [address] Color (U) Yellow Normal Yellow [facility] Comment on above: Result Comment: Micr oscopic readings are only performed on those samples that meet specific criteria set forth by [facility]. Performed By: #### 4 [id number] #### [facility] [address] [place] [address] Crystals.amorphous Computer assisted Ql (U) Present Abnormal [facility] Comment on above: Performed By: #### 4 [id number] #### [facility] [address] [place] [address] Epithelial cells.squamous Auto (Urine sed) [#/Area] >10 Abnormal 0-2 [facility] Comment on above: Performed By: #### 4 [id number] #### [facility] [address] [place] [address] Glucose Ql (U) Negative Normal Negative [facility] Comment on above: Performed By: #### 4 [id number] #### [facility] [address] [place] [address] Hemoglobin Auto test strip (U) [Mass/Vol] Negative Normal Negative [facility] Comment on above: Performed By: #### 4 [id number] #### [facility] [address] [place] [address] Hyaline casts LM Ql (Urine sed) 0-3 Normal 0-3 [facility] Comment on above: Performed By: #### 4 [id number] #### [facility] [address] [place] [address] Ketones Auto test strip Ql (U) Negative Normal Negative [facility] Comment on above: Performed By: #### 4 [id number] #### [facility] [address] [place] [address] Leukocyte esterase Auto test strip Ql (U) 500 Debra/uL Abnormal Negative [facility] Comment on above: Performed By: #### 4 [id number] #### [facility] [address] [place] [address] Mucus Auto Ql (U) Trace Normal Negative [facility] Comment on above: Performed By: #### 4 [id number] #### [facility] [address] [place] [address] Nitrite Auto test strip Ql (U) Negative Normal Negative [facility] Comment on above: Performed By: #### 4 [id number] #### [facility] [address] [place] [address] pH (U) 6.0 [pH] Invalid Interpretation Code 5.0-9.0 [facility] Comment on above: Performed By: #### 4 [id number] #### [facility] [address] [place] [address] Protein Ql (U) Negative Normal Negative [facility] Comment on above: Performed By: #### 4 [id number] #### [facility] [address] [place] [address] RBC Ql (U) 4-20 Abnormal 0-3 [facility] Comment on above: Performed By: #### 4 [id number] #### [facility] [address] [place] [address] Specific gravity (U) [Rel density] 1.015 Invalid Interpretation Code 1.005-1.030 [facility] Comment on above: Performed By: #### 4 [id number] #### [facility] [address] [place] [address] Urobilinogen (U) [Mass/Vol] Negative Normal Negative [facility] Comment on above: Performed By: #### 4 [id number] #### [facility] [address] [place] [address] WBC Auto (Urine sed) [#/Area] 31-75 Abnormal 0-5 [facility] Comment on above: Performed By: #### 4 [id number] #### [facility] [address] [place] [address] Type of Urine collection method Clean Catch Normal [facility] Comment on above: Performed By: #### 4 [id number] #### [facility] [address] [place] [address] [facility] 03-02-20 [facility] Case Information Case Priority: None Programs: -- Referral Source: Irrigation Foreman Referral Reason: Care coordination Case Type: Transition [...] (min): 5 Outcome: Case discussion Contact Type: distance education coordinator Contact Name: Rafael Page Notes: TCM#2- see tcm note. Created By: Rafael Page Date: February 17, 2024 Method: Phone call Type: Outbound Duration (min): 13 Outcome: Case discussion Contact Type: distance education coordinator Contact Name: Rafael Page Notes: TCM#1- see tcm note. Created By: Rafael Page [facility] [id number]#1.00 TIFF [facility] Ambulatory Visit Summaryon 0 02-24-2024 Ambulatory [...] Appointments Wednesday 2:30 PM EDT With: Where: [facility] Normal [address] [place], [place] [address]- \.br\ Medications\.br\ What How Much When Instructions\.br\ [...] numbers. This can be done either in [place] ([place] or metric measurements. Note that charts and online BMI calculators are available to help you find your BMI quickly and easily without having to do these calculations yourself.\.br\ To calculate your BMI in [place] ([place] measurements:\.br \ \.br\ 1. \.br\ Measure [...] Disease Control and Prevention: www.cdc.gov\.br\ ? \.br\ Scottish Heart Association: www.heart.org\.br \ ? \.br\ National Heart, Lung, and Blood [place]: www.nhlbi.nih.gov \.br\ Summary\.br\ ? \.br\ Body mass index (BMI) is a number that is calculated from a person's weight and height.\.br\ ? \.br\ BMI may help estimate how much of a person's weight is composed of fat. BMI can help identify those who may be at higher risk for certain medical problems.\.br\ ? \.br\ BMI can be measured using [place] measurements or metric measurements.\.br \ ? \.br\ [facility] ED Note-Physicianon 02-24-20 ED Note-Physician [id number]#1.0 0TIFF Normal [facility] Family Medicine Office/Clini c Noteon 02-24-2024 Family Medicine Office/Clinic Note HPI Staff Jovon is an 83 year old female presenting for hospital follow up TCM: Hospital: [facility] Admission date: 02/15/24 Discharge date: 02/16/24 Symptoms [...] non-user 1036F (more content not included)... Normal [facility] Comment on above: Result Comment: Elec tronically Signed By: Lester NOLASCO, Mayra Sparrow\.br\Date and Time Signed: 02/24/24 15:11 EDT Outside [facility] Correspo ndenceon 02-24-2024 Outside [facility] Correspondence [id number]#1.0 0TIFF Normal [facility] Patient Educationon 02-24-20 Patient Education Nutrition BMI [...] numbers. This can be done either in [place] ([place] or metric measurements. Note that charts and online BMI calculators are available to help you find your BMI quickly and easily without having to do these calculations yourself. To calculate your BMI in [place] ([place] measurements: 1. Measure your weight in [...] for Disease Control and Prevention: www.cdc.gov ? Scottish Heart Association: www.heart.org ? National Heart, Lung, and Blood [place]: www.nhlbi.nih.gov Summary ? Body mass index (BMI) is a number that is calculated from a person's weight and height. ? BMI may help estimate how much of a person's weight is composed of fat. BMI can help identify those who may be at higher risk for certain medical problems. ? BMI can be measured using [place] measurements or metric measurements. ? BMI charts are used to identify whether you are underweight, normal weight, overweight, or obese. This information is not intended to replace advice given to you by your health care provider. Make sure you discuss any questions you have with your health care provider. Document Revised: 06/19/2020 Document Reviewed: 04/26/2020 [employer] Patient Education ? 2022 [employer]. [facility] Pre-Visit Planningon 024 Pre-Visit Planning - From: Nicole Carrillo To: Mayra Ruiz MD; Sent: 02/23/2024 15:01:54 EDT Subject: Pre-Visit Planning Due Date/Time: 02/23/2024 15:01:00 EDT Caller Name: JOVON ROJAS; Caller Number: Enrique , M Ak Dr. Ruiz. During a pre-visit planning chart review, I noted the following documentation in the medical record: 02/15/[address] [facility] ED Visit Note (page 2): Exam: Back- [...] feel free to contact me at extension [phone]. Thank you! Nicole Carrillo LPN From: Mayra Ruiz MD To: Nicole Carrillo; Sent: 02/24/2024 07:14:56 EDT Subject: RE: Pre-Visit Planning Caller Name: JOVON ROJAS; Caller Number: Enrique , M Decubitus ulcer of right buttock, stage [address] [facility] RAD - CT Reporton 02-23-2024 RAD - CT Report [id number]#1.0 0TIFF Normal [facility] RAD - CT Report [id number]#1.00 TIFF Normal [facility] RAD - MISCon 02-23-2024 RAD - MISC [id number]#1.00 TIFF Normal [facility] Population Health 02-17-20 [facility] Health Case Information Case Priority: None Programs: -- Referral Source: Irrigation Foreman Referral Reason: Care coordination Case Type: Transition [...] Care Plan Progress Note Admit Date: 02/15/24 [facility] Date of Discharge: 02/16/24 Follow-up appointment scheduled? [...] Type: Outbound Dura (more content not included)... [facility] Physician Orderon 10-14-2023 Physician Order [id number]#1.0 0TIFF [facility] Physician Order [id number]#1.0 0TIFF [facility] Home Health Recordson 2023 Home Health Records [id number]#1.0 0TIFF [facility] Home Health Recordson 2022 Home Health Records [id number]#1.0 0TIFF [facility] Physician Referralon 023 Physician Referral [id number]#1.0 0TIFF [facility] Ambulatory Visit Summaryon 10-30-2022 Ambulatory Visit [...] PM EDT With: Mayra Ruiz MD [place] [id number]- \.br\ Medications\.br\ What How Much When Instructions\.br\ Changed acetaminophen-hyd rocodone (acetaminophen-hy drocodone 325 mg-5 mg oral tablet) 1 Tablets By Mouth 3 times a day as needed for as needed for pain as needed for pain Pickup at [facility]\.br\ Unchanged lidocaine topical (lidocaine Top 5% film Patch) 1 Patches Topical Every day apply 12 hours on and 12 hours off daily Pickup at [facility]\.br\ Unchanged ascorbic acid (Vitamin C) 500 [...] if questions or concerns \.br\ Pharmacy Information\.br\ [facility]: [address] [place], [place] [id number] [phone]\.br\ Medications and Immunizations Administered\.br\ Not Given\.br\ influenza [...] for choosing us for your care.\.br\ \.br\ [facility] Auto Diffon 08-30-2023 Basophils/100 WBC (Bld) 0.4 % Normal 0.0-2.0 [facility] Comment on above: Order Comment: Order Added by Discern Expert. Performed By: #### 2 177872, 1431120, 8725948, 06827958, 035808723, 41601472, 4015384 #### [facility] [address] [place] [address] Basophils/Leukocyte s Auto (Bld) [Pure # fraction] 0.0 E9/L Normal 0.0-0.2 [facility] Comment on above: Order Comment: Order Added by Discern Expert. Performed By: #### 2 881922, 4884027, 9631647, 19119736, 044770423, 27869168, 4767317 #### [facility] [address] [place] [address] Eosinophils/100 WBC (Bld) 2.9 % Normal 0.0-8.0 [facility] Comment on above: Order Comment: Order Added by Discern Expert. Performed By: #### 2 353657, 4595354, 7979715, 96233754, 864367684, 58263614, 4914901 #### [facility] [address] [place] [address] Eosinophils/Leukocy krysta Auto (Bld) [Pure # fraction] 0.1 E9/L Normal 0.0-0.5 [facility] Comment on above: Order Comment: Order Added by Discern Expert. Performed By: #### 2 059117, 3599092, 1079831, 91321613, 709449855, 38013168, 0464777 #### [facility] [address] [place] [address] Lymphocytes/100 WBC (Bld) 21.1 % Normal 14.0-50.0 [facility] Comment on above: Order Comment: Order Added by Discern Expert. Performed By: #### 2 165943, 4990687, 9364280, 17619451, 683198081, 17994601, 0740125 #### [facility] [address] [place] [address] Lymphocytes/Leukocy krysta Auto (Bld) [Pure # fraction] 1.1 E9/L Normal 1.0-4.0 [facility] Comment on above: Order Comment: Order Added by Discern Expert. Performed By: #### 2 671590, 9635658, 5999357, 76206307, 019349897, 73252591, 8610689 #### [facility] [address] [place] [address] Monocytes/100 WBC (Bld) 9.2 % Normal 4.0-14.0 [facility] Comment on above: Order Comment: Order Added by Discern Expert. Performed By: #### 2 814400, 2530665, 4150121, 97362158, 657694700, 49460771, 6683405 #### [facility] [address] [place] [address] Monocytes/Leukocyte s Auto (Bld) [Pure # fraction] 0.5 E9/L Normal 0.2-1.0 [facility] Comment on above: Order Comment: Order Added by Discern Expert. Performed By: #### 2 856662, 6356278, 2395709, 36572585, 166336316, 32688471, 1497742 #### [facility] [address] [place] [address] Neutrophils/100 WBC (Bld) 66.4 % Normal 36.0-75.0 [facility] Comment on above: Order Comment: Order Added by Discern Expert. Performed By: #### 2 552033, 9944221, 5515365, 68338951, 529363079, 55204354, 9324730 #### [facility] [address] [place] [address] Neutrophils/Leukocy krysta Auto (Bld) [Pure # fraction] 3.4 E9/L Normal 2.0-7.5 [facility] Comment on above: Order Comment: Order Added by Discern Expert. Performed By: #### 2 240932, 4879992, 4352078, 96967383, 663790881, 78908557, 8164242 #### [facility] [address] [place] [address] CBC w/ Auto Diffon 3 Erythrocyte distribution width (RBC) [Ratio] 14.4 % High 10.9-14.2 [facility] Comment on above: Performed By: #### 2 838258, 6112010, 9565043, 44484352, 616384543, 30568020, 9348253 #### [facility] [address] [place] [address] Hematocrit (Bld) [Volume fraction] 39.9 % Normal 34.0-46.0 [facility] Comment on above: Performed By: #### 2 772558, 1092320, 7322181, 22814887, 820332498, 41594533, 3284268 #### [facility] [address] [place] [address] Hemoglobin (Bld) [Mass/Vol] 13.5 g/dL Normal 12.0-16.0 [facility] Comment on above: Performed By: #### 2 308588, 3215399, 3100737, 22341113, 804870110, 36398055, 6894588 #### [facility] [address] [place] [address] MCH (RBC) [Entitic mass] 31.6 pg Normal 27.0-34.0 [facility] Comment on above: Performed By: #### 2 905333, 8659055, 0413192, 02811708, 437317040, 68753007, 3456212 #### [facility] [address] [place] [address] MCHC (RBC) [Mass/Vol] 33.9 g/dL Normal 31.4-36.0 [facility] Comment on above: Performed By: #### 2 653091, 7259897, 9730841, 80952927, 300746236, 07143881, 1424395 #### [facility] [address] [place] [address] MCV (RBC) [Entitic vol] 93.1 fL Normal 80.0-100.0 [facility] Comment on above: Performed By: #### 2 475229, 5614530, 5085658, 43266191, 192519229, 85109151, 2325977 #### [facility] [address] [place] [address] Platelet mean volume (Bld) [Entitic vol] 9.3 fL Normal 6.4-10.8 [facility] Comment on above: Performed By: #### 2 085680, 2039017, 9493470, 27795154, 437829412, 61491515, 6265552 #### [facility] [address] [place] [address] Platelets (Bld) [#/Vol] 236.0 E9/L Normal 150.0-500.0 [facility] Comment on above: Performed By: #### 2 760465, 0150204, 3665436, 13983833, 239779186, 99235901, 7924901 #### [facility] [address] [place] [address] RBC (Bld) [#/Vol] 4.3 E12/L Normal 4.3-5.9 [facility] Comment on above: Performed By: #### 2 551411, 3780373, 3840357, 08683629, 062222552, 98232868, 6125104 #### [facility] [address] [place] [address] WBC corrected for nucl RBC Auto (Bld) [#/Vol] 5.1 E9/L Normal 4.0-11.0 [facility] Comment on above: Performed By: #### 2 384555, 7184333, 1209609, 16952160, 585270930, 74240643, 5939678 #### [facility] [address] [place] [address] CHEMISTRYOrdered By: SYSTEM SYSTEM on 08-30-2023 25-hydroxyvitamin D3 [Mass/Vol] 24.0 ng/mL Low 30.0 - 100.0 ng/mL FT [facility] Comment on above: Interpretive Data: Vitamin D deficiency has been defined as a level of serum 25-OH vitamin D less than 20 ng/mL (1,2) by the [place] of Medicine and an Endocrine Society practice guideline. The Endocrine Society further defined vitamin D insufficiency as a level between 21 and 29 ng/mL (2). 1. IOM ([place] of Medicine). 2010. Dietary reference intakes for [...] 0.8 mg/dL Normal 0.5 - 1.3 mg/dL [facility] Remisol GFR/1.73 sq M.predicted among non-blacks MDRD (S/P/Bld) [Vol rate/Area] 73 mL/min/1.73 m2 Normal >=59mL/min/1.73 m2 [facility] Chem S Comment on above: Interpretive Data: C hronic kidney disease could be indicated at eGFR's of less than 60 mL/min/1.73m2. Kidney failure is indicated at less than 15 mL/min/1.73m2. Globulin (S) [Mass/Vol] 3.1 g/dL Normal 1.4 - 4.0 gm/dL [facility] Remisol Glucose [Mass/Vol] 106 mg/dL Normal 55 - 199 mg/dL FT Rem[facility] Comment on above: Interpretive Data: I f this glucose result represents a fasting glucose, interpretation should refer to the following reference range: 55-99 mg/dL Potassium [Moles/Vol] 4.0 mmol/L Normal 3.5 - 5.3 mmol/L FT [facility] Protein [Mass/Vol] 6.8 g/dL Normal 6.0 - 7.8 gm/dL F [facility] Remisol Sodium [Moles/Vol] 139 mmol/L Normal 135 - 145 mmol/L FT [facility] Triglyceride [Mass/Vol] 74 mg/dL Normal <=149mg/dL [facility] TSH Qn 1.83 m[IU]/L Normal 0.34 - 5.60 mcIU/mL [facility] Urea nitrogen [Mass/Vol] 23 mg/dL High 5 - 21 mg/dL [facility] Urea nitrogen/Creatinine [Mass ratio] 29 mg/mg High - FT Remisol CMPon 08-30-2023 Albumin [Mass/Vol] 3.7 g/dL Normal 3.3-5.0 [facility] Comment on above: Performed By: #### 2 726760, 7516141, 7467799, 61787831, [id number], 84835210, 2006647 #### [facility] [address] [place] [address] Albumin/Globulin (S) [Mass conc ratio] 1.2 Normal 1.1-2.2 [facility] Comment on above: Performed By: #### 2 403326, 4883909, 5545902, 84053086, 861501293, 66737091, 7458671 #### [facility] [address] [place] [address] ALP [Catalytic activity/Vol] 86 Int._Unit/L Normal 21-98 [facility] Comment on above: Performed By: #### 2 504248, 4097770, 8580683, 48777784, 384366979, 68539409, 8135820 #### [facility] [address] [place] [address] ALT No additional P-5'-P [Catalytic activity/Vol] 17 Int._Unit/L Normal 6-46 [facility] Comment on above: Performed By: #### 2 579670, 9766532, 7057337, 15605655, 510673583, 35861340, 3041593 #### [facility] [address] [place] [address] Anion gap [Moles/Vol] 9 mmol/L Normal 6-16 [facility] Comment on above: Performed By: #### 2 451323, 3690055, 1616335, 86943433, 476017367, 08652771, 4317613 #### [facility] [address] [place] [address] AST [Catalytic activity/Vol] 22 Int._Unit/L Normal 5-43 [facility] Comment on above: Performed By: #### 2 353765, 3682160, 3889484, 46649181, 025426553, 31411668, 1589828 #### [facility] [address] [place] [address] Bilirubin [Mass/Vol] 0.5 mg/dL Normal 0.0-1.1 [facility] Comment on above: Performed By: #### 2 327671, 3250450, 4163593, 30921871, 358014541, 05473284, 6734727 #### [facility] [address] [place] [address] Calcium [Mass/Vol] 9.1 mg/dL Normal 8.9-11.1 [facility] Comment on above: Performed By: #### 2 076955, 0514756, 5598881, 64808524, 313837596, 62408648, 9249489 #### [facility] [address] [place] [address] Chloride [Moles/Vol] 110 mmol/L Normal 101-111 [facility] Comment on above: Performed By: #### 2 065001, 8904852, 8869113, 14526815, 852207480, 68815945, 8581339 #### [facility] [address] [place] [address] CO2 [Moles/Vol] 24 mmol/L Normal 21-31 [facility] Comment on above: Performed By: #### 2 917211, 1238073, 6973412, 71794976, 100347112, 05517662, 9287164 #### [facility] [address] [place] [address] Creatinine [Mass/Vol] 0.8 mg/dL Normal 0.5-1.3 [facility] Comment on above: Performed By: #### 2 083677, 2142609, 1767398, 81323367, 055152860, 57973892, 6958685 #### [facility] [address] [place] [address] Globulin (S) [Mass/Vol] 3.1 g/dL Normal 1.4-4.0 [facility] Comment on above: Performed By: #### 2 549017, 8969251, 2012766, 02336990, 881328200, 79242142, 0139267 #### [facility] [address] [place] [address] Glucose [Mass/Vol] 106 mg/dL Normal 55-199 [facility] Comment on above: Result Comment: If t his glucose result represents a fasting glucose, interpretation should refer to the following reference range: 55-99 mg/dL Performed By: #### 2 477841, 9223152, 1650723, 68527184, 270040433, 97731369, 9759129 #### [facility] [address] [place] [address] Potassium [Moles/Vol] 4.0 mmol/L Normal 3.5-5.3 [facility] Comment on above: Performed By: #### 2 486821, 2125410, 8317758, 62508932, 070990203, 56560089, 6977089 #### [facility] [address] [place] [address] Protein [Mass/Vol] 6.8 g/dL Normal 6.0-7.8 [facility] Comment on above: Performed By: #### 2 159747, 5680045, 4805797, 32907770, 410469602, 18294103, 5491190 #### [facility] [address] [place] [address] Sodium [Moles/Vol] 139 mmol/L Normal 135-145 [facility] Comment on above: Performed By: #### 2 129558, 7883223, 8702808, 82223003, 581774701, 88012989, 8591859 #### [facility] [address] [place] [address] Urea nitrogen [Mass/Vol] 23 mg/dL High 5-21 [facility] Comment on above: Performed By: #### 2 622265, 1751422, 2612839, 13524644, 856082771, 59022452, 6883925 #### [facility] [address] [place] [address] Urea nitrogen/Creatinine [Mass ratio] 29 No Units High 10-20 [facility] Comment on above: Performed By: #### 2 919731, 3533959, 0059590, 89822752, 616380857, 18561442, 7079905 #### [facility] [address] [place] [address] Family Medicine Office/Clini c Noteon 08-30-2023 Family [...] Risk Screen 2 or more w/injury 1100F [facility] Internal Ambulatory Referral Influenza immunization status assessed [...] Risk Screen 2 or more w/injury 1100F [facility] Internal Ambulatory Referral Influenza immunization status assessed [...] Risk Screen 2 or more w/injury 1100F [facility] Internal Ambulatory Referral Influenza immunization status assessed 1030F Lipid Panel Most recent diastolic blood pressure <80 mm Hg 3078F Systolic BP <130 mm Hg (Most Recent) 3074F TSH With T4fr Reflex Vitamin D 25 Hydroxy 4. Hypercholesterolemia (E78.00: Pure hypercholesterolemia, unspecified) - Recheck labs today Ordered: CBC w/ Auto Diff Comprehensive Metabolic Panel [facility] Internal Ambulatory Referral Lipid Panel TSH With T4fr Reflex Vitamin D 25 Hydroxy 5. Vitamin D deficiency (E55.9: Vitamin D deficiency, unspecified) - Recheck levels Ordered: CBC w/ Auto Diff Comprehensive Metabolic Panel [facility] Internal Ambulatory Referral Lipid Panel TSH With [...] routine h (more content not included)... Normal [facility] Comment on above: Result Comment: Elec [...] 5.1 E9/L Normal 4.0 - 11.0 E9/L [facility] HemeAutoSS Lipid Panelon 08-30-2023 Cholesterol [Mass/Vol] 244 mg/dL High 120-200 [facility] Comment on above: Performed By: #### 2 423649, 2728721, 8444659, 63099456, 528739005, 44815721, 7784465 #### [facility] [address] [place] [address] Cholesterol in HDL [Mass/Vol] 65 mg/dL Invalid Interpretation Code [facility] Comment on above: Result Comment: HDL > or equal to 60 mg/dL: Low cardiovascular risk HDL < 40 mg/dL : High cardiovascular risk Performed By: #### 2 570960, 7386748, 6144675, 25243963, 039111567, 52279395, 5029295 #### [facility] [address] [place] [address] Cholesterol in LDL [Mass/Vol] 160 mg/dL High <=129 [facility] Comment on above: Performed By: #### 2 295131, 3585694, 7484917, 62272466, 871418421, 30418835, 4895951 #### [facility] [address] [place] [address] Cholesterol in VLDL [Mass/Vol] 15 mg/dL Normal 7-40 [facility] Comment on above: Performed By: #### 2 716466, 3331079, 8122651, 54024532, 865694327, 55372244, 1480246 #### [facility] [address] [place] [address] Triglyceride [Mass/Vol] 74 mg/dL Normal <=149 [facility] Comment on above: Performed By: #### 2 048102, 1107854, 7867883, 99307432, 163105681, 24372752, 9875688 #### [facility] [address] [place] [address] TSH With T4fr Reflexon 08-30 TSH Qn 1.83 m[IU]/L Normal 0.34-5.60 [facility] Comment on above: Performed By: #### 2 379897, 0664774, 2594741, 06365476, 481819271, 09550025, 2372957 #### [facility] [address] [place] [address] Vitamin D 25 Hydroxyon 08-30 25-hydroxyvitamin D3 [Mass/Vol] 24.0 ng/mL Low 30.0-100.0 [facility] Comment on above: Result Comment: Vit hernandez D deficiency has been defined as a level of serum 25-OH vitamin D less than 20 ng/mL (1,2) by the [place] [employer] and an Endocrine Society practice guideline. The Endocrine Society further defined vitamin D insufficiency as a level between 21 and 29 ng/mL (2). 1. IOM ([place] of [employer]). 2010. Dietary reference intakes for calcium and D. [place]: The National Academies Press. 2. Josh MF, Luis E EDWARDS, Mark RENDON, et al. Evaluation, treatment, and prevention of vitamin D deficiency: an Endocrine Society clinical practice guideline. JCEM. 2010; 96 (7):1911-30. Performed By: #### 2 452220, 1919026, 9984979, 55118584, 884106753, 19555572, 9677790 #### [facility] [address] [place] [address] eGFRon 08-30-2023 GFR/1.73 sq M.predicted among non-blacks MDRD (S/P/Bld) [Vol rate/Area] 73 mL/min/1.73 m2 Normal >=59 [facility] Comment on above: Order Comment: Order added by Discern Expert. Result Comment: Nuclear Security Officer julia kidney disease could be indicated at eGFR's of less than 60 mL/min/1.73m2. Kidney failure is indicated at less than 15 mL/min/1.73m2. Performed By: #### 2 536820, 9770386, 4287677, 83819975, 064596164, 88729772, 3979058 #### [facility] [address] [place] [address] [employer] [facility] [id number] 0TIFF [facility] Family Medicine Office/Clini c Noteon 05-03-2023 Family Medicine Office/Clinic Note Chief Complaint follow up back pain HPI Staff Jovon is a 82 year old female patient presenting to the office for a 1 month follow up for back pain for closed fx of the lumbar vetebra. Possible send to pain management if still needs the [place] Date of onset? previous injury, fracture Trauma: [...] pain. She has an appointment with her examining chair assembler, Dr. Garcia, at [facility] in 05/2023. She had a Medicare wellness [...] is seeing her doctor, Dr. Garcia of [place] and we will have the patient follow up as needed. No signs of acute congestive heart failure today. 3. Angina pectoris (I20.9: Angina pectoris, unspecified) This is no longer an issue. Patient will continue to monitor and will see her examining chair assembler as needed. 4. Multiple sclerosis (G35: Multiple [...] with voice recognition artificial intelligence software, specifically Motista, Everywun and or G.ho.st. Substitutions may have occurred due to the inherent limitations of voice recognition and artificial intelligence software. Documentation services were performed after the patient or guardian consented to allow [facility] to record this visit. NANCY patient financial specialist and provider reviewed before signing. NANCY: [...] 1 tab( (more content not included)... Normal [facility] Comment on above: Result Comment: Elec tronically Signed By: Mayra Ruiz MD\.br\Date and Time Signed: 05/03/23 08:30 EDT\.br\Electronically Co-Signed By: Haleigh Kiser\.br\Date and Time Co-Signed: 04/28/23 15:29 EDT [facility] [id number]#1.0 0CD:127 [facility] [id number]#1.0 0CD:127 [facility] [id number]#1.0 0CD:127 [facility] Covid-19 PCR (CVDTB)on SARS-CoV-2 (COVID-19) RNA NEELIMA+probe Ql (Unsp spec) Not detected Normal NOT DETECTED [facility] Comment on above: Result Comment: This test is not yet approved or cleared by the [place] FDA. When there are no FDA-approved or cleared tests available, and other criteria are met, FDA can make tests available under an emergency access mechanism called an Emergency Use Authorization (EUA). The EUA for this test is supported by the Senior Product Engineer of Health and Human Service's (HHS's) declaration [...] By: #### C GRISTB #### [facility] [address] [address] [address] Avtar Gonsalves SYMPTOMATIC COVID-19 ANTIGEN on 02-11-2023 EUA Statement SEE BELOW Normal [facility] Comment on above: Result Comment: This [...] Performed By: #### C VDAGS ####[facility] [id number] [id number] Gonsalves SARS-CoV-2 (COVID-19) RNA NEELIMA+probe Ql (Unsp spec) Negative Normal NEGATIVE [facility] Comment on above: Performed By: #### C VDAGS ####[facility] [id number] [id number]. Avtar Gonsalves CULTURE URINEon 02-10-2023 CULTURE URINE Culture Observations : MODERATE GROWTH OF MIXED GENITAL СВЕТЛАНА. NO POTENTIAL PATHOGENS SEEN. Normal [facility] Comment on above: Performed By: #### U RCX #### [facility] [address] [place] [address] Dr. Avtar Gonsalves UA RANDOM W/MICROSCOPICon BACTERIA TRACE Abnormal NONE SEEN [facility] Comment on above: Performed By: #### U AMIC #### [facility] [address] [place] [address] Dr. Avtar Gonsalves Bilirubin Ql (U) Negative Normal NEGATIVE [facility] Comment on above: Performed By: #### U AMIC #### [facility] [address] [place] [address] Dr. Avtar Gonsalves CAST NONE SEEN Normal NONE SEEN [facility] Comment on above: Performed By: #### U AMIC #### [facility] [address] [place] [address] Dr. Avtar Gonsalves Clarity (U) CLEAR Normal CLEAR [facility] Comment on above: Performed By: #### U AMIC #### [facility] [address] [place] [address] Dr. Avtar Gonsalves Color (U) LT. YELLOW Normal YELLOW [facility] Comment on above: Performed By: #### U AMIC #### [facility] [address] [place] [address] Dr. Avtar Gonsalves Crystals LM Nom (Urine sed) NONE SEEN Normal NONE SEEN [facility] Comment on above: Performed By: #### U AMIC #### [facility] [address] [place] [address] Dr. Avtar Gonsalves Epithelial cells LM Ql (Urine sed) NONE SEEN Normal NONE SEEN /RARE [facility] Comment on above: Performed By: #### U AMIC #### [facility] [address] [place] [address] Dr. Avtar Gonsalves Glucose Ql (U) Negative Normal NEGATIVE [facility] Comment on above: Performed By: #### U AMIC #### [facility] [address] [place] [address] Dr. Avtar Gonsalves Hemoglobin Ql (U) TRACE-INTACT Abnormal NEGATIVE [facility] Comment on above: Performed By: #### U AMIC #### [facility] [address] [place] [address] Dr. Avtar Gonsalves Ketones Ql (U) Negative Normal NEGATIVE [facility] Comment on above: Performed By: #### U AMIC #### [facility] [address] [place] [address] Dr. Avtar Gonsalves LEUKOCYTES Negative Normal NEGATIVE [facility] Comment on above: Performed By: #### U AMIC #### [facility] [address] [place] [address] Dr. Avtar Gonsalves MUCOUS NONE SEEN Normal NONE SEEN [facility] Comment on above: Performed By: #### U AMIC #### [facility] [address] [place] [address] Dr. Avtar Gonsalves Nitrite Ql (U) Negative Normal NEGATIVE [facility] Comment on above: Performed By: #### U AMIC #### [facility] [address] [place] [address] Dr. Avtar Gonsalves pH (U) 6.5 [pH] Normal 5-[address] [facility] Comment on above: Performed By: #### U AMIC #### [facility] [address] [place] [address] Dr. Avtar Gonsalves RBC 2-5 Abnormal 0-2 [facility] Comment on above: Performed By: #### U AMIC #### [facility] [address] [place] [address] Dr. Avtar Gonsalves SPEC GRAVITY 1.010 Normal 1.005-<=1.[address] [facility] Comment on above: Performed By: #### U AMIC #### [facility] [address] [place] [address] Dr. Avtar Gonsalves UA PROTEIN Negative Normal NEGATIVE/ TRACE [facility] Comment on above: Performed By: #### U AMIC #### [facility] [address] [place] [address] Dr. Avtar Gonsalves Urobilinogen Qn (U) 4 {Vikas'U}/dL Abnormal 0.2 - 1.[address] [facility] Comment on above: Performed By: #### U AMIC #### [facility] [address] [place] [address] Dr. Avtar Gonsalves WBC 0-2 Abnormal NONE SEEN [facility] Comment on above: Performed By: #### U AMIC #### [facility] [address] [place] [address] Dr. Avtar Gonsalves US BRI DOP LEG [...] Date: 2023-02-09 12:17 [address] [facility] CBC AUTO DIFFon 02-08-2023 BASO # 0.0 103/ul Normal 0.0-0.[address] [facility] Comment on above: Performed By: #### C BC #### [facility] [address] [place] [address] Dr. Avtar Gonsalves Basophils/100 WBC (Bld) 0.3 % Normal 0.2-2.[address] [facility] Comment on above: Performed By: #### C BC #### [facility] [address] [place] [address] Dr. Avtar Gonsalves EO # 0.1 103/ul Normal 0.0-0.[address] [facility] Comment on above: Performed By: #### C BC #### [facility] [address] [place] [address] Dr. Avtar Gonsalves Eosinophils/100 WBC (Bld) 1.9 % Normal 0.9-7.[address] [facility] Comment on above: Performed By: #### C BC #### [facility] [address] [place] [address] Dr. Avtar Gonsalves Erythrocyte distribution width (RBC) [Ratio] 13.7 % Normal 11.0-15.0 [facility] Comment on above: Performed By: #### C BC #### [facility] [address] [place] [address] Dr. Avtar Gonsalves Hematocrit (Bld) [Volume fraction] 42.0 % Normal 36.0-48.0 [facility] Comment on above: Performed By: #### C BC #### [facility] [address] [place] [address] Dr. Avtar Gonsalves Hemoglobin (Bld) [Mass/Vol] 14.1 g/dL Normal 12.0-16.0 [facility] Comment on above: Performed By: #### C BC #### [facility] [address] [place] [address] Dr. Avtar Gonsalves IG # 0.03 10e3/ul Normal 0.00-0.03 [facility] Comment on above: Performed By: #### C BC #### [facility] [address] [place] [address] Dr. Avtar Gonsalves IG % 0.5 % Normal 0.0-0.5 [facility] Comment on above: Performed By: #### C BC #### [facility] [address] [place] [address] Dr. Avtar Gonsalves LYMPH # 1.1 103/ul Critically low 1.2-3.8 [facility] Comment on above: Performed By: #### C BC #### [facility] [address] [place] [address] Dr. Avtar Gonsalves Lymphocytes/100 WBC (Bld) 18.4 % Critically low 20.5-60.0 [facility] Comment on above: Performed By: #### C BC #### [facility] [address] [place] [address] Dr. Avtar Gonsalves MANUAL DIFF REQ NO Normal [facility] Comment on above: Performed By: #### C BC #### [facility] [address] [place] [address] Dr. Avtar Gonsalves MCH (RBC) [Entitic mass] 30.9 pg Normal 26.7-34.0 [facility] Comment on above: Performed By: #### C BC #### [facility] [address] [place] [address] Dr. Avtar Gonsalves MCHC (RBC) [Mass/Vol] 33.6 g/dL Normal 29.9-35.[address] [facility] Comment on above: Performed By: #### C BC #### [facility] [address] [place] [address] Dr. Avtar Gonsalves MCV (RBC) [Entitic vol] 91.9 fL Normal 81.0-99.0 [facility] Comment on above: Performed By: #### C BC #### [facility] [address] [place] [address] Dr. Avtar Gonsalves MONO # 0.6 103/ul Normal 0.3-0.8 [facility] Comment on above: Performed By: #### C BC #### [facility] [address] [place] [address] Dr. Avtar Gonsalves Monocytes/100 WBC (Bld) 11.0 % Normal 1.7-12.0 [facility] Comment on above: Performed By: #### C BC #### [facility] [address] [place] [address] Dr. Avtar Gonsalves NEUT # 4.0 103/ul Normal 1.4-6.5 [facility] Comment on above: Performed By: #### C BC #### [facility] [address] [place] [address] Dr. Avtar Gonsalves Neutrophils/100 WBC (Bld) 67.9 % Normal 43.0-75.[address] [facility] Comment on above: Performed By: #### C BC #### [facility] [address] [place] [address] Dr. Avtar Gonsalves Platelet mean volume (Bld) [Entitic vol] 11.3 fL Normal 9.5-13.[address] [facility] Comment on above: Performed By: #### C BC #### [facility] [address] [place] [address] Dr. Avtar Gonsalves PLT 303 103/ul Normal 150-[address] [facility] Comment on above: Performed By: #### C BC #### [facility] [address] [address] [address] Avtar Gonsalves RBC 4.57 106/ul Normal 4.20-5.40 [facility] Comment on above: Performed By: #### C BC #### [facility] [address] [place] [address] Dr. Avtar Gonsalves WBC 5.8 103/ul Normal 4.0-11.0 [facility] Comment on above: Performed By: #### C BC #### [facility] [address] [place] [address] Dr. Avtar Gonsalves CPKon 02-08-2023 CK [Catalytic activity/Vol] 26 U/L Normal 26-192 [facility] Comment on above: Performed By: #### C MP, CK #### [facility] [address] [place] [address] LSPINE WO CONon [...] Date: 2023-02-08 12:08 Normal [address] [facility] PROF 14(COMP METB)on 023 Albumin [Mass/Vol] 3.4 g/dL Normal 3.4-5.0 [facility] Comment on above: Performed By: #### C MP, CK #### [facility] [address] [address] [address] Avtar Gonsalves Albumin/Globulin [Mass ratio] 0.9 {ratio} Normal [facility] Comment on above: Performed By: #### C MP, CK #### [facility] [address] [address] [address] Avtar Gonsalves ALP [Catalytic activity/Vol] 130 U/L Critically high 46-[address] [facility] Comment on above: Performed By: #### C MP, CK #### [facility] [address] [place] [address] Dr. Avtar Gonsalves ALT [Catalytic activity/Vol] 18 U/L Normal 14-[address] [facility] Comment on above: Performed By: #### C MP, CK #### [facility] [address] [place] [address] Dr. Avtar Gonsalves Anion gap [Moles/Vol] 15.6 mmol/L Normal [facility] Comment on above: Performed By: #### C MP, CK #### [facility] [address] [place] [address] Dr. Avtar Gonsalves AST [Catalytic activity/Vol] 15 U/L Normal 15-[address] [facility] Comment on above: Performed By: #### C MP, CK #### [facility] [address] [place] [address] Dr. Avtar Gonsalves Bilirubin [Mass/Vol] 0.7 mg/dL Normal 0.2-1.[address] [facility] Comment on above: Performed By: #### C MP, CK #### [facility] [address] [place] [address] Dr. Avtar Gonsalves Calcium [Mass/Vol] 9.1 mg/dL Normal 8.5-10.[address] [facility] Comment on above: Performed By: #### C MP, CK #### [facility] [address] [place] [address] Dr. Avtar Gonsalves Chloride [Moles/Vol] 103 mmol/L Normal 98-[address] [facility] Comment on above: Performed By: #### C MP, CK #### [facility] [address] [place] [address] Dr. Avtar Gonsalves CO2 [Moles/Vol] 23.4 mmol/L Normal 21.0-32.[address] [facility] Comment on above: Performed By: #### C MP, CK #### [facility] [address] [place] [address] Dr. Avtar Gonsalves Creatinine [Mass/Vol] 0.74 mg/dL Normal 0.55-1.[address] [facility] Comment on above: Performed By: #### C MP, CK #### [facility] [address] [place] [address] Dr. Avtar Gonsalves EGFR-AF WALLISIAN >60 Normal >=[address] [facility] Comment on above: Performed By: #### C MP, CK #### [facility] [address] [place] [address] Dr. Avtar Gonsalves EGFR-NON AF WALLISIAN >60 Normal >=[address] [facility] Comment on above: Performed By: #### C MP, CK #### [facility] [address] [place] [address] Dr. Avtar Gonsalves Globulin (S) [Mass/Vol] 3.7 g/dL Normal [facility] Comment on above: Performed By: #### C MP, CK #### [facility] [address] [place] [address] Dr. Avtar Gonsalves Glucose [Mass/Vol] 88 mg/dL Normal 74-[address] [facility] Comment on above: Performed By: #### C MP, CK #### [facility] [address] [place] [address] Dr. Avtar Gonsalves Potassium [Moles/Vol] 4.0 mmol/L Normal 3.5-5.[address] [facility] Comment on above: Performed By: #### C MP, CK #### [facility] [address] [place] [address] Dr. Avtar Gonsalves Protein [Mass/Vol] 7.1 g/dL Normal 6.4-8.[address] [facility] Comment on above: Performed By: #### C MP, CK #### [facility] [address] [place] [address] Dr. Avtar Gonsalves Sodium [Moles/Vol] 138 mmol/L Normal 136-145 [facility] Comment on above: Performed By: #### C MP, CK #### [facility] [address] [address] [address] Avtar Gonsalves Urea nitrogen [Mass/Vol] 16.0 mg/dL Normal 7.0-18.0 [facility] Comment on above: Performed By: #### C MP, CK #### [facility] [address] [address] [address] Avtar Gonsalves Urea nitrogen/Creatinine [Mass ratio] 21.6 mg/mg Normal [facility] Comment on above: Performed By: #### C MP, CK #### [facility] [address] [address] [address] Avtar Gonsalves XR ABD FLAT UP_PA [...] Date: 2023-02-08 14:48 Normal [address] [facility] XR CHEST 2 Von 04-29-2022 XR [...] Date: 2022-04-29 09:[address] [facility] CBC AUTO DIFFon 04-28-2022 BASO # 0.0 103/ul Normal 0.0-0.[address] [facility] Comment on above: Performed By: #### C BC ####[facility] [address] [address]Dr. Avtar Gonsalves Basophils/100 WBC (Bld) 0.8 % Normal 0.2-2.[address] [facility] Comment on above: Performed By: #### C BC ####[facility] [address] [place], [place] [address]Dr. Avtar Gonsalves EO # 0.2 103/ul Normal 0.0-0.[address] [facility] Comment on above: Performed By: #### C BC ####[facility] [address] [place], [place] [address]Dr. Avtar Gonsalves Eosinophils/100 WBC (Bld) 3.3 % Normal 0.9-7.[address] [facility] Comment on above: Performed By: #### C BC ####[facility] [address] [place], [place] [address]Dr. Avtar Gonsalves Erythrocyte distribution width (RBC) [Ratio] 13.6 % Normal 11.0-15.[address] [facility] Comment on above: Performed By: #### C BC ####[facility] [address] [place], [place] [address]Dr. Avatr Gonsalves Hematocrit (Bld) [Volume fraction] 41.4 % Normal 36.0-48.[address] [facility] Comment on above: Performed By: #### C BC ####[facility] [address] [place], [place] [address]Dr. Avtar Gonsalves Hemoglobin (Bld) [Mass/Vol] 13.5 g/dL Normal 12.0-16.[address] [facility] Comment on above: Performed By: #### C BC ####[facility] [address] [place], [place] [address]Dr. Avtar Gonsalves IG # 0.02 10e3/ul Normal 0.00-0.[address] [facility] Comment on above: Performed By: #### C BC ####[facility] [address] [address]Dr. Avtar Gonsalves IG % 0.4 % Normal 0.0-0.5 [facility] Comment on above: Performed By: #### C BC ####[facility] [address] [address]DrSharron Gonsalves LYMPH # 1.4 103/ul Normal 1.2-3.[address] [facility] Comment on above: Performed By: #### C BC ####[facility] [address] [place], [place] [address]DrSharron Gonsalves Lymphocytes/100 WBC (Bld) 26.6 % Normal 20.5-60.0 [facility] Comment on above: Performed By: #### C BC ####[facility] [address] [place], [place] [address]DrSharron Gonsalves MANUAL DIFF REQ NO Normal [facility] Comment on above: Performed By: #### C BC ####[facility] [address] [place], [place] [address]DrSharron Gonsalves MCH (RBC) [Entitic mass] 31.0 pg Normal 26.7-34.0 [facility] Comment on above: Performed By: #### C BC ####[facility] [address] [place], [place] [address]DrSharron Gonsalves MCHC (RBC) [Mass/Vol] 32.6 g/dL Normal 29.9-35.[address] [facility] Comment on above: Performed By: #### C BC ####[facility] [address] [place], [place] [address]DrSharron Gonsalves MCV (RBC) [Entitic vol] 95.0 fL Normal 81.0-99.[address] [facility] Comment on above: Performed By: #### C BC ####[facility] [address] [place], [place] [address]DrSharron Gonsalves MONO # 0.5 103/ul Normal 0.3-0.[address] [facility] Comment on above: Performed By: #### C BC ####[facility] [address] [id number]. Avtar Gonsalves Monocytes/100 WBC (Bld) 9.8 % Normal 1.7-12.[address] [facility] Comment on above: Performed By: #### C BC ####[facility] [address] [place], [place] [address]Dr. Avtar Gonsalves NEUT # 3.1 103/ul Normal 1.4-6.[address] [facility] Comment on above: Performed By: #### C BC ####[facility] [address] [id number]. Avtar Gonsalves Neutrophils/100 WBC (Bld) 59.1 % Normal 43.0-75.[address] [facility] Comment on above: Performed By: #### C BC ####[facility] [address] [place], [place] [address]Dr. Avtar Gonsalves Platelet mean volume (Bld) [Entitic vol] 10.1 fL Normal 9.5-13.[address] [facility] Comment on above: Performed By: #### C BC ####[facility] [address] [place], [place] [address]Dr. Avtar Gonsalves PLT 224 103/ul Normal 150-[address] [facility] Comment on above: Performed By: #### C BC ####[facility] [address] [place], [place] [address]Dr. Avtar Gonsalves RBC 4.36 106/ul Normal 4.20-5.[address] [facility] Comment on above: Performed By: #### C BC ####[facility] [address] [place], [place] [address]Dr. Avtar Gonsalves WBC 5.2 103/ul Normal 4.0-11.[address] [facility] Comment on above: Performed By: #### C BC ####[facility] [address] [place], [place] [address]DrSharron Avtar Gonsalves LIPID PROFILEon 04-28-2022 CHOL-HDL RATIO NORM SEE BELOW Normal [facility] Comment on above: Result Comment: 3.3 - 4.4 LOW RISK 4.4 - 7.1 AVERAGE RISK 7.1 - 11.0 MODERATE RISK >11.0 HIGH RISK Performed By: #### C MP, LIPID, TSH, MG ####[facility] [address] [id number]. Duniajosemanuel Gonsalves Cholesterol [Mass/Vol] 237 mg/dL Critically high <=[address] [facility] Comment on above: Performed By: #### C MP, LIPID, TSH, MG ####[facility] [address] [address]Dr. Dunialan Gonsalves Cholesterol in HDL [Mass/Vol] 65 mg/dL Critically high 40-60 [facility] Comment on above: Performed By: #### C MP, LIPID, TSH, MG ####[facility] [address] [address]Dr. Dunialan Gonsalves Cholesterol in LDL [Mass/Vol] 157.6 mg/dL Normal [facility] Comment on above: Performed By: #### C MP, LIPID, TSH, MG ####[facility] [address] [address]Dr. Avtar Gonsalves Cholesterol.total/C holesterol in HDL [Mass ratio] 3.6 {ratio} Normal [facility] Comment on above: Performed By: #### C MP, LIPID, TSH, MG ####[facility] [address] [address]Dr. Avtar Gonsalves HDL NORMAL > or = 60 mg/dl - LO W CARDIOVASCULAR RISK <40 mg/dl - HIGH CARDIOVASCULAR RISK Normal [facility] Comment on above: Performed By: #### C MP, LIPID, TSH, MG ####[facility] [address] [address]Dr. Avtar Gonsalves LDL CALC NORMAL SEE BELOW Normal [facility] Comment on above: Result Comment: <100 mg/dl OPTIMAL 100 - 129 mg/dl NEAR OR ABOVE OPTIMAL 130 - 159 mg/dl BORDERLINE HIGH 160 - 189 mg/dl HIGH >190 mg/dl VERY HIGH Performed By: #### C MP, LIPID, TSH, MG ####[facility] [address] [address]Dr. Avtar Gonsalves Triglyceride [Mass/Vol] 72 mg/dL Normal <=[address] [facility] Comment on above: Performed By: #### C MP, LIPID, TSH, MG ####[facility] [address] [address]Dr. Avtar Gonsalves VLDL CALC 14.4 mg/dL Normal [facility] Comment on above: Performed By: #### C MP, LIPID, TSH, MG ####[facility] [address] [address]Dr. Avtar Gonsalves MAGNESIUMon 04-28-2022 Magnesium [Mass/Vol] 2.3 mg/dL Normal 1.8-2.4 [facility] Comment on above: Performed By: #### C MP, LIPID, TSH, MG ####[facility] [address] [address]Dr. Avtar Gonsalves PROF 14(COMP METB)on 022 Albumin [Mass/Vol] 3.6 g/dL Normal 3.4-5.0 [facility] Comment on above: Performed By: #### C MP, LIPID, TSH, MG ####[facility] [address] [address]Dr. Avtar Gonsalves Albumin/Globulin [Mass ratio] 1.1 {ratio} Normal [facility] Comment on above: Performed By: #### C MP, LIPID, TSH, MG ####[facility] [address] [address]Dr. Avtar Gonsalves ALP [Catalytic activity/Vol] 107 U/L Normal 46-[address] [facility] Comment on above: Performed By: #### C MP, LIPID, TSH, MG ####[facility] [address] [address]Dr. Avtar Gonsalves ALT [Catalytic activity/Vol] 24 U/L Normal 14-[address] [facility] Comment on above: Performed By: #### C MP, LIPID, TSH, MG ####[facility] [address] [address]Dr. Avtar Gonsalves Anion gap [Moles/Vol] 10.8 mmol/L Normal [facility] Comment on above: Performed By: #### C MP, LIPID, TSH, MG ####[facility] [address] [address]Dr. Avtar Gonsalves AST [Catalytic activity/Vol] 14 U/L Critically low 15-[address] [facility] Comment on above: Performed By: #### C MP, LIPID, TSH, MG ####[facility] [address] [address]Dr. Avtar Gonsalves Bilirubin [Mass/Vol] 0.7 mg/dL Normal 0.2-1.[address] [facility] Comment on above: Performed By: #### C MP, LIPID, TSH, MG ####[facility] [address] [address]Dr. Avtar Gonsalves Calcium [Mass/Vol] 9.0 mg/dL Normal 8.5-10.[address] [facility] Comment on above: Performed By: #### C MP, LIPID, TSH, MG ####[facility] [address] [address]Dr. Avtar Gonsalves Chloride [Moles/Vol] 104 mmol/L Normal 98-[address] [facility] Comment on above: Performed By: #### C MP, LIPID, TSH, MG ####[facility] [address] [address]Dr. Avtar Gonsalves CO2 [Moles/Vol] 28.1 mmol/L Normal 21.0-32.[address] [facility] Comment on above: Performed By: #### C MP, LIPID, TSH, MG ####[facility] [address] [address]Dr. Avtar Gonsalves Creatinine [Mass/Vol] 0.82 mg/dL Normal 0.55-1.[address] [facility] Comment on above: Performed By: #### C MP, LIPID, TSH, MG ####[facility] [address] [address]Dr. Avtar Gonsalves EGFR-AF WALLISIAN >60 Normal >=[address] [facility] Comment on above: Performed By: #### C MP, LIPID, TSH, MG ####[facility] [address] [address]Dr. Avtar Gonsalves EGFR-NON AF WALLISIAN >60 Normal >=[address] [facility] Comment on above: Performed By: #### C MP, LIPID, TSH, MG ####[facility] [address] [address]Dr. Avtar Gonsalves Globulin (S) [Mass/Vol] 3.3 g/dL Normal [facility] Comment on above: Performed By: #### C MP, LIPID, TSH, MG ####[facility] [address] [address]Dr. Avtar Gonsalves Glucose [Mass/Vol] 91 mg/dL Normal 74-[address] [facility] Comment on above: Performed By: #### C MP, LIPID, TSH, MG ####[facility] [address] [address]Dr. Avtar Gonsalves Potassium [Moles/Vol] 3.9 mmol/L Normal 3.5-5.[address] [facility] Comment on above: Performed By: #### C MP, LIPID, TSH, MG ####[facility] [address] [address]Dr. Avtar Gonsalves Protein [Mass/Vol] 6.9 g/dL Normal 6.4-8.[address] [facility] Comment on above: Performed By: #### C MP, LIPID, TSH, MG ####[facility] [address] [address]Dr. Avtar Gonsalves Sodium [Moles/Vol] 139 mmol/L Normal 136-[address] [facility] Comment on above: Performed By: #### C MP, LIPID, TSH, MG ####[facility] [address] [address]Dr. Avtar Gonsalves Urea nitrogen [Mass/Vol] 18.0 mg/dL Normal 7.0-18.[address] [facility] Comment on above: Performed By: #### C MP, LIPID, TSH, MG ####[facility] [address] [place], [place] [address]Qx. Avtar Gonsalves Urea nitrogen/Creatinine [Mass ratio] 22.0 mg/mg Normal [facility] Comment on above: Performed By: #### C MP, LIPID, TSH, MG ####[facility] [address] [place], [place] [address]Dr. Avtar Gonsalves TSHon 04-28-2022 TSH 1.424 uIU/mL Normal 0.358-3.740 [facility] Comment on above: Performed By: #### C MP, LIPID, TSH, MG #### [facility] [address] [place], [place] [address] Dr. Avtar Gonsalves VITAMIN D 25 OHon 04-28-2022 VIT D 25-OH 27.3 ng/mL Normal [facility] Comment on above: Performed By: #### V ITAD ####[facility] [address] [id number]. Avtar Gonsalves VIT D RANGES SEE BELOW Normal [facility] Comment on above: Result Comment: <20 ng/mL Vit D deficient 20 - <30 ng/mL Vit D insufficient 30 - 100 ng/mL Vit D sufficient >100 ng/mL Potential Toxicity Performed By: #### V ITAD ####[facility] [address] [id number] Gonsalves Free T3on 12-08-2021 FT3 2.95 pg/mL Normal 2.00-4.40 [facility] [employer] Ver[employer] Packer Comment on above: Performed By: #### F T3, FT4, TSH #### [facility] [address] [place], [place] [id number] Free T4on 12-08-2021 Free T4 [Mass/Vol] 0.70 ng/dL Low 0.80-1.80 [facility] [employer] Packer Comment on above: Performed By: #### F T3, FT4, TSH #### [facility] [address] [place], [place] [id number] Q - T3 TOTALon 12-08-2021 T3, TOTAL 119 ng/dL Normal 76-181 [facility] [employer] Packer Comment on above: Order Comment: [facility] performed at: QPT, [facility], [address], [address] [facility], [place], [address], Video Arcade Manager: Jeremy Jensen MD [facility] Date/Time: [facility] Results Received Date/Time: [facility] Reported Date/Time: Performed By: #### 9 [id number], [id number] #### [facility] Default [address] [place] [address] Q - T3,REVERSE,LC/MS/MSon T3 REVERSE, LC/MS/MS 13 ng/dL Normal 8-25 [facility] Specialist Comment on above: Order Comment: [facility] performed at: [facility], [facility], [address], [place], [place], , Video Arcade Manager: Donnie Hooker M.D.,PhD [facility] Date/Time: [facility] Results Received Date/Time: [facility] Reported Date/Time: Result Comment: This test was developed and its analytical performance characteristics have been determined by [facility] [place], [place]. It has not been cleared or approved by the U.S. Food and Drug Administration. This assay has been validated pursuant to the CLIA regulations and is used for clinical purposes. 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, moderate stage (CMS/HCC) Start: 08-28-2024 End: 08-28-2024 ambulatory [facility] Start: 08-28-2024 End: 08-28-2024 Subsequent hospital visit by physician Mayra Ruiz MD Work Phone: [facility] Comment on above: Screening cholestero l level; Bilateral leg edema; Chest pain, unspecified type; Hyperlipidemia, unspecified hyperlipidemia type; Vitamin D deficiency disease Start: 08-15-2024 End: 08-15-2024 ambulatory Mayra Ruiz Facility:[facility] Start: 07-17-2024 End: 07-17-2024 Refill Camden Rico DO Work Phone: [facility] Comment on above: 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, moderate stage (CMS/HCC) Start: 03-28-2024 End: 03-28-2024 ambulatory Mayra Ruiz Facility:[facility] Start: 03-03-2024 End: 03-17-2024 ambulatory Mayra Ruiz Facility:[facility] Start: 02-24-2024 End: 02-24-2024 ambulatory Mayra Ruiz Facility:[facility] Start: 02-17-2024 End: 03-20-2024 ambulatory Mayra Ruiz Facility:[id number] Start: 02-17-2024 End: 03-17-2024 Recurring Mayra Ruiz [facility] Start: 09-17-2023 End: 09-17-2023 ambulatory DARCY RICO Not Available Start: 08-30-2023 End: 08-30-2023 Lab Drop off Mayra Ruiz [facility] Start: 08-30-2023 End: 08-30-2023 ambulatory Mayra Ruiz Facility:[facility] Start: 04-28-2023 End: 04-28-2023 ambulatory Mayra Ruiz Facility:[facility] Start: 02-08-2023 End: 02-11-2023 ambulatory SHAIKH Enrique TIRADO Facility:H1 Start: 04-28-2022 End: 04-29-2022 ambulatory BO GRACIA Facility:[facility]1 Procedures Date Procedure Procedure Detail Performing [...] procedure 08/21/2025 11:30 AM EST Office Visit [facility] [address] [place] [address] Haroon Rainey DO [place] [address] [address] 1 yr f/u [facility] Comment on above: 1 yr f/u Start: 04-03-2025 ambulatory Ambulatory Facility:[facility] Start: 06-11-2024 COVID-19 Vaccine ( season) [facility] Start: 06-11-2024 Influenza vaccination Influenza Vacc ine (#1) [facility] Start: 05-11-2024 Influenza vaccination Flu vaccine (# 1) [facility] Start: 09-06-2023 Annual Wellness Visi t (Medicare) Annual Wellness Visit (Medicare) [employer] [facility] Start: 2014 Respiratory Syncytia l Virus (RSV) or age 60 yrs+ (1 - 1-dose 75+ series) Respiratory Syncytial Virus (RSV) or age 60 yrs+ (1 - 1-dose 75+ series) [employer] Start: 2004 Pneumococcal 65+ yea rs Vaccine (1 of 1 - PCV) Pneumococcal 65+ years Vaccine (1 of 1 - PCV) [employer] [facility] Start: 2004 Pneumococcal Vaccine : 65+ Years (1 of 1 - PCV) Pneumococcal Vaccine: 65+ Years (1 of 1 - PCV) [facility] Start: 1994 Screening for osteoporosis DEXA (modify frequency per FRAX score) [facility] Start: 1989 Shingles vaccine (1 of 2) Shingles vaccine (1 of 2) [facility] Start: 1958 DTaP/Tdap/Td vaccine (1 - Tdap) DTaP/Tdap/Td vaccine (1 - Tdap) [facility] Start: 1951 Depression Screen Depression Screen [facility] Start: 1939 Medicare Annual Wellness (AWV) Medicare Annual Wellness (AWV) [facility] Immunizations Immunization Date Immunization Notes Care Provider Fa cility 07-15-2022 SARS-CoV-2 (COVID-19 ) [id number] [facility] Comment on above: Result Comment: 2022: [id number] 09-24-2021 SARS-CoV-2 (COVID-19 ) mRNA BNT-162b2 Qinqin.compraveen Ruiz [facility] Comment on above: Result Comment: 2022: [id number] 11-27-2020 SARS-CoV-2 (COVID-19 ) mRNA BNT-162b2 ray Ruiz [facility] 11-04-2020 SARS-CoV-2 (COVID-19 ) mRNA BNT-162b2 ray [facility] NEGATED: Highlighted row has not occurred!08-30-2023 influenza virus vaccine, unspecified formulation [facility] Payers Date Payer Category Payer Medicare [id number] 1960 Medicare [id number] 1960 Medicare [id number] 1940 Unknown [id number] 2.16.84 [id number] 1939 Unknown [id number] 2.16.84 [id number] 1939 Unknown [id number] 2.16.840 .[id number] 1939 Unknown [id number] 2.16.8 [id number] 1939 Unknown [id number] 2.16.8 40.1.888885.3.579.2.727 1939 Unknown [id number] 2.16.8 40.1.689267.3.579.2.727 1939 Unknown [id number] 2.16.8 40.1.460893.3.579.2.727 1939 Unknown [id number] 2.16.8 40.1.843240.3.579.2.727 1939 Unknown [id number] 2.16.8 40.1.029796.3.579.2.727 1939 Unknown [id number] 2.16.8 40.1.755484.3.579.2.727 1939 Unknown [id number] 2.16.8 40.1.952215.3.579.2.727 1939 Unknown [id number] 2.16.8 40.1.278120.3.579.2.727 1939 Unknown [id number] 2.16.8 40.1.694659.3.579.2.727 1939 Unknown [id number] 2.16.8 [id number] 1939 Unknown [id number] 2.16.8 [id number] Social History Date Type Detail Facility Start: 05-17-2023 End: 08-30-2023 Tobacco smoking status Never smoked tobacco (finding) [facility] Comment on above: Patient states never been a smoker Tobacco smoking status Never [facility] Comment on above: Patient states never been a smoker Start: 05-12-2022 End: 09-17-2023 Sex Assigned At Female [facility] Start: 05-12-2022 End: 05-17-2023 Tobacco use and exposure Smokeless tobacco non-user [facility] Start: 05-12-2022 End: 09-17-2023 Alcoholic beverage intake Lifetime non-drinker (finding) [facility] Start: 05-12-2022 End: 09-17-2023 History of Social function [facility] Start: 1940 Sex assigned at Not on file [facility] History and physical note 02-24-2024 Note Date & Type Note Facility 02-24-2024 Note [id number][facility] Note Date & Type Note Facility Evaluation + Plan note Future Appointments Appointment Date:02/28/2024 01:00:00 PM Scheduled Provider:Mayra Ruiz MD Location:[facility] Appointment Type: Open Appointment Date:03/24/2024 01:00:00 PM Scheduled Provider: Location:[facility] Appointment Type: Medicare Wellness Subsequent [facility] Evaluation + Plan note Note Date & Type Note Facility Evaluation + Plan note Future Appointments Appointment Date:03/28/2024 02:30:00 PM Scheduled Provider: Location:[facility] Appointment Type: Medicare Wellness Subsequent Appointment Date:03/28/2024 03:30:00 PM Scheduled Provider:Mayra Ruiz MD Location:[facility] Appointment Type: Open [facility] Evaluation note Note Date & Type [...] vitamin D deficiency documented in this encounter [facility] Evaluation note Note Date & Type Note Facility Evaluation note Diagnosis Screening cholesterol level Screening for lipoid disorders Bilateral leg edema Edema Chest pain, unspecified type Hyperlipidemia, unspecified hyperlipidemia type Vitamin D deficiency disease Unspecified vitamin D deficiency documented in this encounter [facility] Evaluation note Note Date & Type Note Facility Evaluation note Diagnosis Primary open angle glaucoma (POAG) of both eyes, moderate stage (CMS/HCC) documented in this encounter [facility] Hospital course Narrative Note Date & Type Note Facility Hospital course Narrative No data available for this section [facility] Hospital Discharge instructions Note Date & Type Note Facility Hospital Discharge instructions No data available for this section [facility] Progress note Note Date & Type Note Facility Progress note No data available for this section [facility] Summary Purpose Family History No Family [...] Procedures EKG 12 Lead Bo Garcia MD [address] [place], [place] [id number] Referral ID Status Reason Start Date Expiration Date Visits Re quested Visits Authorized [id number] Open 08/28/2025 08/28/2026 1 1 Additional Source Comments INFORMATION SOURCE (unrecogn ized section and content) DATE CREATED AUTHOR 12/14/2021 [facility] dical Specialist DATE CREATED AUTHOR AUTHOR'S ORGANIZ ATION 02/18/2023 [facility] pital DATE CREATED AUTHOR AUTHOR'S ORGANIZ ATION 09/19/2023 [facility] dical Specialists EPIC DATE CREATED AUTHOR AUTHOR'S ORGANIZ ATION 03/05/2024 [facility] DATE CREATED AUTHOR AUTHOR'S ORGANIZ ATION 03/06/2024 [facility] DATE CREATED AUTHOR AUTHOR'S ORGANIZ ATION 03/30/2024 [facility] DATE CREATED AUTHOR AUTHOR'S ORGANIZ ATION 08/17/2024 [facility] DATE CREATED AUTHOR AUTHOR'S ORGANIZ ATION 08/30/2024 Ambika michel Patient Care team informatio n (unrecognized section and content) [employer] 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 Relationship Specialty Start Date End Date Mayra Ruiz MD PCP - General Family Medicine 05/17/23 Tomas Daniels MD [address] [place] [address] PCP - ACO Reach 12/10/23 [employer] Installer Helper Relationship Specialty Start Date End Date Mayra Ruiz MD [address] [place] [address] PCP - General 09/07/23 [employer] Installer Helper Relationship Specialty Start Date End Date Mayra Ruiz MD [address] [place] [address] PCP - General 09/07/23 [employer] Main Installer Helper Relationship Specialty Start Date End Date Mayra Ruiz MD [address] [id number] PCP - General Family Medicine 08/02/24 Tomas Daniels MD [address] [place] [id number] PCP - ACO Reach 11/24/24 Reason for [...] BE BASED ON THE PRIMARY CLINICAL RECORDS. [facility]. provides no warranty or guarantee of the accuracy or completeness of information in this document.
[2025-01-13] MEDS: ENOXAPARIN SODIUM 40 MG/0.4 ML SYRINGE SUBQ (17:37)
[2025-01-13] MEDS: METOPROLOL TARTRATE 25 MG TABLET PO (21:57)
[2025-01-13] MEDS: LATANOPROST 0.005% 2.5 ML BOTTLE 1 DROP OP (21:57)
[2025-01-13] MEDS: DORZOLAMIDE HCL 2%/TIMOLOL MALEATE 0.5% 200 DROP/10 ML BOTTLE OP (21:57)
[2025-01-14 04:00] VITALS: BP 113/66; PULSE 71; TEMP 36.6; O2SAT 90
[2025-01-14 06:49] LABS: Basophils Percent Auto 0.5 % (0.2-2.0); Eosinophils Absolute Auto 0.1 10^3/uL (0.0-0.7); Hematocrit 34.9 % (36.0-48.0); Hemoglobin 11.8 g/dL (12.0-16.0); Immature Granulocytes Abs Auto 0.02 10^3/uL (0.00-0.03); Immature Granulocytes Pct Auto 0.5 % (0.0-0.5); Lymphocytes Absolute Auto 1.3 10^3/uL (1.2-3.8); Lymphocytes Percent Auto 29.2 % (20.5-60.0); Mean Corpuscular HGB Conc 33.8 g/dL (29.9-35.2); Mean Corpuscular Hemoglobin 32.3 pg (26.7-34.0); Mean Corpuscular Volume 95.6 fL (81.0-99.0); Mean Platelet Volume 10.6 fL (9.5-13.5); Monocytes Absolute Auto 0.5 10^3/uL (0.3-0.8); Monocytes Percent Auto 11.6 % (1.7-12.0); Neutrophils Absolute Auto 2.4 10^3/uL (1.4-6.5); Neutrophils Percent Auto 55.2 % (43.0-75.0); Platelet Count 210 10^3/uL (150-450); Red Blood Count 3.65 10^6/uL (4.20-5.40); Red Cell Distribution Width 13.5 % (11.0-15.0); White Blood Count 4.3 10^3/uL (4.0-11.0)
[2025-01-14 07:20] LABS: Alanine Aminotransferase 14 U/L (14-59); Albumin Globulin Ratio 1.1; Albumin Level 2.9 g/dL (3.4-5.0); Alkaline Phosphatase 73 U/L (46-116); Anion Gap 13.8; Aspartate Amino Transferase 14 U/L (15-37); BUN Creatinine Ratio 22.6; Bilirubin Total 0.6 mg/dL (0.2-1.0); Calcium 8.4 mg/dL (8.5-10.1); Carbon Dioxide 22.2 mmol/L (21.0-32.0); Chloride 112 mmol/L (98-107); Creatine Kinase 60 U/L (26-192); Estimated GFR (African America >60 (>=60 mL/min/1.73m^2); Estimated GFR (Non-African Ame >60 (>=60 mL/min/1.73m^2); Globulin 2.7 g/dL; Glucose 83 mg/dL (74-106); Sodium 144 mmol/L (136-145); Total Protein 5.6 g/dL (6.4-8.2)
[2025-01-14 07:55] VITALS: BP 113/62; PULSE 77; TEMP 36.4; O2SAT 92
[2025-01-14] MEDS: ENOXAPARIN SODIUM 40 MG/0.4 ML SYRINGE SUBQ (08:58)
[2025-01-14] MEDS: FUROSEMIDE 20 MG TABLET PO (08:58)
[2025-01-14] MEDS: METOPROLOL TARTRATE 25 MG TABLET PO ×2 (08:58→20:27)
[2025-01-14] MEDS: SPIRONOLACTONE 25 MG TABLET PO (08:58)
[2025-01-14] MEDS: DORZOLAMIDE HCL 2%/TIMOLOL MALEATE 0.5% 200 DROP/10 ML BOTTLE OP ×2 (08:59→20:27)
[2025-01-14] MEDS: ISOSORBIDE MONONITRATE 60 MG TAB.ER.24H PO ×2 (08:59→20:27)
[2025-01-14] MEDS: CELECOXIB 200 MG CAPSULE PO (09:04)
[2025-01-14] MEDS: CELECOXIB 100 MG CAPSULE 200 MG PO ×2 (09:05→20:27)
[2025-01-14 11:44] VITALS: BP 113/67; PULSE 69; TEMP 36.6; O2SAT 92
--- NOTE | 2025-01-14 12:10 | PM.PN ---
Progress Note: Subjective Subjective Interval history: Patient is resting comfortably. She denies any current pain. No leg pain or muscle spasms. Eating well. No complaints. Exam Narrative Exam Narrative: General: Patient is alert, and oriented to person, place and time with normal affect, proper hygiene Skin: no visible rashes, or ulcers Head: atraumatic, acephalic Eyes: PERRLA, no nystagmus present, conjunctiva clear, no scleral icterus Ears: normal gross auditory acuity Heart: Normal rate and rhythm, no murmurs/rubs/gallops Lungs: no audible wheezes, crackles and normal breath sounds all lung lamar Abdomen: Normal audible bowel sounds, no distension, No palpable masses, no organomegaly, no rebound/guarding/ or rigidity Musculoskeletal: +1 swelling bilateral lower extremities Neuro: CN II-X grossly intact, normal sensation upper and lower extremities Constitutional Vital Signs, click to edit/add: Last Vital Signs Temp 97.8 F 01/14/25 11:44 Pulse 69 01/14/25 11:44 Resp 16 01/14/25 11:44 BP 113/67 01/14/25 11:44 Pulse Ox 92 L 01/14/25 11:44 O2 Del Method Room Air 01/14/25 11:44 Progress Note: Objective Labs Labs: Short CBC 01/13/25 01/14/25 Range/Units 14:12 06:12 WBC 8.1 4.3 (4.0-11.0) 10^3/uL Hgb 13.7 11.8 L (12.0-16.0) g/dL Hct 40.5 34.9 L (36.0-48.0) % Plt Count 226 210 (150-450) 10^3/uL BMP 01/13/25 01/14/25 14:12 06:12 Sodium 139 144 Potassium 4.0 4.0 Chloride 105 112 H Carbon Dioxide 24.2 22.2 BUN 23.0 H 19.0 H Creatinine 1.12 H 0.84 Glucose 129 H 83 Calcium 9.1 8.4 L Cardiac Enzymes 01/13/25 01/14/25 Range/Units 14:12 06:12 Total Creatine Kinase 112 60 (26-192) U/L CK-MB (CK-2) 2.37 (<=3.60) ng/mL Liver Function 01/13/25 01/14/25 Range/Units 14:12 06:12 Total Bilirubin 0.7 0.6 (0.2-1.0) mg/dL AST 17 14 L (15-37) U/L ALT 20 14 (14-59) U/L Alkaline Phosphatase 91 73 (46-116) U/L Albumin 3.6 2.9 L (3.4-5.0) g/dL Progress Note: A&P Assessment and Plan (1) Weakness of extremity: (2) Frequent falls: (3) Multiple sclerosis: (4) Glaucoma: Qualifiers: Glaucoma type: unspecified Laterality: unspecified laterality Qualified Code(s): H40.9 - Unspecified glaucoma (5) HTN (hypertension): Qualifiers: Hypertension type: primary hypertension Qualified Code(s): I10 - Essential (primary) hypertension Plan reviewed labs, vitals stable. Will get PT/OT evaluation. continue home medications. Monitor CK level and normal x 2, cbc and cmp normal. Patient is a DNRCCA will continue aspirin, Lovenox PT/OT evaluation tomorrow and discharge planning for further safety concerns and ambulatory dysfunction.
[2025-01-14 12:21] LABS: Bilirubin Urine NEGATIVE (NEGATIVE); Blood Urine NEGATIVE (NEGATIVE); Clarity Urine SLIGHTLY CLOUDY (CLEAR); Color Urine LT. YELLOW (YELLOW); Glucose Urine UA NEGATIVE (NEGATIVE); Ketones Urine NEGATIVE (NEGATIVE); Leukocyte Esterase Urine LARGE (NEGATIVE); Nitrite Urine NEGATIVE (NEGATIVE); Protein Urine NEGATIVE (NEG/TRACE); Urine Microscopic Indicated YES
[2025-01-14 12:27] LABS: Bacteria Urine SMALL #/HPF (NONE SEEN); Cast Seen? NONE SEEN #/LPF (NONE SEEN); Crystals Seen? None Seen #/HPF (None Seen); Mucus Urine TRACE (NONE SEEN); RBC Urine 0-2 #/HPF (0-2); Squamous Epithelial Cell Urine FEW #/LPF (NONE/RARE); Urine Culture Indicated YES-FRMC; WBC Urine 20-50 #/HPF (NONE SEEN)
[2025-01-14 15:17] VITALS: BP 100/52; PULSE 70; TEMP 36.6; O2SAT 91
[2025-01-14 19:27] VITALS: BP 110/66; PULSE 74; TEMP 36.7; O2SAT 92
[2025-01-14] MEDS: LATANOPROST 0.005% 2.5 ML BOTTLE 1 DROP OP (20:27)
[2025-01-14] MEDS: CEPHALEXIN 500 MG CAPSULE PO (20:27)
[2025-01-14 23:17] VITALS: BP 105/58; PULSE 64; TEMP 36.6; O2SAT 92
[2025-01-15 02:54] VITALS: BP 109/75; PULSE 87; TEMP 36.5; O2SAT 93
[2025-01-15 07:06] VITALS: BP 120/73; PULSE 92; TEMP 36.4; O2SAT 92
--- NOTE | 2025-01-15 08:03 | PM.PN ---
Progress Note: Subjective Subjective Interval history: Patient is resting comfortably. She denies any current pain. No leg pain or muscle spasms. Eating well. No complaints. Exam Constitutional Vital Signs, click to edit/add: Last Vital Signs Temp 97.6 F 01/15/25 07:06 Pulse 92 H 01/15/25 07:06 Resp 18 01/15/25 07:06 BP 120/73 01/15/25 07:06 Pulse Ox 92 L 01/15/25 07:06 O2 Del Method Room Air 01/15/25 07:06 Progress Note: Objective Labs Labs: Urine 01/14/25 Range/Units 12:00 Urine Color Lt. yellow (YELLOW) Urine Clarity Slightly cloudy A (CLEAR) Urine pH 6.0 (5.0-9.0) Ur Specific [place] 1.020 (1.005-1.025) Urine Protein Negative (NEG/TRACE) mg/dL Urine Glucose (UA) Negative (NEGATIVE) mg/dL Progress Note: A&P Assessment and Plan (1) Weakness of extremity: (2) Frequent falls: (3) Multiple sclerosis: (4) Glaucoma: Qualifiers: Glaucoma type: unspecified Laterality: unspecified laterality Qualified Code(s): H40.9 - Unspecified glaucoma (5) HTN (hypertension): Qualifiers: Hypertension type: primary hypertension Qualified Code(s): I10 - Essential (primary) hypertension
[2025-01-15] MEDS: ISOSORBIDE MONONITRATE 60 MG TAB.ER.24H PO (08:46)
[2025-01-15] MEDS: CEPHALEXIN 500 MG CAPSULE PO (08:47)
[2025-01-15] MEDS: SPIRONOLACTONE 25 MG TABLET PO (08:47)
[2025-01-15] MEDS: METOPROLOL TARTRATE 25 MG TABLET PO (08:47)
[2025-01-15] MEDS: DORZOLAMIDE HCL 2%/TIMOLOL MALEATE 0.5% 200 DROP/10 ML BOTTLE OP (08:47)
[2025-01-15] MEDS: CELECOXIB 100 MG CAPSULE 200 MG PO (08:47)
[2025-01-15] MEDS: FUROSEMIDE 20 MG TABLET PO (08:47)
[2025-01-15] MEDS: ENOXAPARIN SODIUM 40 MG/0.4 ML SYRINGE SUBQ (08:47)
--- NOTE | 2025-01-15 10:00 | CM.NOTE ---
Rounds made with Dr. Keys, discussed with pt plan of care and AM labs. Pt will discharge to home today with HH services.
--- NOTE | 2025-01-15 12:03 | SWNOTE1 ---
Medicare Outpatient Observation Notice reviewed and discussed with patient. Pt. verbalized understanding and signed the form. Original given to patient and copy placed in patient?s chart.
--- NOTE | 2025-01-15 12:03 | SWNOTE1 ---
SW met with pt to discuss dc needs. Pt lives at home by herself. Pt does have a walker that she does use if needed. Pt has family that can help as needed. 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 Pt is open to having HH come in again, as it is recommended. She would like to use [facility] as she has used them in the past. SW to send referral. Nurse in room as well. Referral sent to [facility] . Referral included face sheet, ED note, H&P, provider notes, case management report, and PT/OT notes.
--- NOTE | 2025-01-15 12:18 | PM.DS1 ---
DS: Providers Provider Date of admission: 01/13/25 16:13 Primary care physician: MAYRA BATISTA Attending physician on admission: Judy Keys Consults: 01/13/25 15:45 Occupational Therapy Eval and Treat Routine Reason for consultation: weakness and falls Has provider been notified: No Physical Therapy Eval and Treat Routine Reason for consultation: weakness and falls Has provider been notified: No Discharging clinician: Judy Keys DS: Diagnosis Discharge Diagnosis (1) Weakness of extremity: (2) Frequent falls: (3) Multiple sclerosis: (4) Glaucoma: Qualifiers: Glaucoma type: unspecified Laterality: unspecified laterality Qualified Code(s): H40.9 - Unspecified glaucoma (5) HTN (hypertension): Qualifiers: Hypertension type: primary hypertension Qualified Code(s): I10 - Essential (primary) hypertension DS: Summary Hospital Course Hospital Course: Patient is a 84 y.o white female who resides at home alone with history of Multiple Sclerosis, falls, hypertension, OA, glaucoma who had her left leg give out and she fell at home. She was not able to get up or get to her lift chair. She was on the floor for about 5 hours when her daughter found her and called 911. patient denies any LOC, no current pain. Patient refused CT's of the head and neck as she said she didn't hit the ground hard. Labs are stable. CK level normal, WBC's normal, Electrolytes normal. Urinalysis was positive and patient was started on Keflex. Daughter is present with patient at the time of admission. Patient has had prior falls and pelvic fracture in the past and went to the [facility]. Daughter is concerned about patient's safety at home alone. I have also discussed Advanced Directives with patient and daughter. She wishes to be a DNRCCA, this was signed and documented on the chart. Over the last 2 days, patient labs and vitals are within normal limits and stable. She worked with PT today who recommend home health services, continuing to use her walker and possibly her AFO device for left foot/leg. patient states she will also look into getting a new one. OT also recommended Home Health. Patient is amendable to this and will be discharged home today in stable condition. I will treat her UTI with Keflex 500mg BID x 6 more days. Urine culture is pending at the time of discharge. She has close follow up with her PCP. Status at Discharge Functional status at discharge: uses cane/walker Overall status at discharge: patient is back to baseline Time Spent with Patient Time attestation: Total time spent providing and/or coordinating discharge services: Time spent: greater than 30 minutes Exam Narrative Exam Narrative: General: Patient is alert, and oriented to person, place and time with normal affect, proper hygiene Skin: no visible rashes, or ulcers Head: atraumatic, acephalic Eyes: PERRLA, no nystagmus present, conjunctiva clear, no scleral icterus Ears: normal gross auditory acuity Heart: Normal rate and rhythm, no murmurs/rubs/gallops Lungs: no audible wheezes, crackles and normal breath sounds all lung lamar Abdomen: Normal audible bowel sounds, no distension, No palpable masses, no organomegaly, no rebound/guarding/ or rigidity Musculoskeletal: no swelling bilateral lower extremities Neuro: CN II-X grossly intact, normal sensation upper and lower extremities Constitutional Vital Signs, click to edit/add: Last Vital Signs Temp 97.6 F 01/15/25 07:06 Pulse 92 H 01/15/25 07:06 Resp 18 01/15/25 07:06 BP 120/73 01/15/25 07:06 Pulse Ox 92 L 01/15/25 07:06 O2 Del Method Room Air 01/15/25 07:06 DS: Data Data Completed and Pending Labs on day of discharge: Labs from last 24 hours 01/14/25 12:00 Urine Color Lt. yellow Urine Clarity Slightly cloudy A Urine pH 6.0 Ur Specific [place] 1.020 Urine Protein Negative Urine Glucose (UA) Negative Urine Ketones Negative Urine Occult Blood Negative Urine Nitrite Negative Urine Bilirubin Negative Urine Urobilinogen 2.0 A Ur Leukocyte Esterase Large A Urine RBC 0-2 Urine WBC 20-50 A Ur Squamous Epith Cells Few A Urine Crystals None seen Urine Bacteria Small A Urine Casts None seen Urine Mucus Trace A Ur Culture Indicated? Yes-[facility] Preliminary micro results at discharge 01/14/25 12:00 Urine Culture - Preliminary Urine,Clean Catch Pending - Specimen sent to [facility] Discharge Plan Discharge Disposition: Home Health Service Condition: Good Discharge Medications: New cephalexin 500 mg Capsule 500 mg PO BID 6 Days Qty: 12 0RF Continued furosemide 20 mg tablet 20 mg PO DAILY latanoprost 0.005 % drops 1 drp OPHTHALMIC (EYE) QPM spironolactone 25 mg tablet 25 mg PO DAILY isosorbide mononitrate 60 mg tablet extended release 24 hr 60 mg PO BID metoprolol tartrate 25 mg tablet 25 mg PO BID dorzolamide-timolol 22.3-6.8 mg/mL drops 1 drp OPHTHALMIC (EYE) BID celecoxib 200 mg capsule 200 mg PO Q12H Activity: ambulate only with your walker and increase activity as tolerated Activity Detail: would benefit to wear AFO device Diet: advance to your usual diet Print Language: Liberian Patient Instructions: Fall Prevention (DC), Urinary Tract Infection in Older Adults (DC) Forms: Portal Instructions Follow Up Appointments: January 16 @ 3pm with Dr. Batista [phone] Discharge location: Home with Home Health services
--- NOTE | 2025-01-15 13:00 | SWNOTE1 ---
[facility] called and they are able to accept. SW to let pt know and will call daughter.
--- NOTE | 2025-01-15 13:26 | SWNOTE1 ---
FERNANDO faxed over CRF, dc med rec, and dc summary to [facility].
--- NOTE | 2025-01-16 14:47 | CM.DCFOLLOWU ---
1st attempt 01/16/25, no answer
--- NOTE | 2025-01-17 13:01 | CM.DCFOLLOWU ---
01/17-2nd attempt. No answer
--- NOTE | 2025-01-18 16:10 | CM.DCFOLLOWU ---
01/18/25 3rd attempt, no answer
== END 2025-01-15 12:34 | disposition home health service (06) ==
LOC: ER 15:22 → MS 16:38
PROVIDERS: Physician Assistant; Admitting Provider Family Medicine; Emergency Provider Emergency Medicine; PCP Family Medicine; Visit Provider Family Medicine
DX: R53.1 Weakness (principal); N39.0 Urinary tract infection, site not specified; G35 Multiple sclerosis; Z91.81 History of falling; I10 Essential (primary) hypertension; M19.90 Unspecified osteoarthritis, unspecified site; Z66 Do not resuscitate; Z87.440 Personal history of urinary (tract) infections; H40.9 Unspecified glaucoma; Z79.899 Other long term (current) drug therapy
CPT/HCPCS: 36415; 71045; 80053; 81001; 82550; 82553; 83605; 83735; 83874; 84443; 84484; 85007; 85025; 85027; 85610; 87086; 93005; 96372; 97161; 97165; 99285; G0378; J1650

== ENCOUNTER 2025-05-16 05:48 | Emergency (ER) | payer MEDICARE, SELFPAY ==
--- OUTSIDE RECORDS SUMMARY | 2025-05-16 05:54 | XMS_ITS | Clinical Summary ---
Author Organization [facility] Healthcare Address [address] [place] [address] Care Team Providers Care Sofa Inspector Name Role Phone Lio Batista MD Primary Care Provider [phone] Allergies Active Allergy Reactions Criticality Noted Date Comments Penicillins Rash Low 12/25/2020 Other Reaction(s): rash Medications aspirin 81 MG EC tablet Take 81 mg by mouth. 3 Active cyanocobalamin (Vitamin B-12) 100 MCG tablet 1 (one) time each day at the same time. Active dorzolamide (Trusopt) 2 % ophthalmic solution Administer 1 drop into affected eye(s). 3 Active furosemide (Lasix) 20 MG tablet Take 1 tablet by mouth in the morning. 2 Active HYDROcodone-constantine taminophen (Ninety Six) 5-325 MG tablet TAKE 1 TABLET BY MOUTH THREE TIMES DAILY NEEDED FOR PAIN; to last 21 days 3 Active Ibuprofen capsule 2 capsule with food or milk as needed Orally two times daily Active lidocaine (Lidoderm) 5 % patch Apply topically. 3 Active metoprolol tartrate (Lopressor) 25 MG tablet Take 1 tablet by mouth in the morning and 1 tablet before bedtime. 3 Active spironolactone (Aldactone) 25 MG tablet Take 1 tablet by mouth in the morning. 3 Active alpha tocopherol (Vitamin E) 400 units capsule 1 capsule 1 (one) time each day at the same time. Active liothyronine (Cytomel) 5 MCG tablet Take 1 tablet by mouth in the morning. Active nitroglycerin (Nitrostat) 0.[address] 0.4 mg under the tongue 3 Active latanoprost (Xalatan) 0.005 % ophthalmic solutionIndicat ions:Primary open angle glaucoma (POAG) of both eyes, moderate stage Administer 1 drop into both eyes at bedtime 7.5 mL 3 4 Active dorzolamide-lola olol (Cosopt) 2-0.5 % ophthalmic solutionIndicat ions:Primary open angle glaucoma (POAG) of both eyes, moderate stage PLACE 1 DROP INTO BOTH EYES IN THE MORNING AND 1 DROP BEFORE BEDTIME 10 mL 3 5 Active Active Problems Problem Noted Date Diagnosed Date Primary open angle glaucoma (POAG) of both eyes, moderate stage 05/17/2023 Dry eyes 05/17/2023 Age-related nuclear cataract of both eyes 2022 Blepharitis of upper and lower eyelids of both e yes 05/17/2023 Family History Medical History Relation Name Comments Parkinsonism Father Heart disease Mother Diabetes Sister Relation Name Status Comments Daughter 1 daughter Father (Age 85) Mother (Age 85) Sister 3 sisters Son 1 son Social History Tobacco Use Types Packs/Day Years Used Date Smoking Tobacco: Never Smokeless Tobacco: Never Tobacco Cessation:Counseling Given: No Alcohol Use Standard Drinks/Week Comments Never 0 (1 standard drink = 0.6 oz pur e alcohol) Comments Unknown Sex and Gender Information Value Date Recorded Sex Assigned at Not on file Legal Sex Female 8:34 PM EDT Gender Identity Not on file Sexual Orientation Not on file Last Filed Vital Signs Vital Sign Reading Time Taken Comments Blood Pressure 128/72 12/13/2019 12:00 PM EST Pulse - - Temperature - - Respiratory Rate - - Oxygen Saturation - - Inhaled Oxygen Concentration - - Weight 71.7 kg (158 lb) 12/17/2022 12:00 PM EST Height 162.6 cm (5' 4 ) 12/17/2022 12:00 PM EST Body Mass Index 27.12 12/17/2022 12:00 PM EST Plan of Treatment Health Maintenance Due Date Last Done Comments Pneumococcal Vaccine: 65+ Years (1 of 1 - PCV) 989 Influenza Vaccine (#1) 2025 Insurance [employer] MEDICARE Care Teams Sofa Inspector Relationship Specialty Start Date End Date Lio Batista MD [address] [place] [address] PCP - General Family Medicine 08/02/24
--- OUTSIDE RECORDS SUMMARY | 2025-05-16 05:54 | XMS_ITS | Clinical Summary ---
Author Organization [facility] Address [address] [place] [address] Care Team Providers Care Continuity Editor Name Role Phone Unavailable Primary Care Provider Unavailabl e Social History Tobacco Use Types Packs/Day Years Used Date Smoking Tobacco: Never Assessed [place] Safety & Environment Answer Date Rec orded Fear of Current or Ex-Partner Not on file Emotionally Abused Not on file 12/02/2023 Physically Abused Not on file 12/02/2023 Sexually Abused Not on file 12/02/2023 Physically or Sexually Abused Not on file Comments Unknown Sex and Gender Information Value Date Recorded Sex Assigned at Not on file Legal Sex Female 12:37 AM EDT Gender Identity Not on file Sexual Orientation Not on file Plan of Treatment Not on file
--- OUTSIDE RECORDS SUMMARY | 2025-05-16 05:54 | XMS_ITS | Clinical Summary ---
Author Organization [facility] Address [address], [address] [place] [address] Care Team Providers Care Sustainable Design Consultant Name Role Phone Lio Batista MD Primary Care Provider [phone] Allergies Active Allergy Reactions Criticality Noted Date Comments Penicillins 03/17/2021 Medications nitroGLYCERIN (NITROSTAT) 0.[address] 1 tablet under the tongue every 5 minutes as needed for Chest pain up to max of 3 total doses. If no relief after 1 dose, call 911. Active dorzolamide (TRUSOPT) 2 % ophthalmic solution 2 drops in the morning and 2 drops in the evening. Active latanoprost (XALATAN) 0.005 % ophthalmic solution 1 drop nightly Active furosemide (LASIX) 20 MG tablet Take 1.5 tablets by mouth daily 320 tablet 2 05/11/2024 Active spironolactone (ALDACTONE) 25 MG tablet Take 1 tablet by mouth 2 times daily 180 tablet 3 08/28/2024 Active isosorbide mononitrate (IMDUR) 60 MG extended release tablet TAKE 1 TABLET BY MOUTH TWICE DAILY 200 tablet 2 10/30/2024 Active celecoxib (CELEBREX) 200 MG capsule TAKE 1 CAPSULE BY MOUTH TWICE DAILY 180 capsule 3 01/01/2025 Active metoprolol tartrate (LOPRESSOR) 25 MG tablet TAKE 1 TABLET BY MOUTH TWICE DAILY 200 tablet 2 04/09/2025 Active Encounters Date Type Department Care Team Description 04/06/2025 Refill [facility] Process Validation Engineer [address] [place] [id number] Bo Garcia MD Medication Refill from Last 3 Months Family History Medical History Relation Name Comments Heart Attack Mother Relation Name Status Comments Father Mother Social History Tobacco Use Types Packs/Day Years Used Date Smoking Tobacco: Never Smokeless Tobacco: Never Tobacco Cessation:Counseling Given: Not Answered Alcohol Use Standard Drinks/Week Comments Never 0 (1 standard drink = 0.6 oz pur e alcohol) Comments Unknown Sex and Gender Information Value Date Recorded Sex Assigned at Not on file Legal Sex Female 7:45 PM EST Gender Identity Not on file Sexual Orientation Not on file Last Filed Vital Signs Vital Sign Reading Time Taken Comments Blood Pressure 130/70 08/28/2024 12:22 PM EST Pulse 87 08/28/2024 12:21 PM EST Temperature - - Respiratory Rate - - Oxygen Saturation 94% 08/28/2024 12:21 PM EST Inhaled Oxygen Concentration - - Weight - - Height - - Body Mass Index - - Plan of Treatment Upcoming Encounters Date Type Department Care Team (Late st Contact Info) Description 08/21/2025 11:30 AM EST Office Visit [facility] Process Validation Engineer [address] [place] [id number] Haroon Rainey DO [address] [place] [address] 1 yr f/u Health Maintenance Due Date Last Done Comments Depression Screen 1952 DTaP/Tdap/Td vaccine (1 - Tdap) 1958 Pneumococcal 50+ years Vaccine (1 of 1 - PCV) 1989 Shingles vaccine (1 of 2) 1989 DEXA (modify frequency per FRAX score) 1994 Respiratory Syncytial Virus (RSV) or age 60 yrs+ (1 - 1-dose 75+ series) 2014 Annual Wellness Visit (Medicare) 09/06/2023 COVID-19 Vaccine ( - season) 2024 08/04/2023, 07/15/2022, 09/24/2021, Additional history exists Flu vaccine (#1) 05/11/2025 Hepatitis A vaccine Aged Out No longe r eligible based on patient's age to complete this topic Hepatitis B vaccine Aged Out No longe r eligible based on patient's age to complete this topic Hib vaccine Aged Out No longer eligi ble based on patient's age to complete this topic Meningococcal (ACWY) vaccine Aged Out No longer eligible based on patient's age to complete this topic Meningococcal B vaccine Aged Out No l onger eligible based on patient's age to complete this topic Polio vaccine Aged Out No longer elig ible based on patient's age to complete this topic Insurance MEDICARE [address] MEDICARE Care Teams Sustainable Design Consultant Relationship Specialty Start Date End Date Lio Batista MD [address] [place] [address] PCP - General 09/07/23
--- OUTSIDE RECORDS SUMMARY | 2025-05-16 05:54 | XMS_ITS | Encounter Summary ---
Author Organization [facility] Address [address], [address] [place] [address] Care Team Providers Care Truck Body Repairer Name Role Phone Lio Batista MD Primary Care Provider [phone] Encounter Details Date Type Department Care Team (Late st Contact Info) Description 08/23/2024 Orders Only [facility] Senior Technical Business Analyst [address] [place] [id number] Provider, MD Darren Social History Tobacco Use Types Packs/Day Years Used Date Smoking Tobacco: Never Smokeless Tobacco: Never Alcohol Use Standard Drinks/Week Comments Never 0 (1 standard drink = 0.6 oz pur e alcohol) Comments Unknown Sex and Gender Information Value Date Recorded Sex Assigned at Not on file Legal Sex Female 7:45 PM EST Gender Identity Not on file Sexual Orientation Not on file documented as of this encounter Plan of Treatment Upcoming Encounters Date Type Department Care Team (Late st Contact Info) Description 08/21/2025 11:30 AM EST Office Visit [facility] Senior Technical Business Analyst [address] [place] [address] Haroon Rainey DO [address] [place] [address] 1 yr f/u documented as of this encounter Procedures Procedure Name Priority Date/Time Associated Diagnosis Comments XR CHEST 1 VIEW Routine 02/15/2024 12:51 PM EDT documented in this encounter Results * XR CHEST 1 VIEW (02/15/2024 12:51 PM EDT) Anatomical Region Laterality Modality Chest Radiographic Isabella ging us Historical Provider MD [facility] Final Result documented in this encounter Visit Diagnoses Not on filedocumented in this encounter Care Teams Truck Body Repairer Relationship Specialty Start Date End Date iLo Batista MD [address] [place] [address] PCP - General 09/07/23 documented as of this encounter
--- NOTE | 2025-05-16 05:56 | ED.LOWEXI1 ---
HPI HPI - Extremity Injury (Lower) General Stated Complaint: FALL Time Seen by Provider: 05/16/25 05:51 History of Present Illness HPI Narrative: patient fell at home. States she was getting out of bed to grab her walker. Past historoy of slip down and injured her left ankle. Juan called and found a laceration of the ankle and deformity. They contacted [facility] Juan arrived here and while waiting for the helicopter decided to bring her into the ER. she arrives awake and in no obvious distress. Did receive fentanyl before arrival. Her left ankle is rotated laterally. Both feet with dorsal puffiness. No discolration of the left foot and she can move her toes Related Data Home Medications ?Medication ?Instructions ?Recorded ?Confirmed dorzolamide 22.3 mg-timolol 6.8 1 drp ophthalmic (eye) BID 02/15/24 01/13/25 mg/mL eye drops furosemide 20 mg tablet 20 mg PO DAILY 02/15/24 01/13/25 isosorbide mononitrate 60 mg 60 mg PO BID 02/15/24 01/13/25 tablet,extended release 24 hr latanoprost 0.005 % eye drops 1 drp ophthalmic (eye) QPM 02/15/24 01/13/25 metoprolol tartrate 25 mg tablet 25 mg PO BID 02/15/24 01/13/25 spironolactone 25 mg tablet 25 mg PO DAILY 02/15/24 01/13/25 celecoxib 200 mg capsule 200 mg PO Q12H 01/13/25 01/13/25 Previous Rx's ?Medication ?Instructions ?Recorded cephalexin 500 mg capsule 500 mg PO BID 6 days #12 caps 01/15/25 Allergies Allergy/AdvReac Type Severity Reaction Status Date / Time Penicillins Allergy Severe Verified 02/15/24 13:23 Opioid HPI Opioid Management Most Recent Pain and Opioid Data: Last Pain Scale 3 01/15/25, 11:00 Last Pain Intensity 3 01/15/25, 11:00 Last ORT Total Score 0 01/13/25, 16:50 Last ORT Risk Category Low Risk 01/13/25, 16:50 Review of Systems ROS Status of ROS 10 or more systems reviewed and unremarkable except as noted in history and below [facility] Medical History (Updated 05/16/25 @ 06:11 by Marco Antonio Sánchez MD) Ambulatory dysfunction ?R26.2 - Difficulty in walking, not elsewhere classified (ICD-10) Abnormal chest xray ?R93.89 - Abnormal findings on diagnostic imaging of other specified body structures (ICD-10) Generalized weakness ?R53.1 - Weakness (ICD-10) Inferior pubic ramus fracture ?S32.599A - Other specified fracture of unspecified pubis, initial encounter for closed fracture (ICD-10) Fall ?W19.XXXA - Unspecified fall, initial encounter (ICD-10) Acute UTI ?N39.0 - Urinary tract infection, site not specified (ICD-10) Closed pelvic fracture ?S32.9XXA - Fracture of unspecified parts of lumbosacral spine and pelvis, initial encounter for closed fracture (ICD-10) History of fractured vertebra ?Z87.81 - Personal history of (healed) traumatic fracture (ICD-10) Glaucoma ?H40.9 - Unspecified glaucoma (ICD-10) Cataracts, bilateral ?H26.9 - Unspecified cataract (ICD-10) HTN (hypertension) ?I10 - Essential (primary) hypertension (ICD-10) Multiple sclerosis ?G35 - Multiple sclerosis (ICD-10) Family History Grandmother Family history of diabetes mellitus Sister Family history of diabetes mellitus Father Family history of hypertension Mother Family history of hypertension Family history of myocardial infarction Social History (Updated 01/13/25 @ 16:39 by Sabrina Mosqueda) Within the past year, how often did you have a drink containing alcohol: never Score interpretation: A score less than 3 is consistent with normal alcohol consumption. Smoking status: Never smoker Second hand tobacco smoke exposure: No Non-prescribed substance use: denies use Previous occupational history: Retired House Known occupational exposures/hazards: No Highest level of school completed/degree received: high school graduate Do you want help with school or training: No Are you now , , , , never or living with a partner: In a typical week, how many times do you talk on the telephone with family, friends, or neighbors: 3 or more times per week How often do you get together with friends or relatives: 3 or more times per week How often do you attend samaritan or buddhist services: never Do you belong to any clubs or organizations such as samaritan groups unions, fraternal or athletic groups, or school groups: no Total score: 1 Score interpretation: A score of less than or equal to 1 indicates the most socially isolated. Little interest or pleasure in doing things: not at all Feeling down, depressed, or hopeless: not at all Feel stressed/tense/nervous/anxious/difficulty sleeping: not at all Due to disability, difficulty making decisions: No Do you think of yourself as: straight/heterosexual Gender Identity: female Exam Constitutional Common normals: no apparent distress, average body habitus, oriented x3, no limitations, healthy appearing, alert and well nourished HENMT Common normals: normocephalic and head/scalp atraumatic Eye Common normals: EOMs intact bilaterally Respiratory Common normals: normal respiratory effort, no retractions and no use of accessory muscles Cardio Common normals: regular rate, regular rhythm, S1 normal heart sound and S2 normal heart sound GI Common normals: Normal to inspection, nondistended, normoactive bowel sounds present, soft to palpation and non-tender Back & Pelvis Other: no hip tenderness Extremity Other: deformity left ankle with lateral rotation of the left ankle Neuro Common normals: oriented x3, CN's II-XII intact bilaterally, moves all extremities and no focal motor deficits Psych Appearance: grossly normal MDM - Extremity Injury (Lower) MDM Narrative Medical decision making narrative: patient transferred from home with open laceration and fracture deformity of the left [facility] at the [facility]. [facility] paraedics arrived here first and decided to bring the patient in. Patient awake and denies injury other than her ankle. He daughter Dr Mac is also here. left foot doral pulse prsent via doppler. Patient has sensation of the left foot and can move her toes. Her dressing and splint were not removed as the Helicopter team arrived and were ready to transport her. Discharge Plan Discharge Clinical Impression: Open fracture of left fibula and tibia [facility]
[2025-05-16 06:13] VITALS: BP 156/64; PULSE 80; TEMP 36.6; O2SAT 96
== END 2025-05-16 06:26 | disposition short-term general hospital (02) ==
PROVIDERS: Emergency Provider Internal Medicine; PCP Nurse Practitioner Family
DX: S82.62XB Displaced fracture of lateral malleolus of left fibula, initial encounter for open fracture type I or II (principal); S82.52XB Displaced fracture of medial malleolus of left tibia, initial encounter for open fracture type I or II; S91.012A Laceration without foreign body, left ankle, initial encounter; W06.XXXA Fall from bed, initial encounter
CPT/HCPCS: 73600; 99285